=== PATIENT | female | born 1950 | race Caucasian/White ===

== ENCOUNTER → 2016-09-29 | Outpatient (CLI) | payer MEDICAID ==
[~2016-09-29] VITALS: Ht 165.1 cm; Wt 80.3 kg
[~2016-09-29] MED LIST: ADV1DS; ASP325T PO; ASP81TEC; BUDE10.22 IH; CARBINOXAMINE; CATHETER FLUSH 10 ML SYR IV PRN; CHOL100048 PO; CLD600T; CLON0.5T25 PO; CLON1TAB36; CLPD75T PO; CTRZ10T PO; CYAN1LOZ PO; CYCL10TA45; DESV50TA PO; DULO30CA; ENAL2.5T PO; ESTR1TAB24 PO; FENO145T; FENO145T2 PO; FRSM40T PO; GABA100C PO; GABA600T2 PO; GABA800T2 PO; GBPN100C PO; HYDR-2856 PO; LEVA1.256 NEB; LNS30CCR PO; LORA2TAB PO; MELO-195 PO; MELO7.5T; METANX; MIRAPEX; MONT10TA24 PO; MTF500T PO; MTF500TCR; MTH750T PO; NFNEB10T PO; OMEG-109 PO; PRD20T PO; PRNMV1T; PROP20TA23; QUIN10TA23 PO; REGADENOSON 0.4 MG/5 ML SYR (LEXISCAN) IV ONE; RNT150T PO; ROPI1TAB2 PO; TIOT18CA2 IH; VITA-185 PO; VRP240TCR PO; [UNRECOGNIZED DRUG - CODE] PO
[2016-09-29 13:13] VITALS: BP 145/88
--- NOTE | 2016-09-29 20:52 | STRESS TEST ---
PROCEDURE PHYSICIAN: JASPREET RIOS DATE OF PROCEDURE: 09/29/2016 LEXISCAN MYOVIEW STRESS TEST REPORT REFERRING PHYSICIAN: Dr. Maryellen Ray. INDICATIONS FOR THE PROCEDURE: 1. Congestive heart failure. 2. Peripheral arterial disease. BASELINE HEART RATE: 81 BASELINE BLOOD PRESSURE: 145/88 BASELINE EKG: Sinus rhythm with no ischemic changes. SUMMARY: The patient was injected with 10.17 mCi of technetium 99 Myoview and the resting images were obtained. Then the patient received 0.4 mg of Lexiscan followed by 30.2 mCi of technetium 99 Myoview. Throughout the test, there were no EKG changes. The resting and stress images were reviewed and compared in the short axis, horizontal long axis, and vertical long axis views. Review of the images showed breast attenuation with mild decreased uptake at the basal to mid anterior wall, with mild reversibility. SSS is 6, SDS 6. TID value 0.95. On the gated images, the left ventricle appeared to be normal size with diffuse left ventricular hypokinesia. Calculated ejection fraction 46%. CONCLUSION: 1. The patient tolerated Lexiscan well. 2. Breast attenuation with mild decreased uptake at the basal to mid anterior wall, with mild reversibility. 3. Normal left ventricular size with mild diffuse left ventricular hypokinesia. Calculated ejection fraction 46%. Job ID: [id number] Dictated Date: 09/29/2016 16:49:18 Telephone Operators Supervisor Date: 09/29/2016 20:49:16 / andrei
--- NOTE | 2016-09-29 21:31 | ECHOCARDIOGRAPHY REPORT ---
PROCEDURE PHYSICIAN: JASPREET RIOS DATE OF PROCEDURE: 09/29/2016 TWO DIMENSIONAL ECHOCARDIOGRAM REPORT PRIMARY PHYSICIAN: OTHER PHYSICIAN: REFERRING PHYSICIAN: Dr. Maryellen Ray, [facility] ORDERING PHYSICIAN: INDICATION FOR THE PROCEDURE: Congestive heart failure. MEASUREMENTS DERIVED VALUES LV DIAMETER (LAX) NORMALS NORMALS Diastolic 3.9 (3.6-5.2) Eject. Fract. 50% (60%+/-6%) Systolic (2.3-3.9) Diastolic Vol. % Shortening (0.22-0.42) Systolic Vol. Aortic Root IVS THICKNESS Diastolic 1 (0.6-1.1) LVPW THICKNESS Diastolic 1 (0.6-1.1) LA DIAMETER Systolic 2.9 (2.1-3.7) FINDINGS: 1. Technically suboptimal study. 2. The left ventricle is normal in size. Endocardium was not well visualized in all segments. Overall systolic function appeared to be preserved. Estimated ejection fraction 50%. 3. The left atrium is normal in size. No clot or thrombus were seen within the left atrium. 4. The right atrium and right ventricle are normal in size. No clot or thrombus were seen within the right side. 5. Mitral valve is normal in morphology with mild mitral regurgitation noted by color Doppler flow. Doppler across the mitral valve showed equalization of E:A, which is suggestive diastolic dysfunction. 6. Aortic valve is functioning normally. Leaflets were not well visualized. There is no significant aortic stenosis or regurgitation seen. 7. Tricuspid valve is normal in morphology with mild tricuspid regurgitation noted by color Doppler flow. Doppler across tricuspid valve estimated pulmonary artery pressure of 9+ right atrial pressure. 8. Pulmonic valve is functioning normally. 9. No pericardial effusion. CONCLUSION: 1. Normal left ventricular size. Endocardium was not well visualized in all segments. Overall systolic function is preserved. Estimated ejection fraction 50%. Diastolic dysfunction is suggested by Doppler. 2. Mild mitral and tricuspid regurgitation. 3. Estimated pulmonary artery pressure of 15 mmHg. Job ID: [id number] Dictated Date: 09/29/2016 17:12:25 Hospital Security Officer Date: 09/29/2016 21:26:05 / andrei
== END ==
LOC: CARD 10:53
PROVIDERS: ATTEND Physician Assistant
DX: I50.32 Chronic diastolic (congestive) heart failure (principal); I65.23 Occlusion and stenosis of bilateral carotid arteries; E11.9 Type 2 diabetes mellitus without complications; I10 Essential (primary) hypertension
CPT/HCPCS: 78452; 93017; 93306

== ENCOUNTER → 2016-10-07 | Outpatient (CLI) | payer MEDICAID ==
[~2016-10-07] MED LIST changes: -CATHETER FLUSH 10 ML SYR IV PRN; -REGADENOSON 0.4 MG/5 ML SYR (LEXISCAN) IV ONE
--- NOTE | 2016-10-11 08:35 | Diagnostic Imaging Report ---
Bilateral screening mammogram The current study was also evaluated with a Computer Aided Detection (CAD) system. Indication: Screening. No current complaints stated on the questionnaire. COMPARISON: 04/09/15 FINDINGS: The breasts are composed of a heterogeneously dense parenchyma which may decrease mammographic sensitivity. Occasional benign-appearing calcifications seen. There is a focal asymmetry in the lateral inferior aspect of the right breast measuring 7 mm. The left breast appears stable. IMPRESSION: Focal compression views and ultrasound evaluation for outer inferior right breast focal asymmetry recommended. ACR BI-RADS Category 0: Incomplete. (Needs additional imaging evaluation). Result letter will be mailed to the patient. Note: At least 10% of breast cancer is not imaged by mammography. Dictated by: Dictated on workstation # [id number]
== END ==
LOC: RAD 11:05
PROVIDERS: ATTEND Nurse Practitioner Community Health
DX: Z12.31 Encounter for screening mammogram for malignant neoplasm of breast (principal)
CPT/HCPCS: 77067

== ENCOUNTER 2016-10-11 07:01 | Day surgery (SDC) | payer MEDICAID ==
[~2016-10-11] VITALS: Ht 165.1 cm; Wt 78.5 kg
[2016-10-11] VITALS (10 sets, daily range): BP systolic 115–136; BP diastolic 70–89
[~2016-10-11 07:01] MED LIST changes: -CHOL100048 PO; -CLON0.5T25 PO; -GABA800T2 PO; -MONT10TA24 PO; -OMEG-109 PO; -QUIN10TA23 PO; -ROPI1TAB2 PO; -TIOT18CA2 IH
[2016-10-11] MEDS ORDERED: HEParin (CATH LAB) 2,000 ML IV ONE (07:08)
[2016-10-11] MEDS ORDERED: NS IV 1000 ML 1,000 ML ONE (07:08)
[2016-10-11] MEDS ORDERED: LIDOCAINE 1% INJ 20 ML (XYLOCAINE) VIAL ONE (07:08)
[2016-10-11] MEDS ORDERED: NS IV 1000 ML 1,000 ML IV SCH ×3 (07:16→08:52)
[2016-10-11 07:46] LABS: BILIRUBIN,URINE NEGATIVE (NEGATIVE); KETONES,URINE NEGATIVE (NEGATIVE); LEUKOCYTE ESTERASE ,URINE 2+ (NEGATIVE); NITRITE,URINE POSITIVE (NEGATIVE); PH,URINE 6 (5-9); PROTEIN,URINE NEGATIVE (NEGATIVE); UROBILINOGEN,URINE NORMAL (NORMAL)
--- NOTE | 2016-10-11 07:50 | Diagnostic Imaging Report ---
INDICATION: Precardiac catheter, coronary angiography. FINDINGS: Elevated left diaphragm a chronic finding. Heart size is stable. Surgical changes to the base of the left neck stable. No effusion, pneumothorax or failure pattern. IMPRESSION: No acute appearing abnormality. Dictated by: Dictated on workstation # [id number]
[2016-10-11 07:53] LABS: MEAN PLATELET VOLUME 11.9 FL (7.4-10.4); RED BLOOD COUNT 4.15 10^6/uL (4.35-5.85); RED CELL DISTRIBUTION WIDTH 14.9 % (10.0-14.5); WHITE BLOOD COUNT 6.6 10^3/uL (4.3-11.0)
[2016-10-11 07:58] LABS: INR 1.1 (0.8-1.4); PROTHROMBIN TIME PATIENT 13.9 SEC (12.2-14.7)
[2016-10-11 08:03] LABS: WBC,URINE 50-100 /HPF
[2016-10-11 08:07] LABS: BILIRUBIN,TOTAL 0.4 MG/DL (0.1-1.0); CALCIUM 9.1 MG/DL (8.5-10.1); CREATININE SERUM 0.99 MG/DL (0.60-1.30); POTASSIUM 3.7 MMOL/L (3.6-5.0); TOTAL PROTEIN 7.1 G/DL (6.4-8.2)
--- NOTE | 2016-10-11 08:12 | Cardiac Procedure Note-CS/ASA ---
Pre-Procedure Note Pre-Op Procedure Note H&P Reviewed The H&P was reviewed, patient examined and no changes noted. Date H&P Reviewed: Oct 11, 2016 Time H&P Reviewed: 08:12 Conscious Sedation Pre-Proced Time Reviewed: 08:12 ASA Class: 3 Airway Mallampati Classification: ([place] appropriate class) I. II. III, IV Lungs Heart ASA score ASA 1: a normal healthy patient ASA 2: a patient with a mild systemic disease (mid diabetes, controlled hypertension, obesity x ASA 3: a patient with a severe systemic disease that limits activity (angina , COPD, prior Myocardial infarction) ASA 4: a patient with an incapacitating disease that is a constant threat to life (CHF, renal failure) ASA 5: a moribund patient not expected to survive 24 hrs. (ruptured aneurysm) ASA 6: a declared brain patient whose organs are being harvested. For emergent operations, add the letter E after the classification Grade 3 Sedation Plan: Analgesia, Amnesia, Plan communicated to team members, Discussed options with patient/fam, Discussed risks with patient/fam Note The patient is an appropriate candidate to undergo the planned procedure, sedation, and anesthesia. The patient immediately re-assessed prior to indication. JASPREET RIOS MD Oct 11, 2016 08:12
[2016-10-11] MEDS ORDERED: OMEG-109 PO (08:13)
[2016-10-11] MEDS ORDERED: ROPI1TAB2 PO (08:13)
[2016-10-11] MEDS ORDERED: TIOT18CA2 IH (08:13)
[2016-10-11] MEDS ORDERED: GABA800T2 PO (08:13)
[2016-10-11] MEDS ORDERED: QUIN10TA23 PO (08:13)
[2016-10-11] MEDS ORDERED: CLON0.5T25 PO (08:13)
[2016-10-11] MEDS ORDERED: MONT10TA24 PO (08:13)
[2016-10-11] MEDS ORDERED: CHOL100048 PO (08:13)
[2016-10-11] MEDS ORDERED: fentaNYL INJECTION 100 MCG/2 ML AMP ONE (08:14)
[2016-10-11] MEDS ORDERED: MIDAZOLAM 5 MG/5 ML (VERSED) VIAL ONE (08:14)
--- NOTE | 2016-10-11 08:56 | Discharge Inst-Post CATH ---
Discharge Inst-CATH Post Cardiac Cath D/C Inst Follow Up/Plan Hold Metformin for [address] Crump's office in 2-4 weeks CARDIAC CATH DISCHARGE INSTRUCTIONS *Hold Metformin for 48 hours post heart cath. ACTIVITY * Go Home directly and rest. * Limit activity of the leg (or wrist if it was used) for 7 days including aerobics, swimming, jogging, bicycling, etc. * Restrict stair-climbing for 7 days if possible, if not, climb up with your non -cath leg, then bring together on the same step. * Avoid lifting, pushing, pulling or excessive movement of the affected extremity for 7 days. * Customary sexual activity may be resumed after 2 days-use caution not to use a position that strains or causes pain to the affected extremity. * No driving for 24 hours. * NO SMOKING. * Avoid straining for bowel movements for 7 days. * Gentle walking on level ground is allowed. * Returning to work will depend on the type of procedure and the results. Your doctor will discuss this with you. CALL YOUR DOCTOR FOR ANY OF THE FOLLOWING: *If bleeding from the puncture site occurs- Apply gentle pressure to site with clean cloth and call your doctor or EMS. * If a knot or lump forms under the skin, increases in size, or causes pain. * If bruising appears to be worsening or moving further down your leg instead of disappearing. * Temperature above 101 F. CARE OF YOUR GROIN INCISION; * Bruising or purple discoloration of the skin near the puncture site is common. * You may shower only, no bathtub bathing for 5 days. Be careful to avoid slipping as your leg may feel stiff. * If a closure device was used on your femoral artery, please see the attached guide regarding care of the device and your leg. * REMOVE the dressing from your groin the next day after your procedure in the shower. CARE OF YOUR WRIST INCISION; * Bruising or purple discoloration of the skin near the puncture site is common. * You may shower. * DO NOT submerge wrist. * Remove dressing in 24 hours. JASPREET CRUMP MD Oct 11, 2016 08:55
[2016-10-11] MEDS ORDERED: PATIENT MAY USE OWN MEDS, ALL PO SCH (09:00)
--- NOTE | 2016-10-11 09:29 | DISCHARGE SUMMARY ---
PROCEDURE PHYSICIAN: JASPREET RIOS DATE OF PROCEDURE: 10/11/2016 REFERRING PHYSICIAN: [facility]. BRIEF HISTORY: Mrs. Martinez is a 66-year-old lady with history of coronary artery disease, recurrent chest pain, hypertension, hyperlipidemia and peripheral arterial disease with carotid stenosis. She had an abnormal stress test. She was scheduled for left heart catheterization, possible PTCA. PROCEDURE NOTE: After explaining the procedure to the patient, all pros and cons were explained. All questions were answered. The patient signed a consent, then she was placed on the cardiac catheterization laboratory. The right groin was prepped in a sterile fashion. Local anesthesia applied to right groin. 6-Bolivian sheath was placed in the right femoral artery. Combination of right and left Rodrigo catheter were used to access the right and left coronary system. Multiple views were obtained. Pigtail catheter advanced to the left ventricular cavity. Left ventriculogram was done. Pullback LV to aorta was done. The aortic arch angiogram was done. At that point, the patient has a stent in the left carotid artery that is coming off the right innominate artery. Subsequently I was suspicious of having significant stenosis at the ostium of the left carotid artery. I decided to reintroduce the Rodrigo right catheter, advanced it to the left innominate artery and performed angiogram to the left subclavian artery. With that imaging I was able to visual a portion of the ostium of the left carotid artery. Then I pulled the catheter down and intubated the left carotid artery and performed selective angiogram to the left carotid artery. At that point catheter was removed. Sheath was removed and Mynx device deployed. Hemostasis achieved. Total contrast used a 68 mL. Total radiation is 57 mGy. FINDINGS: HEMODYNAMICS: LV pressure 122/20, end-diastolic pressure of 20, aortic pressure 131/67, mean of 97. ANATOMY: 1. LEFT MAIN CORONARY ARTERY: The left main coronary artery is bifurcating to left anterior descending and left circumflex artery with no obstructive disease. 2. LEFT ANTERIOR DESCENDING ARTERY: The left anterior descending artery is moderate in size with 40 to 50% stenosis at the proximal LAD. Mainly small kink in the LAD. Nonobstructive disease. 3. LEFT CIRCUMFLEX ARTERY: The left circumflex artery is moderate in size with no obstructive disease. 4. RIGHT CORONARY ARTERY: The right coronary artery is moderate in size with no significant obstructive disease. 5. LEFT VENTRICULOGRAM: No left ventriculogram was done. Left ventricular end-diastolic pressure is slightly elevated. 6. AORTIC ARCH ANGIOGRAM: Aortic arch angiogram appeared to be normal in size. No dissection or aneurysm. Origin of the innominate artery, left subclavian artery and left carotid artery were visualized and there was questionable stenosis at the ostium of the left subclavian artery, which appeared after selective angiogram, to be nonobstructive disease. 7. RIGHT INNOMINATE ARTERY: The right innominate artery and right subclavian selective angiogram showed no significant obstructive disease. 8. LEFT SUBCLAVIAN ARTERY SELECTION ANGIOGRAM: Left subclavian artery selective angiogram to the left subclavian artery showed patent stent. The left subclavian artery originate from the right innominate artery and has mild irregularity at its ostium due to angle. Mainly, nonobstructive disease. CONCLUSION: 1. Mild coronary artery disease to 40 to 50% proximal to mid LAD stenosis, nonobstructive disease. Otherwise, no significant obstructive disease. 2. Mildly elevated left ventricular end-diastolic pressure. 3. Normal aortic arch. 4. No significant disease in the right subclavian artery and right innominate artery. 5. Left subclavian artery originates from the right innominate artery. It has a patent stent, ostium has mild disease, nonobstructive disease. DISCUSSION AND RECOMMENDATION: Medical therapy is recommended. No intervention is warranted at this time. FINAL DIAGNOSES: 1. Coronary artery disease. 2. Carotid stenosis. 3. Hypertension. 4. Hyperlipidemia. Job ID: [id number] Dictated Date: 10/11/2016 09:02:03 Refrigeration Mechanic Date: 10/11/2016 09:27:58/andrei
== END 2016-10-11 13:22 | disposition home or self-care (01) ==
LOC: CATH 07:01 → SURG 09:05 → CATH 13:22
PROVIDERS: ATTEND Internal Medicine Cardiovascular Disease
DX: R07.89 Other chest pain (principal); I25.10 Atherosclerotic heart disease of native coronary artery without angina pectoris; I65.22 Occlusion and stenosis of left carotid artery; I10 Essential (primary) hypertension; E78.5 Hyperlipidemia, unspecified; E11.40 Type 2 diabetes mellitus with diabetic neuropathy, unspecified; M79.7 Fibromyalgia; F41.8 Other specified anxiety disorders; Z79.899 Other long term (current) drug therapy
CPT/HCPCS: 36222; 36225; 36415; 71010; 80053; 80061; 81000; 85027; 85610; 85730; 87081; 87088; 87186; 93005; 93458

== ENCOUNTER → 2016-11-04 | Outpatient (CLI) | payer MEDICAID ==
[~2016-11-04] MED LIST changes: +CHOL100048 PO; +CLON0.5T25 PO; +GABA800T2 PO; +MONT10TA24 PO; +OMEG-109 PO; +QUIN10TA23 PO; +ROPI1TAB2 PO; +TIOT18CA2 IH
--- NOTE | 2016-11-04 20:38 | Diagnostic Imaging Report ---
Right breast ultrasound. INDICATION: Right breast asymmetry seen on mammography with no definitive underlying lesion on additional compression views. FINDINGS: The retroareolar region and four quadrants of the right breast were scanned with no underlying abnormality seen. IMPRESSION: Negative study. Annual screening mammograms recommended. ACR BI-RADS Category 1: Negative. Dictated by: Dictated on workstation # [id number]
--- NOTE | 2016-11-04 20:39 | Diagnostic Imaging Report ---
Right breast diagnostic mammogram. The current study was also evaluated with a Computer Aided Detection (CAD) system. INDICATION: Asymmetries in the outer and inferior aspects of the right breast. FINDINGS: Focal compression views demonstrate less prominent asymmetries with no definite underlying lesion in favor of summation artifact of parenchyma. IMPRESSION: Less prominent asymmetries likely related to summation effect of parenchyma. Ultrasound evaluation pending. ACR BI-RADS Category 0: Incomplete. (Needs additional imaging evaluation). Result letter will be mailed to the patient. Note: At least 10% of breast cancer is not imaged by mammography. Dictated by: Dictated on workstation # [id number]
== END ==
LOC: RAD 08:09
PROVIDERS: ATTEND Nurse Practitioner Community Health
DX: R92.8 Other abnormal and inconclusive findings on diagnostic imaging of breast (principal)
CPT/HCPCS: 76641

== ENCOUNTER → 2018-02-09 | Outpatient (CLI) | payer MEDICARE, MEDICAID ==
[~2018-02-09] MED LIST changes: +QUIN10TA14 PO; -QUIN10TA23 PO
--- NOTE | 2018-02-09 12:11 | Diagnostic Imaging Report ---
INDICATION: Routine screening. Comparison is made with prior studies from 10/07/2016 and 04/09/2015. 2-D and 3-D bilateral screening mammography was performed. The current study was also evaluated with a Computer Aided Detection (CAD) system. FINDINGS: Scattered fibroglandular densities are identified bilaterally. No mass or malignant-appearing microcalcifications are seen. The axillae are unremarkable. IMPRESSION: No mammographic features suspicious for malignancy are identified. ACR BI-RADS Category 1: Negative. Result letter will be mailed to the patient. Note: At least 10% of breast cancer is not imaged by mammography. Dictated by: Dictated on workstation # [id number]
== END ==
LOC: RAD 09:43
PROVIDERS: ATTEND Nurse Practitioner Community Health
DX: Z12.31 Encounter for screening mammogram for malignant neoplasm of breast (principal)
CPT/HCPCS: 77067

== ENCOUNTER → 2018-11-06 | Outpatient (CLI) | payer MEDICAID, MEDICARE ==
[~2018-11-06] MED LIST changes: +GABA800T10 PO; -GABA800T2 PO
== END ==
LOC: CARD 13:20
PROVIDERS: ATTEND Internal Medicine Cardiovascular Disease
DX: I11.0 Hypertensive heart disease with heart failure (principal); I50.9 Heart failure, unspecified; E78.2 Mixed hyperlipidemia; E11.9 Type 2 diabetes mellitus without complications; G89.4 Chronic pain syndrome
CPT/HCPCS: 93306

== ENCOUNTER → 2018-11-21 | Outpatient (CLI) | payer MEDICAID, MEDICARE ==
--- NOTE | 2018-11-21 14:52 | Diagnostic Imaging Report ---
INDICATION: Postmenopausal state. COMPARISON: None available. FINDINGS: AP Spine L1-L4: [BMD (g/cm2): 1.228] [T-Score: 0.2] [Z-Score: 1.3] [BMD Previous: N/A] [BMD % Change: N/A] LT Hip Neck: [BMD (g/cm2): 0.737] [T-Score: -2.2] [Z-Score: -1.0] LT Hip Total: [BMD (g/cm2):0.828] [T-Score:-1.4] [Z-Score: -0.5] [BMD Previous: N/A] [BMD % Change: N/A] RT Hip Neck: [BMD (g/cm2):0.736] [T-Score:-2.2] [Z-Score:-1.0] RT Hip Total: [BMD (g/cm2):0.840] [T-score:-1.3] [Z-Score:-0.4] [BMD Previous:N/A] [BMD % Change:N/A] *Indicates significant change from prior examination based on 95% confidence level. World Health Organization criteria for BMD interpretation classify patients as Normal (T-score at or above -1.0), Osteopenic (T-score between -1.0 and -2.5) or Osteoporotic (T-score at or below -2.5). LIMITATIONS AND MODIFICATION: None. FRACTURE RISK (FRAX SCORE): The ten year probability of (%): Major Osteoporotic Fracture: [11.9] Hip Fracture: [2.2] IMPRESSION: 1. Osteopenia (Low bone mass). 2. Baseline examination. 3. See below National Osteoporosis Foundation guidelines on when to potentially initiate pharmacologic therapy. Based on the National Osteoporosis Foundation Guidelines, pharmacologic treatment should be initiated in any of the following, unless clinical conditions suggest otherwise: * Any patient with prior fragility fracture of the hip or vertebrae. A spine fracture indicates 5X risk for subsequent spine fracture and 2X risk for subsequent hip fracture. * Osteoporosis (T-score <-2.5). * Postmenopausal women and men age 50 and older with low bone mass/osteopenia (T-score between -1.0 and -2.5) by DXA and 10-year major osteoporotic fracture greater than 20% or a 10-year probability of hip fracture greater than 3%. These fracture risks are supplied above in the FRAX score, if applicable. * Clinician judgement and/or patient preferences may indicate treatment for people with 10-year fracture probabilities above or below these levels. Dictated by: Dictated on workstation # [id number]
== END ==
LOC: RAD 11:39
PROVIDERS: ATTEND Nurse Practitioner Community Health
DX: M85.89 Other specified disorders of bone density and structure, multiple sites (principal); N95.9 Unspecified menopausal and perimenopausal disorder; Z78.0 Asymptomatic menopausal state
CPT/HCPCS: 77080

== ENCOUNTER → 2019-05-18 | Outpatient (CLI) | payer MEDICARE ==
--- NOTE | 2019-05-23 10:08 | Diagnostic Imaging Report ---
INDICATION: Routine screening. Comparison is made with prior mammogram 02/09/2018 and 10/07/2016. 2-D and 3-D bilateral screening mammography was performed with CAD. Both breasts are heterogeneously dense, limiting the sensitivity of mammography. There are benign calcifications in both breasts. No mass or malignant-appearing microcalcifications are seen. Axillae are unremarkable. IMPRESSION: BI-RADS Category 2 No mammographic features suspicious for malignancy are identified. Dictated by: Dictated on workstation # [id number]
== END ==
LOC: RAD 10:54
PROVIDERS: ATTEND Nurse Practitioner Community Health
DX: Z12.31 Encounter for screening mammogram for malignant neoplasm of breast (principal)
CPT/HCPCS: 77067

== ENCOUNTER → 2019-12-10 | Outpatient (CLI) | payer MEDICARE ==
[~2019-12-10] MED LIST changes: -MONT10TA24 PO; +MONT10TA26 PO; +ROPI1TAB PO; -ROPI1TAB2 PO
== END ==
LOC: CARD 11:12
PROVIDERS: ATTEND Internal Medicine Cardiovascular Disease
DX: I10 Essential (primary) hypertension (principal); E78.2 Mixed hyperlipidemia; R55 Syncope and collapse; R00.2 Palpitations
CPT/HCPCS: 93306

== ENCOUNTER 2020-05-26 19:54 | Inpatient (IN) | payer MEDICARE ==
[~2020-05-26] VITALS: Ht 165.1 cm; Wt 78.5 kg
[~2020-05-26 19:54] MED LIST changes: -MONT10TA26 PO; +MONT10TA97 PO
[2020-05-26 20:52] LABS: BASOPHILS % (AUTO) 0 % (0-10); EOSINOPHILS # (AUTO) 0.1 10^3/uL (0.0-0.3); EOSINOPHILS % (AUTO) 1 % (0-10); HEMATOCRIT 35 % (35-52); HEMOGLOBIN 11.2 g/dL (11.5-16.0); LYMPHOCYTES # (AUTO) 0.8 10^3/uL (1.0-4.0); LYMPHOCYTES % (AUTO) 6 % (12-44); MEAN CORPUSCULAR HEMOGLOBIN 30 pg (25-34); MEAN CORPUSCULAR HGB CONC 32 g/dL (32-36); MEAN CORPUSCULAR VOLUME 94 fL (80-99); MEAN PLATELET VOLUME 12.8 fL (9.0-12.2); MONOCYTES # (AUTO) 0.6 10^3/uL (0.0-1.0); MONOCYTES % (AUTO) 4 % (0-12); NEUTROPHILS # (AUTO) 13.1 10^3/uL (1.8-7.8); NEUTROPHILS % (AUTO) 89 % (42-75); PLATELET COUNT 259 10^3/uL (130-400); WHITE BLOOD COUNT 14.7 10^3/uL (4.3-11.0)
--- NOTE | 2020-05-26 21:07 | ED Abdominal Pain ---
General Chief Complaint: Abdominal/GI Problems Stated Complaint: ABD PAIN/ VOMITING Nursing Triage Note: PT TO RM 2 BY WHEELCHAIR WITH COMPLAINT OF N/V. ALSO HAVING INCREASED TREMORS. PT WAS STARTED ON NEW PARKINSON MEDICATION LAST WEEK BY DR ARTIS AT [facility] [place]. Sepsis Screen: No Definite Risk Source of Information: Patient, Caregiver Exam Limitations: Other (altered mental status) History of Present Illness Date Seen by Provider: May 26, 2020 Time Seen by Provider: 21:07 Initial Comments This is a 70-year-old female who presents to the ER for complaints of nausea, vomiting, and increased tremors. She appears very lethargic and slow to respond to my questions. Instructed me to discuss with her son for further detail. Son states she was recently started on new Parkinson medication last week by Dr. Artis at [facility] [place] and he is unsure of name and dose. However, the past 2 days he's noticed a decline and cognition and increasing in nausea, vomiting. Denies fevers, chills, cough, shortness of breath, chest pain, syncope, dysuria or frequency. Patient incidentally notes that she has frequent falls with the last episode yesterday. States her knees gave out and she fell backwards hitting her head. However she is unable to recall what she hit her head on. Allergies and Home Medications Allergies Coded Allergies: morphine (Verified Allergy, Intermediate, HIVES...TAKES HYDROCODONE AT [facility], 03/20/08) acetaminophen (Verified Allergy, Mild, HIVES...TAKES HYDROCODONE AT HOME, 03/20/08) bacitracin (Verified Allergy, Unknown, 08/16/07) cyproheptadine (Verified Allergy, Unknown, 08/16/07) fluoxetine (Verified Allergy, Unknown, 08/16/07) gramicidin D (Verified Allergy, Unknown, 08/16/07) neomycin (Verified Allergy, Unknown, 08/16/07) polymyxin B (Verified Allergy, Unknown, 08/16/07) tizanidine (Verified Allergy, Unknown, 08/16/07) tramadol (Verified Allergy, Unknown, 08/16/07) Uncoded Allergies: ARTHRITIS MEDS (Allergy, Unknown, 08/16/07) DECONGESTANTS (Allergy, Unknown, 08/16/07) Home Medications Aspirin 325 Mg Tab, 325 MG PO DAILY, (Reported) Cetirizine Hcl 10 Mg Tablet, 1 EACH PO HS, (Reported) Cholecalciferol (Vitamin D3) 1,000 Unit Capsule, 1,000 UNIT PO DAILY, (Reported) Clonazepam 0.5 Mg Tab.rapdis, 0.5 MG PO BID, (Reported) Desvenlafaxine Succinate 50 Mg Tab.sr.24h, 50 MG PO DAILY, (Reported) Fenofibrate,Micronized 145 Mg Tablet, 1 EACH PO DAILY, (Reported) Gabapentin 800 Mg Tablet, 800 MG PO BID, (Reported) Hydrocodone Bit/Ibuprofen 1 Ea Tab, 1 TAB PO QID PRN, (Reported) Hydroxyzine Hcl 25 Mg Tablet, 1 EACH PO TID, (Reported) Methocarbamol 750 Mg Tab, 1 TAB PO TID, (Reported) Montelukast Sodium 10 Mg Tablet, 10 MG PO DAILY, (Reported) Nebivolol Hcl 10 Mg Tablet, 1 EACH PO DAILY, (Reported) TAKES AT 12:00 NOON [place]-3 Fatty Acids/Fish Oil 1 Each Capsule, 1 EACH PO DAILY, (Reported) Quinapril HCl 10 Mg Tablet, 10 MG PO DAILY, (Reported) Ranitidine Hcl 150 Mg Tablet, 1 TAB PO BID, (Reported) Ropinirole HCl 1 Mg Tablet, 1 MG PO TID, (Reported) Tiotropium [place] 1 Inh Aerp, 1 INH IH DAILY, (Reported) Verapamil Hcl 240 Mg Tab, 1 EACH PO DAILY, (Reported) Vitamin B Complex 1 Each Tablet, 1 EACH PO DAILY, (Reported) Patient Home Medication List Home Medication List Reviewed: Yes Review of Systems Review of Systems Constitutional: see HPI EENTM: See HPI Respiratory: See HPI Cardiovascular: See HPI Gastrointestinal: See HPI Genitourinary: See HPI Musculoskeletal: see HPI Skin: see HPI Psychiatric/Neurological: See HPI Endocrine: See HPI Hematologic/Lymphatic: See HPI Past Yvheoky-Ksuxfr-Tczpti Hx Patient Social History Alcohol Use: Denies Use Recreational Drug Use: No Smoking Status: Never a Smoker Recent Foreign Travel: No Contact w/Someone Who Travel: No Recent Infectious Disease Expo: No Recent Hopitalizations: Yes Immunizations Up To Date Date of Pneumonia Vaccine: Oct 11, 2013 Past Medical History Surgeries: Yes Respiratory: Yes Asthma Cardiac: Yes (L CAROTID) Neurological: No 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 Disorders: No Gastrointestinal: Yes Musculoskeletal: Yes Endocrine: Yes Cancer: No Psychosocial: Yes Blood Disorders: No Physical Exam Vital Signs Vital Signs - First Documented 05/26/20 20:11 Temp 36.1 Pulse 86 Resp 25 B/P (MAP) 183/101 (128) Pulse Ox 99 O2 Delivery Room Air Capillary Refill : Less Than 3 Seconds Height/Weight/BMI Height: 5'5.00" Weight: 173lbs. 0.0oz. [id number]; 26.00 BMI Method: General Appearance: WD/WN, no apparent distress, other (Lethargic) HEENT: PERRL/EOMI, pharynx normal; No scleral icterus (R), No scleral icterus (L); pale conjunctivae (R), pale conjunctivae (L) Neck: non-tender, full range of motion, supple, normal inspection Respiratory: chest non-tender, normal breath sounds, no respiratory distress, rales (bilateral bases) Cardiovascular: regular rate, rhythm, no gallop Gastrointestinal: normal bowel sounds, non tender, soft Extremities: normal range of motion, non-tender, normal inspection Back: normal inspection, no vertebral tenderness Neurologic/Psychiatric: no motor/sensory deficits, motor weakness, depressed affect, other (lethargic) Skin: warm/dry, pallor Focused Exam Lactate Level 05/26/20 21:25: Lactic Acid Level 0.80 Lactic Acid Level Laboratory Tests Test 05/26/20 21:25 Lactic Acid Level 0.80 MMOL/L (0.50-2.00) Progress/Results/Core Measures Results/Orders Lab Results Laboratory Tests Test 05/26/20 20:32 05/26/20 21:03 05/26/20 21:25 05/26/20 22:10 Range/Units White Blood Count 14.7 H 4.3-11.0 10^3/uL Red Blood Count 3.70 L 3.80-5.11 10^6/uL Hemoglobin 11.2 L 11.5-16.0 g/dL Hematocrit 35 35-52 % Mean Corpuscular Volume 94 80-99 fL Mean Corpuscular Hemoglobin 30 25-34 pg Mean Corpuscular Hemoglobin Concent 32 32-36 g/dL Red Cell Distribution Width 14.6 H 10.0-14.5 % Platelet Count 259 130-400 10^3/uL Mean Platelet Volume 12.8 H 9.0-12.2 fL Immature Granulocyte % (Auto) 1 % Neutrophils (%) (Auto) 89 H 42-75 % Lymphocytes (%) (Auto) 6 L 12-44 % Monocytes (%) (Auto) 4 0-12 % Eosinophils (%) (Auto) 1 0-10 % Basophils (%) (Auto) 0 0-10 % Neutrophils # (Auto) 13.1 H 1.8-7.8 10^3/uL Lymphocytes # (Auto) 0.8 L 1.0-4.0 10^3/uL Monocytes # (Auto) 0.6 0.0-1.0 10^3/uL Eosinophils # (Auto) 0.1 0.0-0.3 10^3/uL Basophils # (Auto) 0.0 0.0-0.1 10^3/uL Immature Granulocyte # (Auto) 0.1 0.0-0.1 10^3/uL Neutrophils % (Manual) 94 % Lymphocytes % (Manual) 4 % Monocytes % (Manual) 2 % Blood Morphology Comment NORMAL Sodium Level 142 144 135-145 MMOL/L Potassium Level 3.4 L 3.5 L 3.6-5.0 MMOL/L Chloride Level 102 103 98-107 MMOL/L Carbon Dioxide Level 26 25 21-32 MMOL/L Anion Gap 14 16 H 5-14 MMOL/L Blood Urea Nitrogen 30 H 30 H 7-18 MG/DL Creatinine 3.13 H 3.14 H 0.60-1.30 MG/DL Estimat Glomerular Filtration Rate 15 15 BUN/Creatinine Ratio 10 10 Glucose Level 170 H 171 H 70-105 MG/DL Calcium Level 11.8 H 11.9 H 8.5-10.1 MG/DL Corrected Calcium 12.1 H 8.5-10.1 MG/DL Total Bilirubin 0.7 0.7 0.1-1.0 MG/DL Aspartate Amino Transf (AST/SGOT) 32 34 5-34 U/L Alanine Aminotransferase (ALT/SGPT) 51 20 0-55 U/L Alkaline Phosphatase 26 L 26 L 40-136 U/L Total Protein 6.9 6.9 6.4-8.2 GM/DL Albumin 3.6 3.6 3.2-4.5 GM/DL Lipase 6808 H 8-78 U/L TSH [place] Testing 1.03 0.35-4.94 UIU/ML Direct Bilirubin 0.4 H 0.0-0.3 MG/DL Indirect Bilirubin 0.3 MG/DL Ammonia 38 H 11-32 UMOL/L Lactate Dehydrogenase 307 H 125-220 U/L Amylase Level 1034 H 25-125 U/L Salicylates Level < 5.0 L 5.0-20.0 MG/DL Acetaminophen Level < 10 L 10-30 UG/ML Serum Alcohol < 10 <10 MG/DL Lactic Acid Level 0.80 0.50-2.00 MMOL/L Urine Color YELLOW Urine Clarity CLEAR Urine pH 6.0 5-9 Urine Specific [place] 1.020 1.016-1.022 Urine Protein 1+ H NEGATIVE Urine Glucose (UA) NEGATIVE NEGATIVE Urine Ketones NEGATIVE NEGATIVE Urine Nitrite NEGATIVE NEGATIVE Urine Bilirubin NEGATIVE NEGATIVE Urine Urobilinogen 0.2 < = 1.0 MG/DL Urine Leukocyte Esterase NEGATIVE NEGATIVE Urine RBC (Auto) 1+ H NEGATIVE Urine RBC 2-5 H /HPF Urine WBC 5-10 H /HPF Urine Crystals PRESENT H /LPF Urine Amorphous Sediment MOD [place] URATES H /LPF Urine Bacteria TRACE /HPF Urine Casts PRESENT /LPF Urine Hyaline Casts 2-5 H /LPF Urine Mucus NEGATIVE /LPF Urine Culture Indicated NO Urine Opiates Screen NEGATIVE NEGATIVE Urine Oxycodone Screen NEGATIVE NEGATIVE Urine Methadone Screen NEGATIVE NEGATIVE Urine Propoxyphene Screen NEGATIVE NEGATIVE Urine Barbiturates Screen NEGATIVE NEGATIVE Ur Tricyclic Antidepressants Screen NEGATIVE NEGATIVE Urine Phencyclidine Screen NEGATIVE NEGATIVE Urine Amphetamines Screen NEGATIVE NEGATIVE Urine Methamphetamines Screen NEGATIVE NEGATIVE Urine Benzodiazepines Screen POSITIVE H NEGATIVE Urine Cocaine Screen NEGATIVE NEGATIVE Urine Cannabinoids Screen NEGATIVE NEGATIVE Test 05/26/20 22:27 Range/Units Coronavirus 2019 ([facility]) Negative Negative My Orders Orders - JUDITH DE LA GARZA [employer] Cbc With Automated Diff (05/26/20 20:02) Comprehensive Metabolic Panel (05/26/20 20:02) Ua Culture If Indicated (05/26/20 20:02) Iv [place]-Insert (Order) (05/26/20 20:02) Alcohol (05/26/20 21:03) Drug Screen Stat (Urine) (05/26/20 21:03) Acetaminophen (05/26/20 21:03) Salicylate (05/26/20 21:03) Ekg Tracing (05/26/20 21:03) Ed Iv/Invasive Line Start (05/26/20 21:03) Thyroid Analyzer (05/26/20 21:03) Amylase (05/26/20 21:03) Basic Metabolic Panel (05/26/20 21:03) Liver Panel (05/26/20 21:03) Lactic Acid Analyzer (05/26/20 21:03) Ammonia (05/26/20 21:03) Ct Head/Cervical Spine Wo (05/26/20 21:09) Ct Chest/Abdomen/Pelvis Wo (05/26/20 21:09) Ondansetron Injection (Zofran Injectio (05/26/20 21:18) Manual Differential (05/26/20 20:32) Lipase (05/26/20 22:15) Lactated Ringers (Lr 1000 Ml Iv Solution (05/26/20 22:16) Covid 19 Inhouse Test (05/26/20 22:21) LDH (05/26/20 21:03) Medications Given in ED Current Medications Medications Dose Ordered Sig/Lilly Route Start Time Stop Time Status Last Admin Dose Admin Lactated Ringer's 1,000 ml @ 0 mls/hr Q0M ONCE IV 05/26/20 22:16 05/26/20 22:18 DC 05/26/20 22:54 999 MLS/HR Ondansetron HCl 8 mg ONCE ONCE IVP 05/26/20 21:30 05/26/20 21:31 DC 05/26/20 21:22 8 MG Vital Signs/I&O 05/26/20 20:11 Temp 36.1 Pulse 86 Resp 25 B/P (MAP) 183/101 (128) Pulse Ox 99 O2 Delivery Room Air Blood Pressure Mean: 128 Progress Progress Note : Progress Note Discussed findings of CT chest/abd/pelvis with Dr. Scruggs , which shows right lower lobe pneumonia and pancreatitis versus pancreatic mass. Amylase, lipase, still pending at time of call. Dr. Scruggs, recommended inpatient ICU admission. [place]'s score 1 (age 55 or older). Plan/Disposition: Admit to ICU, room [address] Scruggs. Discussed this with the patient's son and patient, they are agreeable with plan. CAP -Ceftriaxone 1gm IV q24 hours -Azithromycin 500mg IV q 24 hours -Albuterol neb q4 hours PRN wheezing/shortness of breath -Sputum culture -Oxygen 2-4 liters PRN to keep O2 Sat >94% -Telemetry -Repeat CBC, CMP in am. -Initial lactic acid normal Pancreatitis: -LR @125ml/hr -NPO -Repeat lipase in am -Fentanyl 12.5mcg IVP q 2 hours PRN pain -Zofran 4mg IVP q4 hours PRN nausea VTE -Lovenox 30mg subcut q 24 hours FULL CODE Diagnostic Imaging Diagonstic Imaging: CT Plain Films/CT/US/NM/MRI: c-spine, head Comments NAME: FRIEDA LEWIS [facility] REC#: [id number] PT STATUS: REG ER : 1950 PHYSICIAN: JUDITH DE LA GARZA [employer]PER[employer] ADMIT DATE: 05/26/20/ER Draft Date of Exam:05/26/20 CT HEAD/CERVICAL SPINE WO PROCEDURE: CT head and CT cervical spine without contrast. TECHNIQUE: Multiple contiguous axial images were obtained through the brain and cervical spine without the use of intravenous contrast. Sagittal and coronal reformations through the cervical spine were then performed. Auto Exposure Controls were utilized during the CT exam to meet ALARA standards for radiation dose reduction. INDICATION: Increasing tremors. Fell. Altered mental status CT HEAD: There is no mass, shift of the midline or hemorrhage to suggest an acute abnormality. The ventricles are not abnormally dilated and stable in size when compared to the prior exam of 03/29/2014. The bone windows show no sign of a fracture or of a destructive lesion. The orbits are symmetrical and within normal limits. The sinuses are generally clear. IMPRESSION: 1. There is no evidence for an acute intracranial abnormality. 2. If clinical concern regarding an underlying abnormality persists, then MRI would be recommended for further study. CT CERVICAL SPINE: There are no prior studies available for comparison. The reconstructed parasagittal images show fairly severe degenerative disc and bony disease at C3-C4 and C6-C7. There is also a grade 1-2 spondylolisthesis of C5 with respect to C6 and a grade 1 spondylolisthesis of C4 with respect to C5. There is no high-grade central stenosis identified however. There is no fracture or acute bony abnormality evident. There is no sign of retropharyngeal edema. The thyroid gland is generally unremarkable. The lung apices are clear. IMPRESSION: 1. There is no evidence for an acute bony abnormality. 2. There is degenerative disc and bony disease involving the cervical spine, as described above. Dictated on workstation # [id number] Dict: [id number]/26/[id number] Trans: 05/26/202223 [facility] [id number] Interpreted by: FRANKIE CASAS MD Electronically signed by: Juan David Imaging: CT Plain Films/CT/US/NM/MRI: chest, abdomen, pelvis Comments NAME: FRIEDA LEWIS [facility] REC#: [id number] PT STATUS: REG ER : 1950 PHYSICIAN: JUDITH DE LA GARZA [employer] ADMIT DATE: 05/26/20/ER Signed Date of Exam:05/26/20 CT CHEST/ABDOMEN/PELVIS WO PROCEDURE: CT chest, abdomen, and pelvis without contrast. TECHNIQUE: Multiple contiguous axial images were obtained through the chest, abdomen, and pelvis without the use of intravenous contrast. Auto Exposure Controls were utilized during the CT exam to meet ALARA standards for radiation dose reduction. INDICATION: Fell, nausea and vomiting. COMPARISON: There are no recent CT chest, abdomen or pelvis examinations available for comparison. FINDINGS: The images through the abdomen show the head of the pancreas to be enlarged and there is distortion of the peripancreatic fat about the head of the pancreas. This finding does suggest acute pancreatitis. The possibility of an underlying pancreatic neoplasm involving the head of the pancreas should also be considered. There is also a 1.8 cm gallstone within the gallbladder but there is no sign of acute cholecystitis. The common bile duct does not seem to be dilated either. The liver, spleen, adrenals, kidneys, aorta and inferior vena cava show no sign of an acute abnormality. The stomach is partially filled with fluid and difficult to assess. There is elevation of the left hemidiaphragm and this does result in mild compressive atelectasis/infiltrate near the diaphragmatic lung interface. There is also pneumonia/atelectasis in the right infrahilar region. The heart is mildly enlarged and there are coronary artery calcifications evident. The aorta is not abnormally dilated. There is no obvious mediastinal or hilar adenopathy. The thyroid gland was not well visualized. There is no definite breast mass noted. The images through the pelvis show a moderate amount of free fluid. This may be related to the suspected inflammation of the pancreas. The uterus and urinary bladder are grossly unremarkable. The appendix was not well-visualized but there are no indirect signs of acute appendicitis. IMPRESSION: 1. The head of the pancreas is enlarged and there is marked distortion of the peripancreatic fat. While these findings may be secondary to acute pancreatitis alone, the possibility of an underlying pancreatic neoplasm involving the head of the pancreas should certainly be considered. 2. There is also a moderate amount of free fluid low in the pelvis. This may be related to the suspected inflammation of the pancreas. 3. There is elevation of the left hemidiaphragm with compressive atelectasis/infiltrate near the diaphragmatic lung interface. There is also right lower lobe pneumonia/atelectasis. Cardiomegaly and coronary artery disease is noted, as well. 4. There is cholelithiasis without evidence for acute cholecystitis. 5. These results were discussed with Dr. Judith De La Garza. Dictated by: Dictated on workstation # [id number] Dict: 05/26/[id number] Trans: 05/26/202218 [facility] [id number] Interpreted by: FRANKIE CASAS MD Electronically signed by: FRANKIE CASAS MD 05/26/202218 Departure Communication (Admissions) Time/Spoke to Admitting Phy: 22:37 Impression Primary Impression: Right lower lobe pneumonia Additional Impression: Pancreatitis Disposition: 09 ADMITTED INPATIENT Condition: Stable/Unchanged Admissions Decision to Admit Reason: Admit from ER (General) Decision to Admit/Date: May 26, 2020 Time/Decision to Admit Time: 22:37 Departure-Patient Inst. Referrals: DAVI MOFFETT MD (PCP) Primary Care Physician JUAN THOMPSON (Family) Primary Care Physician JUDITH DE LA GARZA [employer]ATOR May 26, 2020 21:07
--- NOTE | 2020-05-26 21:10 | NUR ---
Recieved report from HECTOR Howell to assume care of pt at this time.
[2020-05-26] MEDS ORDERED: ONDANSETRON 4 MG/2 ML (SDV) Z0FRAN ONE (21:18)
[2020-05-26] MEDS ORDERED: ONDANSETRON 4 MG/2 ML (SDV) Z0FRAN IVP ONE (21:30)
[2020-05-26 21:53] LABS: ALBUMIN 3.6 GM/DL (3.2-4.5)
[2020-05-26 21:54] LABS: POTASSIUM 3.4 MMOL/L (3.6-5.0)
[2020-05-26 21:55] LABS: CALCIUM 11.8 MG/DL (8.5-10.1)
[2020-05-26 21:56] LABS: TOTAL PROTEIN 6.9 GM/DL (6.4-8.2)
[2020-05-26 21:58] LABS: BILIRUBIN,TOTAL 0.7 MG/DL (0.1-1.0)
[2020-05-26 22:00] LABS: CREATININE SERUM 3.13 MG/DL (0.60-1.30)
[2020-05-26 22:09] LABS: LYMPHOCYTES % (MANUAL) 4 %; MONOCYTES % (MANUAL) 2 %; NEUTROPHILS % (MANUAL) 94 %; RBC MORPH NORMAL
[2020-05-26] MEDS ORDERED: LACTATED RINGERS 1,000 ML IV ONE (22:16)
--- NOTE | 2020-05-26 22:18 | Diagnostic Imaging Report ---
PROCEDURE: CT chest, abdomen, and pelvis without contrast. TECHNIQUE: Multiple contiguous axial images were obtained through the chest, abdomen, and pelvis without the use of intravenous contrast. Auto Exposure Controls were utilized during the CT exam to meet ALARA standards for radiation dose reduction. INDICATION: Fell, nausea and vomiting. COMPARISON: There are no recent CT chest, abdomen or pelvis examinations available for comparison. FINDINGS: The images through the abdomen show the head of the pancreas to be enlarged and there is distortion of the peripancreatic fat about the head of the pancreas. This finding does suggest acute pancreatitis. The possibility of an underlying pancreatic neoplasm involving the head of the pancreas should also be considered. There is also a 1.8 cm gallstone within the gallbladder but there is no sign of acute cholecystitis. The common bile duct does not seem to be dilated either. The liver, spleen, adrenals, kidneys, aorta and inferior vena cava show no sign of an acute abnormality. The stomach is partially filled with fluid and difficult to assess. There is elevation of the left hemidiaphragm and this does result in mild compressive atelectasis/infiltrate near the diaphragmatic lung interface. There is also pneumonia/atelectasis in the right infrahilar region. The heart is mildly enlarged and there are coronary artery calcifications evident. The aorta is not abnormally dilated. There is no obvious mediastinal or hilar adenopathy. The thyroid gland was not well visualized. There is no definite breast mass noted. The images through the pelvis show a moderate amount of free fluid. This may be related to the suspected inflammation of the pancreas. The uterus and urinary bladder are grossly unremarkable. The appendix was not well-visualized but there are no indirect signs of acute appendicitis. IMPRESSION: 1. The head of the pancreas is enlarged and there is marked distortion of the peripancreatic fat. While these findings may be secondary to acute pancreatitis alone, the possibility of an underlying pancreatic neoplasm involving the head of the pancreas should certainly be considered. 2. There is also a moderate amount of free fluid low in the pelvis. This may be related to the suspected inflammation of the pancreas. 3. There is elevation of the left hemidiaphragm with compressive atelectasis/infiltrate near the diaphragmatic lung interface. There is also right lower lobe pneumonia/atelectasis. Cardiomegaly and coronary artery disease is noted, as well. 4. There is cholelithiasis without evidence for acute cholecystitis. 5. These results were discussed with Dr. Judith Black. Dictated by: Dictated on workstation # [id number]
--- NOTE | 2020-05-26 22:24 | Diagnostic Imaging Report ---
PROCEDURE: CT head and CT cervical spine without contrast. TECHNIQUE: Multiple contiguous axial images were obtained through the brain and cervical spine without the use of intravenous contrast. Sagittal and coronal reformations through the cervical spine were then performed. Auto Exposure Controls were utilized during the CT exam to meet ALARA standards for radiation dose reduction. INDICATION: Increasing tremors. Fell. Altered mental status CT HEAD: There is no mass, shift of the midline or hemorrhage to suggest an acute abnormality. The ventricles are not abnormally dilated and stable in size when compared to the prior exam of 03/29/2014. The bone windows show no sign of a fracture or of a destructive lesion. The orbits are symmetrical and within normal limits. The sinuses are generally clear. IMPRESSION: 1. There is no evidence for an acute intracranial abnormality. 2. If clinical concern regarding an underlying abnormality persists, then MRI would be recommended for further study. CT CERVICAL SPINE: There are no prior studies available for comparison. The reconstructed parasagittal images show fairly severe degenerative disc and bony disease at C3-C4 and C6-C7. There is also a grade 1-2 spondylolisthesis of C5 with respect to C6 and a grade 1 spondylolisthesis of C4 with respect to C5. There is no high-grade central stenosis identified however. There is no fracture or acute bony abnormality evident. There is no sign of retropharyngeal edema. The thyroid gland is generally unremarkable. The lung apices are clear. IMPRESSION: 1. There is no evidence for an acute bony abnormality. 2. There is degenerative disc and bony disease involving the cervical spine, as described above. Dictated by: Dictated on workstation # [id number]
[2020-05-26 22:25] LABS: BILIRUBIN,URINE NEGATIVE (NEGATIVE); CLARITY,URINE CLEAR; COLOR,URINE YELLOW; GLUCOSE, URINE (UA) NEGATIVE (NEGATIVE); KETONES,URINE NEGATIVE (NEGATIVE); LEUKOCYTE ESTERASE ,URINE NEGATIVE (NEGATIVE); NITRITE,URINE NEGATIVE (NEGATIVE); PROTEIN,URINE 1+ (NEGATIVE)
[2020-05-26 22:39] LABS: BACTERIA,URINE TRACE /HPF
[2020-05-26 22:40] LABS: AMORPHOUS SEDIMENT,UR MOD AMOR URATES /LPF
[2020-05-26 22:40] LABS: ALBUMIN 3.6 GM/DL (3.2-4.5); CHLORIDE 103 MMOL/L (98-107); POTASSIUM 3.5 MMOL/L (3.6-5.0); SODIUM 144 MMOL/L (135-145)
[2020-05-26 22:41] LABS: CALCIUM 11.9 MG/DL (8.5-10.1)
[2020-05-26 22:42] LABS: AMMONIA 38 UMOL/L (11-32); AMYLASE 1034 U/L (25-125)
[2020-05-26 22:43] LABS: GLUCOSE 171 MG/DL (70-105); TOTAL PROTEIN 6.9 GM/DL (6.4-8.2)
[2020-05-26 22:44] LABS: BILIRUBIN,TOTAL 0.7 MG/DL (0.1-1.0); CARBON DIOXIDE 25 MMOL/L (21-32)
[2020-05-26] MEDS ORDERED: cefTRIAXone FOR IV USE 1,000 MG in WATER (STERILE) FOR INJECTION 10 ML IV ONE (22:45)
[2020-05-26 22:47] LABS: ALKALINE PHOSPHATASE 26 U/L (40-136); CREATININE SERUM 3.14 MG/DL (0.60-1.30); GFR ESTIMATED 15
[2020-05-26 22:48] LABS: BILIRUBIN,DIRECT 0.4 MG/DL (0.0-0.3); BILIRUBIN,INDIRECT 0.3 MG/DL; BUN/CREATININE RATIO 10
[2020-05-26 22:49] LABS: SALICYLATE < 5.0 MG/DL (5.0-20.0)
[2020-05-26 22:50] LABS: ALANINE AMINOTRANSFERASE 20 U/L (0-55)
[2020-05-26 22:51] LABS: BENZODIAZEPINES SCREEN URINE POSITIVE (NEGATIVE); COCAINE SCREEN URINE NEGATIVE (NEGATIVE)
[2020-05-26 22:52] LABS: AMPHETAMINE SCREEN, URINE NEGATIVE (NEGATIVE); BARBITURATE SCREEN URINE NEGATIVE (NEGATIVE); CANNABINOID SCREEN, URINE NEGATIVE (NEGATIVE); METHADONE STAT NEGATIVE (NEGATIVE); METHAMPHETAMINE SCREEN URINE S NEGATIVE (NEGATIVE); OPIATE SCREEN URINE NEGATIVE (NEGATIVE); OXYCODONE STAT NEGATIVE (NEGATIVE); PROPOXYPHENE STAT NEGATIVE (NEGATIVE); TRICYCLIC ANTIDEPRESSANTS SCRE NEGATIVE (NEGATIVE)
[2020-05-26 23:01] LABS: ACETAMINOPHEN < 10 UG/ML (10-30)
[2020-05-27] MEDS: LACTATED RINGERS 1,000 ML IV SCH ×4 (00:41→18:23)
[2020-05-27 00:42] VITALS: BP 155/90
[2020-05-27 00:43] LABS: ABG BASE EXCESS 4.1 MMOL/L (-2.5-2.5); ABG OXYGEN SATURATION 96 % (94-100); ABG PCO2 57 MMHG (35-45); ABG PO2 84 MMHG (79-93)
[2020-05-27 00:45] LABS: INSPIRED O2 2; VENTILATOR NO
[2020-05-27] MEDS ORDERED: RT-ALBUTEROL SULF 2.5 MG/3 ML PRE-MIX VIAL INH PRN (00:45)
[2020-05-27] MEDS ORDERED: ACETAMINOPHEN 650 MG SUPP (TYLENOL) PR PRN (00:45)
[2020-05-27 00:46] LABS: PATIENT TEMP 37.6
[2020-05-27 00:48] LABS: ABG PH 7.34 (7.37-7.43)
[2020-05-27] MEDS: fentaNYL INJECTION 100 MCG/2 ML AMP IVP PRN ×5 (00:51→21:42)
[2020-05-27] MEDS: ONDANSETRON 4 MG/2 ML (SDV) Z0FRAN IVP PRN ×2 (03:36→16:00)
[2020-05-27 03:57] LABS: BASOPHILS # (AUTO) 0.1 10^3/uL (0.0-0.1); BASOPHILS % (AUTO) 0 % (0-10); EOSINOPHILS % (AUTO) 0 % (0-10); HEMATOCRIT 37 % (35-52); HEMOGLOBIN 11.7 g/dL (11.5-16.0); LYMPHOCYTES # (AUTO) 1.4 10^3/uL (1.0-4.0); LYMPHOCYTES % (AUTO) 6 % (12-44); MEAN CORPUSCULAR HEMOGLOBIN 30 pg (25-34); MEAN CORPUSCULAR HGB CONC 32 g/dL (32-36); MEAN CORPUSCULAR VOLUME 95 fL (80-99); MEAN PLATELET VOLUME 12.8 fL (9.0-12.2); MONOCYTES # (AUTO) 1.1 10^3/uL (0.0-1.0); MONOCYTES % (AUTO) 5 % (0-12); NEUTROPHILS # (AUTO) 19.6 10^3/uL (1.8-7.8); NEUTROPHILS % (AUTO) 88 % (42-75); PLATELET COUNT 244 10^3/uL (130-400); WHITE BLOOD COUNT 22.3 10^3/uL (4.3-11.0)
[2020-05-27 04:15] LABS: TOTAL PROTEIN 6.7 GM/DL (6.4-8.2)
[2020-05-27 04:17] LABS: BILIRUBIN,TOTAL 0.5 MG/DL (0.1-1.0)
[2020-05-27 04:18] LABS: PHOSPHORUS 3.8 MG/DL (2.3-4.7)
[2020-05-27 04:19] LABS: CREATININE SERUM 2.93 MG/DL (0.60-1.30)
[2020-05-27 04:22] LABS: MAGNESIUM 1.6 MG/DL (1.6-2.4)
[2020-05-27 04:27] LABS: ALBUMIN 3.4 GM/DL (3.2-4.5); CALCIUM 11.2 MG/DL (8.5-10.1); POTASSIUM 3.5 MMOL/L (3.6-5.0)
[2020-05-27] MEDS: POTASSIUM CL 10MEQ/50ML IVPB 50 ML IV SCH ×3 (05:13→06:58)
[2020-05-27] MEDS: KCL 20 MEQ TAB (K-DUR) PO SCH (05:14)
[2020-05-27] MEDS: MAGNESIUM 1 GM/100 ML IVPB 100 ML IV SCH ×3 (05:14→09:27)
[2020-05-27] MEDS: ENOXAPARIN 30 MG/0.3 ML (LOVENOX) SYR SC SCH (09:27)
[2020-05-27] MEDS: AZITHROMYCIN 500 MG/NS 250 ML IVPB IV SCH ×2 (09:43)
--- NOTE | 2020-05-27 10:43 | History & Physical-Hospitalist ---
SNEHAL DE LA TORRE MED STUDENT 05/27/20 1043: History of Present Illness HPI/Chief Complaint HPI PER ED REPORT: This is a 70-year-old female who presents to the ER for complaints of nausea, vomiting, and increased tremors. She appears very lethargic and slow to respond to my questions. Instructed me to discuss with her son for further detail. Son states she was recently started on new Parkinson medication last week by Dr. Lou at [facility] and he is unsure of name and dose. However, the past 2 days he's noticed a decline and cognition and increasing in nausea, vomiting. Denies fevers, chills, cough, shortness of breath, chest pain, syncope, dysuria or frequency. Patient incidentally notes that she has frequent falls with the last episode yesterday. States her knees gave out and she fell backwards hitting her head. However she is unable to recall what she hit her head on. Source: RN/MD, other (ED provider report reviewed) Exam Limitations: clinical condition Date Seen 05/27/20 Time Seen by a Provider: 09:30 Attending Physician Jennifer Lassiter DO PCP Yosvany Jorgensen MD Referring Physician Date of Admission May 26, 2020 at 22:40 Home Medications & Allergies Home Medications Reviewed patient Home Medication Reconciliation performed by pharmacy medication reconciliations air sealing technician and/or nursing. Patients Allergies have been reviewed. Allergies Allergies Coded Allergies morphine (Verified Allergy, Intermediate, HIVES...TAKES HYDROCODONE AT HOME, 03/20/08) acetaminophen (Verified Allergy, Mild, HIVES...TAKES HYDROCODONE AT HOME, 03/20/08) bacitracin (Verified Allergy, Unknown, 08/16/07) cyproheptadine (Verified Allergy, Unknown, 08/16/07) fluoxetine (Verified Allergy, Unknown, 08/16/07) gramicidin D (Verified Allergy, Unknown, 08/16/07) neomycin (Verified Allergy, Unknown, 08/16/07) polymyxin B (Verified Allergy, Unknown, 08/16/07) tizanidine (Verified Allergy, Unknown, 08/16/07) tramadol (Verified Allergy, Unknown, 08/16/07) Uncoded Allergies ARTHRITIS MEDS ( Allergy, Unknown, 08/16/07) DECONGESTANTS ( Allergy, Unknown, 08/16/07) Past Cwmcxqe-Jhsldt-Lofsxj Hx Patient Social History Alcohol Use: Denies Use Recreational Drug Use: No Smoking Status: Never a Smoker Recent Foreign Travel: No Contact w/other who traveled: No Recent Hopitalizations: Yes Recent Infectious Disease Expo: No Immunizations Up To Date Date of Pneumonia Vaccine: Oct 11, 2013 Date of Influenza Vaccine: Apr 03, 2020 Past Medical History Surgeries: Coronary Stent Left Carotid endarectomy Respiratory: Asthma, COPD, Pneumonia Nocturnal Hypoxemia Currently Using CPAP: Yes (oxygen at night) Currently Using BIPAP: No Cardiac: Angina, Coronary Artery Disease, High Cholesterol, Hypertension, Peripheral Vascular, Syncope Heart Failure. Suspected subclavian steal syndrome Neurological: Neuropathy Restless leg syndrome 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: No Female 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 Disorders: Denies Gastrointestinal: Gastroesophageal Reflux, Pancreatitis (New diagnosis) Musculoskeletal: Degenerate Disk Disease, Fibromyalgia Osteopenia Endocrine: Diabetes, Non-Insulin dep Loss of Vision: Denies Hearing Impairment: Denies Psychosocial: Anxiety, Depression History of Blood Disorders: No Family History Cancer Review of Systems Constitutional: see HPI; No chills, No diaphoresis, No dizziness; malaise, weakness EENTM: no symptoms reported; No hearing loss, No blurred vision, No double vision Respiratory: no symptoms reported; No dyspnea on exertion, No hemoptysis, No short of breath Cardiovascular: no symptoms reported; No chest pain, No edema, No palpitations, No syncope Gastrointestinal: see HPI, abdominal pain (diffuse abdominal pain when palpating); No constipation, No diarrhea; nausea, vomiting Genitourinary: no symptoms reported; No decreased output, No dysuria, No frequency : No Musculoskeletal: no symptoms reported; No back pain, No joint pain Skin: no symptoms reported; No pruritus, No rash Psychiatric/Neurological: No Symptoms Reported; Denies Headache, Denies Numbness, Denies Tingling; Tremors, Weakness Physical Exam Physical Exam Vital Signs Vital Signs - First Documented 05/26/20 05/27/20 05/27/20 20:11 00:21 00:30 Temp 36.1 Pulse 86 Resp 25 B/P (MAP) 183/101 (128) Pulse Ox 99 O2 Delivery Room Air O2 Flow Rate 2.00 FiO2 2 Capillary Refill : Less Than 3 Seconds Height, Weight, BMI Height: 5'5.00" Weight: 173lbs. 0.0oz. 78.765498pt; 26.00 BMI Method: General Appearance: No Apparent Distress, Chronically ill Eyes: Bilateral Eye EOMI, Bilateral Eye Conjunctivae Pale HEENT: PERRL/EOMI, Pharynx Normal Neck: Full Range of Motion, Normal Inspection, Non Tender Respiratory: Chest Non Tender, No Accessory Muscle Use, No Respiratory Distress, Crackles (Right base) Cardiovascular: Regular Rate, Rhythm, No Edema, Normal Peripheral Pulses, Tachycardia Gastrointestinal: Normal Bowel Sounds, Soft; No Distended; Tenderness Rectal: Deferred Back: Normal Inspection, No Vertebral Tenderness; No Muscle Spasm Extremity: Normal Capillary Refill, Normal Inspection, Normal Range of Motion, No Calf Tenderness, No Pedal Edema Neurologic/Psychiatric: Alert, Oriented x3, Normal Mood/Affect Skin: Normal Color, Warm/Dry Lymphatic: No Adenopathy Results Results/Procedures Labs Laboratory Tests 05/26/20 20:32 05/26/20 21:03 05/27/20 03:30 Patient resulted labs reviewed. Imaging: Reviewed Imaging Report Assessment/Plan Admission Diagnosis Right lower lobe pneumonia Acute pancreatitis Admission Status: Inpatient Order (span 2 midnights) Reason for Inpatient Admission: Patient requires IV antibiotics, close monitoring, pain meds, antiemetics. Assessment and Plan Acute Pancreatitis- Lipase 6808, Amylase 1034 Right lower lobe pneumonia Diabetes mellitus HTN HLP COPD CAD S/P multiple stents PVD GERD Depression/anxiety Fibromyalgia 1. NPO 2. Zofran PRN nausea 3. General surgery consult- pancreatitis 4. Oxgyen via NC- titrate to keep sat's greater than 92% 5. Fentanyl IVP prn pain 6. LR @ 125ml/hr 7. Lovenox VTE prophylaxis 8. Rocephin and Azithromycin pneumonia 9. Tight glucose control Clinical Quality Measures DVT/VTE Risk/Contraindication: Risk Factor Score Per Nursin RFS Level Per Nursing on Admit: 4+=Very High JENNIFER LASSITER DO 05/28/20 0616: History of Present Illness HPI/Chief Complaint CC: Abdominal pain with nausea and vomiting and hypoxia HPI: This is a 70yoWF who has severe Parkinsons who presented with acute pancreatitis, lipase of 6,000 found a right lower lobe pneumonia with hypoxia, Covid swab was negative so she was placed on appropriate antibiotics, pain mediation and ICU with IV fluid resuscitation and Dr. Carter will see her in consultation. Emerson was placed due to urinary retention. Source: patient Past Zjwvreh-Isgyjm-Ztyiyk Hx Past Med/Social Hx: Reviewed Nursing Past Med/Soc Hx, Reviewed and Corrections made Patient Social History Marrital Status: single Employed/Student: unemployed Smoking Status: Unknown if Ever Smoked Past Medical History Neurological: Parkinson's Disease Review of Systems Constitutional: weakness Respiratory: cough, short of breath Physical Exam Physical Exam General Appearance: No Apparent Distress, Chronically ill Respiratory: No Accessory Muscle Use, No Respiratory Distress, Crackles (Right base), Decreased Breath Sounds Neurologic/Psychiatric: Alert, Depressed Affect, Disoriented Assessment/Plan Admission Diagnosis Acute pancreatitis PNA PD severe AMS Urinary retention Plan: IV abx Emerson Pain management Dr Carter consult Admission Status: Inpatient Order (span 2 midnights) Reason for Inpatient Admission: PNA with pancreatitis Diagnosis/Problems Diagnosis/Problems (1) Pancreatitis Status: Acute (2) Right lower lobe pneumonia Status: Acute Supervisory-Addendum Brief Verification & Attestation Participated in pt care: history, MDM, physical Personally performed: exam, history, MDM, supervision of care Care discussed with: Medical Student Procedures: n/a Results interpretation: Verified all documentation Verification and Attestation of Medical Student E/M Service A medical student performed and documented this service in my presence. I reviewed and verified all information documented by the medical student and made modifications to such information, when appropriate. I personally performed the physical exam and medical decision making. Jennifer Lassiter, May 28, 2020,06:16 SNEHAL DE LA TORRE MED STUDENT May 27, 2020 10:43 JENNIFER LASSITER DO May 28, 2020 06:16
[2020-05-27] MEDS ORDERED: QUIN20TA16 PO (14:02)
[2020-05-27] MEDS ORDERED: FAMO20TA5 PO (14:02)
[2020-05-27] MEDS ORDERED: VORT20TA PO (14:02)
[2020-05-27] MEDS ORDERED: CHOL100048 PO (14:02)
[2020-05-27] MEDS ORDERED: ASPI325T32 PO (14:02)
[2020-05-27] MEDS ORDERED: CYAN50LO PO (14:02)
[2020-05-27] MEDS ORDERED: ROSU10TA28 PO (14:02)
[2020-05-27] MEDS ORDERED: BACL10TA PO (14:02)
[2020-05-27] MEDS ORDERED: CARV6.252 PO (14:02)
[2020-05-27] MEDS ORDERED: CETI10TA17 PO (14:02)
[2020-05-27] MEDS ORDERED: ARIP15TA9 PO (14:02)
[2020-05-27] MEDS ORDERED: GABA800T10 PO (14:02)
[2020-05-27] MEDS ORDERED: FENO145T26 PO (14:02)
[2020-05-27] MEDS ORDERED: VERA240T14 PO (14:02)
[2020-05-27] MEDS ORDERED: ALBU2.5V4 NEB (14:02)
[2020-05-27] MEDS ORDERED: ALPR0.254 PO (14:02)
[2020-05-27] MEDS ORDERED: OMEG-35 PO (14:02)
--- NOTE | 2020-05-27 14:09 | NUR ---
SPOKE WITH THE PT, SHE WAS NOT ABLE TO GIVE ME ANY INFORMATION ABOUT HER MEDS AND WANTED ME TO CALL SHANIA (SON). I SPOKE WITH SHANIA, HAD [facility] FAX A MED LIST AND WENT THRU THE EXT MED HISTORY TO COMPLETE THE MED REC SHANIA WASNT ABLE TO GIVE ME MUCH INFORMATION ABOUT [facility]- ACCORDING TO HIM SHE MOVED IN WITH HIM RECENTLY. THEREFORE THE MED REC HAS BEEN COMPLETED USING THE [facility] MED LIST AND THE EXT MED HISTORY ACCORDING TO SHANIA THE PT WAS RECENTLY PRESCRIBED XANAX- SHE HAD PREVIOUSLY BEEN ON KLONOPIN BUT IS ONLY TAKING XANAX NOW DULOXETINE 20MG WAS LAST FILLED IN NOVEMBER 2019 #180/90DS AND IT SHOWS ON THE MED LIST FROM [facility] BUT WHEN I SPOKE WITH SHANIA HE IS UNDER THE IMPRESSION THAT [facility] IS NO LONGER TAKING THIS MEDICATION
--- NOTE | 2020-05-27 16:34 | Consultation - Surgery ---
History of Present Illness History of Present Illness Patient Consulted On(jac/time) 05/27/20 16:34 Date Seen by Provider: May 27, 2020 Time Seen by Provider: 16:34 History of Present Illness Consult requested by Dr. Scruggs for pancreatitis. Patient is a 70-year-old female who was reported last couple days continue to decline in overall nature. Patient week and poor cognition. Patient having abdominal pain that she states probably last couple days. Nothing makes it better. Nothing makes it worse that she knows of. Sometimes if pushing on it it does make it worse. She has had no previous episodes of this before she states. Patient still very limited conversation. She is not currently having any nausea or vomiting fever sweats chills shortness of breath or chest pain. Patient has CT scan demonstrating cholelithiasis inflammation around the pancreatic head cannot rule out neoplasm but appears to be pancreatitis, right lower lobe pneumonia/atelectasis. Again patient very minimally involved that with discussion. Allergies and Home Medications Allergies Coded Allergies: morphine (Verified Allergy, Intermediate, HIVES...TAKES HYDROCODONE AT HOME, 03/20/08) acetaminophen (Verified Allergy, Mild, HIVES...TAKES HYDROCODONE AT HOME, 03/20/08) bacitracin (Verified Allergy, Unknown, 08/16/07) cyproheptadine (Verified Allergy, Unknown, 08/16/07) fluoxetine (Verified Allergy, Unknown, 08/16/07) gramicidin D (Verified Allergy, Unknown, 08/16/07) neomycin (Verified Allergy, Unknown, 08/16/07) polymyxin B (Verified Allergy, Unknown, 08/16/07) tizanidine (Verified Allergy, Unknown, 08/16/07) tramadol (Verified Allergy, Unknown, 08/16/07) Uncoded Allergies: ARTHRITIS MEDS (Allergy, Unknown, 08/16/07) DECONGESTANTS (Allergy, Unknown, 08/16/07) Home Medications ALPRAZolam 0.25 Mg Tablet, 0.25 MG PO BID, (Reported) Albuterol Sulfate 2.5 Mg/3 Ml Vial.neb, 3 ML NEB QID PRN for SHORTNESS OF BREATH, (Reported) Aripiprazole 15 Mg Tablet, 7.5 MG PO DAILY, (Reported) TAKES OF A 15MG TAB Aspirin 325 Mg Tablet.dr, 325 MG PO DAILY, (Reported) Baclofen 10 Mg Tablet, 5 MG PO BID, (Reported) TAKES OF A 10MG TAB Carvedilol 6.25 Mg Tablet, 6.25 MG PO BID, (Reported) Cetirizine HCl 10 Mg Tablet, 10 MG PO DAILY, (Reported) Cholecalciferol (Vitamin D3) 25 Mcg Capsule, 25 MCG PO DAILY, (Reported) Cyanocobalamin (Vitamin B-12) 50 Mcg Lozenge, 100 MCG PO DAILY, (Reported) Famotidine 20 Mg Tablet, 20 MG PO BID, (Reported) Fenofibrate Nanocrystallized 145 Mg Tablet, 145 MG PO DAILY, (Reported) Gabapentin 800 Mg Tablet, 1,600 MG PO DAILY, (Reported) TAKES 2 (800MG) TABS Gabapentin 800 Mg Tablet, 800 MG PO HS, (Reported) Montelukast Sodium 10 Mg Tablet, 10 MG PO DAILY, (Reported) [place]-3/Dha/Epa/Fish Oil 1 Each Capsule, 1 EACH PO TID, (Reported) Quinapril HCl 20 Mg Tablet, 20 MG PO DAILY, (Reported) Ropinirole HCl 1 Mg Tablet, 1 MG PO TID, (Reported) Rosuvastatin Calcium 10 Mg Tablet, 10 MG PO DAILY, (Reported) Tiotropium [place] 1 Inh Aerp, 1 INH IH DAILY, (Reported) Verapamil HCl 240 Mg Tablet.er, 240 MG PO DAILY, (Reported) Vortioxetine Hydrobromide 20 Mg Tablet, 20 MG PO DAILY, (Reported) Patient Home Medication List Home Medication List Reviewed: Yes Past Nncolsb-Hezflo-Mefcxr Hx Patient Social History Alcohol Use: Denies Use Recreational Drug Use: No Smoking Status: Never a Smoker Recent Foreign Travel: No Contact w/Someone Who Travel: No Recent Infectious Disease Expo: No Recent Hopitalizations: Yes Immunizations Up To Date Date of Pneumonia Vaccine: Oct 11, 2013 Date of Influenza Vaccine: Apr 03, 2020 Surgeries History of Surgeries: Yes Surgeries: Coronary Stent Respiratory History of Respiratory Disorde: Yes Respiratory Disorders: Asthma Cardiovascular History of Cardiac Disorders: Yes (L CAROTID) Cardiac Disorders: Angina, Coronary Artery Disease, High Cholesterol, Hypertension, Peripheral Vascular, Syncope Neurological History of Neurological Disord: No Neurological Disorders: Neuropathy 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 System Hx 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 Disorders: No Female 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 Disorders: Denies Gastrointestinal History of Gastrointestinal Di: Yes Gastrointestinal Disorders: Gastroesophageal Reflux, Pancreatitis (New diagnosis) Musculoskeletal History of Musculoskeletal Dis: Yes Musculoskeletal Disorders: Degenerate Disk Disease, Fibromyalgia Endocrine History of Endocrine Disorders: Yes Endocrine Disorders: Diabetes, Non-Insulin dep HEENT Loss of Vision: Denies Hearing Impairment: Denies Cancer History of Cancer: No Psychosocial History of Psychiatric Problem: Yes Behavioral Health Disorders: Anxiety, Depression Blood Transfusions History of Blood Disorders: No Reviewed Nursing Assessment Reviewed/Agree w Nursing PMH: Yes Family Medical History Significant Family History: Cancer Review of Systems-General Constitutional: No diaphoresis; malaise, weakness EENTM: No ear pain, No hoarseness Respiratory: No no symptoms reported; dyspnea on exertion, short of breath Cardiovascular: No chest pain, No palpitations Gastrointestinal: abdominal pain (Epigastric); No dysphagia, No hematemesis Musculoskeletal: No back pain, No joint pain Skin: No change in color, No change in hair/nails Psychiatric/Neurological: Denies Anxiety, Denies Depressed All Other Systems Reviewed Negative Unless Noted: Yes (Negative excepted noted.) Physical Exam-General Problems Physical Exam Vital Signs Vital Signs - First Documented 05/26/20 05/27/20 05/27/20 20:11 00:21 00:30 Temp 36.1 Pulse 86 Resp 25 B/P (MAP) 183/101 (128) Pulse Ox 99 O2 Delivery Room Air O2 Flow Rate 2.00 FiO2 2 Capillary Refill : Less Than 3 Seconds General Appearance: no apparent distress, other (ill appearing) HEENT: PERRL/EOMI, normal ENT inspection Neck: non-tender, supple Respiratory: No normal breath sounds; no respiratory distress, decreased breath sounds Cardiovascular: tachycardia Gastrointestinal: distended (minimal), tenderness (epigastric abd pain on palpation) Rectal: deferred Back: no CVA tenderness, no vertebral tenderness Extremities: non-tender, normal inspection Neurologic/Psychiatric: bookkeeping clerk II-XII nml as tested, no motor/sensory deficits, alert, normal mood/affect; No oriented x 3 Skin: normal color, warm/dry Lymphatic: no adenopathy Data Review Labs Laboratory Tests 05/26/20 20:32: White Blood Count 14.7H, Red Blood Count 3.70L, Hemoglobin 11.2L, Hematocrit 35, Mean Corpuscular Volume 94, Mean Corpuscular Hemoglobin 30, Mean Corpuscular Hem oglobin Concent 32, Red Cell Distribution Width 14.6H, Platelet Count 259, Mean Platelet Volume 12.8H, Immature Granulocyte % (Auto) 1, Neutrophils (%) (Auto) 89H, Lymphocytes (%) (Auto) 6L, Monocytes (%) (Auto) 4, Eosinophils (%) (Auto) 1, Basophils (%) (Auto) 0, Neutrophils # (Auto) 13.1H, Lymphocytes # (Auto) 0.8L , Monocytes # (Auto) 0.6, Eosinophils # (Auto) 0.1, Basophils # (Auto) 0.0, Immature Granulocyte # (Auto) 0.1, Neutrophils % (Manual) 94, Lymphocytes % (Manual) 4, Monocytes % (Manual) 2, Blood Morphology Comment NORMAL, Sodium Level 142, Potassium Level 3.4L, Chloride Level 102, Carbon Dioxide Level 26, Anion Gap 14, Blood Urea Nitrogen 30H, Creatinine 3.13H, Estimat Glomerular Filtration Rate 15, BUN/Creatinine Ratio 10, Glucose Level 170H, Calcium Level 11.8H, Corrected Calcium 12.1H, Total Bilirubin 0.7, Aspartate Amino Transf (AST/SGOT) 32, Alanine Aminotransferase (ALT/SGPT) 51, Alkaline Phosphatase 26L, Total Protein 6.9, Albumin 3.6, Lipase 6808H, TSH Pitt Testing 1.03 05/26/20 21:03: Sodium Level 144, Potassium Level 3.5L, Chloride Level 103, Carbon Dioxide Level 25, Anion Gap 16H, Blood Urea Nitrogen 30H, Creatinine 3.14H, Estimat Glomerular Filtration Rate 15, BUN/Creatinine Ratio 10, Glucose Level 171H, Calcium Level 11.9H, Total Bilirubin 0.7, Aspartate Amino Transf (AST/SGOT) 34, Alanine Aminotransferase (ALT/SGPT) 20, Alkaline Phosphatase 26L, Total Protein 6.9, Albumin 3.6, Direct Bilirubin 0.4H, Indirect Bilirubin 0.3, Ammonia 38H, Lactate Dehydrogenase 307H, Amylase Level 1034H, Salicylates Level < 5.0L, Acetaminophen Level < 10L, Serum Alcohol < 10 05/26/20 21:25: Lactic Acid Level 0.80 05/26/20 22:10: Urine Color YELLOW, Urine Clarity CLEAR, Urine pH 6.0, Urine Specific [place] 1.020, Urine Protein 1+H, Urine Glucose (UA) NEGATIVE, Urine Ketones NEGATIVE, Urine Nitrite NEGATIVE, Urine Bilirubin NEGATIVE, Urine Urobilinogen 0.2, Urine Leukocyte Esterase NEGATIVE, Urine RBC (Auto) 1+H, Urine RBC 2-5H, Urine WBC 5-10H, Urine Crystals PRESENTH, Urine Amorphous Sediment MOD R[place] URATESH, Urine Bacteria TRACE, Urine Casts PRESENT, Urine Hyaline Casts 2-5H, Urine Mucus NEGATIVE, Urine Culture Indicated NO, Urine Opiates Screen NEGATIVE, Urine Oxycodone Screen NEGATIVE, Urine Methadone Screen NEGATIVE, Urine Propoxyphene Screen NEGATIVE, Urine Barbiturates Screen NEGATIVE, Ur Tricyclic Antidepressants Screen NEGATIVE, Urine Phencyclidine Screen NEGATIVE, Urine Amphetamines Screen NEGATIVE, Urine Methamphetamines Screen NEGATIVE, Urine Benzodiazepines Screen POSITIVEH, Urine Cocaine Screen NEGATIVE, Urine Cannabinoids Screen NEGATIVE 05/26/20 22:27: Coronavirus 2019 (TYLER) Negative 05/27/20 00:34: Blood Gas Puncture Site RIGHT RADIAL, Blood Gas Patient Temperature 37.6, Arterial Blood pH 7.34*L, Arterial Blood Partial Pressure CO2 57H, Arterial Blood Partial Pressure O2 84, Arterial Blood HCO3 29H, Arterial Blood Total CO2 31.0, Arterial Blood Oxygen Saturation 96, Arterial Blood Base Excess 4.1H, Killian Test UNKNOWN, Blood Gas Ventilator Setting NO, Blood Gas Inspired Oxygen 2 05/27/20 03:30: White Blood Count 22.3H, Red Blood Count 3.88, Hemoglobin 11.7, Hematocrit 37, Mean Corpuscular Volume 95, Mean Corpuscular Hemoglobin 30, Mean Corpuscular Hemoglobin Concent 32, Red Cell Distribution Width 14.7H, Platelet Count 244, Mean Platelet Volume 12.8H, Immature Granulocyte % (Auto) 1, Neutrophils (%) (Auto) 88H, Lymphocytes (%) (Auto) 6L, Monocytes (%) (Auto) 5, Eosinophils (%) (Auto) 0, Basophils (%) (Auto) 0, Neutrophils # (Auto) 19.6H, Lymphocytes # (Auto) 1.4, Monocytes # (Auto) 1.1H, Eosinophils # (Auto) 0.0, Basophils # (Auto) 0.1, Immature Granulocyte # (Auto) 0.1, Sodium Level 142, Potassium Level 3.5L, Chloride Level 104, Carbon Dioxide Level 27, Anion Gap 11, Blood Urea Nitrogen 30H, Creatinine 2.93H, Estimat Glomerular Filtration Rate 16, BUN/Creatinine Ratio 10, Glucose Level 122H, Calcium Level 11.2H, Corrected Calcium 11.7H, Phosphorus Level 3.8, Magnesium Level 1.6, Total Bilirubin 0.5, Aspartate Amino Transf (AST/SGOT) 33, Alanine Aminotransferase (ALT/SGPT) 18, Alkaline Phosphatase 32L, Total Protein 6.7, Albumin 3.4, Triglycerides Level 1 01, Cholesterol Level 99, LDL Cholesterol Direct 40, VLDL Cholesterol 20, HDL Cholesterol 26L, Lipase 6805H Assessment/Plan Assessment/Plan Assessment/Plan Right lower lobe pneumonia/atelectasis Pancreatitis Epigastric abdominal pain Cholelithiasis Patient to continue with IV fluids and antibiotics. Patient will eventually need her gallbladder out due to a larger gallstone but there is no evidence of acute cholecystitis by CT scan at this time. But would recommend taking out in the near future. Patient pancreatitis continue conservative measures at this time, IV fluids hydration antibiotics. Pain control, repeat labs in a.m. Clinical Quality Measures DVT/VTE Risk/Contraindication: Risk Factor Score Per Nursin RFS Level Per Nursing on Admit: 4+=Very High ANNMARIE AGUILAR DO May 27, 2020 16:34
[2020-05-27] MEDS ORDERED: NS IV 1000 ML 1,000 ML IV SCH (17:45)
[2020-05-27] MEDS: cefTRIAXone 1,000 MG/SWFI 10 ML IV PUSH IV SCH ×2 (22:24)
[2020-05-28] MEDS: fentaNYL INJECTION 100 MCG/2 ML AMP IVP PRN ×2 (00:38→19:48)
[2020-05-28] MEDS: LACTATED RINGERS 1,000 ML IV SCH ×3 (02:18→23:22)
[2020-05-28 03:49] LABS: BASOPHILS % (AUTO) 0 % (0-10); EOSINOPHILS # (AUTO) 0.1 10^3/uL (0.0-0.3); EOSINOPHILS % (AUTO) 0 % (0-10); HEMATOCRIT 33 % (35-52); HEMOGLOBIN 10.9 g/dL (11.5-16.0); LYMPHOCYTES # (AUTO) 1.5 10^3/uL (1.0-4.0); LYMPHOCYTES % (AUTO) 6 % (12-44); MEAN CORPUSCULAR HEMOGLOBIN 30 pg (25-34); MEAN CORPUSCULAR HGB CONC 33 g/dL (32-36); MEAN CORPUSCULAR VOLUME 91 fL (80-99); MEAN PLATELET VOLUME 12.8 fL (9.0-12.2); MONOCYTES # (AUTO) 1.2 10^3/uL (0.0-1.0); MONOCYTES % (AUTO) 5 % (0-12); NEUTROPHILS # (AUTO) 20.3 10^3/uL (1.8-7.8); NEUTROPHILS % (AUTO) 87 % (42-75); PLATELET COUNT 195 10^3/uL (130-400); WHITE BLOOD COUNT 23.3 10^3/uL (4.3-11.0)
[2020-05-28 03:59] LABS: POTASSIUM 3.8 MMOL/L (3.6-5.0)
[2020-05-28 04:04] LABS: PHOSPHORUS 2.6 MG/DL (2.3-4.7)
[2020-05-28 04:05] LABS: CREATININE SERUM 2.94 MG/DL (0.60-1.30)
[2020-05-28 04:07] LABS: MAGNESIUM 1.7 MG/DL (1.6-2.4)
[2020-05-28] MEDS: KCL 20 MEQ TAB (K-DUR) PO SCH (04:18)
[2020-05-28] MEDS: MAGNESIUM 1 GM/100 ML IVPB 100 ML IV SCH (04:18)
[2020-05-28] MEDS: POTASSIUM CL 10MEQ/50ML IVPB 50 ML IV SCH (04:18)
[2020-05-28 05:54] LABS: ALBUMIN 2.6 GM/DL (3.2-4.5)
[2020-05-28 05:56] LABS: TOTAL PROTEIN 5.4 GM/DL (6.4-8.2)
[2020-05-28 05:58] LABS: BILIRUBIN,TOTAL 0.4 MG/DL (0.1-1.0)
[2020-05-28 06:02] LABS: BILIRUBIN,DIRECT 0.3 MG/DL (0.0-0.3); BILIRUBIN,INDIRECT 0.1 MG/DL
[2020-05-28] MEDS ORDERED: RT-ALBUTEROL SULF 2.5 MG/3 ML PRE-MIX VIAL IH PRN (06:15)
[2020-05-28] MEDS ORDERED: RT-ALBUTEROL/IPRATROPIUM 3 ML (DUONEB) VIAL ONE (06:16)
--- NOTE | 2020-05-28 06:32 | NUR ---
Patient to room 412 att via Bed with this nurse and Melissa YOUNG per orders. Bedside SBAR report given to Akhil YOUNG.
--- NOTE | 2020-05-28 06:37 | NUR ---
ASSUMING CARE OF PT BEING TRANSFERRED DOWN FROM CU6. PT BROUGHT TO 4TH FLOOR VIA BED ON 3L NC BY [employer]. PT BELONGS BROUGHT WITH PT. PT INTRODUCED TO STAFF AND NEW ROOM. CALL LIGHT GIVEN TO PT. PT DOES NOT VERBALIZE ANY COMPLAINTS AT THIS TIME.
--- NOTE | 2020-05-28 07:21 | Diagnostic Imaging Report ---
Indication: Pneumonia. Pancreatitis Upright portable chest shows normal heart size and vascularity. There is bibasilar atelectasis with elevation of the left hemidiaphragm. There is some consolidation at the right lung base medially. This corresponds with a CT from 05/26/2020. The upper lungs are clear. IMPRESSION: Basilar atelectasis with right lower lobe infiltrate. Stable chest. Dictated by: Dictated on workstation # [id number]
--- NOTE | 2020-05-28 07:21 | Progress Note - Hospitalist ---
Subjective HPI/CC On Admission Date Seen by Provider: May 28, 2020 Time Seen by Provider: 10:30 CC: Abdominal pain with nausea and vomiting and hypoxia HPI: This is a 70yoWF who has severe Parkinsons who presented with acute pancreatitis, lipase of 6,000 found a right lower lobe pneumonia with hypoxia, Covid swab was negative so she was placed on appropriate antibiotics, pain mediation and ICU with IV fluid resuscitation and Dr. Carter will see her in consultation. Emerson was placed due to urinary retention. Subjective/Events-last exam WBC remains elevated at 23 Lipase 6785 Nebulizer really help her Pt much more alert today Gabapentin dose will be adjusted since renal failure, her max dose is 700mg at night Imodium will be given for diarrhea Will initiate PT and OT Review of Systems General: Fatigue Gastrointestinal: Nausea, Abdominal Pain Focused Exam Lactate Level 05/26/20 21:25: Lactic Acid Level 0.80 Objective Exam Vital Signs Vital Signs Date Time Temp Pulse Resp B/P (MAP) Pulse Ox O2 Delivery O2 Flow Rate FiO2 05/29/20 04:00 36.0 93 20 117/74 (88) 93 Nasal Cannula 5.00 05/27/20 00:42 21 Capillary Refill : Less Than 3 Seconds General Appearance: No Apparent Distress, WD/WN, Chronically ill Respiratory: Chest Non Tender, Lungs Clear, Normal Breath Sounds, No Accessory Muscle Use, No Respiratory Distress Cardiovascular: Regular Rate, Rhythm, No Edema, No Gallop, No JVD, No Murmur, Normal Peripheral Pulses Neurologic/Psychiatric: Alert, Oriented x3, No Motor/Sensory Deficits, Normal Mood/Affect Results/Procedures Lab Patient resulted labs reviewed. Imaging: Reviewed Imaging Report Assessment/Plan Assessment and Plan Assess & Plan/Chief Complaint Assessment: AMS Acute pancreatitis PNA PD severe Plan: Pain management IV abx Monitor O2 Diagnosis/Problems Diagnosis/Problems (1) Pancreatitis Status: Acute (2) Right lower lobe pneumonia Status: Acute Clinical Quality Measures DVT/VTE Risk/Contraindication: Risk Factor Score Per Nursin RFS Level Per Nursing on Admit: 4+=Very High ASHA LASSITER DO May 28, 2020 07:21
[2020-05-28] MEDS ORDERED: NON-FORMULARY MEDICATION 1 EA EA (Gabapentin 1,600 MG) PO SCH (09:00)
[2020-05-28] MEDS ORDERED: NON-FORMULARY MEDICATION 1 EA EA (Vortioxetine Hydrobromide (Trintellix) 20 MG) PO SCH (09:00)
--- NOTE | 2020-05-28 09:30 | NUR ---
Messaged Dr. Scruggs to confirm that patient can take PO medications. Dr. Scruggs requested I ask Dr. Carter. I messaged Dr. Carter and he stated she could take pills with water. Dr. Scruggs informed. Medications administered at this time.
[2020-05-28] MEDS: ENOXAPARIN 30 MG/0.3 ML (LOVENOX) SYR SC SCH (09:32)
[2020-05-28] MEDS: LORATADINE (CLARITIN) 10 MG TAB PO SCH (09:36)
[2020-05-28] MEDS: CARVEDILOL 6.25 MG (COREG) TAB PO SCH ×2 (09:36→21:27)
[2020-05-28] MEDS: BACLOFEN 10 MG (LIORESAL) TAB PO SCH ×2 (09:36→21:27)
[2020-05-28] MEDS: MONTELUKAST 10 MG (SINGULAIR) TAB PO SCH (09:37)
[2020-05-28] MEDS: FAMOTIDINE 20 MG (PEPCID) TABLET PO SCH (09:37)
[2020-05-28] MEDS: ALPRAZolam 0.25 MG (XANAX) TAB PO SCH ×2 (09:37→21:27)
[2020-05-28] MEDS: ASPIRIN E.C. 325 MG (ECOTRIN) TABLET PO SCH (09:38)
[2020-05-28] MEDS: VERAPAMIL SR 240 MG (CALAN SR) TAB PO SCH (09:50)
--- NOTE | 2020-05-28 09:50 | NUR ---
Pharmacy staff stopped me in the hallway and requested I notify Dr. Scruggs that the patients recommended daily dose of gabapentin is 700mg per CrCl and the patient reported taking over double that amount at home. Dr. Scruggs notified at this time.
[2020-05-28] MEDS: AZITHROMYCIN 500 MG/NS 250 ML IVPB IV SCH ×2 (09:53)
--- NOTE | 2020-05-28 10:56 | Progress Note - Surgery ---
IRINA WELLS MED STUDENT 05/28/20 1056: Subjective Date Seen by a Provider: May 28, 2020 Time Seen by a Provider: 07:20 Subjective/Events-last exam Pt states her abdominal pain is unchanged from yesterday. Says her breathing was improved after breathing treatment. CXR from this morning showed bibasilar atelectasis and RLL infiltrate. Today WBC is 23.3, hgb is 10.9, lipase 6785, and amylase 1279. Focused Exam Lactate Level 05/26/20 21:25: Lactic Acid Level 0.80 Objective Exam Vital Signs Date Time Temp Pulse Resp B/P (MAP) Pulse Ox O2 Delivery O2 Flow Rate FiO2 05/28/20 06:53 36.4 105 28 145/82 93 Nasal Cannula 2.00 05/28/20 06:18 94 Nasal Cannula 3.00 05/28/20 06:00 105 26 128/77 94 Nasal Cannula 2.00 05/28/20 05:00 105 20 132/91 95 Nasal Cannula 2.00 05/28/20 04:00 105 15 125/75 94 Nasal Cannula 2.00 05/28/20 03:00 105 33 134/76 95 Nasal Cannula 2.00 05/28/20 02:00 106 16 133/75 94 Nasal Cannula 2.00 05/28/20 01:00 106 29 116/76 94 Nasal Cannula 2.00 05/28/20 01:00 106 05/28/20 00:00 107 27 119/77 94 Nasal Cannula 2.00 05/27/20 23:46 36.3 05/27/20 23:00 107 25 117/78 95 Nasal Cannula 2.00 05/27/20 22:00 107 19 126/84 95 Nasal Cannula 2.00 05/27/20 21:00 Nasal Cannula 2.00 05/27/20 21:00 110 33 155/84 98 Nasal Cannula 2.00 05/27/20 20:00 110 30 141/86 92 Nasal Cannula 2.00 05/27/20 19:59 36.8 05/27/20 19:00 108 05/27/20 19:00 107 30 148/81 93 Nasal Cannula 2.00 05/27/20 18:16 93 Nasal Cannula 2.00 05/27/20 18:00 103 45 147/68 92 Nasal Cannula 2.00 05/27/20 17:00 106 47 142/80 89 Nasal Cannula 2.00 05/27/20 16:12 36.9 05/27/20 16:00 107 16 145/86 90 Nasal Cannula 2.00 05/27/20 15:00 102 19 144/86 93 Nasal Cannula 2.00 05/27/20 14:00 99 17 112/74 95 Nasal Cannula 2.00 05/27/20 13:00 105 31 138/83 91 Nasal Cannula 2.00 05/27/20 12:53 107 05/27/20 12:00 103 23 139/84 93 Nasal Cannula 2.00 05/27/20 12:00 36.6 05/27/20 11:00 99 19 130/83 91 Nasal Cannula 2.00 I & O 05/28/20 07:00 Intake Total 0 ml Output Total 895 ml Balance -895 ml Capillary Refill : Less Than 3 Seconds General Appearance: No Apparent Distress, Chronically ill HEENT: PERRL/EOMI, Normal ENT Inspection Neck: Normal Inspection, Non Tender Respiratory: No Accessory Muscle Use, No Respiratory Distress, Crackles (right base) Cardiovascular: No Edema, Tachycardia Gastrointestinal: soft, distended (minimal), tenderness (mild diffuse) Extremity: Normal Inspection, No Calf Tenderness, No Pedal Edema Neurologic/Psychiatric: Alert, No Motor/Sensory Deficits, Normal Mood/Affect Skin: Normal Color, Warm/Dry Lymphatic: No Adenopathy Results Lab Laboratory Tests 05/28/20 03:32: White Blood Count 23.3H, Red Blood Count 3.61L, Hemoglobin 10.9L, Hematocrit 33L , Mean Corpuscular Volume 91, Mean Corpuscular Hemoglobin 30, Mean Corpuscular Hemoglobin Concent 33, Red Cell Distribution Width 15.1H, Platelet Count 195, Mean Platelet Volume 12.8H, Immature Granulocyte % (Auto) 1, Neutrophils (%) (Auto) 87H, Lymphocytes (%) (Auto) 6L, Monocytes (%) (Auto) 5, Eosinophils (%) (Auto) 0, Basophils (%) (Auto) 0, Neutrophils # (Auto) 20.3H, Lymphocytes # (Auto) 1.5, Monocytes # (Auto) 1.2H, Eosinophils # (Auto) 0.1, Basophils # (Au to) 0.0, Immature Granulocyte # (Auto) 0.1, Sodium Level 143, Potassium Level 3.8, Chloride Level 109H, Carbon Dioxide Level 23, Anion Gap 11, Blood Urea Nitrogen 35H, Creatinine 2.94H, Estimat Glomerular Filtration Rate 16, BUN/Creatinine Ratio 12, Glucose Level 78, Calcium Level 8.0L, Phosphorus Level 2.6, Magnesium Level 1.7, Total Bilirubin 0.4, Direct Bilirubin 0.3, Indirect Bilirubin 0.1, Aspartate Amino Transf (AST/SGOT) 34, Alanine Aminotransferase (ALT/SGPT) 15, Alkaline Phosphatase 27L, Total Protein 5.4L, Albumin 2.6L, Amylase Level 1279H, Lipase 6785H, Procalcitonin 0.11H Microbiology 05/27/20 MRSA Screen - Final, Complete MRSA not isolated Assessment/Plan Assessment/Plan Assessment/Plan Right lower lobe pneumonia/atelectasis Pancreatitis Epigastric abdominal pain Cholelithiasis Patient to continue with IV fluids and antibiotics. Patient will eventually need her gallbladder out due to a larger gallstone but there is no evidence of acute cholecystitis by CT scan at this time. But would recommend taking out in the near future. Patient pancreatitis continue conservative measures at this time, IV fluids hydration antibiotics. Pain control, repeat labs in a.m. Clinical Quality Measures DVT/VTE Risk/Contraindication: Risk Factor Score Per Nursin RFS Level Per Nursing on Admit: 4+=Very High ANNMARIE CARTER DO 05/29/20 0939: Subjective Subjective/Events-last exam Still with abdominal pain, maybe slightly better. Breathing a little easier as well. NPO. Denies n/v fever sweats chills shortness of breath or chest pain. WBC up slightly, and amylase lipase no significant change. Objective Exam General Appearance: No Apparent Distress, Chronically ill HEENT: PERRL/EOMI, Normal ENT Inspection Neck: Normal Inspection, Non Tender Respiratory: Chest Non Tender, No Accessory Muscle Use, No Respiratory Distress, Crackles (right base) Cardiovascular: No Edema, Tachycardia Gastrointestinal: distended (minimal), tenderness (mild diffuse) Neurologic/Psychiatric: Alert, No Motor/Sensory Deficits, Normal Mood/Affect Skin: Normal Color, Warm/Dry Lymphatic: No Adenopathy Assessment/Plan Assessment/Plan Assessment/Plan Right lower lobe pneumonia/atelectasis Pancreatitis Epigastric abdominal pain Cholelithiasis Patient to continue with IV fluids and antibiotics. Patient will eventually need her gallbladder out due to a larger gallstone but there is no evidence of acute cholecystitis by CT scan at this time. But would recommend taking out in the near future. Patient pancreatitis continue conservative measures at this time, IV fluids hydration antibiotics. Pain control, repeat labs in a.m. Supervisory-Addendum Brief Verification & Attestation Participated in pt care: history, MDM, physical Personally performed: exam, history, MDM, supervision of care Care discussed with: Medical Student Procedures: n/a Results interpretation: Verified all documentation Verification and Attestation of Medical Student E/M Service A medical student performed and documented this service in my presence. I reviewed and verified all information documented by the medical student and made modifications to such information, when appropriate. I personally performed the physical exam and medical decision making. Annmarie Carter, May 28, 2020,09:39 IRINA WELLS MED STUDENT May 28, 2020 10:56 ANNMARIE CARTER DO May 29, 2020 09:39
[2020-05-28 11:20] VITALS: BP 101/60
[2020-05-28] MEDS ORDERED: LOPERAMIDE 2 MG (IMODIUM) TABLET PO PRN (13:15)
[2020-05-28] MEDS ORDERED: LOPERAMIDE 2 MG (IMODIUM) TABLET PO ONE (13:15)
--- NOTE | 2020-05-28 14:12 | Physical Therapy Evaluation ---
PT Evaluation-General Medical Diagnosis Admission Date May 26, 2020 at 22:40 Medical Diagnosis: pneumonia, pancreatitis Onset Date: May 26, 2020 Therapy Diagnosis Therapy Diagnosis: impaired mobility, strength, endurance Height/Weight Height (Feet): 5 Height (Inches): 5.00 Weight (Pounds): 173 Weight (Ounces): 0.0 Precautions Precautions/Isolations: Fall Prevention, Standard Precautions Referral Physician: Kael Reason for Referral: Evaluation/Treatment Medical History Additional Medical History Past Medical History Surgeries: Coronary Stent Left Carotid endarectomy Respiratory: Asthma, COPD, Pneumonia Nocturnal Hypoxemia Currently Using CPAP: Yes (oxygen at night) Currently Using BIPAP: No Cardiac: Angina, Coronary Artery Disease, High Cholesterol, Hypertension, Peripheral Vascular, Syncope Heart Failure. Suspected subclavian steal syndrome Neurological: Neuropathy Restless leg syndrome 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: No Female 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 Disorders: Denies Gastrointestinal: Gastroesophageal Reflux, Pancreatitis (New diagnosis) Musculoskeletal: Degenerate Disk Disease, Fibromyalgia Osteopenia Endocrine: Diabetes, Non-Insulin dep Loss of Vision: Denies Hearing Impairment: Denies Psychosocial: Anxiety, Depression Reviewed History: Yes Social History Home: Single Level Current Living Status: Children Entry Into Home: Stairs With Railing Prior Prior Level of Function SCALE: Activities may be completed with or without assistive devices. 2-Cjztodivrk-frkpxqa completes the activity by him/herself with no assistance from a helper. 5-Set-up or Clean-up Assistance-helper sets up or cleans up; patient completes activity. [place] assists only prior to or following the activity. 4-Supervision or Touching Assistance-helper provides verbal cues and/or gautam leandra/steadying and/or contact guard assistance as patient completes activity. Assistance may be provided throughout the activity or intermittently. 3-Partial/Moderate Assistance-helper does LESS THAN HALF the effort. [place] lifts, holds or supports trunk or limbs, but provides less than half the effort. 2-Substantial/Maximal Assistance-helper does MORE THAN HALF the effort. [place] lifts or holds trunk or limbs and provides more than half the effort. 4-Cdqfhtfrz-ncxugs does ALL the effort. Patient does none of the effort to complete the activity. Or, the assistance of 2 or more helpers is required for the patient to complete the activity. If activity was not attempted, code reason: 7-Patient Refused. 9-Not Applicable-not attempted and the patient did not perform the activity before the current illness, exacerbation or injury. 10-Not Attempted due to Environmental Limitations-(lack of equipment, weather restraints, etc.). 88-Not Attempted due to Medical Conditions or Safety Concerns. Bed Mobility: 6 Transfers (B,C,W/C): 6 Gait: 6 Stairs: 6 Indoor Mobility (Ambulation): Independent Stairs: Independent Prior Devices Use: Walker PT Evaluation-Current Subjective Patient in bed pre tx, agrees to PT, has no complaints of pain but states she needs to have a BM. Patient doesn't think she can ambulate to the restroom so will use a bedside commode. Pt/Family Goals to be independent at home Objective Patient Orientation: Person, Place, Situation Attachments: Emerson Catheter, IV ROM/Strength ROM Lower Extremities WNL Strength Lower Extremities 4/5 gross BLE Sensory Hearing: Functional Sensation Right Lower Extremit: Intact Sensation Left Lower Extremity: Intact Transfers Roll Left to Right (QC): 3 Sit to Lying (QC): 3 Lying to Sitting/Side of Bed(Q: 3 Sit to Stand (QC): 3 Chair/Rfk-ig-Gpnxr Xfer(QC): 3 Toilet Transfer (QC): 3 Mod assist for supine to sit and sit to stand and transfers to commode. Patient cannot have a BM, stands, leaks a little, sits back down, stands again, leaks a gain, sits, stands again and is wiped and transfers back to bed. Balance Sitting Static: Fair Sitting Dynamic: Fair Standing Static: Poor Standing Dynamic: Poor Assessment/Needs Patient has impaired mobility, strength, endurance. She is mod assist for most mobility. No ambulation yet. Rehab Potential: Fair PT Telegraph Office Route Aide Goals Telegraph Office Route Aide Goals PT [facility] Goals Time Frame: Jun 04, 2020 Roll Left & Right (QC): 4 Sit to Lying (QC): 4 Lying-Sitting on Side/Bed(QC): 4 Sit to Stand (QC): 4 Chair/Fmv-vc-Rjkkz Xfer(QC): 4 Walk 10 feet (QC): 4 PT Plan Problem List Problem List: Activity Tolerance, Functional Strength, Safety, Balance, Gait, Transfer, Bed Mobility, ROM Treatment/Plan Treatment Plan: Continue Plan of Care Treatment Plan: Bed Mobility, Education, Functional Activity Tracie, Functional Strength, Gait, Safety, Therapeutic Exercise, Transfers Treatment Duration: Jun 04, 2020 Frequency: 6 times per week Estimated Hrs Per Day: .25 hour per day Patient and/or Family Agrees t: Yes Safety Risks/Education Patient Education: Transfer Techniques, Correct Positioning, Safety Issues Teaching Recipient: Patient Teaching Methods: Demonstration, Discussion Response to Teaching: Reinforcement Needed Discharge Recommendations Plan Patient will perform bed mobility and transfer training, balance and endurance training, functional strengthening, stair training, gait training, and education to improve functional mobility and independence at home. Therapy Discharge Recommendati: Scheduled Assistance, Home & Family, Post Acute PT Time/GCodes Time In: 1340 Time Out: 1404 Total Billed Treatment Time: 24 Total Billed Treatment 1 visit TINO 15' FA 9' MEETA CABALLERO PT May 28, 2020 14:12
--- NOTE | 2020-05-28 14:12 | Occupational Therapy Eval ---
OT Evaluation-General/PLF Medical Diagnosis Admission Date May 26, 2020 at 22:40 Medical Diagnosis: pancreatitis, RLL Pneumonia Onset Date: May 26, 2020 Therapy Diagnosis Therapy Diagnosis: decreased ADL status Height/Weight Height (Feet): 5 Height (Inches): 5.00 Weight (Pounds): 173 Weight (Ounces): 0.0 Precautions Precautions/Isolations: Fall Prevention, Standard Precautions Referral Physician: Kael Referral Reason: Evaluation/Treatment Medical History Additional Medical History coronary stent, asthma, COPD, pneumonia, CAD, HTN, peripheral vascular, heart failure, neuropathy, DDD, fibromyalgia, GERD, DM Current History Pt to ED with nausea, vomiting, increased tremors, and frequent falls Reviewed History: Yes Social History Home: Single Level Current Living Status: Children (Son) Entry Into Home: Stairs With Railing Steps Into Home: 2 ADL-Prior Level of Function SCALE: Activities may be completed with or without assistive devices. 6-Jyhgdzrmbz-xwrosde completes the activity by him/herself with no assistance from a helper. 5-Set-up or Clean-up Assistance-helper sets up or cleans up; patient completes activity. [place] assists only prior to or following the activity. 4-Supervision or Touching Assistance-helper provides verbal cues and/or touc benito/steadying and/or contact guard assistance as patient completes activity. Assistance may be provided throughout the activity or intermittently. 3-Partial/Moderate Assistance-helper does LESS THAN HALF the effort. [place] lifts, holds or supports trunk or limbs, but provides less than half the effort. 2-Substantial/Maximal Assistance-helper does MORE THAN HALF the effort. [place] lifts or holds trunk or limbs and provides more than half the effort. 5-Wekbsgjif-rsumto does ALL the effort. Patient does none of the effort to complete the activity. Or, the assistance of 2 or more helpers is required for the patient to complete the activity. If activity was not attempted, code reason: 7-Patient Refused. 9-Not Applicable-not attempted and the patient did not perform the activity before the current illness, exacerbation or injury. 10-Not Attempted due to Environmental Limitations-(lack of equipment, weather restraints, etc.). 88-Not Attempted due to Medical Conditions or Safety Concerns. ADL PLOF Comments Pt indicates she was independent with bathing, dressing and toileting. Family assisted with cooking and cleaning Self Care: Needed Some Help Functional Cognition: Independent DME/Equipment: Bath Chair, Tub/Shower DME/Equipment Comments FWW OT Current Status Subjective Pt laying in bed, states she needs to use the restroom, agreeable to [place] [facility] Mental Status/Objective Patient Orientation: Person, Place, Time, Situation Attachments: Emerson Catheter, IV Current Glasses/Contacts: Yes Hearing Aids: No Dentures/Partials: No Hand Dominance: Left Upper Extremity ROM WFL, BUE shoulder flexion to approx 100 degrees AROM, to approx 140 degrees AAROM Upper Extremity Coordination WFL Upper Extremity Sensation WFL Upper Extremity Strength grossly 3+/5 ADL-Treatment Eating (QC): 88 (Pt NPO at time of eval) On/Off Footwear (QC): 3 (Assist to don BLE shoes, pt able to doff) Toileting Hygiene (QC): 1 (Assist to perform hygiene after BM) Other Treatments Pt laying in bed, transferred supine to sit EOB with assistance of BLEs and upper body. Pt then transferred from EOB to BSC. Pt attempted to have BM, stating she has diarrhea. Pt attempted but had no success, OT assisted pt with hygiene, then pt had a couple drops of BM, sitting back on commode again. Pt again indicates she is done, when wiped, she begins having a BM. Pt sits for a few more minutes. Pt stood up as OT wiped a 3rd time, then able to transfer back to bed. Mod assist for supine to sit and sit to stand and transfers to/from commode. Post OT tx, pt laying in bed, call light in reach and all needs met. Education OT Patient Education: Correct positioning, Modified ADL techniques, Progress toward Goal/Update tx plan, Purpose of tx/functional activities, Rehab process Teaching Recipient: Patient Teaching Methods: Discussion Response to Teaching: Verbalize Understanding OT Systems Support Officer Goals Systems Support Officer Goals Time Frame: Jun 06, 2020 Oral Hygiene (QC): 5 Toileting Hygiene (QC): 4 Shower/Bathe Self (QC): 4 Upper Body Dressing (QC): 5 Lower Body Dressing (QC): 4 On/Off Footwear (QC): 4 Additional Goals: 1-Demonstrate ADL Tasks, 2-Verbalize Understanding, 3- ImproveStrength/Tracie 1=Demonstrate adherence to instructed precautions during ADL tasks. 2=Patient will verbalize/demonstrate understanding of assistive devices/modifications for ADL. 3=Patient will improve strength/tolerance for activity to enable patient to perform ADL's. OT Education/Plan Problem List/Assessment Assessment: Decreased Activ Tolerance, Decreased UE Strength, Impaired Funct Balance, Impaired I ADL's, Impaired Self-Care Skills Discharge Recommendations Plan/Recommendations: Continue POC Therapy Discharge Recommendati: Scheduled Assistance, Home & Family, Post Acute OT Treatment Plan/Plan of Care Patient would benefit from OT for education, treatment and training to promote independence in ADL's, mobility, safety and/or upper extremity function for ADL's. Plan of Care: ADL Retraining, Functional Mobility, UE Funct Exercise/Act Treatment Duration: Jun 06, 2020 Frequency: 5 times per week Estimated Hrs Per Day: .25 hour per day Agreement: Yes Rehab Potential: Fair Time/GCodes Start Time: 13:40 Stop Time: 14:04 Total Time Billed (hr/min): 24 Billed Treatment Time 1, EVM (10'), ADL (14') MARTHA IVAN OT May 28, 2020 14:12
--- NOTE | 2020-05-28 14:34 | NUR ---
Notified Dr. Scruggs patient was flagged as a severe sepsis risk
[2020-05-28] MEDS: UMECLIDINIUM BROMIDE (INCRUSE ELLIPTA) 7'S IH SCH (15:20)
[2020-05-28 16:00] VITALS: BP 108/57
[2020-05-28] MEDS: RT-ALBUTEROL/IPRATROPIUM 3 ML (DUONEB) VIAL INH PRN (19:47)
[2020-05-28 20:00] VITALS: BP 132/70
[2020-05-28] MEDS ORDERED: NON-FORMULARY MEDICATION 1 EA EA (Gabapentin 800 MG) PO SCH (21:00)
[2020-05-28] MEDS ORDERED: WATER (STERILE) FOR INJECTION 10 ML ONE (21:23)
[2020-05-28] MEDS ORDERED: cefTRIAXone 1,000 MG IV (ROCEPHIN) VIAL ONE (21:23)
[2020-05-28] MEDS: GABAPENTIN 400 MG (NEURONTIN) CAP PO SCH (21:26)
[2020-05-28] MEDS: GABAPENTIN 300 MG (NEURONTIN) CAP PO SCH (21:27)
[2020-05-28] MEDS: FENOFIBRATE 134 MG (LOFIBRA) CAPSULE PO SCH (21:27)
[2020-05-28] MEDS: cefTRIAXone 1,000 MG/SWFI 10 ML IV PUSH IV SCH ×2 (21:27)
[2020-05-28 21:31] VITALS: BP 138/76
[2020-05-28 23:22] VITALS: BP 113/63
[2020-05-29] MEDS: RT-ALBUTEROL/IPRATROPIUM 3 ML (DUONEB) VIAL INH PRN ×4 (01:47→21:39)
[2020-05-29] MEDS: fentaNYL INJECTION 100 MCG/2 ML AMP IVP PRN (03:15)
[2020-05-29 04:00] VITALS: BP 117/74
--- NOTE | 2020-05-29 06:05 | Progress Note - Hospitalist ---
Subjective HPI/CC On Admission Date Seen by Provider: May 29, 2020 Time Seen by Provider: 10:00 CC: Abdominal pain with nausea and vomiting and hypoxia HPI: This is a 70yoWF who has severe Parkinsons who presented with acute pancreatitis, lipase of 6,000 found a right lower lobe pneumonia with hypoxia, Covid swab was negative so she was placed on appropriate antibiotics, pain mediation and ICU with IV fluid resuscitation and Dr. Carter will see her in consultation. Emerson was placed due to urinary retention. Subjective/Events-last exam Patient feels better Still requiring O2 now WBC 18k PCT 0.45 Amylase and lipase much improved CLD is tolerated well Decreasing IVF to 60cc/hr Creat 2.6 Review of Systems General: Fatigue Pulmonary: Dyspnea Gastrointestinal: Nausea, Abdominal Pain Focused Exam Lactate Level 05/26/20 21:25: Lactic Acid Level 0.80 Objective Exam Vital Signs Vital Signs Date Time Temp Pulse Resp B/P (MAP) Pulse Ox O2 Delivery O2 Flow Rate FiO2 05/29/20 16:00 37.0 82 18 103/56 (72) 92 Nasal Cannula 4.50 05/27/20 00:42 21 Capillary Refill : Less Than 3 Seconds General Appearance: No Apparent Distress, WD/WN, Chronically ill Respiratory: Chest Non Tender, Lungs Clear, Normal Breath Sounds, No Accessory Muscle Use, No Respiratory Distress Cardiovascular: Regular Rate, Rhythm, No Edema, No Gallop, No JVD, No Murmur, Normal Peripheral Pulses Neurologic/Psychiatric: Alert, Oriented x3, No Motor/Sensory Deficits, Normal Mood/Affect Skin: Normal Color, Warm/Dry Results/Procedures Lab Laboratory Tests 05/29/20 05:50 Patient resulted labs reviewed. Imaging: Reviewed Imaging Report Assessment/Plan Assessment and Plan Assess & Plan/Chief Complaint Assessment: AMS Acute pancreatitis PNA PD severe Plan: Pain management IV abx Monitor O2 05/29/20: CLD Decrease IVF PNA treatment O2 wean Diagnosis/Problems Diagnosis/Problems (1) Pancreatitis Status: Acute (2) Right lower lobe pneumonia Status: Acute Clinical Quality Measures DVT/VTE Risk/Contraindication: Risk Factor Score Per Nursin RFS Level Per Nursing on Admit: 4+=Very High ASHA LASSITER DO May 29, 2020 06:04
[2020-05-29] MEDS: ONDANSETRON 4 MG/2 ML (SDV) Z0FRAN IVP PRN (06:21)
[2020-05-29 06:26] LABS: HEMOGLOBIN 10.2 g/dL (11.5-16.0); LYMPHOCYTES % (AUTO) 5 % (12-44); MEAN PLATELET VOLUME 13.7 fL (9.0-12.2)
[2020-05-29 06:28] LABS: BASOPHILS % (AUTO) 0 % (0-10); EOSINOPHILS # (AUTO) 0.1 10^3/uL (0.0-0.3); EOSINOPHILS % (AUTO) 0 % (0-10); HEMATOCRIT 30 % (35-52); MEAN CORPUSCULAR HEMOGLOBIN 30 pg (25-34); MEAN CORPUSCULAR HGB CONC 34 g/dL (32-36); MEAN CORPUSCULAR VOLUME 90 fL (80-99); MONOCYTES % (AUTO) 5 % (0-12); NEUTROPHILS # (AUTO) 16.4 10^3/uL (1.8-7.8); NEUTROPHILS % (AUTO) 88 % (42-75); PLATELET COUNT 142 10^3/uL (130-400); WHITE BLOOD COUNT 18.6 10^3/uL (4.3-11.0)
[2020-05-29 06:39] LABS: ALBUMIN 2.5 GM/DL (3.2-4.5); POTASSIUM 3.7 MMOL/L (3.6-5.0)
[2020-05-29 06:40] LABS: CALCIUM 6.5 MG/DL (8.5-10.1)
[2020-05-29 06:42] LABS: TOTAL PROTEIN 5.1 GM/DL (6.4-8.2)
[2020-05-29 06:43] LABS: BILIRUBIN,TOTAL 0.3 MG/DL (0.1-1.0)
[2020-05-29 06:45] LABS: CREATININE SERUM 2.61 MG/DL (0.60-1.30)
--- NOTE | 2020-05-29 06:55 | NUR ---
0620-pt voices nausea-prn zofran given 0645-pt states that the nausea is better & that she is no longer nauseated. pt also states that the prn breathing treatment has made her breathing improved & that she does not feel soa at this time.
--- NOTE | 2020-05-29 08:09 | Progress Note - Surgery ---
IRINA WELLS MED STUDENT 05/29/20 0809: Subjective Date Seen by a Provider: May 29, 2020 Time Seen by a Provider: 07:40 Subjective/Events-last exam Pt states her SOB and abdominal pain are unchanged from yesterday. Had some nausea yesterday that was resolved with Zofran, no vomiting. Also notes diarrhea yesterday, but was given Loperamide and has not had any since. Lipase today is 605, amylase is 458. WBC is 18.6. Focused Exam Lactate Level 05/26/20 21:25: Lactic Acid Level 0.80 Objective Exam Vital Signs Date Time Temp Pulse Resp B/P (MAP) Pulse Ox O2 Delivery O2 Flow Rate FiO2 05/29/20 07:34 Nasal Cannula 5.00 05/29/20 04:00 36.0 93 20 117/74 (88) 93 Nasal Cannula 5.00 05/28/20 23:22 36.8 87 20 113/63 (80) 95 Nasal Cannula 5.00 05/28/20 21:31 88 138/76 (96) 05/28/20 20:00 37.0 89 18 132/70 (90) 92 Nasal Cannula 5.00 05/28/20 19:51 Nasal Cannula 5.00 05/28/20 16:00 37.0 75 18 108/57 (74) 92 Nasal Cannula 5.00 05/28/20 15:20 86 Nasal Cannula 3.00 05/28/20 11:20 37.6 95 22 101/60 (74) 92 Nasal Cannula 3.00 05/28/20 09:00 Nasal Cannula 3.00 I & O 05/29/20 07:00 Intake Total 50 ml Output Total 975 ml Balance -925 ml Capillary Refill : Less Than 3 Seconds General Appearance: No Apparent Distress, WD/WN, Chronically ill HEENT: PERRL/EOMI, Normal ENT Inspection Neck: Normal Inspection, Supple Respiratory: No Accessory Muscle Use, No Respiratory Distress, Crackles (right lower lobe, improved from yesterday) Cardiovascular: Regular Rate, Rhythm, No Edema, No Murmur Gastrointestinal: soft, distended (minimal), tenderness (mild diffuse) Extremity: Normal Inspection, No Calf Tenderness, No Pedal Edema Neurologic/Psychiatric: Alert, Oriented x3, No Motor/Sensory Deficits, Normal Mood/Affect Skin: Normal Color, Warm/Dry Lymphatic: No Adenopathy Results Lab Laboratory Tests 05/29/20 05:50: White Blood Count 18.6H, Red Blood Count 3.36L, Hemoglobin 10.2L, Hematocrit 30L , Mean Corpuscular Volume 90, Mean Corpuscular Hemoglobin 30, Mean Corpuscular Hemoglobin Concent 34, Red Cell Distribution Width 15.3H, Platelet Count 142, M serge Platelet Volume 13.7H, Immature Granulocyte % (Auto) 1, Neutrophils (%) (Auto) 88H, Lymphocytes (%) (Auto) 5L, Monocytes (%) (Auto) 5, Eosinophils (%) (Auto) 0, Basophils (%) (Auto) 0, Neutrophils # (Auto) 16.4H, Lymphocytes # (Auto) 1.0, Monocytes # (Auto) 1.0, Eosinophils # (Auto) 0.1, Basophils # (Auto) 0.0, Immature Granulocyte # (Auto) 0.1, Sodium Level 143, Potassium Level 3.7, Chloride Level 109H, Carbon Dioxide Level 21, Anion Gap 13, Blood Urea Nitrogen 45H, Creatinine 2.61H, Estimat Glomerular Filtration Rate 18, BUN/Creatinine Ratio 17, Glucose Level 73, Calcium Level 6.5L, Corrected Calcium 7.7L, Total Bilirubin 0.3, Aspartate Amino Transf (AST/SGOT) 30, Alanine Aminotransferase (ALT/SGPT) 15, Alkaline Phosphatase 28L, Total Protein 5.1L, Albumin 2.5L, Amylase Level 458H, Lipase 605H, Procalcitonin 0.45H Microbiology 05/27/20 MRSA Screen - Final, Complete MRSA not isolated Assessment/Plan Assessment/Plan Assessment/Plan Right lower lobe pneumonia/atelectasis Pancreatitis Epigastric abdominal pain Cholelithiasis Patient to continue with IV fluids and antibiotics Amylase and lipase improved Advance to clear liquid diet Pt eventually will need cholecystectomy d/t gall stone, but no CT evidence of cholecystitis Pain control, repeat labs in a.m. Clinical Quality Measures DVT/VTE Risk/Contraindication: Risk Factor Score Per Nursin RFS Level Per Nursing on Admit: 4+=Very High ANNMARIE CARTER DO 05/29/20 0942: Subjective Subjective/Events-last exam Reports abdomen feeling a little better. Less pain. Wanting something to drink. Lipase down. Wbc slightly down. Breathing okay. Denies n/v fever sweats chills shortness of breath or chest pain Objective Exam General Appearance: No Apparent Distress, Chronically ill HEENT: PERRL/EOMI, Normal ENT Inspection Neck: Normal Inspection, Supple Respiratory: Chest Non Tender, No Accessory Muscle Use, No Respiratory Distress, Crackles (right lower lobe, improved from yesterday) Cardiovascular: Regular Rate, Rhythm, No Edema Gastrointestinal: soft, distended (minimal), tenderness (mild diffuse, less) Extremity: Normal Inspection, No Calf Tenderness Neurologic/Psychiatric: Alert, No Motor/Sensory Deficits, Normal Mood/Affect Skin: Normal Color, Warm/Dry Lymphatic: No Adenopathy Assessment/Plan Assessment/Plan Assessment/Plan Right lower lobe pneumonia/atelectasis Pancreatitis Epigastric abdominal pain Cholelithiasis Patient to continue with IV fluids and antibiotics Amylase and lipase improved Advance to clear liquid diet instructed to take minimal Will dc ames, monitor for retention Pt eventually will need cholecystectomy d/t gall stone, but no CT evidence of cholecystitis Pain control, Labs improving, repeat labs in a.m. Supervisory-Addendum Brief Verification & Attestation Participated in pt care: history, MDM, physical Personally performed: exam, history, MDM, supervision of care Care discussed with: Medical Student Procedures: n/a Results interpretation: Verified all documentation Verification and Attestation of Medical Student E/M Service A medical student performed and documented this service in my presence. I reviewed and verified all information documented by the medical student and made modifications to such information, when appropriate. I personally performed the physical exam and medical decision making. Annmarie Carter, May 29, 2020,09:42 IRINA WELLS MED STUDENT May 29, 2020 08:09 ANNMARIE CARTER DO May 29, 2020 09:42
[2020-05-29 08:31] VITALS: BP 124/77
[2020-05-29] MEDS: FAMOTIDINE 20 MG (PEPCID) TABLET PO SCH (08:32)
[2020-05-29] MEDS: MONTELUKAST 10 MG (SINGULAIR) TAB PO SCH (08:33)
[2020-05-29] MEDS: ALPRAZolam 0.25 MG (XANAX) TAB PO SCH ×2 (08:33→20:24)
[2020-05-29] MEDS: BACLOFEN 10 MG (LIORESAL) TAB PO SCH ×2 (08:33→20:24)
[2020-05-29] MEDS: VERAPAMIL SR 240 MG (CALAN SR) TAB PO SCH (08:34)
[2020-05-29] MEDS: ENOXAPARIN 30 MG/0.3 ML (LOVENOX) SYR SC SCH (08:34)
[2020-05-29] MEDS: ASPIRIN E.C. 325 MG (ECOTRIN) TABLET PO SCH (08:34)
[2020-05-29] MEDS: CARVEDILOL 6.25 MG (COREG) TAB PO SCH ×2 (08:34→20:24)
[2020-05-29] MEDS: LORATADINE (CLARITIN) 10 MG TAB PO SCH (08:34)
[2020-05-29] MEDS: UMECLIDINIUM BROMIDE (INCRUSE ELLIPTA) 7'S IH SCH (08:35)
[2020-05-29] MEDS: LACTATED RINGERS 1,000 ML IV SCH ×3 (08:36→21:45)
[2020-05-29] MEDS: AZITHROMYCIN 500 MG/NS 250 ML IVPB IV SCH ×2 (09:02)
--- NOTE | 2020-05-29 09:32 | Physical Therapy Daily Note ---
PT Daily Note-Current Subjective Patient reports she is feeling a little better and agrees to PT. Mental Status Patient Orientation: Normal For Age Attachments: Oxygen, Emerson Catheter, IV Transfers SCALE: Activities may be completed with or without assistive devices. 6-Xxrzhzcghy-higoipq completes the activity by him/herself with no assistance from a helper. 5-Set-up or Clean-up Assistance-helper sets up or cleans up; patient completes activity. [place] assists only prior to or following the activity. 4-Supervision or Touching Assistance-helper provides verbal cues and/or touching/steadying and/or contact guard assistance as patient completes activity. Assistance may be provided throughout the activity or intermittently. 3-Partial/Moderate Assistance-helper does LESS THAN HALF the effort. [place] lifts, holds or supports trunk or limbs, but provides less than half the effort. 2-Substantial/Maximal Assistance-helper does MORE THAN HALF the effort. [place] lifts or holds trunk or limbs and provides more than half the effort. 9-Wufzfbetq-qmfblr does ALL the effort. Patient does none of the effort to complete the activity. Or, the assistance of 2 or more helpers is required for the patient to complete the activity. If activity was not attempted, code reason: 7-Patient Refused. 9-Not Applicable-not attempted and the patient did not perform the activity before the current illness, exacerbation or injury. 10-Not Attempted due to Environmental Limitations-(lack of equipment, weather restraints, etc.). 88-Not Attempted due to Medical Conditions or Safety Concerns. Roll Left & Right (QC): 5 Lying to Sitting/Side of Bed(Q: 5 Sit to Stand (QC): 4 Chair/Bce-pv-Venfr Xfer(QC): 4 Gait Training Does the Patient Walk?: Yes Distance: 15' Walk 10 feet (QC): 5 Gait Assistive Device: FWW slow, decreased step length Exercises Seated Therapy Exercises: Ankle pumps, Long arc quads, Hip flexion Seated Reps: 15 Assessment Patient up in recliner with needs met. Patient tolerated treatment. PT to increase activity as tolerated by patient. PT Housing Assistant Property Manager Goals Housing Assistant Property Manager Goals PT Snf Goals Time Frame: Jun 04, 2020 Roll Left & Right (QC): 4 Sit to Lying (QC): 4 Lying-Sitting on Side/Bed(QC): 4 Sit to Stand (QC): 4 Chair/Bul-vu-Uciuf Xfer(QC): 4 Walk 10 feet (QC): 4 PT Plan Treatment/Plan Treatment Plan: Continue Plan of Care Treatment Plan: Bed Mobility, Education, Functional Activity Tracie, Functional Strength, Gait, Safety, Therapeutic Exercise, Transfers Treatment Duration: Jun 04, 2020 Frequency: 6 times per week Estimated Hrs Per Day: .25 hour per day Patient and/or Family Agrees t: Yes Time/GCodes Time In: 835 Time Out: 858 Total Billed Treatment Time: 23 Total Billed Treatment 1 visit EX 8 min FA 15 min CARI SINGLETARY PT May 29, 2020 09:32
--- NOTE | 2020-05-29 11:36 | Occupational Ther Daily Note ---
OT Current Status-Daily Note Subjective Pt alert/ oriented, HOB elevated in bed. Pt visibly SOB. Pt's 02 sats 93%. Pt is encouraged to sit up in recliner, pt denies, does agrees to repositioning in bed. Mental Status/Objective Patient Orientation: Person, Place, Situation Attachments: Oxygen ADL-Treatment Therapy Code Descriptions/Definitions Functional [place] Measure: 0=Not Assessed/NA 4=Minimal Assistance 1=Total Assistance 5=Supervision or Setup 2=Maximal Assistance 6=Modified [place] 3=Moderate Assistance 7=Complete IndependenceSCALE: Activities may be completed with or without assistive devices. 8-Dvbpoldhpb-pcdocrw completes the activity by him/herself with no assistance from a helper. 5-Set-up or Clean-up Assistance-helper sets up or cleans up; patient completes activity. [place] assists only prior to or following the activity. 4-Supervision or Touching Assistance-helper provides verbal cues and/or touching/steadying and/or contact guard assistance as patient completes activity. Assistance may be provided throughout the activity or intermittently. 3-Partial/Moderate Assistance-helper does LESS THAN HALF the effort. [place] lifts, holds or supports trunk or limbs, but provides less than half the effort. 2-Substantial/Maximal Assistance-helper does MORE THAN HALF the effort. [place] lifts or holds trunk or limbs and provides more than half the effort. 6-Tqotgrcpd-xfxabs does ALL the effort. Patient does none of the effort to complete the activity. Or, the assistance of 2 or more helpers is required for the patient to complete the activity. If activity was not attempted, code reason: 7-Patient Refused. 9-Not Applicable-not attempted and the patient did not perform the activity before the current illness, exacerbation or injury. 10-Not Attempted due to Environmental Limitations-(lack of equipment, weather restraints, etc.). 88-Not Attempted due to Medical Conditions or Safety Concerns. Eating (QC): 6 (has been drinking Sprite this am without difficulty per pt. ) Shower/Bathe Self (QC): 7 Upper Body Dressing (QC): 7 Lower Body Dressing (QC): 7 On/Off Footwear: 7 Toileting Hygiene (QC): 7 Other Treatment Pt denies going to chair as states just got back from sitting upright for an hour. Pt is educated on benefit of sitting position/ upright position with dx. Pt again refuses but allows OT to bring HOB upright to ~80* angle. Pt states need to reach HOB due to low back pain. Due to medical dx per pt, pt denies ability to lower HOB to supine position. Ax2 with assist from pt's LEs to reach HOB. Pt's head brought upright once more. Pt states continued pain in low back. Towel roll placed in low back/ behind neck and pillow placed upper back for alva pport. Pt states better. Pt is educated on 3/3 theraband exercises and is instructed to complete when higher energy level/ less SOB. Pt educated on breathing techniques during ex. Pt return demonstrates 1/3, denies further activity. Left in bed with all needs met, call light in reach. Education OT Patient Education: Correct positioning, Exercise program, Home exercise program, Purpose of tx/functional activities, Safety issues, Transfer techniques Teaching Recipient: Patient Teaching Methods: Demonstration, Discussion Response to Teaching: Verbalize Understanding, Return Demonstration OT Prison Goals Scanning Tech Goals Time Frame: Jun 06, 2020 Oral Hygiene (QC): 5 Toileting Hygiene (QC): 4 Shower/Bathe Self (QC): 4 Upper Body Dressing (QC): 5 Lower Body Dressing (QC): 4 On/Off Footwear (QC): 4 Additional Goals: 1-Demonstrate ADL Tasks, 2-Verbalize Understanding, 3- ImproveStrength/Tracie 1=Demonstrate adherence to instructed precautions during ADL tasks. 2=Patient will verbalize/demonstrate understanding of assistive devices/modifications for ADL. 3=Patient will improve strength/tolerance for activity to enable patient to perform ADL's. OT Education/Plan Problem List/Assessment Assessment: Decreased Activ Tolerance, Decreased UE Strength, Impaired Bed Mobility, Impaired I ADL's, Impaired Self-Care Skills Discharge Recommendations Plan/Recommendations: Continue POC Therapy Discharge Recommendati: 24 Hour Supervision, Assisted Living, Post Acute OT Treatment Plan/Plan of Care Treatment,Training & Education: Yes Patient would benefit from OT for education, treatment and training to promote i ndependence in ADL's, mobility, safety and/or upper extremity function for ADL's. Plan of Care: ADL Retraining, Functional Mobility, UE Funct Exercise/Act Treatment Duration: Jun 06, 2020 Frequency: 5 times per week Estimated Hrs Per Day: .25 hour per day Agreement: Yes Rehab Potential: Fair Time/GCodes Start Time: 10:28 Stop Time: 10:48 Total Time Billed (hr/min): 20 Billed Treatment Time 1, FA (20) JOANA WEBSTER OTR May 29, 2020 11:36
[2020-05-29 12:00] VITALS: BP 120/75
--- NOTE | 2020-05-29 13:50 | NUR ---
Patient states that she is feeling SOA. Patient oxygen saturation is 95%, BP 116/72, heart rate 92. Lungs sound clear. Instructed the patient to take deep breaths through her nose and informed RT per patients request
--- NOTE | 2020-05-29 13:56 | NUR ---
Patient states that she is feeling SOA. Patient oxygen saturation is 95%, BP 116/72, heart rate 92. Lungs sound clear. Instructed the patient to take deep breaths through her nose and informed RT per patients request. Addendum: 05/29/20 at 1437 by ANJU BROOKE RN Wrong pt
[2020-05-29 16:00] VITALS: BP 103/56
[2020-05-29 20:00] VITALS: BP 110/62
[2020-05-29] MEDS: GABAPENTIN 300 MG (NEURONTIN) CAP PO SCH (20:24)
[2020-05-29] MEDS: FENOFIBRATE 134 MG (LOFIBRA) CAPSULE PO SCH (20:24)
[2020-05-29] MEDS: GABAPENTIN 400 MG (NEURONTIN) CAP PO SCH (20:24)
[2020-05-29] MEDS ORDERED: WATER (STERILE) FOR INJECTION 10 ML ONE (21:33)
[2020-05-29] MEDS ORDERED: cefTRIAXone 1,000 MG IV (ROCEPHIN) VIAL ONE (21:33)
[2020-05-29] MEDS: cefTRIAXone 1,000 MG/SWFI 10 ML IV PUSH IV SCH ×2 (21:39)
[2020-05-30 00:34] VITALS: BP 104/62
[2020-05-30 04:00] VITALS: BP 105/61
--- NOTE | 2020-05-30 06:57 | Progress Note - Hospitalist ---
Subjective HPI/CC On Admission Date Seen by Provider: May 31, 2020 Time Seen by Provider: 10:00 CC: Abdominal pain with nausea and vomiting and hypoxia HPI: This is a 70yoWF who has severe Parkinsons who presented with acute pancreatitis, lipase of 6,000 found a right lower lobe pneumonia with hypoxia, Covid swab was negative so she was placed on appropriate antibiotics, pain mediation and ICU with IV fluid resuscitation and Dr. Carter will see her in consultation. Emerson was placed due to urinary retention. Subjective/Events-last exam Patient not close to DC as I had tentatively planned yesterday Requiring O2 more at 4L/min now Cardiology consulted for wheezing which appeared to be CHF but BNP normal and I ordered ECHO ABG reviewed PD is severe Complex issues Declines to go to a NH at this time Unable to DC today Review of Systems General: Fatigue, Malaise Pulmonary: Dyspnea Objective Exam Vital Signs Vital Signs Date Time Temp Pulse Resp B/P (MAP) Pulse Ox O2 Delivery O2 Flow Rate FiO2 05/31/20 04:00 36.5 89 20 121/65 (83) 97 Nasal Cannula 4.00 05/30/20 20:02 95 Capillary Refill : Less Than 3 Seconds General Appearance: No Apparent Distress, WD/WN, Chronically ill Respiratory: Chest Non Tender, Lungs Clear, No Accessory Muscle Use, No Respiratory Distress, Wheezing Cardiovascular: Regular Rate, Rhythm, No Edema, No Gallop, No JVD, No Murmur, Normal Peripheral Pulses Neurologic/Psychiatric: Alert, Oriented x3, No Motor/Sensory Deficits, Normal Mood/Affect Results/Procedures Lab Patient resulted labs reviewed. Imaging: Reviewed Imaging Report Assessment/Plan Assessment and Plan Assess & Plan/Chief Complaint Assessment: AMS Acute pancreatitis PNA PD severe Plan: Pain management IV abx Monitor O2 05/29/20: CLD Decrease IVF PNA treatment O2 wean 05/30/20: Very difficult to improve status today Lethargic of unknown reason Cardiology consultation Diagnosis/Problems Diagnosis/Problems (1) Pancreatitis Status: Acute (2) Right lower lobe pneumonia Status: Acute Clinical Quality Measures DVT/VTE Risk/Contraindication: Risk Factor Score Per Nursin RFS Level Per Nursing on Admit: 4+=Very High ASHA LASSITER DO May 30, 2020 06:57
[2020-05-30 07:12] LABS: HEMOGLOBIN 8.8 g/dL (11.5-16.0); MEAN PLATELET VOLUME 13.4 fL (9.0-12.2); WHITE BLOOD COUNT 14.8 10^3/uL (4.3-11.0)
[2020-05-30 07:41] LABS: ALBUMIN 2.5 GM/DL (3.2-4.5); BILIRUBIN,TOTAL 0.4 MG/DL (0.1-1.0); CALCIUM 6.2 MG/DL (8.5-10.1); CREATININE SERUM 2.26 MG/DL (0.60-1.30); POTASSIUM 3.6 MMOL/L (3.6-5.0); TOTAL PROTEIN 5.2 GM/DL (6.4-8.2)
[2020-05-30 08:00] VITALS: BP 111/67
[2020-05-30] MEDS: AZITHROMYCIN 500 MG/NS 250 ML IVPB IV SCH ×2 (08:01)
[2020-05-30] MEDS: ASPIRIN E.C. 325 MG (ECOTRIN) TABLET PO SCH (08:02)
[2020-05-30] MEDS: ENOXAPARIN 30 MG/0.3 ML (LOVENOX) SYR SC SCH (08:02)
[2020-05-30] MEDS: LORATADINE (CLARITIN) 10 MG TAB PO SCH (08:03)
[2020-05-30] MEDS: ALPRAZolam 0.25 MG (XANAX) TAB PO SCH ×2 (08:03→20:26)
[2020-05-30] MEDS: CARVEDILOL 6.25 MG (COREG) TAB PO SCH ×2 (08:03→22:26)
[2020-05-30] MEDS: VERAPAMIL SR 240 MG (CALAN SR) TAB PO SCH (08:03)
[2020-05-30] MEDS: BACLOFEN 10 MG (LIORESAL) TAB PO SCH ×2 (08:03→20:26)
[2020-05-30] MEDS: MONTELUKAST 10 MG (SINGULAIR) TAB PO SCH (08:03)
[2020-05-30] MEDS: FAMOTIDINE 20 MG (PEPCID) TABLET PO SCH (08:03)
--- NOTE | 2020-05-30 08:36 | Progress Note - Surgery ---
IRINA WELLS MED STUDENT 05/30/20 0836: Subjective Date Seen by a Provider: May 30, 2020 Time Seen by a Provider: 08:20 Subjective/Events-last exam Pt states she no longer has abdominal pain. Had some liquids yesterday with no nausea or vomiting. Still having some SOB and requesting breathing treatment. Has been using acapella. Catheter DC'd yesterday and pt feels like she is able to urinate okay. Lipase is down to 317 today, amylase down to 186. WBC is down to 14.8. Objective Exam Vital Signs Date Time Temp Pulse Resp B/P (MAP) Pulse Ox O2 Delivery O2 Flow Rate FiO2 05/30/20 04:00 36.9 91 22 105/61 (76) 96 Nasal Cannula 4.00 05/30/20 00:34 36.8 90 24 104/62 (76) 95 Nasal Cannula 4.00 05/29/20 20:20 Nasal Cannula 4.50 05/29/20 20:00 37.4 88 18 110/62 (78) 95 Nasal Cannula 4.00 05/29/20 16:00 37.0 82 18 103/56 (72) 92 Nasal Cannula 4.50 05/29/20 14:32 92 Nasal Cannula 4.00 05/29/20 12:00 36.2 95 18 120/75 (90) 96 Nasal Cannula 4.50 I & O 05/30/20 07:00 Intake Total 1620 ml Output Total 450 ml Balance 1170 ml Capillary Refill : Less Than 3 Seconds General Appearance: No Apparent Distress, WD/WN, Chronically ill HEENT: PERRL/EOMI, Normal ENT Inspection Neck: Normal Inspection, Supple Respiratory: Crackles (right lower lobe), Other (tachypneic, mildly increased work of breathing; coughs occasionally on exam) Cardiovascular: No Edema, No Murmur, Tachycardia Gastrointestinal: non tender, soft, distended (minimal); No guarding, No rebound Extremity: Normal Inspection, No Calf Tenderness, No Pedal Edema Neurologic/Psychiatric: Alert, Oriented x3, No Motor/Sensory Deficits, Normal Mood/Affect Skin: Normal Color, Warm/Dry Lymphatic: No Adenopathy Results Lab Laboratory Tests 05/30/20 06:55: White Blood Count 14.8H, Red Blood Count 2.90L, Hemoglobin 8.8L, Hematocrit 26L, Mean Corpuscular Volume 91, Mean Corpuscular Hemoglobin 30, Mean Corpuscular Hemoglobin Concent 33, Red Cell Distribution Width 15.5H, Platelet Count 156, Mean Platelet Volume 13.4H, Sodium Level 137, Potassium Level 3.6, Chloride Level 105, Carbon Dioxide Level 20L, Anion Gap 12, Blood Urea Nitrogen 50H, Creatinine 2.26H, Estimat Glomerular Filtration Rate 22, BUN/Creatinine Ratio 22, Glucose Level 93, Calcium Level 6.2L, Corrected Calcium 7.4L, Total Bilirubin 0.4, Aspartate Amino Transf (AST/SGOT) 35H, Alanine Aminotransferase (ALT/SGPT) 16, Alkaline Phosphatase 28L, Total Protein 5.2L, Albumin 2.5L, Rebecca lase Level 186H, Lipase 317H Microbiology 05/27/20 MRSA Screen - Final, Complete MRSA not isolated Assessment/Plan Assessment/Plan Assessment/Plan Right lower lobe pneumonia/atelectasis Pancreatitis Epigastric abdominal pain Cholelithiasis Patient to continue with IV fluids and antibiotics Amylase and lipase improving Continue with clear liquid diet Continue to monitor for urinary retention Pt eventually will need cholecystectomy d/t gall stone, but no CT evidence of cholecystitis Labs improving, repeat in a.m. Clinical Quality Measures DVT/VTE Risk/Contraindication: Risk Factor Score Per Nursin RFS Level Per Nursing on Admit: 4+=Very High ANNMARIE CARTER DO 05/30/20 1614: Subjective Subjective/Events-last exam Patient sitting in chair. She is now longer having any abdominal pain. He feels significantly better. She is tolerating liquids without any nausea or vomiting she states. Still having some shortness of breath at times. Breathing treatments are helping. Her WBC is improving. Amylase and lipase decreasing. Wanting food. Denies any fever sweats chills or chest pain at this time. Objective Exam General Appearance: No Apparent Distress, Chronically ill Neck: Normal Inspection, Supple Respiratory: Crackles (right lower lobe), Other Cardiovascular: No Edema, Tachycardia Gastrointestinal: non tender, soft, distended (minimal); No guarding, No rebound Extremity: Normal Inspection, No Calf Tenderness Neurologic/Psychiatric: Alert, Oriented x3, No Motor/Sensory Deficits, Normal M ood/Affect Skin: Normal Color, Warm/Dry Lymphatic: No Adenopathy Assessment/Plan Assessment/Plan Assessment/Plan Right lower lobe pneumonia/atelectasis Pancreatitis Epigastric abdominal pain-improved Cholelithiasis Patient to continue with IV fluids and antibiotics Amylase and lipase improving Advance diet as tolerates Pt eventually will need cholecystectomy d/t gall stone, but no CT evidence of cholecystitis Supervisory-Addendum Brief Verification & Attestation Participated in pt care: history, MDM, physical Personally performed: exam, history, MDM, supervision of care Care discussed with: Medical Student Procedures: n/a Results interpretation: Verified all documentation Verification and Attestation of Medical Student E/M Service A medical student performed and documented this service in my presence. I reviewed and verified all information documented by the medical student and made modifications to such information, when appropriate. I personally performed the physical exam and medical decision making. Annmarie Carter, May 30, 2020,16:14 IRINA WELLS MED STUDENT May 30, 2020 08:36 ANNMARIE CARTER DO May 30, 2020 16:14
--- NOTE | 2020-05-30 11:25 | Occupational Ther Daily Note ---
OT Current Status-Daily Note Subjective Pt seated in recliner after showering with nursing staff. Pt agreeable to OT tx, with focus on ADLs ADL-Treatment Therapy Code Descriptions/Definitions Functional [place] Measure: 0=Not Assessed/NA 4=Minimal Assistance 1=Total Assistance 5=Supervision or Setup 2=Maximal Assistance 6=Modified [place] 3=Moderate Assistance 7=Complete IndependenceSCALE: Activities may be completed with or without assistive devices. 0-Bnafgdmntg-dwpjolh completes the activity by him/herself with no assistance from a helper. 5-Set-up or Clean-up Assistance-helper sets up or cleans up; patient completes activity. [place] assists only prior to or following the activity. 4-Supervision or Touching Assistance-helper provides verbal cues and/or touching/steadying and/or contact guard assistance as patient completes activity. Assistance may be provided throughout the activity or intermittently. 3-Partial/Moderate Assistance-helper does LESS THAN HALF the effort. [place] lifts, holds or supports trunk or limbs, but provides less than half the effort. 2-Substantial/Maximal Assistance-helper does MORE THAN HALF the effort. [place] lifts or holds trunk or limbs and provides more than half the effort. 2-Stuknuefz-gfieui does ALL the effort. Patient does none of the effort to complete the activity. Or, the assistance of 2 or more helpers is required for the patient to complete the activity. If activity was not attempted, code reason: 7-Patient Refused. 9-Not Applicable-not attempted and the patient did not perform the activity before the current illness, exacerbation or injury. 10-Not Attempted due to Environmental Limitations-(lack of equipment, weather restraints, etc.). 88-Not Attempted due to Medical Conditions or Safety Concerns. Oral Hygiene (QC): 4 (SBA, pt required cues to focus on task and open eyes due to lethargic state.) Other Treatment Pt seated in recliner, agreeable to OT tx. Pt reports being fatigued after showering with nursing staff. OT gathers ADL supplies, setting up toothbrush for pt, then handing it to pt. Pt required cues to initiate task, and moderate cues throughout task to keep eyes open. Pt kept eyes closed while brushing her teeth, and at times stopped moving in a brushing motion, OT then cued pt to open her eyes and continue with task. Pt required increased time with task due to being tired and lethargic state. Pt then able to grab hair brush off of tray table and brush her hair independently. OT assisted pt with placing towel roll behind head to comfort. Post OT tx, pt seated in recliner, call light in reach and all needs met. Education OT Patient Education: Correct positioning, Modified ADL techniques Teaching Recipient: Patient Teaching Methods: Discussion Response to Teaching: Verbalize Understanding OT Supervisor Tower Goals Supervisor Tower Goals Time Frame: Jun 06, 2020 Oral Hygiene (QC): 5 Toileting Hygiene (QC): 4 Shower/Bathe Self (QC): 4 Upper Body Dressing (QC): 5 Lower Body Dressing (QC): 4 On/Off Footwear (QC): 4 Additional Goals: 1-Demonstrate ADL Tasks, 2-Verbalize Understanding, 3- ImproveStrength/Tracie 1=Demonstrate adherence to instructed precautions during ADL tasks. 2=Patient will verbalize/demonstrate understanding of assistive devices/modifications for ADL. 3=Patient will improve strength/tolerance for activity to enable patient to perform ADL's. OT Education/Plan Problem List/Assessment Assessment: Decreased Activ Tolerance, Decreased UE Strength, Impaired I ADL's, Impaired Self-Care Skills Discharge Recommendations Plan/Recommendations: Continue POC Treatment Plan/Plan of Care Patient would benefit from OT for education, treatment and training to promote independence in ADL's, mobility, safety and/or upper extremity function for ADL's. Plan of Care: ADL Retraining, Functional Mobility, UE Funct Exercise/Act Treatment Duration: Jun 06, 2020 Frequency: 5 times per week Estimated Hrs Per Day: .25 hour per day Agreement: Yes Rehab Potential: Fair Time/GCodes Start Time: 10:45 Stop Time: 11:02 Total Time Billed (hr/min): 17 Billed Treatment Time 1, ADL MARTHA IVAN OT May 30, 2020 11:25
[2020-05-30] MEDS ORDERED: FUROSEMIDE 40 MG/4 ML INJ (LASIX) IVP NR (11:30)
[2020-05-30] MEDS: UMECLIDINIUM BROMIDE (INCRUSE ELLIPTA) 7'S IH SCH (11:42)
--- NOTE | 2020-05-30 11:46 | Physical Therapy Daily Note ---
PT Daily Note-Current Subjective Pt is very lethargic throughout the treatment. Mental Status Patient Orientation: Person, Place Attachments: Oxygen Transfers SCALE: Activities may be completed with or without assistive devices. 8-Nebbmelken-berqqhv completes the activity by him/herself with no assistance from a helper. 5-Set-up or Clean-up Assistance-helper sets up or cleans up; patient completes activity. [place] assists only prior to or following the activity. 4-Supervision or Touching Assistance-helper provides verbal cues and/or touching/steadying and/or contact guard assistance as patient completes activity. Assistance may be provided throughout the activity or intermittently. 3-Partial/Moderate Assistance-helper does LESS THAN HALF the effort. [place] lifts, holds or supports trunk or limbs, but provides less than half the effort. 2-Substantial/Maximal Assistance-helper does MORE THAN HALF the effort. [place] lifts or holds trunk or limbs and provides more than half the effort. 4-Eemktcmft-bpzdhn does ALL the effort. Patient does none of the effort to complete the activity. Or, the assistance of 2 or more helpers is required for the patient to complete the activity. If activity was not attempted, code reason: 7-Patient Refused. 9-Not Applicable-not attempted and the patient did not perform the activity before the current illness, exacerbation or injury. 10-Not Attempted due to Environmental Limitations-(lack of equipment, weather restraints, etc.). 88-Not Attempted due to Medical Conditions or Safety Concerns. Sit to Stand (QC): 5 Chair/Cfp-uz-Fgjme Xfer(QC): 5 Gait Training Does the Patient Walk?: Yes Distance: 15ft Walk 10 feet (QC): 5 Gait Persons Needed: 1 Gait Assistive Device: FWW Pt had to have multiple verbal cues to keep walking. She stopped and fell asleep 4x while walking. Exercises Seated Therapy Exercises: LE Protocol Seated Reps: 15 Assessment Current Status: Fair Progress Pt was very limited by fatigue today. Good stability with transfers and during ambulation despite the fatigue. PT Economics Professor Goals [facility] Goals PT Economics Professor Goals Time Frame: Jun 04, 2020 Roll Left & Right (QC): 4 Sit to Lying (QC): 4 Lying-Sitting on Side/Bed(QC): 4 Sit to Stand (QC): 4 Chair/Lof-yq-Hsvsu Xfer(QC): 4 Walk 10 feet (QC): 4 PT Plan Treatment/Plan Treatment Plan: Continue Plan of Care Treatment Plan: Bed Mobility, Education, Functional Activity Tracie, Functional Strength, Gait, Safety, Therapeutic Exercise, Transfers Treatment Duration: Jun 04, 2020 Frequency: 6 times per week Estimated Hrs Per Day: .25 hour per day Patient and/or Family Agrees t: Yes Time/GCodes Time In: 1120 Time Out: 1135 Total Billed Treatment Time: 15 Total Billed Treatment 1, gt (15) ANN WILLIS PT May 30, 2020 11:46
[2020-05-30 11:52] LABS: ABG BASE EXCESS -1.1 MMOL/L (-2.5-2.5); ABG OXYGEN SATURATION 97 % (94-100); ABG PCO2 41 MMHG (35-45); ABG PH 7.37 (7.37-7.43); ABG PO2 68 MMHG (79-93); ABG TCO2 25.4 MMOL/L (21.0-31.0)
[2020-05-30 11:53] LABS: ALLENS TEST YES-POS; INSPIRED O2 4L; PATIENT TEMP 34.6; VENTILATOR NO
--- NOTE | 2020-05-30 11:54 | NUR ---
DISCHARGE PLANNING: This RN in to see patient. Found her sitting in the chair with o2 on at 4 L. She awakens easily but appears over medicated aeb her inability to open her eyes full and falling asleep during visit. She reports she wears O2 at home, unable to give me the liter flow. She reports living with her son Kong and his . Reports getting herself around with either a walker or cane. Was able to answer questions appropriately even though she is slow to mentate. This RN spoke to her son Kong once to confirm some of the things she told me to be accurate...which they were. Secondly to discuss possible need for SNF after discharge. Son is hesitant to put her in a SNF due to the risk of exposure to CV-19. He would rather take her home with home health care if needed on Tuesday after she has had more opportunity to work with PT/OT here. If needed he will likely choose [facility].
[2020-05-30 12:00] VITALS: BP 115/65
[2020-05-30] MEDS ORDERED: RT-ALBUTEROL/IPRATROPIUM 3 ML (DUONEB) VIAL INH SCH (13:00)
--- NOTE | 2020-05-30 14:03 | Consultation-Cardiology ---
HPI-Cardiology Cardiology Consultation Date of Consultation 05/30/20 Date of Admission Time Seen by Provider: 13:58 Indication: coronary artery disease HPI 70-year-old lady admitted with nausea and vomiting and abdominal pain diagnosed with acute pancreatitis. Currently improving. She has extensive cardiac history, I was called for evaluation for underlying coronary artery disease and congestive heart failure. On my evaluation she was sitting in bed. Feeling better. Still having mild discomfort. No chest pain, no shortness of breath Home Medications & Allergies Allergies: Coded Allergies: morphine (Verified Allergy, Intermediate, HIVES...TAKES HYDROCODONE AT HOME, 03/20/08) acetaminophen (Verified Allergy, Mild, HIVES...TAKES HYDROCODONE AT HOME, 03/20/08) bacitracin (Verified Allergy, Unknown, 08/16/07) cyproheptadine (Verified Allergy, Unknown, 08/16/07) fluoxetine (Verified Allergy, Unknown, 08/16/07) gramicidin D (Verified Allergy, Unknown, 08/16/07) neomycin (Verified Allergy, Unknown, 08/16/07) polymyxin B (Verified Allergy, Unknown, 08/16/07) tizanidine (Verified Allergy, Unknown, 08/16/07) tramadol (Verified Allergy, Unknown, 08/16/07) Uncoded Allergies: ARTHRITIS MEDS (Allergy, Unknown, 08/16/07) DECONGESTANTS (Allergy, Unknown, 08/16/07) Home Medication List Reviewed: Yes RQT-Qmfuij-Pfbsww Hx Patient Social History Marital Status: single Employed/Student: unemployed Alcohol Use: Denies Use Recreational Drug Use: No Smoking Status: Unknown if Ever Smoked Recent Foreign Travel: No Recent Infectious Disease Expo: No Recent Hopitalizations: Yes Immunizations Up To Date Date of Pneumonia Vaccine: Oct 11, 2013 Date of Influenza Vaccine: Apr 03, 2020 Past Medical History Discussed below Family Medical History Significant Family History: Cancer Family Medical Hx Noncontributory Review of Systems-General Review of Systems Constitutional: see HPI, weakness EENTM: see HPI; No ear pain, No hoarseness Respiratory: see HPI, cough; No dyspnea on exertion, No hemoptysis, No orthopnea, No phlegm; short of breath; No stridor, No wheezing, No other Cardiovascular: see HPI; No chest pain; edema; No Hx of Intervention, No palpitations, No syncope, No vascular heart diseas, No other Gastrointestinal: see HPI, abdominal pain (Epigastric); No dysphagia, No hematemesis Genitourinary: no symptoms reported, see HPI; No decreased output, No dysuria, No frequency : No Musculoskeletal: see HPI; No back pain, No joint pain Skin: see HPI; No change in color, No change in hair/nails Psychiatric/Neurological: See HPI; Denies Anxiety, Denies Depressed All Other Systems Reviewed Negative Unless Noted: Yes (Negative excepted noted.) Reviewed Test Results Reviewed Test Results Lab Laboratory Tests Test 05/30/20 06:55 05/30/20 11:49 Range/Units White Blood Count 14.8 H 4.3-11.0 10^3/uL Red Blood Count 2.90 L 3.80-5.11 10^6/uL Hemoglobin 8.8 L 11.5-16.0 g/dL Hematocrit 26 L 35-52 % Mean Corpuscular Volume 91 80-99 fL Mean Corpuscular Hemoglobin 30 25-34 pg Mean Corpuscular Hemoglobin Concent 33 32-36 g/dL Red Cell Distribution Width 15.5 H 10.0-14.5 % Platelet Count 156 130-400 10^3/uL Mean Platelet Volume 13.4 H 9.0-12.2 fL Sodium Level 137 135-145 MMOL/L Potassium Level 3.6 3.6-5.0 MMOL/L Chloride Level 105 98-107 MMOL/L Carbon Dioxide Level 20 L 21-32 MMOL/L Anion Gap 12 5-14 MMOL/L Blood Urea Nitrogen 50 H 7-18 MG/DL Creatinine 2.26 H 0.60-1.30 MG/DL Estimat Glomerular Filtration Rate 22 BUN/Creatinine Ratio 22 Glucose Level 93 70-105 MG/DL Calcium Level 6.2 L 8.5-10.1 MG/DL Corrected Calcium 7.4 L 8.5-10.1 MG/DL Total Bilirubin 0.4 0.1-1.0 MG/DL Aspartate Amino Transf (AST/SGOT) 35 H 5-34 U/L Alanine Aminotransferase (ALT/SGPT) 16 0-55 U/L Alkaline Phosphatase 28 L 40-136 U/L B-Type Natriuretic Peptide 35.1 <100.0 PG/ML Total Protein 5.2 L 6.4-8.2 GM/DL Albumin 2.5 L 3.2-4.5 GM/DL Amylase Level 186 H 25-125 U/L Lipase 317 H 8-78 U/L Procalcitonin 0.62 H <0.10 NG/ML Blood Gas Puncture Site RT RAD Blood Gas Patient Temperature 34.6 Arterial Blood pH 7.37 7.37-7.43 Arterial Blood Partial Pressure CO2 41 35-45 MMHG Arterial Blood Partial Pressure O2 68 L 79-93 MMHG Arterial Blood HCO3 24 23-27 MMOL/L Arterial Blood Total CO2 25.4 21.0-31.0 MMOL/L Arterial Blood Oxygen Saturation 97 94-100 % Arterial Blood Base Excess -1.1 -2.5-2.5 MMOL/L Killian Test YES-POS Blood Gas Ventilator Setting NO Blood Gas Inspired Oxygen 4L Physical Exam Physical Exam Vital Signs Vital Signs - First Documented 05/26/20 05/27/20 05/27/20 20:11 00:21 00:30 Temp 36.1 Pulse 86 Resp 25 B/P (MAP) 183/101 (128) Pulse Ox 99 O2 Delivery Room Air O2 Flow Rate 2.00 FiO2 2 Capillary Refill : Less Than 3 Seconds Height, Weight, BMI Height: 5'5.00" Weight: 173lbs. 0.0oz. [id number]; 26.00 BMI Method: General Appearance: No Apparent Distress, WD/WN, Chronically ill Eyes: Bilateral Eye EOMI, Bilateral Eye Conjunctivae Pale HEENT: PERRL/EOMI, Normal ENT Inspection Neck: Normal Inspection, Supple Respiratory: Crackles (right lower lobe), Other (tachypneic, mildly increased work of breathing; coughs occasionally on exam) Cardiovascular: No Edema, No Murmur, Tachycardia Gastrointestinal: Normal Bowel Sounds, Soft; No Distended; Tenderness Rectal: Deferred Back: Normal Inspection, No Vertebral Tenderness; No Muscle Spasm Extremity: Normal Inspection, No Calf Tenderness, No Pedal Edema Neurologic/Psychiatric: Alert, Oriented x3, No Motor/Sensory Deficits, Normal Mood/Affect Skin: Normal Color, Warm/Dry Lymphatic: No Adenopathy A/P-Cardiology Admission Diagnosis Acute pancreatitis Acute renal failure Coronary artery disease Hypertension Assessment/Plan Acute pancreatitis, improving, managed by primary care team. Pneumonia, breathing is better. Managed by primary care team Acute on chronic renal insufficiency, monitor renal function Anemia, slightly worse, monitor H&H History of congestive heart failure, currently not in heart failure. Echocardiogram showed normal LV size and function, normal PA pressure. Continue to monitor Coronary artery disease-patient underwent cardiac catheterization October 11, 2016 revealing mild coronary artery disease with 40-50 percent proximal to mid LAD stenosis, nonobstructive disease. Otherwise no significant obstructive disease. Normal EF. Continue to monitor History of Syncope, unsteady gait and fatigue with loss of energy, being treated for major depression and anxiety. Denies any recent syncopal episode. History of labile hypertension, well controlled at this time. Continue to monitor Hyperlipidemia, hold statin for now due to pancreatitis. Continue to monitor Mild bilateral carotid stenosis, history of left CEA in 2005, as well as history of left common carotid stenting. Most recent carotid duplex done May 2019 showing mild bilateral disease nonobstructive disease, continue to monitor. Diabetes Mellitus-managed by primary care physician Diabetic neuropathy Fibromyalgia Anxiety, depression seen in the behavioral health clinic Clinical Quality Measures DVT/VTE Risk/Contraindication: Risk Factor Score Per Nursin RFS Level Per Nursing on Admit: 4+=Very High JASPREET RIOS MD May 30, 2020 14:03
[2020-05-30] MEDS: RT-ALBUTEROL/IPRATROPIUM 3 ML (DUONEB) VIAL INH SCH ×2 (15:07→20:02)
--- NOTE | 2020-05-30 15:37 | Diagnostic Imaging Report ---
EXAMINATION: Chest 2 view HISTORY: Hypoxia COMPARISON: 05/28/2020 FINDINGS: Left hemidiaphragm is elevated. Surgical clips are seen in the left neck. There is right lung base airspace opacity which is similar to prior study. No pneumothorax. There is a small left pleural effusion. No right pleural effusion. IMPRESSION: 1. Stable right lung base airspace opacity, likely representing pneumonia. Dictated by: Dictated on workstation # [id number]
[2020-05-30 16:14] VITALS: BP 109/71
[2020-05-30] MEDS: GABAPENTIN 300 MG (NEURONTIN) CAP PO SCH (20:26)
[2020-05-30] MEDS: GABAPENTIN 400 MG (NEURONTIN) CAP PO SCH (20:26)
[2020-05-30 20:29] VITALS: BP 111/61
[2020-05-30] MEDS ORDERED: cefTRIAXone 1,000 MG IV (ROCEPHIN) VIAL ONE (22:08)
[2020-05-30] MEDS ORDERED: WATER (STERILE) FOR INJECTION 10 ML ONE (22:08)
[2020-05-30] MEDS: FENOFIBRATE 134 MG (LOFIBRA) CAPSULE PO SCH (22:26)
[2020-05-30] MEDS: cefTRIAXone 1,000 MG/SWFI 10 ML IV PUSH IV SCH ×2 (22:26)
--- NOTE | 2020-05-30 22:59 | NUR ---
1944-pt lethargic, awakes to sternal rubs, orientated x3 pt stated appropriately person, place & situation, patient's response was delay. Blood sugar was check resulted 111 vitals bp 111/62 hr 81 spo2 94% on 4l nc, temp 36.6 respirations 22 per minute 1958-this rn contacted dr. hinson about pt condition orders to check personal belongings to see if pt had any medications-this rn & patricia owusu [facility] checked pt belongings-pt had a bottle of clonazepam 0.5mg with 10 pills in it (counted with arturo rn)-this 10 was the prescribed number from the pharmacy-medication placed in lock in medication room. no further orders from dr. hinson.
[2020-05-31] VITALS: BP 110/57
[2020-05-31] MEDS: fentaNYL INJECTION 100 MCG/2 ML AMP IVP PRN ×2 (03:13→05:54)
[2020-05-31 04:00] VITALS: BP 121/65
--- NOTE | 2020-05-31 06:24 | NUR ---
0550-PT SITTING UP RIGHT IN BED HITTING HERSELF WITH THE CALL LIGHT ON THE LEFT LEG, THIS RN ASKED PT WHAT SHE WAS DOING & ADVISED PT TO STOP, PT STATED SHE WAS HURTING IN HER ABD & LOWER BACK, THAT THIS PAIN SHE WAS CREATING WAS TAKING HER MIND OFF THE ABD & BACK PAIN, PT STOPPED HITTING HERSELF ADVISED. 0554-PRN FENTANYL GIVEN-SEE SEP 623-PAIN IS DECREASING SINCE THE PRN PAIN MEDICATION
[2020-05-31 07:29] LABS: BASOPHILS % (AUTO) 0 % (0-10); HEMOGLOBIN 8.4 g/dL (11.5-16.0)
[2020-05-31 07:31] LABS: EOSINOPHILS # (AUTO) 0.4 10^3/uL (0.0-0.3); EOSINOPHILS % (AUTO) 3 % (0-10); HEMATOCRIT 26 % (35-52); LYMPHOCYTES # (AUTO) 0.7 10^3/uL (1.0-4.0); LYMPHOCYTES % (AUTO) 4 % (12-44); MEAN CORPUSCULAR HEMOGLOBIN 30 pg (25-34); MEAN CORPUSCULAR HGB CONC 32 g/dL (32-36); MEAN CORPUSCULAR VOLUME 93 fL (80-99); MEAN PLATELET VOLUME 12.9 fL (9.0-12.2); MONOCYTES # (AUTO) 1.1 10^3/uL (0.0-1.0); MONOCYTES % (AUTO) 7 % (0-12); NEUTROPHILS % (AUTO) 85 % (42-75); PLATELET COUNT 202 10^3/uL (130-400); WHITE BLOOD COUNT 16.4 10^3/uL (4.3-11.0)
[2020-05-31 07:40] LABS: ALBUMIN 2.6 GM/DL (3.2-4.5); POTASSIUM 3.8 MMOL/L (3.6-5.0)
[2020-05-31 07:42] LABS: TOTAL PROTEIN 5.7 GM/DL (6.4-8.2)
[2020-05-31 07:44] LABS: BILIRUBIN,TOTAL 0.3 MG/DL (0.1-1.0)
[2020-05-31 07:46] LABS: CREATININE SERUM 1.91 MG/DL (0.60-1.30)
[2020-05-31 08:00] VITALS: BP 125/64
[2020-05-31 08:20] LABS: CALCIUM 5.7 MG/DL (8.5-10.1)
--- NOTE | 2020-05-31 08:54 | Progress Note - Surgery ---
IRINA WELLS MED STUDENT 05/31/20 0854: Subjective Date Seen by a Provider: May 31, 2020 Time Seen by a Provider: 08:30 Subjective/Events-last exam Pt's main complaint today is lower back pain. Denies N/V, abdominal pain, or difficulty urinating. Says her only BM yesterday was a small amount of diarrhea. Feels like her SOB is improved. Has been using acapella, but has not been ambulating much. WBC today is 16.4, Hgb is 8.4. Focused Exam Lactate Level 05/31/20 07:18: Lactic Acid Level 0.70 Lactic Acid Level Laboratory Tests Test 05/31/20 07:18 Lactic Acid Level 0.70 MMOL/L (0.50-2.00) Objective Exam Vital Signs Date Time Temp Pulse Resp B/P (MAP) Pulse Ox O2 Delivery O2 Flow Rate FiO2 05/31/20 04:00 36.5 89 20 121/65 (83) 97 Nasal Cannula 4.00 05/31/20 00:00 36.1 84 20 110/57 (74) 96 Nasal Cannula 4.00 05/30/20 20:29 36.6 81 20 111/61 (78) 94 Nasal Cannula 4.00 05/30/20 20:02 Nasal Cannula 4.00 95 05/30/20 19:45 Nasal Cannula 4.00 05/30/20 16:14 36.5 82 20 109/71 (84) 93 Nasal Cannula 4.00 05/30/20 15:08 Nasal Cannula 4.00 96 05/30/20 12:00 36.0 92 20 115/65 (82) 92 Nasal Cannula 4.00 05/30/20 11:44 Nasal Cannula 4.00 96 I & O 05/31/20 07:00 Intake Total 2490 ml Output Total 925 ml Balance 1565 ml Capillary Refill : Less Than 3 Seconds General Appearance: No Apparent Distress, WD/WN, Chronically ill HEENT: PERRL/EOMI, Normal ENT Inspection Neck: Normal Inspection, Supple Respiratory: Chest Non Tender, No Accessory Muscle Use, No Respiratory Distress, Other (RLL crackles improved) Cardiovascular: No Edema, No Murmur, Tachycardia Gastrointestinal: non tender, soft, distended (minimal); No guarding, No rebound Extremity: Normal Inspection, No Calf Tenderness, No Pedal Edema Neurologic/Psychiatric: Oriented x3, No Motor/Sensory Deficits, Normal Mood/Affect, Other (awake, but sleepy on exam) Skin: Normal Color, Warm/Dry Lymphatic: No Adenopathy Results Lab Laboratory Tests 05/30/20 11:49: Blood Gas Puncture Site RT RAD, Blood Gas Patient Temperature 34.6, Arterial Blood pH 7.37, Arterial Blood Partial Pressure CO2 41, Arterial Blood Partial Pressure O2 68L, Arterial Blood HCO3 24, Arterial Blood Total CO2 25.4, Arterial Blood Oxygen Saturation 97, Arterial Blood Base Excess -1.1, Killian Test YES-POS, Blood Gas Ventilator Setting NO, Blood Gas Inspired Oxygen 4L 05/30/20 19:37: Glucometer 111H 05/31/20 07:18: White Blood Count 16.4H, Red Blood Count 2.79L, Hemoglobin 8.4L, Hematocrit 26L, Mean Corpuscular Volume 93, Mean Corpuscular Hemoglobin 30, Mean Corpuscular Hemoglobin Concent 32, Red Cell Distribution Width 15.8H, Platelet Count 202, Mean Platelet Volume 12.9H, Immature Granulocyte % (Auto) 1, Neutrophils (%) (Auto) 85H, Lymphocytes (%) (Auto) 4L, Monocytes (%) (Auto) 7, Eosinophils (%) (Auto) 3, Basophils (%) (Auto) 0, Neutrophils # (Auto) 14.0H, Lymphocytes # (Auto) 0.7L, Monocytes # (Auto) 1.1H, Eosinophils # (Auto) 0.4H, Basophils # (Auto) 0.0, Immature Granulocyte # (Auto) 0.2H, Sodium Level 134L, Potassium Level 3.8, Chloride Level 101, Carbon Dioxide Level 19L, Anion Gap 14, Blood Urea Nitrogen 49H, Creatinine 1.91H, Estimat Glomerular Filtration Rate 26, BUN/Creatinine Ratio 26, Glucose Level 83, Lactic Acid Level 0.70, Calcium Level 5.7*L, Corrected Calcium 6.8L, Total Bilirubin 0.3, Aspartate Amino Transf (AST/SGOT) 42H, Alanine Aminotransferase (ALT/SGPT) 19, Alkaline Phosphatase 32L , Total Protein 5.7L, Albumin 2.6L, Procalcitonin 0.70H Microbiology 05/27/20 MRSA Screen - Final, Complete MRSA not isolated Assessment/Plan Assessment/Plan Assessment/Plan Right lower lobe pneumonia/atelectasis Pancreatitis Epigastric abdominal pain-improved Cholelithiasis Patient to continue with IV fluids and antibiotics Advance diet as tolerates Pt eventually will need cholecystectomy d/t gall stone, but no CT evidence of cholecystitis Clinical Quality Measures DVT/VTE Risk/Contraindication: Risk Factor Score Per Nursin RFS Level Per Nursing on Admit: 4+=Very High JUAN RAMON CARTER DO 05/31/20 1402: Subjective Subjective/Events-last exam Patient stating she is having back pain. Moderate intensity. Nothing making it better. Nothing seems to make it worse. Patient denies any abdominal pain. Patient having flatus and had some diarrhea. Shortness of breath is improving. Her WBC is slightly increased today. She is using Acapella. Denies any nausea vomiting fever sweats chills shortness of breath or chest pain. Objective Exam General Appearance: No Apparent Distress, Chronically ill HEENT: PERRL/EOMI, Normal ENT Inspection Neck: Normal Inspection, Supple Respiratory: Chest Non Tender, No Accessory Muscle Use, No Respiratory Distress Cardiovascular: No Edema, No JVD, Tachycardia Gastrointestinal: non tender, soft, distended (minimal); No guarding, No rebound Neurologic/Psychiatric: Alert, No Motor/Sensory Deficits, Other (awake, but sleepy on exam) Skin: Normal Color, Warm/Dry Lymphatic: No Adenopathy Assessment/Plan Assessment/Plan Assessment/Plan Right lower lobe pneumonia/atelectasis Pancreatitis Epigastric abdominal pain-improved Cholelithiasis Low back pain Patient to continue with IV fluids and antibiotics Would put on clears . Back pain likely from pancreatitis Pt eventually will need cholecystectomy d/t gall stone, but no CT evidence of cholecystitis Pain control Supervisory-Addendum Brief Verification & Attestation Participated in pt care: history, MDM, physical Personally performed: exam, history, MDM, supervision of care Care discussed with: Medical Student Procedures: n/a Results interpretation: Verified all documentation Verification and Attestation of Medical Student E/M Service A medical student performed and documented this service in my presence. I reviewed and verified all information documented by the medical student and made modifications to such information, when appropriate. I personally performed the physical exam and medical decision making. Juan Ramon Carter, May 31, 2020,14:01 IRINA WELLS MED STUDENT May 31, 2020 08:54 JUAN RAMON CARTER DO May 31, 2020 14:02
[2020-05-31] MEDS: DICLOFENAC 1% GEL 100 GM (VOLTAREN) TUBE TOP SCH ×4 (09:18→20:47)
[2020-05-31] MEDS: ENOXAPARIN 30 MG/0.3 ML (LOVENOX) SYR SC SCH ×2 (09:18→11:09)
--- NOTE | 2020-05-31 09:38 | Physical Therapy Daily Note ---
PT Daily Note-Current Subjective Patient in recliner pre tx, agrees reluctantly to PT, nurse has just put some pain relieving gel onto her back, patient has 9/10 pain in low back. Patient has already refused once this morning due to pain, nurse notified. Appearance Patient in recliner post tx with nurse call, phone, tray, all needs met. Mental Status Patient Orientation: Person, Confused, Situation, Mumbles Transfers SCALE: Activities may be completed with or without assistive devices. 8-Nirnppesnl-lscoskc completes the activity by him/herself with no assistance from a helper. 5-Set-up or Clean-up Assistance-helper sets up or cleans up; patient completes activity. [place] assists only prior to or following the activity. 4-Supervision or Touching Assistance-helper provides verbal cues and/or touching/steadying and/or contact guard assistance as patient completes activity. Assistance may be provided throughout the activity or intermittently. 3-Partial/Moderate Assistance-helper does LESS THAN HALF the effort. [place] lifts, holds or supports trunk or limbs, but provides less than half the effort. 2-Substantial/Maximal Assistance-helper does MORE THAN HALF the effort. [place] lifts or holds trunk or limbs and provides more than half the effort. 2-Izhtjhhxj-icpqsy does ALL the effort. Patient does none of the effort to complete the activity. Or, the assistance of 2 or more helpers is required for the patient to complete the activity. If activity was not attempted, code reason: 7-Patient Refused. 9-Not Applicable-not attempted and the patient did not perform the activity before the current illness, exacerbation or injury. 10-Not Attempted due to Environmental Limitations-(lack of equipment, weather restraints, etc.). 88-Not Attempted due to Medical Conditions or Safety Concerns. Sit to Stand (QC): 4 Chair/Exb-ax-Gqpyw Xfer(QC): 3 Gait Training Distance: 20' Walk 10 feet (QC): 4 Gait Persons Needed: 1 Gait Assistive Device: FWW very slow ambulation, lethargic, needs assist with guiding walker with turning Treatments transfers, ambulation Assessment Current Status: Poor Progress lethargic, not much change in functional mobility PT Assisted Goals Barrel Brander Goals PT Assisted Goals Time Frame: Jun 04, 2020 Roll Left & Right (QC): 4 Sit to Lying (QC): 4 Lying-Sitting on Side/Bed(QC): 4 Sit to Stand (QC): 4 Chair/Uen-hq-Ncaqm Xfer(QC): 4 Walk 10 feet (QC): 4 PT Plan Problem List Problem List: Activity Tolerance, Functional Strength, Safety, Balance, Gait, Transfer, Bed Mobility, ROM Treatment/Plan Treatment Plan: Continue Plan of Care Treatment Plan: Bed Mobility, Education, Functional Activity Tracie, Functional Strength, Gait, Safety, Therapeutic Exercise, Transfers Treatment Duration: Jun 04, 2020 Frequency: 6 times per week Estimated Hrs Per Day: .25 hour per day Patient and/or Family Agrees t: Yes Safety Risks/Education Patient Education: Gait Training, Transfer Techniques, Correct Positioning, Safety Issues Teaching Recipient: Patient Teaching Methods: Demonstration, Discussion Response to Teaching: Reinforcement Needed Time/GCodes Time In: 917 Time Out: 929 Total Billed Treatment Time: 12 Total Billed Treatment 1 visit GT 12' MEETA CABALLERO PT May 31, 2020 09:37
[2020-05-31] MEDS: RT-ALBUTEROL/IPRATROPIUM 3 ML (DUONEB) VIAL INH SCH ×2 (10:00→15:01)
[2020-05-31] MEDS: UMECLIDINIUM BROMIDE (INCRUSE ELLIPTA) 7'S IH SCH (10:00)
[2020-05-31] MEDS ORDERED: NS IV 1000 ML 1,000 ML ONE (10:55)
[2020-05-31] MEDS: AZITHROMYCIN 500 MG/NS 250 ML IVPB IV SCH ×2 (11:02)
[2020-05-31] MEDS: NS IV 1000 ML 1,000 ML IV SCH ×2 (11:03→21:04)
[2020-05-31] MEDS: FAMOTIDINE 20 MG (PEPCID) TABLET PO SCH (11:08)
[2020-05-31] MEDS: ASPIRIN E.C. 325 MG (ECOTRIN) TABLET PO SCH (11:09)
[2020-05-31] MEDS: ONDANSETRON 4 MG/2 ML (SDV) Z0FRAN IVP PRN (11:16)
[2020-05-31 12:00] VITALS: BP 125/75
--- NOTE | 2020-05-31 12:52 | Cardiology Progress Note ---
Subjective Date Seen by Provider: May 31, 2020 Time Seen by Provider: 12:51 Subjective/Events-last exam Patient is laying down in bed, complaining of generalized fatigue. No chest pain Review of Systems General: No Chills, No Night Sweats, No Fatigue, No Malaise, No Appetite, No Other HEENT: No Head Aches, No Visual Changes, No Eye Pain, No Ear Pain, No Dysphasia, No Sinus Congestion, No Post Nasal Drip, No Sore Throat, No Other Pulmonary: No Dyspnea, No Cough, No Pleuritic Chest Pain, No Other Cardiovascular: No: Chest Pain, Palpitations, Orthopnea, Paroxysmal Noc. Dyspnea, Edema, Lt Headedness, Other Focused Exam Lactate Level 05/31/20 07:18: Lactic Acid Level 0.70 Objective-Cardiology Exam Last Set of Vital Signs Vital Signs 05/30/20 05/31/20 20:02 08:00 Temp 35.8 Pulse 97 Resp 20 B/P (MAP) 125/64 (84) Pulse Ox 99 O2 Delivery Nasal Cannula O2 Flow Rate 4.00 FiO2 95 Capillary Refill : Less Than 3 Seconds I&O Intake and Output0 05/31/20 00:00 Intake Total 1390 ml Output Total 450 ml Balance 940 ml Intake Oral 1390 ml Output Urine Total 450 ml # Voids 4 # Bowel Movements 2 General: Alert, Oriented X3, Cooperative HEENT: Atraumatic, PERRLA Neck: Supple, No JVD, No Thyromegaly Lungs: Clear to Auscultation, Normal Air Movement Heart: Regular Rate, Normal S1, Normal S2, No Murmurs Abdomen: Normal Bowel Sounds, Soft, No Tenderness, No Hepatosplenomegaly, No Masses Extremities: No Clubbing, No Cyanosis, No Edema, Normal Pulses, No Te nderness/Swelling Skin: No Rashes, No Breakdown, No Significant Lesion Neuro: Normal Gait, Normal Speech, Strength at 5/5 X4 Ext, Normal Tone, Sensation Intact Psych/Mental Status: Mental Status NL, Mood NL Results Lab Laboratory Tests 05/31/20 07:18 A/P-Cardiology Admission Diagnosis Acute pancreatitis Acute renal failure Coronary artery disease Hypertension Assessment/Plan Acute pancreatitis, improving, managed by primary care team. Pneumonia, breathing is better. Managed by primary care team Acute on chronic renal insufficiency, continue to monitor renal function, followed by primary care team Anemia, H&H is dropping slowly. Followed and managed by primary care team History of congestive heart failure, currently not in heart failure. Echocardiogram showed normal LV size and function, normal PA pressure. Continue to monitor Coronary artery disease-patient underwent cardiac catheterization October 11, 2016 revealing mild coronary artery disease with 40-50 percent proximal to mid LAD stenosis, nonobstructive disease. Otherwise no significant obstructive disease. Normal EF. Continue to monitor History of Syncope, unsteady gait and fatigue with loss of energy, being treated for major depression and anxiety. Denies any recent syncopal episode. History of labile hypertension, well controlled at this time. Continue to monitor Hyperlipidemia, hold statin for now due to pancreatitis. Continue to monitor Mild bilateral carotid stenosis, history of left CEA in 2005, as well as history of left common carotid stenting. Most recent carotid duplex done May 2019 showing mild bilateral disease nonobstructive disease, continue to monitor. Diabetes Mellitus-managed by primary care physician Diabetic neuropathy Fibromyalgia Anxiety, depression seen in the behavioral health clinic Clinical Quality Measures DVT/VTE Risk/Contraindication: Risk Factor Score Per Nursin RFS Level Per Nursing on Admit: 4+=Very High JASPREET RIOS MD May 31, 2020 12:52 pm
--- NOTE | 2020-05-31 13:04 | Progress Note - Hospitalist ---
Subjective HPI/CC On Admission Date Seen by Provider: May 31, 2020 Time Seen by Provider: 11:30 CC: Abdominal pain with nausea and vomiting and hypoxia HPI: This is a 70yoWF who has severe Parkinsons who presented with acute pancreatitis, lipase of 6,000 found a right lower lobe pneumonia with hypoxia, Covid swab was negative so she was placed on appropriate antibiotics, pain mediation and ICU with IV fluid resuscitation and Dr. Carter will see her in consultation. Emerson was placed due to urinary retention. Subjective/Events-last exam Patient much more alert today Very sedated yesterday evening Patient cranky today IVF maintained by Dr Carter Amylase and lipase ok yesterday Chronic back pain Was taking ibuprofen at home and I told her that has caused kidney issues Review of Systems General: Fatigue Musculoskeletal: back pain Focused Exam Lactate Level 05/31/20 07:18: Lactic Acid Level 0.70 Objective Exam Vital Signs Vital Signs Date Time Temp Pulse Resp B/P (MAP) Pulse Ox O2 Delivery O2 Flow Rate FiO2 05/31/20 16:16 36.3 92 18 110/59 (76) 98 Nasal Cannula 4.00 05/31/20 15:01 99 Capillary Refill : Less Than 3 Seconds General Appearance: No Apparent Distress, WD/WN, Chronically ill Respiratory: Chest Non Tender, Lungs Clear, Normal Breath Sounds, No Accessory Muscle Use, No Respiratory Distress Cardiovascular: Regular Rate, Rhythm, No Edema, No Gallop, No JVD, No Murmur, Normal Peripheral Pulses Neurologic/Psychiatric: Alert, Oriented x3, No Motor/Sensory Deficits, Normal Mood/Affect Results/Procedures Lab Laboratory Tests 05/31/20 07:18 Patient resulted labs reviewed. Imaging: Reviewed Imaging Report Assessment/Plan Assessment and Plan Assess & Plan/Chief Complaint Assessment: AMS Acute pancreatitis PNA PD severe Plan: Pain management IV abx Monitor O2 05/29/20: CLD Decrease IVF PNA treatment O2 wean 05/30/20: Very difficult to improve status today Lethargic of unknown reason Cardiology consultation 05/31/20: Gentle IVF Oversedation from meds Limit al sedatives Diagnosis/Problems Diagnosis/Problems (1) Pancreatitis Status: Acute (2) Right lower lobe pneumonia Status: Acute Clinical Quality Measures DVT/VTE Risk/Contraindication: Risk Factor Score Per Nursin RFS Level Per Nursing on Admit: 4+=Very High ASHA LASSITER DO May 31, 2020 13:04
[2020-05-31] MEDS: CALCIUM CARBONATE 500 MG (TUMS) TAB.CHEW PO SCH ×2 (13:42→20:45)
[2020-05-31] MEDS: CARVEDILOL 6.25 MG (COREG) TAB PO SCH ×2 (13:43→20:47)
[2020-05-31] MEDS: LORATADINE (CLARITIN) 10 MG TAB PO SCH (13:43)
[2020-05-31] MEDS: VERAPAMIL SR 240 MG (CALAN SR) TAB PO SCH (13:43)
[2020-05-31] MEDS: BACLOFEN 10 MG (LIORESAL) TAB PO SCH ×2 (13:44→20:46)
[2020-05-31] MEDS: ALPRAZolam 0.25 MG (XANAX) TAB PO SCH ×2 (13:44→20:46)
[2020-05-31] MEDS: MONTELUKAST 10 MG (SINGULAIR) TAB PO SCH (13:47)
[2020-05-31] MEDS ORDERED: PIPERACILLIN/TAZOBACTAM (BULK) 4.5 GM in NS (IVPB) 100 ML IV NR (14:00)
--- NOTE | 2020-05-31 14:27 | Diagnostic Imaging Report ---
EXAMINATION: Chest 2 view HISTORY: Pneumonia COMPARISON: 05/30/2020 FINDINGS: There is unchanged elevation of the left hemidiaphragm. No pleural effusion or pneumothorax. Heart size is normal. Surgical clips are seen in the left supraclavicular fossa. Right lung base airspace opacity is improved. IMPRESSION: 1. Improved right lung base airspace opacity. Dictated by: Dictated on workstation # [id number]
[2020-05-31 16:16] VITALS: BP 110/59
[2020-05-31 19:14] VITALS: BP 108/58
[2020-05-31] MEDS: PIPERACILLIN/TAZO 4.5 GM/NS 100 ML IV SCH ×2 (20:46)
[2020-05-31] MEDS: GABAPENTIN 400 MG (NEURONTIN) CAP PO SCH (20:46)
[2020-05-31] MEDS: GABAPENTIN 300 MG (NEURONTIN) CAP PO SCH (20:46)
[2020-05-31] MEDS: FENOFIBRATE 134 MG (LOFIBRA) CAPSULE PO SCH (20:47)
[2020-06-01] VITALS (7 sets, daily range): BP systolic 93–120; BP diastolic 54–61
[2020-06-01] MEDS: PIPERACILLIN/TAZO 4.5 GM/NS 100 ML IV SCH ×6 (04:06→20:05)
[2020-06-01] MEDS: RT-ALBUTEROL/IPRATROPIUM 3 ML (DUONEB) VIAL INH SCH ×3 (06:34→20:30)
[2020-06-01] MEDS: UMECLIDINIUM BROMIDE (INCRUSE ELLIPTA) 7'S IH SCH (06:35)
--- NOTE | 2020-06-01 06:45 | NUR ---
Patient c/o shortness of air. Patient was yelling "I can't breathe". Audible wheezes noted. This nurse auscultated lungs, assessment unchanged from previous assessment. SaO2 98% on 4L/NC. This nurse asked patient to attempt to cough, as it sounded like she needed to just clear her throat. Patient refused to cough. RT notified and was asked to administer a PRN nebulizer treatment to patient. This nurse updated patient that RT was on there way. Patient replied "Won't help". RT went to patient room and patient refused a breathing treatment stating that she needed to use the restroom first. GROUP TESTER went to patient room to assist patient to the restroom. Patient stated that she did not need to use the restroom.
[2020-06-01] MEDS: NS IV 1000 ML 1,000 ML IV SCH (07:18)
--- NOTE | 2020-06-01 07:27 | Progress Note - Hospitalist ---
Subjective HPI/CC On Admission Date Seen by Provider: Jun 01, 2020 Time Seen by Provider: 11:00 CC: Abdominal pain with nausea and vomiting and hypoxia HPI: This is a 70yoWF who has severe Parkinsons who presented with acute pancreatitis, lipase of 6,000 found a right lower lobe pneumonia with hypoxia, Covid swab was negative so she was placed on appropriate antibiotics, pain mediation and ICU with IV fluid resuscitation and Dr. Carter will see her in consultation. Emerson was placed due to urinary retention. Subjective/Events-last exam Very odd behavior Uses call light a lot of vague reasons NO confusion Fal affect Very weak she reports but declines NH placement Very difficult to manage Labs improved Review of Systems General: Fatigue Focused Exam Lactate Level 05/31/20 07:18: Lactic Acid Level 0.70 Objective Exam Vital Signs Vital Signs Date Time Temp Pulse Resp B/P (MAP) Pulse Ox O2 Delivery O2 Flow Rate FiO2 06/01/20 15:31 36.8 93 16 116/60 (78) 96 Nasal Cannula 3.00 06/01/20 06:35 97 Capillary Refill : Less Than 3 Seconds General Appearance: No Apparent Distress, WD/WN, Chronically ill Respiratory: Chest Non Tender, Lungs Clear, Normal Breath Sounds, No Accessory Muscle Use, No Respiratory Distress Cardiovascular: Regular Rate, Rhythm, No Edema, No Gallop, No JVD, No Murmur, Normal Peripheral Pulses Neurologic/Psychiatric: Alert, Oriented x3, No Motor/Sensory Deficits, Depressed Affect Results/Procedures Lab Laboratory Tests 06/01/20 07:22 Patient resulted labs reviewed. Imaging: Reviewed Imaging Report Assessment/Plan Assessment and Plan Assess & Plan/Chief Complaint Assessment: AMS Acute pancreatitis PNA PD severe Plan: Pain management IV abx Monitor O2 05/29/20: CLD Decrease IVF PNA treatment O2 wean 05/30/20: Very difficult to improve status today Lethargic of unknown reason Cardiology consultation 05/31/20: Gentle IVF Oversedation from meds Limit al sedatives 06/01/20: Limit sedatives Fall risk Monitor closely Abx Diagnosis/Problems Diagnosis/Problems (1) Pancreatitis Status: Acute (2) Right lower lobe pneumonia Status: Acute Clinical Quality Measures DVT/VTE Risk/Contraindication: Risk Factor Score Per Nursin RFS Level Per Nursing on Admit: 4+=Very High ASHA LASSITER DO Jun 01, 2020 07:27
[2020-06-01 07:44] LABS: ALBUMIN 2.5 GM/DL (3.2-4.5); POTASSIUM 3.1 MMOL/L (3.6-5.0)
[2020-06-01 07:47] LABS: TOTAL PROTEIN 5.3 GM/DL (6.4-8.2)
[2020-06-01 07:49] LABS: BASOPHILS # (AUTO) 0.1 10^3/uL (0.0-0.1); BASOPHILS % (AUTO) 0 % (0-10); BILIRUBIN,TOTAL 0.4 MG/DL (0.1-1.0); EOSINOPHILS # (AUTO) 0.5 10^3/uL (0.0-0.3); EOSINOPHILS % (AUTO) 3 % (0-10); HEMATOCRIT 26 % (35-52); HEMOGLOBIN 8.6 g/dL (11.5-16.0); LYMPHOCYTES # (AUTO) 0.9 10^3/uL (1.0-4.0); LYMPHOCYTES % (AUTO) 5 % (12-44); MEAN CORPUSCULAR HEMOGLOBIN 30 pg (25-34); MEAN CORPUSCULAR HGB CONC 33 g/dL (32-36); MEAN CORPUSCULAR VOLUME 92 fL (80-99); MEAN PLATELET VOLUME 12.7 fL (9.0-12.2); MONOCYTES # (AUTO) 1.2 10^3/uL (0.0-1.0); MONOCYTES % (AUTO) 7 % (0-12); NEUTROPHILS # (AUTO) 12.9 10^3/uL (1.8-7.8); NEUTROPHILS % (AUTO) 81 % (42-75); PLATELET COUNT 248 10^3/uL (130-400)
[2020-06-01 07:50] LABS: CREATININE SERUM 1.61 MG/DL (0.60-1.30)
[2020-06-01 08:10] LABS: CALCIUM 5.9 MG/DL (8.5-10.1)
[2020-06-01] MEDS: LORATADINE (CLARITIN) 10 MG TAB PO SCH (08:53)
[2020-06-01] MEDS: MONTELUKAST 10 MG (SINGULAIR) TAB PO SCH (08:53)
[2020-06-01] MEDS: VERAPAMIL SR 240 MG (CALAN SR) TAB PO SCH (08:53)
[2020-06-01] MEDS: FAMOTIDINE 20 MG (PEPCID) TABLET PO SCH (08:53)
[2020-06-01] MEDS: ALPRAZolam 0.25 MG (XANAX) TAB PO SCH ×2 (09:12→20:04)
--- NOTE | 2020-06-01 09:26 | Cardiology Progress Note ---
Subjective Date Seen by Provider: Jun 01, 2020 Time Seen by Provider: 09:23 Subjective/Events-last exam Patient was seen at bedside, sitting comfortably. Complaining of mild shortness of breath. Review of Systems General: No Chills, No Night Sweats; Fatigue, Malaise; No Appetite, No Other HEENT: No Head Aches, No Visual Changes, No Eye Pain, No Ear Pain, No Dysphas ia, No Sinus Congestion, No Post Nasal Drip, No Sore Throat, No Other Pulmonary: Dyspnea; No Cough, No Pleuritic Chest Pain, No Other Cardiovascular: No: Chest Pain, Palpitations, Orthopnea, Paroxysmal Noc. Dyspnea, Edema, Lt Headedness, Other Focused Exam Lactate Level 05/31/20 07:18: Lactic Acid Level 0.70 Objective-Cardiology Exam Last Set of Vital Signs Vital Signs 06/01/20 06/01/20 04:00 06:35 Temp 36.3 Pulse 85 Resp 22 B/P (MAP) 93/61 (72) Pulse Ox 97 O2 Delivery Nasal Cannula O2 Flow Rate 2.00 FiO2 97 Capillary Refill : Less Than 3 Seconds I&O Intake and Output0 06/01/20 00:00 Intake Total 5110 ml Output Total 725 ml Balance 4385 ml Intake Oral 3180 ml IV Total 1930 ml Output Urine Total 725 ml # Voids 5 General: Alert, Oriented X3, Cooperative HEENT: Atraumatic, PERRLA Neck: Supple, No JVD, No Thyromegaly Lungs: Clear to Auscultation, Normal Air Movement Heart: Regular Rate, Normal S1, Normal S2, No Murmurs Abdomen: Normal Bowel Sounds, Soft, No Tenderness, No Hepatosplenomegaly, No Masses Extremities: No Clubbing, No Cyanosis, No Edema, Normal Pulses, No Tend erness/Swelling Skin: No Rashes, No Breakdown, No Significant Lesion Neuro: Normal Gait, Normal Speech, Strength at 5/5 X4 Ext, Normal Tone, Sensation Intact Psych/Mental Status: Mental Status NL, Mood NL Results Lab Laboratory Tests 06/01/20 07:22 A/P-Cardiology Admission Diagnosis Acute pancreatitis Acute renal failure Coronary artery disease Hypertension Assessment/Plan Acute pancreatitis, improving, managed by primary care team. Pneumonia, having some dyspnea today. Receiving antibiotics. Managed by primary care team Acute on chronic renal insufficiency, continue to monitor renal function, followed by primary care team Anemia, H&H is dropping slowly. Followed and managed by primary care team Hypokalemia, replace and monitor History of congestive heart failure, currently not in heart failure. Echocardiogram showed normal LV size and function, normal PA pressure. Continue to monitor Coronary artery disease-patient underwent cardiac catheterization October 11, 2016 revealing mild coronary artery disease with 40-50 percent proximal to mid LAD stenosis, nonobstructive disease. Otherwise no significant obstructive disease. Normal EF. Continue to monitor History of Syncope, unsteady gait and fatigue with loss of energy, being treated for major depression and anxiety. Denies any recent syncopal episode. History of labile hypertension, well controlled at this time. Continue to monitor Hyperlipidemia, hold statin for now due to pancreatitis. Continue to monitor Mild bilateral carotid stenosis, history of left CEA in 2005, as well as history of left common carotid stenting. Most recent carotid duplex done May 2019 showing mild bilateral disease nonobstructive disease, continue to monitor. Diabetes Mellitus-managed by primary care physician Diabetic neuropathy Fibromyalgia Anxiety, depression seen in the behavioral health clinic Clinical Quality Measures DVT/VTE Risk/Contraindication: Risk Factor Score Per Nursin RFS Level Per Nursing on Admit: 4+=Very High JASPREET RIOS MD Jun 01, 2020 9:26 am
[2020-06-01] MEDS: ONDANSETRON 4 MG/2 ML (SDV) Z0FRAN IVP PRN (09:30)
[2020-06-01] MEDS ORDERED: KCL 20 MEQ TAB (K-DUR) PO ONE ×2 (09:30→12:46)
--- NOTE | 2020-06-01 10:24 | Progress Note - Hospitalist ---
Subjective HPI/CC On Admission Date Seen by Provider: Jun 01, 2020 Time Seen by Provider: 09:15 CC: Abdominal pain with nausea and vomiting and hypoxia HPI: This is a 70yoWF who has severe Parkinsons who presented with acute pancreatitis, lipase of 6,000 found a right lower lobe pneumonia with hypoxia, Covid swab was negative so she was placed on appropriate antibiotics, pain mediation and ICU with IV fluid resuscitation and Dr. Carter will see her in consultation. Emerson was placed due to urinary retention. Focused Exam Lactate Level 05/31/20 07:18: Lactic Acid Level 0.70 Objective Exam Vital Signs Vital Signs Date Time Temp Pulse Resp B/P (MAP) Pulse Ox O2 Delivery O2 Flow Rate FiO2 06/01/20 08:00 Nasal Cannula 2.00 06/01/20 08:00 36.3 96 16 116/59 (78) 95 06/01/20 06:35 97 Capillary Refill : Less Than 3 Seconds General Appearance: No Apparent Distress, WD/WN HEENT: PERRL/EOMI, Normal ENT Inspection Neck: Normal Inspection, Supple Respiratory: No Accessory Muscle Use, No Respiratory Distress, Crackles (minimal bilateral bases) Cardiovascular: Regular Rate, Rhythm, No Edema, No Murmur Gastrointestinal: Non Tender, Soft, Distended (minimal); No Guarding Rectal: Deferred Back: Normal Inspection, No CVA Tenderness Extremity: Normal Inspection, No Calf Tenderness, No Pedal Edema Neurologic/Psychiatric: No Motor/Sensory Deficits, Normal Mood/Affect, Other (sleepy, but awakens to voice and answers questions) Skin: Normal Color, Warm/Dry Lymphatic: No Adenopathy Results/Procedures Lab Laboratory Tests 06/01/20 07:22 Patient resulted labs reviewed. Imaging: Reviewed Imaging Report Clinical Quality Measures DVT/VTE Risk/Contraindication: Risk Factor Score Per Nursin RFS Level Per Nursing on Admit: 4+=Very High IRINA WELLS MED STUDENT Jun 01, 2020 10:24
--- NOTE | 2020-06-01 10:30 | Progress Note - Surgery ---
IRINA WELLS MED STUDENT 06/01/20 1030: Subjective Date Seen by a Provider: Jun 01, 2020 Time Seen by a Provider: 09:15 Subjective/Events-last exam Pt somnolent, but arousable and answers questions. Denies pain, notes some SOB. Had some diarrhea yesterday. Amylase down to 105 and lipase down to 274. Hemoglobin 8.6 and WBC 16.0. Potassium 3.1. CXR from yesterday showed improved right lung base opacity. Focused Exam Lactate Level 05/31/20 07:18: Lactic Acid Level 0.70 Objective Exam Vital Signs Date Time Temp Pulse Resp B/P (MAP) Pulse Ox O2 Delivery O2 Flow Rate FiO2 06/01/20 08:00 Nasal Cannula 2.00 06/01/20 08:00 36.3 96 16 116/59 (78) 95 Nasal Cannula 4.00 06/01/20 06:35 Nasal Cannula 2.00 97 06/01/20 04:00 36.3 85 22 93/61 (72) 97 Nasal Cannula 4.00 06/01/20 00:38 36.2 80 18 98/54 (69) 96 Nasal Cannula 4.00 05/31/20 20:00 Nasal Cannula 4.00 05/31/20 19:14 35.7 95 18 108/58 (75) 98 Nasal Cannula 4.00 05/31/20 16:16 36.3 92 18 110/59 (76) 98 Nasal Cannula 4.00 05/31/20 15:01 Nasal Cannula 5.00 99 05/31/20 12:00 36.1 80 18 125/75 (92) 95 Nasal Cannula 4.00 I & O 06/01/20 07:00 Intake Total 4010 ml Balance 4010 ml Capillary Refill : Less Than 3 Seconds General Appearance: No Apparent Distress, WD/WN, Chronically ill HEENT: PERRL/EOMI, Normal ENT Inspection Neck: Normal Inspection, Supple Respiratory: Chest Non Tender, No Accessory Muscle Use, No Respiratory Distress, Crackles (minimal, bilateral bases) Cardiovascular: Regular Rate, Rhythm, No Edema, No Murmur Gastrointestinal: non tender, soft, distended (minimal); No guarding, No rebound Extremity: Normal Inspection, No Calf Tenderness, No Pedal Edema Neurologic/Psychiatric: No Motor/Sensory Deficits, Normal Mood/Affect, Other (falls asleep on exam, but arousable and answers questions) Skin: Normal Color, Warm/Dry Lymphatic: No Adenopathy Results Lab Laboratory Tests 06/01/20 07:22: White Blood Count 16.0H, Red Blood Count 2.86L, Hemoglobin 8.6L, Hematocrit 26L, Mean Corpuscular Volume 92, Mean Corpuscular Hemoglobin 30, Mean Corpuscular Hemoglobin Concent 33, Red Cell Distribution Width 15.7H, Platelet Count 248, Mean Platelet Volume 12.7H, Immature Granulocyte % (Auto) 3, Neutrophils (%) (Auto) 81H, Lymphocytes (%) (Auto) 5L, Monocytes (%) (Auto) 7, Eosinophils (%) (Auto) 3, Basophils (%) (Auto) 0, Neutrophils # (Auto) 12.9H, Lymphocytes # (Auto) 0.9L, Monocytes # (Auto) 1.2H, Eosinophils # (Auto) 0.5H, Basophils # (Auto) 0.1, Immature Granulocyte # (Auto) 0.6H, Sodium Level 140, Potassium Level 3.1L, Chloride Level 105, Carbon Dioxide Level 21, Anion Gap 14, Blood Urea Nitrogen 42H, Creatinine 1.61H, Estimat Glomerular Filtration Rate 32, BUN/Creatinine Ratio 26, Glucose Level 97, Calcium Level 5.9*L, Corrected Calcium 7.1L, Total Bilirubin 0.4, Aspartate Amino Transf (AST/SGOT) 40H, Alanine Aminotransferase (ALT/SGPT) 20, Alkaline Phosphatase 46, Total Protein 5.3L, Albumin 2.5L, Amylase Level 105, Lipase 274H Microbiology 05/27/20 MRSA Screen - Final, Complete MRSA not isolated Assessment/Plan Assessment/Plan Assessment/Plan Right lower lobe pneumonia/atelectasis Pancreatitis Epigastric abdominal pain-improved Cholelithiasis Low back pain-improved hypokalemia Patient to continue with IV fluids and antibiotics back pain likely from pancreatitis Pt eventually will need cholecystectomy d/t gall stone, but no CT evidence of cholecystitis Pain control Clinical Quality Measures DVT/VTE Risk/Contraindication: Risk Factor Score Per Nursin RFS Level Per Nursing on Admit: 4+=Very High ANNMARIE CARTER DO 06/01/20 1608: Subjective Subjective/Events-last exam Patient fatigue. She does answer questions though appropriately. Patient states she is not having abdominal pain. She is having lower back pain. She is tolerating diet. Her WBC is 16. She is having some slight shortness of breath at times. Had some diarrhea yesterday she states. Currently denies any nausea vomiting fever sweats chills or chest pain. Objective Exam General Appearance: No Apparent Distress, Chronically ill HEENT: PERRL/EOMI, Normal ENT Inspection Neck: Normal Inspection Respiratory: Chest Non Tender, No Accessory Muscle Use, No Respiratory Distress, Crackles (minimal, bilateral bases) Cardiovascular: Regular Rate, Rhythm, No JVD Gastrointestinal: non tender, soft, distended (minimal); No guarding, No rebound Extremity: Normal Inspection, No Calf Tenderness Neurologic/Psychiatric: Other (Fatigued, but answers questions) Skin: Normal Color, Warm/Dry Lymphatic: No Adenopathy Assessment/Plan Assessment/Plan Assessment/Plan Right lower lobe pneumonia/atelectasis Pancreatitis Epigastric abdominal pain-improved Cholelithiasis Low back pain-improved hypokalemia Patient to continue with IV fluids and antibiotics back pain likely from pancreatitis Pt eventually will need cholecystectomy d/t gall stone, but no CT evidence of cholecystitis Pain control Supervisory-Addendum Brief Verification & Attestation Participated in pt care: history, MDM, physical Personally performed: exam, history, MDM, supervision of care Care discussed with: Medical Student Procedures: n/a Results interpretation: Verified all documentation Verification and Attestation of Medical Student E/M Service A medical student performed and documented this service in my presence. I reviewed and verified all information documented by the medical student and made modifications to such information, when appropriate. I personally performed the physical exam and medical decision making. Annmarie Carter, Jun 01, 2020,16:07 IRINA WELLS MED STUDENT Jun 01, 2020 10:30 ANNMARIE CARTER DO Jun 01, 2020 16:08
[2020-06-01] MEDS ORDERED: CALCIUM GLUCONATE 10% INJ 4.65 MEQ in NS (IVPB) 50 ML IV ONE (12:30)
[2020-06-01] MEDS: BACLOFEN 10 MG (LIORESAL) TAB PO SCH ×2 (12:44→20:05)
[2020-06-01] MEDS: CARVEDILOL 6.25 MG (COREG) TAB PO SCH ×2 (12:44→20:05)
[2020-06-01] MEDS: CALCIUM CARBONATE 500 MG (TUMS) TAB.CHEW PO SCH ×3 (12:44→20:05)
[2020-06-01] MEDS: ASPIRIN E.C. 325 MG (ECOTRIN) TABLET PO SCH (12:45)
[2020-06-01] MEDS: DICLOFENAC 1% GEL 100 GM (VOLTAREN) TUBE TOP SCH ×4 (12:45→20:07)
[2020-06-01] MEDS: GABAPENTIN 300 MG (NEURONTIN) CAP PO SCH (20:04)
[2020-06-01] MEDS: GABAPENTIN 400 MG (NEURONTIN) CAP PO SCH (20:04)
[2020-06-01] MEDS: FENOFIBRATE 134 MG (LOFIBRA) CAPSULE PO SCH (20:05)
[2020-06-02] VITALS (7 sets, daily range): BP systolic 99–135; BP diastolic 54–84
[2020-06-02] MEDS: PIPERACILLIN/TAZO 4.5 GM/NS 100 ML IV SCH ×6 (03:36→20:01)
[2020-06-02 05:57] LABS: BASOPHILS # (AUTO) 0.1 10^3/uL (0.0-0.1); BASOPHILS % (AUTO) 0 % (0-10); EOSINOPHILS # (AUTO) 0.5 10^3/uL (0.0-0.3); EOSINOPHILS % (AUTO) 3 % (0-10); HEMATOCRIT 26 % (35-52); HEMOGLOBIN 8.6 g/dL (11.5-16.0); LYMPHOCYTES # (AUTO) 0.9 10^3/uL (1.0-4.0); LYMPHOCYTES % (AUTO) 5 % (12-44); MEAN CORPUSCULAR HEMOGLOBIN 30 pg (25-34); MEAN CORPUSCULAR HGB CONC 33 g/dL (32-36); MEAN CORPUSCULAR VOLUME 89 fL (80-99); MONOCYTES # (AUTO) 1.5 10^3/uL (0.0-1.0); MONOCYTES % (AUTO) 9 % (0-12); NEUTROPHILS # (AUTO) 13.8 10^3/uL (1.8-7.8); NEUTROPHILS % (AUTO) 79 % (42-75); PLATELET COUNT 252 10^3/uL (130-400); WHITE BLOOD COUNT 17.5 10^3/uL (4.3-11.0)
[2020-06-02] MEDS ORDERED: RT-ALBUTEROL/IPRATROPIUM 3 ML (DUONEB) VIAL INH PRN (06:00)
[2020-06-02 06:07] LABS: ALBUMIN 2.4 GM/DL (3.2-4.5)
[2020-06-02 06:09] LABS: CALCIUM 6.3 MG/DL (8.5-10.1)
[2020-06-02 06:10] LABS: TOTAL PROTEIN 5.2 GM/DL (6.4-8.2)
[2020-06-02 06:12] LABS: BILIRUBIN,TOTAL 0.4 MG/DL (0.1-1.0)
[2020-06-02 06:14] LABS: CREATININE SERUM 1.51 MG/DL (0.60-1.30)
--- NOTE | 2020-06-02 06:26 | NUR ---
Patient yelling in her room "Help". This nurse went to room and patient c/o of "Having trouble breathing". Patient is eating alethea crackers and does not appear to be in distress. SaO2 checked and patient O2 sats are 93% on room air. Patient has exited the bed and recliner several times this shift without assist. Patient educated on safety and reminded to use call light. This nurse went to patient room when call light came on and patient was standing next to the bed. Patient had exited the bed with siderails up and walked across the room to get the heatpad out of the chair. This nurse again educated patient about safety and assisted patient back to bed. Bed alarm turned on to alert staff if patient attempts to exit bed without assist.
[2020-06-02 06:33] LABS: BAND NEUTROPHILS 20 %; EOSINOPHILS % (MANUAL) 3 %; HYPOCHROMASIA SLIGHT; LYMPHOCYTES % (MANUAL) 4 %; MONOCYTES % (MANUAL) 3 %; NEUTROPHILS % (MANUAL) 70 %; TOXIC GRANULATION/VACUOLAZATIO 2+
[2020-06-02] MEDS ORDERED: KCL 20 MEQ TAB (K-DUR) PO ONE (07:00)
[2020-06-02] MEDS: RT-ALBUTEROL/IPRATROPIUM 3 ML (DUONEB) VIAL INH PRN (07:27)
[2020-06-02] MEDS: UMECLIDINIUM BROMIDE (INCRUSE ELLIPTA) 7'S IH SCH ×2 (07:31→14:30)
--- NOTE | 2020-06-02 07:43 | Progress Note - Surgery ---
IRINA WELLS MED STUDENT 06/02/20 0743: Subjective Date Seen by a Provider: Jun 02, 2020 Time Seen by a Provider: 07:20 Subjective/Events-last exam Pt sitting in bed eating breakfast in no distress. Denies pain, nausea, vomiting, or pain. Main complaint is panic attacks. WBC is 17.5 today from 16.0 yesterday. Hgb stable at 8.6. Amylase is 81, lipase is 220. Focused Exam Lactate Level 05/31/20 07:18: Lactic Acid Level 0.70 Objective Exam Vital Signs Date Time Temp Pulse Resp B/P (MAP) Pulse Ox O2 Delivery O2 Flow Rate FiO2 06/02/20 07:27 93 Room Air 0.00 06/02/20 04:03 36.1 74 20 100/55 (70) 93 Room Air 06/02/20 00:23 36.2 88 94 06/02/20 00:14 36.2 88 94 06/01/20 23:55 36.2 83 18 99/56 (70) 94 Room Air 06/01/20 20:30 Nasal Cannula 2.00 98 06/01/20 19:36 Nasal Cannula 2.00 06/01/20 19:10 36.2 88 18 117/60 (79) 93 Nasal Cannula 4.00 06/01/20 15:31 36.8 93 16 116/60 (78) 96 Nasal Cannula 3.00 06/01/20 12:00 36.3 93 16 120/61 (80) 95 Nasal Cannula 4.00 06/01/20 08:00 Nasal Cannula 2.00 06/01/20 08:00 36.3 96 16 116/59 (78) 95 Nasal Cannula 4.00 I & O 06/02/20 07:00 Intake Total 1630 ml Balance 1630 ml Capillary Refill : Less Than 3 Seconds General Appearance: No Apparent Distress, WD/WN, Chronically ill HEENT: PERRL/EOMI, Normal ENT Inspection Neck: Normal Inspection, Supple Respiratory: Chest Non Tender, No Accessory Muscle Use, No Respiratory Distress, Other (diminished breath sounds at bases) Cardiovascular: Regular Rate, Rhythm, No Murmur Gastrointestinal: non tender, soft, distended (minimal); No guarding, No rebound Extremity: Normal Inspection, No Calf Tenderness, Other (mild bilateral LE edema) Neurologic/Psychiatric: Alert, Oriented x3, No Motor/Sensory Deficits, De pressed Affect Skin: Normal Color, Warm/Dry Lymphatic: No Adenopathy Results Lab Laboratory Tests 06/02/20 05:41: White Blood Count 17.5H, Red Blood Count 2.90L, Hemoglobin 8.6L, Hematocrit 26L, Mean Corpuscular Volume 89, Mean Corpuscular Hemoglobin 30, Mean Corpuscular Hemoglobin Concent 33, Red Cell Distribution Width 15.4H, Platelet Count 252, Mean Platelet Volume 12.0, Immature Granulocyte % (Auto) 4, Neutrophils (%) (Auto) 79H, Lymphocytes (%) (Auto) 5L, Monocytes (%) (Auto) 9, Eosinophils (%) (Auto) 3, Basophils (%) (Auto) 0, Neutrophils # (Auto) 13.8H, Lymphocytes # (Auto) 0.9L, Monocytes # (Auto) 1.5H, Eosinophils # (Auto) 0.5H, Basophils # (Auto) 0.1, Immature Granulocyte # (Auto) 0.7H, Neutrophils % (Manual) 70, Lymphocytes % (Manual) 4, Monocytes % (Manual) 3, Eosinophils % (Manual) 3, Band Neutrophils 20, Toxic Granulation 2+, Hypochromasia SLIGHT, Sodium Level 137, Potassium Level 3.0L, Chloride Level 104, Carbon Dioxide Level 19L, Anion Gap 14, Blood Urea Nitrogen 37H, Creatinine 1.51H, Estimat Glomerular Filtration Rate 34, BUN/Creatinine Ratio 25, Glucose Level 118H, Calcium Level 6.3L, Corrected Calcium 7.6L, Total Bilirubin 0.4, Aspartate Amino Transf (AST/SGOT) 43H, Alanine Aminotransferase (ALT/SGPT) 22, Alkaline Phosphatase 56, Total Protein 5.2L, Albumin 2.4L, Amylase Level 81, Lipase 220H Microbiology 05/27/20 MRSA Screen - Final, Complete MRSA not isolated Assessment/Plan Assessment/Plan Assessment/Plan Right lower lobe pneumonia/atelectasis Pancreatitis Epigastric abdominal pain-improved Cholelithiasis Low back pain-improved hypokalemia Patient to continue with IV fluids and antibiotics Pt eventually will need cholecystectomy d/t gall stone, but no CT evidence of cholecystitis Pain control Clinical Quality Measures DVT/VTE Risk/Contraindication: Risk Factor Score Per Nursin RFS Level Per Nursing on Admit: 4+=Very High TODD ARRIOLA DO 06/02/20 1457: Subjective Time Seen by a Provider: 09:21 Subjective/Events-last exam Pt seen and examined, no new abdominal complaints. Pt is tolerating diet and labs are trending down. Review of Systems General: Fatigue, Malaise Pulmonary: No Dyspnea, No Cough Cardiovascular: No: Chest Pain, Palpitations Gastrointestinal: No: Nausea, Vomiting, Abdominal Pain Objective Exam General Appearance: No Apparent Distress Respiratory: No Accessory Muscle Use, No Respiratory Distress, Other (diminished breath sounds at bases) Cardiovascular: Regular Rate, Rhythm, No Murmur Gastrointestinal: non tender, soft, distended (minimal); No guarding, No rebound Assessment/Plan Assessment/Plan Assessment/Plan Right lower lobe pneumonia Pancreatitis Cholelithiasis Hypokalemia Pt is receiving K+ supplementation, I believe her elevated WBC is due to her Pneumonia. She does have one stone in her gallbladder, but I believe this is an incidental finding and not the cause of her pancreatitis. Continue IV fluids, pain control and monitor. Will follow along. Supervisory-Addendum Brief Verification & Attestation Participated in pt care: history, MDM, physical Personally performed: exam, history, MDM Care discussed with: Medical Student Procedures: n/a Verification and Attestation of Medical Student E/M Service A medical student performed and documented this service. I then reviewed and verified all information documented by the medical student and made modifications to such information, when appropriate. I personally performed a physical exam, medical decision making and then discussed any differences between the notes and made revisions as necessary to create one note. Todd Arriola , 06/02/20 , 14:57 IRINA WELLS MED STUDENT Jun 02, 2020 07:43 TODD ARRIOLA DO Jun 02, 2020 14:57
[2020-06-02] MEDS ORDERED: CALCIUM GLUCONATE 10% INJ 4.65 MEQ in NS (IVPB) 50 ML IV ONE (08:15)
[2020-06-02] MEDS: CALCIUM CARBONATE 500 MG (TUMS) TAB.CHEW PO SCH ×3 (08:59→20:01)
[2020-06-02] MEDS: CARVEDILOL 6.25 MG (COREG) TAB PO SCH ×2 (08:59→20:01)
[2020-06-02] MEDS: VERAPAMIL SR 240 MG (CALAN SR) TAB PO SCH (09:00)
[2020-06-02] MEDS: FAMOTIDINE 20 MG (PEPCID) TABLET PO SCH (09:00)
[2020-06-02] MEDS: LORATADINE (CLARITIN) 10 MG TAB PO SCH (09:00)
[2020-06-02] MEDS: ALPRAZolam 0.25 MG (XANAX) TAB PO SCH ×2 (09:00→20:01)
[2020-06-02] MEDS: BACLOFEN 10 MG (LIORESAL) TAB PO SCH ×2 (09:02→20:01)
[2020-06-02] MEDS: ENOXAPARIN 40 MG/0.4 ML (LOVENOX) SYR SC SCH (09:03)
[2020-06-02] MEDS: MONTELUKAST 10 MG (SINGULAIR) TAB PO SCH (09:09)
[2020-06-02] MEDS: POTASSIUM CL 10MEQ/50ML IVPB 50 ML IV SCH ×3 (10:00→17:01)
--- NOTE | 2020-06-02 10:05 | Physical Therapy Daily Note ---
PT Daily Note-Current Subjective Patient is very lethargic and mumbles. Reluctantly agrees to PT. Mental Status Patient Orientation: Confused Transfers SCALE: Activities may be completed with or without assistive devices. 7-Vfcxonnwgc-scnnhyw completes the activity by him/herself with no assistance from a helper. 5-Set-up or Clean-up Assistance-helper sets up or cleans up; patient completes activity. [place] assists only prior to or following the activity. 4-Supervision or Touching Assistance-helper provides verbal cues and/or touching/steadying and/or contact guard assistance as patient completes activity. Assistance may be provided throughout the activity or intermittently. 3-Partial/Moderate Assistance-helper does LESS THAN HALF the effort. [place] lifts, holds or supports trunk or limbs, but provides less than half the effort. 2-Substantial/Maximal Assistance-helper does MORE THAN HALF the effort. [place] lifts or holds trunk or limbs and provides more than half the effort. 0-Njzgexxkv-xdznib does ALL the effort. Patient does none of the effort to complete the activity. Or, the assistance of 2 or more helpers is required for the patient to complete the activity. If activity was not attempted, code reason: 7-Patient Refused. 9-Not Applicable-not attempted and the patient did not perform the activity before the current illness, exacerbation or injury. 10-Not Attempted due to Environmental Limitations-(lack of equipment, weather restraints, etc.). 88-Not Attempted due to Medical Conditions or Safety Concerns. Sit to Stand (QC): 3 Toilet Transfer (QC): 3 (assist required due to lethargy) Gait Training Does the Patient Walk?: Yes Distance: 200' Walk 10 feet (QC): 3 Walk 50 ft with 2 Turns(QC): 3 Walk 150 ft (QC): 3 Gait Assistive Device: FWW very slow, steady gait sequence Exercises Seated Therapy Exercises: Ankle pumps, Long arc quads, Hip flexion Seated Reps: 15 (AAROM) Assessment Patient requires time to complete all tasks. c/o of SOA with SAO2 95% RA. Patient yells I'm having a panic attack. RN and physician are aware. PT Motorcycle Subassembler Goals Motorcycle Subassembler Goals PT Motorcycle Subassembler Goals Time Frame: Jun 04, 2020 Roll Left & Right (QC): 4 Sit to Lying (QC): 4 Lying-Sitting on Side/Bed(QC): 4 Sit to Stand (QC): 4 Chair/Ejn-cp-Hckki Xfer(QC): 4 Walk 10 feet (QC): 4 PT Plan Treatment/Plan Treatment Plan: Continue Plan of Care Treatment Plan: Bed Mobility, Education, Functional Activity Tracie, Functional Strength, Gait, Safety, Therapeutic Exercise, Transfers Treatment Duration: Jun 04, 2020 Frequency: 6 times per week Estimated Hrs Per Day: .25 hour per day Patient and/or Family Agrees t: Yes Time/GCodes Time In: 825 Time Out: 848 Total Billed Treatment Time: 23 Total Billed Treatment 1 visit FA x 2 23 min CARI SINGLETARY PT Jun 02, 2020 10:05
[2020-06-02] MEDS: ASPIRIN E.C. 325 MG (ECOTRIN) TABLET PO SCH (10:08)
--- NOTE | 2020-06-02 10:10 | Cardiology Progress Note ---
Subjective Date Seen by Provider: Jun 02, 2020 Time Seen by Provider: 10:09 Subjective/Events-last exam Patient was seen during physical therapy session. Generalized weakness. Review of Systems General: No Chills, No Night Sweats; Fatigue, Malaise; No Appetite, No Other HEENT: No Head Aches, No Visual Changes, No Eye Pain, No Ear Pain, No Dysphasia, No Sinus Congestion, No Post Nasal Drip, No Sore Throat, No Other Pulmonary: No Dyspnea, No Cough, No Pleuritic Chest Pain, No Other Cardiovascular: No: Chest Pain, Palpitations, Orthopnea, Paroxysmal Noc. Dyspnea, Edema, Lt Headedness, Other Focused Exam Lactate Level 05/31/20 07:18: Lactic Acid Level 0.70 Objective-Cardiology Exam Last Set of Vital Signs Vital Signs 06/01/20 06/02/20 06/02/20 20:30 07:27 08:00 Temp 35.1 Pulse 118 Resp 18 B/P (MAP) 101/54 (70) Pulse Ox 95 O2 Delivery Room Air O2 Flow Rate 0.00 FiO2 98 Capillary Refill : Less Than 3 Seconds I&O Intake and Output 06/02/20 00:00 Intake Total 1530 ml Balance 1530 ml Intake Oral 1530 ml # Voids 15 # Bowel Movements 1 General: Alert, Oriented X3, Cooperative HEENT: Atraumatic, PERRLA Neck: Supple, No JVD, No Thyromegaly Lungs: Clear to Auscultation, Normal Air Movement Heart: Regular Rate, Normal S1, Normal S2, No Murmurs Abdomen: Normal Bowel Sounds, Soft, No Tenderness, No Hepatosplenomegaly, No Masses Extremities: No Clubbing, No Cyanosis, No Edema, Normal Pulses, No Tenderness/Swelling Skin: No Rashes, No Breakdown, No Significant Lesion Neuro: Normal Gait, Normal Speech, Strength at 5/5 X4 Ext, Normal Tone, Sensation Intact Psych/Mental Status: Mental Status NL, Mood NL Results Lab Laboratory Tests 06/02/20 05:41 A/P-Cardiology Admission Diagnosis Acute pancreatitis Acute renal failure Coronary artery disease Hypertension Assessment/Plan Acute pancreatitis, improving, managed by primary care team. Pneumonia, having some dyspnea today. Receiving antibiotics. Managed by primary care team Acute on chronic renal insufficiency, continue to monitor renal function, followed by primary care team Anemia, continue to monitor, followed and managed by primary care physician Hypokalemia, replace and monitor History of congestive heart failure, currently not in heart failure. Echocardiogram showed normal LV size and function, normal PA pressure. Continue to monitor Coronary artery disease-patient underwent cardiac catheterization October 11, 2016 revealing mild coronary artery disease with 40-50 percent proximal to mid LAD stenosis, nonobstructive disease. Otherwise no significant obstructive disease. Normal EF. Continue to monitor History of Syncope, unsteady gait and fatigue with loss of energy, being treated for major depression and anxiety. Denies any recent syncopal episode. History of labile hypertension, well controlled at this time. Continue to monitor Hyperlipidemia, hold statin for now due to pancreatitis. Continue to monitor Mild bilateral carotid stenosis, history of left CEA in 2005, as well as history of left common carotid stenting. Most recent carotid duplex done May 2019 showing mild bilateral disease nonobstructive disease, continue to monitor. Diabetes Mellitus-managed by primary care physician Diabetic neuropathy Fibromyalgia Anxiety, depression seen in the behavioral health clinic Clinical Quality Measures DVT/VTE Risk/Contraindication: Risk Factor Score Per Nursin RFS Level Per Nursing on Admit: 4+=Very High JASPREET RIOS MD Jun 02, 2020 10:10 am
--- NOTE | 2020-06-02 10:20 | NUR ---
DISCHARGE PLANNING: This RN to patient room to see how she is this morning. She is sitting in chair , without O2, head slumped as if asleep. Did open her eyes readily when spoken to, but did not engage long before drifting again. Dr. Scruggs is planning to discharge her tomorrow, ideally she would go to a SNF for therapies. Son, however, would like to try home first and then if she fails at home then try a SNF. I had a long discussion with him about possible NOT allowing the patient to be in charge of her own medications any longer. I also suggested that she may need more help with her daily activity needs as well, not only due to current acute illness but also due her chronic disease processes. Choice [facility] agency is [facility].
--- NOTE | 2020-06-02 11:45 | Progress Note - Hospitalist ---
DUARTE BROOKELAN MED STUDENT 06/02/20 1145: Subjective HPI/CC On Admission Date Seen by Provider: Jun 02, 2020 Time Seen by Provider: 09:30 CC: Abdominal pain with nausea and vomiting and hypoxia HPI: This is a 70yoWF who has severe Parkinsons who presented with acute pancreatitis, lipase of 6,000 found a right lower lobe pneumonia with hypoxia, Covid swab was negative so she was placed on appropriate antibiotics, pain mediation and ICU with IV fluid resuscitation and Dr. Carter will see her in consultation. Emerson was placed due to urinary retention. Subjective/Events-last exam Marielle presented with the chief complaint of pancreatitis and near syncope.Today her lipase was was down to 220 while her HgB dropped from 10.2 to 8.6. Her WBC were climbing today with a value of 17.5. During our discussion this morning Marielle was incoherent to most questions and became erratic and sad when I attempted to auscultate. She complained of wanting her nasal cannula and having panic attacks during the whole visit. She was already on an antipsychotic medication before admission and is clearly having psychiatric issues. After a pulmonary consult with Dr. Carbone later today, it was recommended that she be moved to behavior psych for further evaluation. There is currently a hold on her Xanax. Review of Systems General: Malaise HEENT: No Head Aches, No Visual Changes, No Eye Pain, No Ear Pain, No Dysphas ia, No Sinus Congestion, No Post Nasal Drip, No Sore Throat, No Other Pulmonary: No Dyspnea, No Cough, No Pleuritic Chest Pain, No Other Neurological: Change in speech, Confusion, Other (constantly syaing she is having panic attacks) Focused Exam Possible Source: Pulmonary (Will be meeting with Dr. Carbone later this morning) Lactate Level 05/31/20 07:18: Lactic Acid Level 0.70 Skin: normal color, warm/dry Objective Exam Vital Signs Vital Signs Date Time Temp Pulse Resp B/P (MAP) Pulse Ox O2 Delivery O2 Flow Rate FiO2 06/02/20 08:00 35.1 118 18 101/54 (70) 95 Room Air 06/02/20 07:27 0.00 06/01/20 20:30 98 Capillary Refill : Less Than 3 Seconds General Appearance: Anxious, Chronically ill, Severe Distress Skin: Normal Color, Warm/Dry Results/Procedures Lab Laboratory Tests 06/02/20 05:41 Patient resulted labs reviewed. Imaging: Reviewed Imaging Report Assessment/Plan Assessment and Plan Assess & Plan/Chief Complaint Assessment: psychosis Plan: follow up with behavioral psych Time spent with patient (mins): 15 Diagnosis/Problems Diagnosis/Problems (1) Pancreatitis Status: Acute Clinical Quality Measures DVT/VTE Risk/Contraindication: Risk Factor Score Per Nursin RFS Level Per Nursing on Admit: 4+=Very High Supervisory-Addendum Brief Verification & Attestation Participated in pt care: history, physical Personally performed: exam, history Care discussed with: Medical Student JENNIFER LASSITER DO 06/03/20 0538: Subjective Subjective/Events-last exam Pt appears to be having a lot of behavior problems She is on Abilify, an antipsychotic so that leads me to believe a lot of these are behavior and difficulty coping issues Will consult Dr. Carbone to evaluate pneumonia since her white count remains elevated but it does not appear to be related to sepsis Giving potassium and calcium IV Lipase near completely normal Review of Systems General: Fatigue Pulmonary: Dyspnea Objective Exam General Appearance: No Apparent Distress, WD/WN, Anxious, Chronically ill Respiratory: Chest Non Tender, Lungs Clear, Normal Breath Sounds, No Accessory Muscle Use, No Respiratory Distress Cardiovascular: Regular Rate, Rhythm, No Edema, No Gallop, No JVD, No Murmur, Normal Peripheral Pulses Neurologic/Psychiatric: Alert, Oriented x3, No Motor/Sensory Deficits, Normal Mood/Affect Assessment/Plan Assessment and Plan Assess & Plan/Chief Complaint Assessment: PNA Pancreatitis DYspnea PD Psychosis? Plan: Abx Monitor closely Supervisory-Addendum Brief Verification & Attestation Participated in pt care: history, MDM, physical Personally performed: exam, history, MDM, supervision of care Care discussed with: Medical Student Procedures: n/a Results interpretation: Verified all documentation Verification and Attestation of Medical Student E/M Service A medical student performed and documented this service in my presence. I reviewed and verified all information documented by the medical student and made modifications to such information, when appropriate. I personally performed the physical exam and medical decision making. Jennifer Lassiter, Jun 03, 2020,05:36 PARTHA BROOKE MED STUDENT Jun 02, 2020 11:45 JENNIFER LASSITER DO Jun 03, 2020 05:38
--- NOTE | 2020-06-02 11:48 | Occupational Ther Daily Note ---
OT Current Status-Daily Note Subjective Pt alert, sitting in chair. Pt slow to respond to any questions if she responded at all. Pt would state that she was having a panic attack, when asked what was she feeling and she stated that she could not breathe. Pt did not demonstrate any distress, SOA. Mental Status/Objective Patient Orientation: Person Attachments: IV ADL-Treatment Therapy Code Descriptions/Definitions Functional [place] Measure: 0=Not Assessed/NA 4=Minimal Assistance 1=Total Assistance 5=Supervision or Setup 2=Maximal Assistance 6=Modified [place] 3=Moderate Assistance 7=Complete IndependenceSCALE: Activities may be completed with or without assistive devices. 9-Toilaznkgz-ylcoclt completes the activity by him/herself with no assistance from a helper. 5-Set-up or Clean-up Assistance-helper sets up or cleans up; patient completes activity. [place] assists only prior to or following the activity. 4-Supervision or Touching Assistance-helper provides verbal cues and/or touching/steadying and/or contact guard assistance as patient completes activity. Assistance may be provided throughout the activity or intermittently. 3-Partial/Moderate Assistance-helper does LESS THAN HALF the effort. [place] lifts, holds or supports trunk or limbs, but provides less than half the effort. 2-Substantial/Maximal Assistance-helper does MORE THAN HALF the effort. [place] lifts or holds trunk or limbs and provides more than half the effort. 7-Byabaxocs-rqhant does ALL the effort. Patient does none of the effort to complete the activity. Or, the assistance of 2 or more helpers is required for the patient to complete the activity. If activity was not attempted, code reason: 7-Patient Refused. 9-Not Applicable-not attempted and the patient did not perform the activity before the current illness, exacerbation or injury. 10-Not Attempted due to Environmental Limitations-(lack of equipment, weather restraints, etc.). 88-Not Attempted due to Medical Conditions or Safety Concerns. On/Off Footwear: 2 Toileting Hygiene (QC): 4 (Supervision for hygiene and clothing manipulation.) Toilet Transfer (QC): 4 (SBA for transfer from chair to BSC to manipulate IV tubing. ) Other Treatment Pt completed 2 sets 10 reps of 3 B UE exercises against gravity to increase strength for daily functional tasks. Skilled instructions for correct technique and to stay on task. After session, pt sitting in recliner with call light/phone in reach. All needs met in room. Safety measures in place. OT Mcc Goals Mcc Goals Time Frame: Jun 06, 2020 Oral Hygiene (QC): 5 Toileting Hygiene (QC): 4 Shower/Bathe Self (QC): 4 Upper Body Dressing (QC): 5 Lower Body Dressing (QC): 4 On/Off Footwear (QC): 4 Additional Goals: 1-Demonstrate ADL Tasks, 2-Verbalize Understanding, 3- ImproveStrength/Tracie 1=Demonstrate adherence to instructed precautions during ADL tasks. 2=Patient will verbalize/demonstrate understanding of assistive dev ices/modifications for ADL. 3=Patient will improve strength/tolerance for activity to enable patient to perform ADL's. OT Education/Plan Problem List/Assessment Assessment: Decreased Activ Tolerance, Decreased Safety Aware, Impaired Cognition, Impaired Self-Care Skills Discharge Recommendations Plan/Recommendations: Continue POC Treatment Plan/Plan of Care Patient would benefit from OT for education, treatment and training to promote independence in ADL's, mobility, safety and/or upper extremity function for ADL's. Plan of Care: ADL Retraining, Functional Mobility, UE Funct Exercise/Act Treatment Duration: Jun 06, 2020 Frequency: 5 times per week Estimated Hrs Per Day: .25 hour per day Agreement: Yes Rehab Potential: Fair Time/GCodes Start Time: 11:10 Stop Time: 11:35 Total Time Billed (hr/min): 25 Billed Treatment Time 1 visit-EX 1 (10 min) ADL 1 (15 min) SHU FULLER Jun 02, 2020 11:48
--- NOTE | 2020-06-02 13:44 | Pulmonary Consultation ---
History of Present Illness History of Present Illness Date Seen by Provider: Jun 02, 2020 Time Seen by Provider: 13:39 Date of Admission Reason for Visit: coronary artery disease Allergies and Home Medications Allergies Coded Allergies: morphine (Verified Allergy, Intermediate, HIVES...TAKES HYDROCODONE AT HOME, 03/20/08) acetaminophen (Verified Allergy, Mild, HIVES...TAKES HYDROCODONE AT HOME, 03/20/08) bacitracin (Verified Allergy, Unknown, 08/16/07) cyproheptadine (Verified Allergy, Unknown, 08/16/07) fluoxetine (Verified Allergy, Unknown, 08/16/07) gramicidin D (Verified Allergy, Unknown, 08/16/07) neomycin (Verified Allergy, Unknown, 08/16/07) polymyxin B (Verified Allergy, Unknown, 08/16/07) tizanidine (Verified Allergy, Unknown, 08/16/07) tramadol (Verified Allergy, Unknown, 08/16/07) Uncoded Allergies: ARTHRITIS MEDS (Allergy, Unknown, 08/16/07) DECONGESTANTS (Allergy, Unknown, 08/16/07) Home Medications ALPRAZolam 0.25 Mg Tablet, 0.25 MG PO BID, (Reported) Albuterol Sulfate 2.5 Mg/3 Ml Vial.neb, 3 ML NEB QID PRN for SHORTNESS OF BREATH, (Reported) Aripiprazole 15 Mg Tablet, 7.5 MG PO DAILY, (Reported) TAKES OF A 15MG TAB Aspirin 325 Mg Tablet.dr, 325 MG PO DAILY, (Reported) Baclofen 10 Mg Tablet, 5 MG PO BID, (Reported) TAKES OF A 10MG TAB Carvedilol 6.25 Mg Tablet, 6.25 MG PO BID, (Reported) Cetirizine HCl 10 Mg Tablet, 10 MG PO DAILY, (Reported) Cholecalciferol (Vitamin D3) 25 Mcg Capsule, 25 MCG PO DAILY, (Reported) Cyanocobalamin (Vitamin B-12) 50 Mcg Lozenge, 100 MCG PO DAILY, (Reported) Famotidine 20 Mg Tablet, 20 MG PO BID, (Reported) Fenofibrate Nanocrystallized 145 Mg Tablet, 145 MG PO DAILY, (Reported) Gabapentin 800 Mg Tablet, 1,600 MG PO DAILY, (Reported) TAKES 2 (800MG) TABS Gabapentin 800 Mg Tablet, 800 MG PO HS, (Reported) Montelukast Sodium 10 Mg Tablet, 10 MG PO DAILY, (Reported) [place]-3/Dha/Epa/Fish Oil 1 Each Capsule, 1 EACH PO TID, (Reported) Quinapril HCl 20 Mg Tablet, 20 MG PO DAILY, (Reported) Ropinirole HCl 1 Mg Tablet, 1 MG PO TID, (Reported) Rosuvastatin Calcium 10 Mg Tablet, 10 MG PO DAILY, (Reported) Tiotropium [place] 1 Inh Aerp, 1 INH IH DAILY, (Reported) Verapamil HCl 240 Mg Tablet.er, 240 MG PO DAILY, (Reported) Vortioxetine Hydrobromide 20 Mg Tablet, 20 MG PO DAILY, (Reported) Past Xabkgal-Ccdnqx-Aepemw Hx Past Med/Social Hx: Reviewed Nursing Past Med/Soc Hx, Reviewed and Corrections made Patient Social History Alcohol Use: Denies Use Recreational Drug Use: No Smoking Status: Unknown if Ever Smoked Recent Foreign Travel: No Contact w/Someone Who Travel: No Recent Infectious Disease Expo: No Recent Hopitalizations: Yes Immunizations Up To Date Date of Pneumonia Vaccine: Oct 11, 2013 Date of Influenza Vaccine: Apr 03, 2020 Past Medical History Surgeries: Yes Coronary Stent Respiratory: Yes Asthma Currently Using CPAP: Yes (oxygen at night) Currently Using BIPAP: No Cardiac: Yes (L CAROTID) Angina, Coronary Artery Disease, High Cholesterol, Hypertension, Peripheral Vascular, Syncope Neurological: No Parkinson's Disease : No 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 Disorders: No Female 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 Disorders: Denies Gastrointestinal: Yes Gastroesophageal Reflux, Pancreatitis (New diagnosis) Musculoskeletal: Yes Degenerate Disk Disease, Fibromyalgia Endocrine: Yes Diabetes, Non-Insulin dep Loss of Vision: Denies Hearing Impairment: Denies Cancer: No Psychosocial: Yes Anxiety, Depression Blood Disorders: No Family Medical History Cancer Sepsis Event Evaluation Height, Weight, BMI Height: 5'5.00" Weight: 173lbs. 0.0oz. 78.456725vb; 26.00 BMI Method: Exam Exam Vital Signs Date Time Temp Pulse Resp B/P (MAP) Pulse Ox O2 Delivery O2 Flow Rate FiO2 06/02/20 08:00 35.1 118 18 101/54 (70) 95 Room Air 06/02/20 07:27 93 Room Air 0.00 06/02/20 04:03 36.1 74 20 100/55 (70) 93 Room Air 06/02/20 00:23 36.2 88 94 06/02/20 00:14 36.2 88 94 06/01/20 23:55 36.2 83 18 99/56 (70) 94 Room Air 06/01/20 20:30 Nasal Cannula 2.00 98 06/01/20 19:36 Nasal Cannula 2.00 06/01/20 19:10 36.2 88 18 117/60 (79) 93 Nasal Cannula 4.00 06/01/20 15:31 36.8 93 16 116/60 (78) 96 Nasal Cannula 3.00 I & O 06/02/20 07:00 Intake Total 1630 ml Balance 1630 ml Height & Weight Height: 5'5.00" Weight: 173lbs. 0.0oz. 78.125298ia; 26.00 BMI Method: General Appearance: Anxious, Chronically ill, Severe Distress HEENT: PERRL/EOMI, Normal ENT Inspection Neck: Normal Inspection, Supple Respiratory: Chest Non Tender, No Accessory Muscle Use, No Respiratory Distress, Other (diminished breath sounds at bases) Cardiovascular: Regular Rate, Rhythm, No Murmur Capillary Refill: Less Than 3 Seconds Gastrointestinal: non tender, soft, distended (minimal); No guarding, No rebo und Extremity: Normal Inspection, No Calf Tenderness, Other (mild bilateral LE edema) Neurologic/Psychiatric: Alert, Oriented x3, No Motor/Sensory Deficits, Depressed Affect Skin: Normal Color, Warm/Dry Lymphatic: No Adenopathy Results Lab Laboratory Tests 06/01/20 07:22 06/02/20 05:41 Assessment/Plan Assessment/Plan Pneumonia- No fevers -Pt is on RA -Repeat BNP -CXR reviewed -Currently on Zosyn Labs reviewed Acute pancreatitis CAD YOVANA MEJIA DO Jun 02, 2020 13:44
[2020-06-02] MEDS ORDERED: POTASSIUM CL 10MEQ/50ML IVPB 50 ML IV ONE (14:25)
--- NOTE | 2020-06-02 15:13 | NUR ---
RD ASSESSMENT PMHx: COPD; pneumonia; CAD; hypercholesterolemia; HTN; HF; GERD; pancreatitis (new onset); fibromyalgia; DM; PT INTERACTION: Pt was awake and pleasant during nutrition assessment for LOS. Pt states current appetite is "so-so." Note avg PO intake 58% x3d, per chart review. Pt states following a low-CHO and low-Na diet at home, and has no issues with chewing/swallowing food. Pt states no recent issues with nausea, vomiting, or constipation. Pt states recent issues with diarrhea. Note last BM was 06/01, and pt not currently on bowel regimen per chart review. Pt states recent wt gain, but unsure of amount/timeframe. Note unable to determine recent wt hx, per chart review. Pt states current DM management is good. Note unable to determine recent HbA1c, per chart review. ABNORMAL NUTRITION-RELATED LAB VALUES LOW: K 3.0; Ca 6.3; Pro 5.2; alb 2.4; HIGH: BUN 37; cr 1.51; glu 118; AST 43; lipase 220 Est. kcal needs: 1757-9093 kcal | 15-20 kcal/kg Est. Pro needs: 85-102 g Pro | 1.0-1.2 g Pro/kg PES STATEMENT: Inadequate oral intake (NI-2.1) related to loss of appetite, and diarrhea, as evidenced by pt interview, and avg PO intake 58% x2d. INTERVENTION: Continue with current diet order of Regular diet. Pt may benefit from consistent CHO restriction if blood glucose levels become elevated. Add Glucerna (vary) to meals TID, for increased kcal intake. Provides 220 kcal and 10 g Pro per serving. Offered diet education on DM management, but pt declined at this time. May attempt to offer again prior to discharge. Encouraged pt to eat when able. Will continue to follow and reassess as pt needs, intake, and status change. Nisreen Ryan, MS RD LD [phone] cell
[2020-06-02] MEDS: DICLOFENAC 1% GEL 100 GM (VOLTAREN) TUBE TOP SCH ×3 (15:47→20:12)
[2020-06-02] MEDS ORDERED: POTASSIUM CL 10MEQ/50ML IVPB 100 ML IV ONE (16:50)
--- NOTE | 2020-06-02 16:51 | Diagnostic Imaging Report ---
HISTORY: Crackles. COMPARISON: 05/31/2020. TECHNIQUE: Two views of the chest. FINDINGS: There is marked elevation of the left hemidiaphragm which is similar to the prior exam. There is moderate gastric distention. The cardiac silhouette is partially obscured but appears mildly large, similar to the prior study. There are increased perihilar opacities bilaterally. No large effusion or pneumothorax is seen. Surgical clips are seen at the left upper chest. IMPRESSION: 1. Cardiomegaly with bilateral perihilar opacities, likely due to early edema, possibly infection. 2. Stable elevation of the left hemidiaphragm. Dictated by: Dictated on workstation # [id number]
[2020-06-02] MEDS: ONDANSETRON 4 MG/2 ML (SDV) Z0FRAN IVP PRN (17:41)
[2020-06-02] MEDS: GABAPENTIN 300 MG (NEURONTIN) CAP PO SCH (20:01)
[2020-06-02] MEDS: GABAPENTIN 400 MG (NEURONTIN) CAP PO SCH (20:01)
[2020-06-02] MEDS: FENOFIBRATE 134 MG (LOFIBRA) CAPSULE PO SCH (20:01)
[2020-06-03 03:58] VITALS: BP 137/83
[2020-06-03] MEDS: PIPERACILLIN/TAZO 4.5 GM/NS 100 ML IV SCH ×2 (04:10)
[2020-06-03 05:09] LABS: BASOPHILS # (AUTO) 0.1 10^3/uL (0.0-0.1); BASOPHILS % (AUTO) 0 % (0-10); EOSINOPHILS # (AUTO) 0.5 10^3/uL (0.0-0.3); EOSINOPHILS % (AUTO) 3 % (0-10); HEMATOCRIT 26 % (35-52); HEMOGLOBIN 8.8 g/dL (11.5-16.0); LYMPHOCYTES # (AUTO) 1.3 10^3/uL (1.0-4.0); LYMPHOCYTES % (AUTO) 6 % (12-44); MEAN CORPUSCULAR HEMOGLOBIN 30 pg (25-34); MEAN CORPUSCULAR HGB CONC 34 g/dL (32-36); MEAN CORPUSCULAR VOLUME 89 fL (80-99); MEAN PLATELET VOLUME 12.2 fL (9.0-12.2); MONOCYTES # (AUTO) 1.6 10^3/uL (0.0-1.0); MONOCYTES % (AUTO) 8 % (0-12); NEUTROPHILS # (AUTO) 16.7 10^3/uL (1.8-7.8); NEUTROPHILS % (AUTO) 78 % (42-75); PLATELET COUNT 341 10^3/uL (130-400); WHITE BLOOD COUNT 21.5 10^3/uL (4.3-11.0)
[2020-06-03 05:23] LABS: ALBUMIN 2.6 GM/DL (3.2-4.5)
[2020-06-03 05:24] LABS: POTASSIUM 3.8 MMOL/L (3.6-5.0)
[2020-06-03 05:25] LABS: CALCIUM 7.2 MG/DL (8.5-10.1)
[2020-06-03 05:26] LABS: TOTAL PROTEIN 5.5 GM/DL (6.4-8.2)
[2020-06-03 05:28] LABS: BILIRUBIN,TOTAL 0.4 MG/DL (0.1-1.0)
[2020-06-03 05:29] LABS: CREATININE SERUM 1.52 MG/DL (0.60-1.30)
[2020-06-03 08:00] VITALS: BP 123/82
[2020-06-03] MEDS: UMECLIDINIUM BROMIDE (INCRUSE ELLIPTA) 7'S IH SCH (08:33)
[2020-06-03] MEDS: ALPRAZolam 0.25 MG (XANAX) TAB PO SCH ×2 (09:00→20:56)
[2020-06-03] MEDS: CALCIUM CARBONATE 500 MG (TUMS) TAB.CHEW PO SCH ×3 (10:08→20:56)
[2020-06-03] MEDS: ASPIRIN E.C. 325 MG (ECOTRIN) TABLET PO SCH (10:08)
[2020-06-03] MEDS: ENOXAPARIN 40 MG/0.4 ML (LOVENOX) SYR SC SCH (10:08)
[2020-06-03] MEDS: FAMOTIDINE 20 MG (PEPCID) TABLET PO SCH (10:08)
[2020-06-03] MEDS: BACLOFEN 10 MG (LIORESAL) TAB PO SCH ×2 (10:09→20:56)
[2020-06-03] MEDS: VERAPAMIL SR 240 MG (CALAN SR) TAB PO SCH (10:09)
[2020-06-03] MEDS: CARVEDILOL 6.25 MG (COREG) TAB PO SCH ×2 (10:10→20:54)
[2020-06-03] MEDS: MONTELUKAST 10 MG (SINGULAIR) TAB PO SCH (10:10)
[2020-06-03] MEDS: LORATADINE (CLARITIN) 10 MG TAB PO SCH (10:10)
[2020-06-03] MEDS: DICLOFENAC 1% GEL 100 GM (VOLTAREN) TUBE TOP SCH ×4 (10:13→20:58)
--- NOTE | 2020-06-03 10:18 | Physical Therapy Daily Note ---
PT Daily Note-Current Subjective Patient continues to be very confused and lethargic. Mental Status Patient Orientation: Confused Transfers SCALE: Activities may be completed with or without assistive devices. 5-Ahpibposcm-tjslrye completes the activity by him/herself with no assistance from a helper. 5-Set-up or Clean-up Assistance-helper sets up or cleans up; patient completes activity. [place] assists only prior to or following the activity. 4-Supervision or Touching Assistance-helper provides verbal cues and/or touching/steadying and/or contact guard assistance as patient completes activity. Assistance may be provided throughout the activity or intermittently. 3-Partial/Moderate Assistance-helper does LESS THAN HALF the effort. [place] lifts, holds or supports trunk or limbs, but provides less than half the effort. 2-Substantial/Maximal Assistance-helper does MORE THAN HALF the effort. [place] lifts or holds trunk or limbs and provides more than half the effort. 3-Zlrpbabla-uumqey does ALL the effort. Patient does none of the effort to complete the activity. Or, the assistance of 2 or more helpers is required for the patient to complete the activity. If activity was not attempted, code reason: 7-Patient Refused. 9-Not Applicable-not attempted and the patient did not perform the activity before the current illness, exacerbation or injury. 10-Not Attempted due to Environmental Limitations-(lack of equipment, weather restraints, etc.). 88-Not Attempted due to Medical Conditions or Safety Concerns. Sit to Lying (QC): 5 Lying to Sitting/Side of Bed(Q: 4 Sit to Stand (QC): 4 Toilet Transfer (QC): 4 Gait Training Does the Patient Walk?: Yes Distance: 225' Walk 10 feet (QC): 4 Walk 50 ft with 2 Turns(QC): 4 Walk 150 ft (QC): 4 Gait Assistive Device: FWW very slow, steady gait sequence Assessment Patient tolerated treatment well and returned to bed with 4 rails up and alarm activated. Patient does have a live sitter. PT Pharmaceutical Process Engineer Goals Usp Goals PT Pharmaceutical Process Engineer Goals Time Frame: Jun 04, 2020 Roll Left & Right (QC): 4 Sit to Lying (QC): 4 Lying-Sitting on Side/Bed(QC): 4 Sit to Stand (QC): 4 Chair/Wnj-gy-Pjagl Xfer(QC): 4 Walk 10 feet (QC): 4 PT Plan Treatment/Plan Treatment Plan: Continue Plan of Care Treatment Plan: Bed Mobility, Education, Functional Activity Tracie, Functional Strength, Gait, Safety, Therapeutic Exercise, Transfers Treatment Duration: Jun 04, 2020 Frequency: 6 times per week Estimated Hrs Per Day: .25 hour per day Patient and/or Family Agrees t: Yes Time/GCodes Time In: 905 Time Out: 922 Total Billed Treatment Time: 17 Total Billed Treatment 1 visit FA 17 min CARI SNIGLETARY PT Jun 03, 2020 10:18
[2020-06-03] MEDS: MEROPENEM 1,000 MG in WATER (STERILE) FOR INJECTION 20 ML IV SCH ×2 (10:27→17:28)
--- NOTE | 2020-06-03 10:39 | Progress Note - Hospitalist ---
MENDYPARTHA MED STUDENT 06/03/20 1039: Subjective HPI/CC On Admission Date Seen by Provider: Jun 03, 2020 Time Seen by Provider: 15:00 CC: Abdominal pain with nausea and vomiting and hypoxia HPI: This is a 70yoWF who has severe Parkinsons who presented with acute pancreatitis, lipase of 6,000 found a right lower lobe pneumonia with hypoxia, Covid swab was negative so she was placed on appropriate antibiotics, pain mediation and ICU with IV fluid resuscitation and Dr. Carter will see her in consultation. Emerson was placed due to urinary retention. Subjective/Events-last exam Marielle presented with the chief complaint of pancreatitis and near syncope.On 08/02 her lipase was was down to 220 while her HgB dropped from 10.2 to 8.6. Her WBC were climbing with a value of 17.5. During our discussion Marielle was incoherent to most questions and became erratic and sad when I attempted to auscultate. She complained of wanting her nasal cannula and having panic attacks during the whole visit. She was already on an antipsychotic medication before admission and was clearly having psychiatric issues. After a pulmonary consult with Dr. Carbone she was diagnoses with having RLL pneumonia. Today she was very sleepy and didn't respond to arousal or questions other than when she denied having any pain. According to her sitter and nurses she was less erratic and combative. Her WBC jumped again to 21.5 with no clear cause, and lipase was stable at 258. As of yesterday evening she now has a resp ther sitter and seems to like having someone around every time she opens her eyes. She is still continent.There is currently a hold on her Xanax. Review of Systems General: Fatigue, Malaise Pulmonary: Other (RLL pneumonia) Neurological: Confusion Focused Exam Lactate Level 06/03/20 09:45: Lactic Acid Level 1.11 Time of Focused Exam: 09:30 Respiratory: No Accessory Muscle Use, Crackles Lactic Acid Level Laboratory Tests Test 06/03/20 09:45 Lactic Acid Level 1.11 MMOL/L (0.50-2.00) Objective Exam Vital Signs Vital Signs Date Time Temp Pulse Resp B/P (MAP) Pulse Ox O2 Delivery O2 Flow Rate FiO2 06/03/20 10:13 36.4 06/03/20 08:33 97 Room Air 06/03/20 03:58 97 18 137/83 (101) 06/02/20 08:00 0.00 06/01/20 20:30 98 Capillary Refill : Less Than 3 SecondsLess Than 3 Seconds General Appearance: Other (tired) Respiratory: Crackles Cardiovascular: Regular Rate, Rhythm Gastrointestinal: Normal Bowel Sounds Neurologic/Psychiatric: Depressed Affect, Disoriented Results/Procedures Lab Laboratory Tests 06/03/20 04:30 Patient resulted labs reviewed. Imaging: Reviewed Imaging Report Assessment/Plan Assessment and Plan Assess & Plan/Chief Complaint Assessment: pancreatitis RLL pneumonia psychosis Plan: follow up with behavioral psych antibiotic treatment for pneumonia Time spent with patient (mins): 10 Diagnosis/Problems Diagnosis/Problems (1) Pancreatitis Status: Acute Clinical Quality Measures DVT/VTE Risk/Contraindication: Risk Factor Score Per Nursin RFS Level Per Nursing on Admit: 4+=Very High Supervisory-Addendum Brief Verification & Attestation Participated in pt care: history, physical Personally performed: exam, history JENNIFER LASSITER DO 06/04/20 0530: Subjective Subjective/Events-last exam Pt still very difficult to evaluate Pt is oriented but lethargic and unsure of what exactly the source is Dr. Carbone has been consulted, elevated WBC of 21,000 prompting change from Zosyn to Meropenem and ultrasound and CT scan ordered and I did update Dr. Sifuentes in order for him to evaluate her pseudo cyst infection. Procalcitonin 0.41 Checking UA on and in and out cath too Review of Systems General: Fatigue, Malaise Objective Exam General Appearance: No Apparent Distress, WD/WN, Chronically ill Respiratory: Normal Breath Sounds, No Accessory Muscle Use, No Respiratory Distress Cardiovascular: Regular Rate, Rhythm Assessment/Plan Assessment and Plan Assess & Plan/Chief Complaint Complex case Very complicated course CT scan USG Ivon Supervisory-Addendum Brief Verification & Attestation Participated in pt care: history, MDM, physical Personally performed: exam, history, MDM, supervision of care Care discussed with: Medical Student Procedures: n/a Results interpretation: Verified all documentation Verification and Attestation of Medical Student E/M Service A medical student performed and documented this service in my presence. I reviewed and verified all information documented by the medical student and made modifications to such information, when appropriate. I personally performed the physical exam and medical decision making. Jennifer Lassiter, Jun 04, 2020,05:29 PARTHA BROOKE MED STUDENT Jun 03, 2020 10:39 JENNIFER LASSITER DO Jun 04, 2020 05:30
--- NOTE | 2020-06-03 10:58 | NUR ---
Verapamil, Baclofen, and Abilify spilled on the floor so additional meds taken out of [facility]
[2020-06-03 12:00] VITALS: BP 131/84
--- NOTE | 2020-06-03 13:10 | Pulmonary Progress Note ---
Subjective Time Seen by a Provider: 13:09 Sepsis Event Evaluation Height, Weight, BMI Height: 5'5.00" Weight: 173lbs. 0.0oz. 78.619584gj; 26.00 BMI Method: Focused Exam Lactate Level 06/03/20 09:45: Lactic Acid Level 1.11 Time of Focused Exam: 09:30 Lactic Acid Level Laboratory Tests Test 06/03/20 09:45 Lactic Acid Level 1.11 MMOL/L (0.50-2.00) Exam Exam Vital Signs Date Time Temp Pulse Resp B/P (MAP) Pulse Ox O2 Delivery O2 Flow Rate FiO2 06/03/20 12:00 36.6 92 16 131/84 (100) 96 Room Air 06/03/20 10:13 36.4 06/03/20 08:33 97 Room Air 06/03/20 08:00 36.4 101 20 123/82 (96) 96 Room Air 06/03/20 03:58 36.2 97 18 137/83 (101) 97 Room Air 06/02/20 23:59 36.4 88 18 124/60 (81) 95 Room Air 06/02/20 20:44 Room Air 06/02/20 20:23 35.8 92 18 124/65 (84) 94 Room Air 06/02/20 15:47 36.6 06/02/20 15:43 36.6 99 22 135/84 (101) 96 Room Air 06/02/20 14:30 94 Room Air I & O 06/03/20 07:00 Intake Total 1180 ml Output Total 16 ml Balance 1164 ml Height & Weight Height: 5'5.00" Weight: 173lbs. 0.0oz. 78.164355bt; 26.00 BMI Method: General Appearance: Other (tired) HEENT: PERRL/EOMI, Normal ENT Inspection Neck: Normal Inspection, Supple Respiratory: Crackles Cardiovascular: Regular Rate, Rhythm Capillary Refill: Less Than 3 Seconds Gastrointestinal: non tender, soft, distended (minimal); No guarding, No rebound Extremity: Normal Inspection, No Calf Tenderness, Other (mild bilateral LE edema) Neurologic/Psychiatric: Depressed Affect, Disoriented Skin: Normal Color, Warm/Dry Lymphatic: No Adenopathy Results Lab Laboratory Tests 06/02/20 05:41 06/03/20 04:30 Assessment/Plan Assessment/Plan Pneumonia- No fevers -Pt is on RA -Repeat BNP -CXR reviewed -Currently on Zosyn -- change to Merrem secondary to worsening leukocytosis -Repeat [place] cultures Labs reviewed Acute pancreatitis -Check abd US -Surgery following YOVANA WHITTINGTON DO Jun 03, 2020 13:10
--- NOTE | 2020-06-03 13:17 | NUR ---
This RN called and updated patient's son Kong on the delay in discharge. Explained to him about the increase in WBCs, the change in antibiotics and the ordered US of the abdomen. He is appreciative of the call.
--- NOTE | 2020-06-03 13:22 | Progress Note - Surgery ---
Subjective Time Seen by a Provider: 11:36 Subjective/Events-last exam Pt seen and examined, she stated very clearly that she has no abdominal pain. Nurses aid states she complains of "pain all over" and is very "sleepy". Review of Systems General: Fatigue, Malaise Pulmonary: No Dyspnea, No Cough Cardiovascular: No: Chest Pain, Palpitations Gastrointestinal: No: Nausea, Vomiting, Abdominal Pain Focused Exam Lactate Level 06/03/20 09:45: Lactic Acid Level 1.11 Time of Focused Exam: 09:30 Lactic Acid Level Laboratory Tests Test 06/03/20 09:45 Lactic Acid Level 1.11 MMOL/L (0.50-2.00) Objective Exam Vital Signs Date Time Temp Pulse Resp B/P (MAP) Pulse Ox O2 Delivery O2 Flow Rate FiO2 06/03/20 12:00 36.6 92 16 131/84 (100) 96 Room Air 06/03/20 10:13 36.4 06/03/20 08:33 97 Room Air 06/03/20 08:00 36.4 101 20 123/82 (96) 96 Room Air 06/03/20 03:58 36.2 97 18 137/83 (101) 97 Room Air 06/02/20 23:59 36.4 88 18 124/60 (81) 95 Room Air 06/02/20 20:44 Room Air 06/02/20 20:23 35.8 92 18 124/65 (84) 94 Room Air 06/02/20 15:47 36.6 06/02/20 15:43 36.6 99 22 135/84 (101) 96 Room Air 06/02/20 14:30 94 Room Air I & O 06/03/20 07:00 Intake Total 1180 ml Output Total 16 ml Balance 1164 ml Capillary Refill : Less Than 3 SecondsLess Than 3 Seconds General Appearance: No Apparent Distress, Other (tired) HEENT: PERRL/EOMI Respiratory: No Accessory Muscle Use, No Respiratory Distress, Crackles, Decreased Breath Sounds (bases) Cardiovascular: Regular Rate, Rhythm, No Murmur Gastrointestinal: non tender, soft, distended (minimal); No guarding, No rebound Extremity: No Calf Tenderness, Other (mild bilateral LE edema) Neurologic/Psychiatric: Depressed Affect, Disoriented Results Lab Laboratory Tests 06/03/20 04:30: White Blood Count 21.5H, Red Blood Count 2.95L, Hemoglobin 8.8L, Hematocrit 26L, Mean Corpuscular Volume 89, Mean Corpuscular Hemoglobin 30, Mean Corpuscular Hemoglobin Concent 34, Red Cell Distribution Width 15.4H, Platelet Count 341, Mean Platelet Volume 12.2, Immature Granulocyte % (Auto) 6, Neutrophils (%) (Auto) 78H, Lymphocytes (%) (Auto) 6L, Monocytes (%) (Auto) 8, Eosinophils (%) (Auto) 3, Basophils (%) (Auto) 0, Neutrophils # (Auto) 16.7H, Lymphocytes # (Auto) 1.3, Monocytes # (Auto) 1.6H, Eosinophils # (Auto) 0.5H, Basophils # (Auto) 0.1, Immature Granulocyte # (Auto) 1.3H, Sodium Level 139, Potassium Level 3.8, Chloride Level 107, Carbon Dioxide Level 22, Anion Gap 10, Blood Urea Nitrogen 31H, Creatinine 1.52H, Estimat Glomerular Filtration Rate 34, BUN/Creatinine Ratio 20, Glucose Level 136H, Calcium Level 7.2L, Corrected Calcium 8.3L, Total Bilirubin 0.4, Aspartate Amino Transf (AST/SGOT) 50H, Alanine Aminotransferase (ALT/SGPT) 26, Alkaline Phosphatase 54, Total Protein 5.5L, Albumin 2.6L, Amylase Level 73, Lipase 258H, Procalcitonin 0.41H 06/03/20 09:45: Lactic Acid Level 1.11 Microbiology 05/27/20 MRSA Screen - Final, Complete MRSA not isolated Assessment/Plan Assessment/Plan Assessment/Plan Right lower lobe pneumonia Pancreatitis Cholelithiasis Hypokalemia WBC increased today and I still believe her elevated WBC is due to her Pneumonia. I also think the CXR looks worse than previous days. She does have one stone in her gallbladder, but I believe this is an incidental finding and not the cause of her pancreatitis. Continue IV fluids, pain control and monitor. Will follow along. Clinical Quality Measures DVT/VTE Risk/Contraindication: Risk Factor Score Per Nursin RFS Level Per Nursing on Admit: 4+=Very High KAHLIL GRAY DO Jun 03, 2020 13:22
--- NOTE | 2020-06-03 13:46 | Progress Note - Cardiology ---
Cardiology SOAP Progress Note Subjective: Sitting up in recliner at the bedside. No c/o CP or SOB. Objective: I&O/Vital Signs 06/05/20 06/06/20 20:45 00:33 Temp 37.0 Pulse 80 Resp 20 B/P (MAP) 118/64 (82) Pulse Ox 94 O2 Delivery Room Air Room Air 06/06/20 00:00 Intake Total 1820 ml Balance 1820 ml Weight (Pounds): 173 Weight (Ounces): 0.0 Weight (Calculated Kilograms): [id number] Constitutional: AAO x 3, well-developed, well-nourished Respiratory: No accessory muscle use, No respiratory distress; other (good air entry) Cardiovascular: regular rate-rhythm; No JVD; S1 and S2 Gastrointestional: tender, soft, round; No guarding; audible bowel sounds Extremities: swelling (mild to mod bilat LE swelling) Neurologic/Psychiatric: grossly intact (moves extremities) Skin: No rash on exposed areas, No ulcerations on exposed areas Results/Procedures: Labs Laboratory Tests 06/05/20 18:00: White Blood Count 18.4H, Red Blood Count 2.92L, Hemoglobin 8.7L, Hematocrit 26L, Mean Corpuscular Volume 88, Mean Corpuscular Hemoglobin 30, Mean Corpuscular Hemoglobin Concent 34, Red Cell Distribution Width 15.4H, Platelet Count 356, Mean Platelet Volume 11.9, Immature Granulocyte % (Auto) 7, Neutrophils (%) (Auto) 74, Lymphocytes (%) (Auto) 8L, Monocytes (%) (Auto) 8, Eosinophils (%) (Auto) 3, Basophils (%) (Auto) 0, Neutrophils # (Auto) 13.6H, Lymphocytes # (Auto) 1.4, Monocytes # (Auto) 1.5H, Eosinophils # (Auto) 0.6H, Basophils # (Auto) 0.1, Immature Granulocyte # (Auto) 1.2H, Neutrophils % (Manual) 80, L ymphocytes % (Manual) 8, Monocytes % (Manual) 5, Eosinophils % (Manual) 2, Basophils % (Manual) 0, Metamyelocytes % 2, Myelocytes % 1, Band Neutrophils 2, Percent Immature Platelet Fraction 3.5, Polychromasia MODERATE, Hypochromasia MODERATE, Target Cells MODERATE, Absolute Reticulocyte Count 63, Percent Reticulocyte Count 2.15 06/06/20 06:01: White Blood Count 18.1H, Red Blood Count 2.84L, Hemoglobin 8.5L, Hematocrit 25L, Mean Corpuscular Volume 89, Mean Corpuscular Hemoglobin 30, Mean Corpuscular Hemoglobin Concent 34, Red Cell Distribution Width 15.3H, Platelet Count 320, Mean Platelet Volume 11.6, Immature Granulocyte % (Auto) 7, Neutrophils (%) (Auto) 74, Lymphocytes (%) (Auto) 7L, Monocytes (%) (Auto) 8, Eosinophils (%) (Auto) 4, Basophils (%) (Auto) 0, Neutrophils # (Auto) 13.3H, Lymphocytes # (Auto) 1.3, Monocytes # (Auto) 1.5H, Eosinophils # (Auto) 0.7H, Basophils # (Auto) 0.1, Immature Granulocyte # (Auto) 1.2H, Sodium Level 139, Potassium Level 4.0, Chloride Level 108H, Carbon Dioxide Level 22, Anion Gap 9, Blood Urea Nitrogen 24H, Creatinine 1.18, Estimat Glomerular Filtration Rate 46, BUN/Creatinine Ratio 20, Glucose Level 193H, Calcium Level 8.8, Corrected Calcium 10.2H, Total Bilirubin 0.4, Aspartate Amino Transf (AST/SGOT) 26, Alanine Aminotransferase (ALT/SGPT) 20, Alkaline Phosphatase 52, Total Protein 4.9L, Albumin 2.2L Microbiology 06/03/20 MRSA Screen - Final, Complete MRSA not isolated 06/03/20 Blood Culture - Preliminary, Resulted No growth A/P: Assessment: Acute pancreatitis - management per medical services Pneumonia - management per medical/pulmonary services Acute on chronic renal insufficiency - improved Anemia - management per medical services Hypokalemia - resolved History of diastolic congestive heart failure - clinically compensated Echocardiogram of May 30, [address] Crump showed normal LV size, LVEF 60-65%. PASP 15-20mmHg Coronary artery disease-patient underwent cardiac catheterization October 11, [address] Crump revealing mild coronary artery disease with 40-50 percent proximal to mid LAD stenosis, nonobstructive disease. Otherwise no significant obstructive disease. Normal EF History of Syncope, unsteady gait and fatigue with loss of energy, being treated for major depression and anxiety. Denies any recent syncopal episode. History of labile hypertension Hyperlipidemia, hold statin for now due to pancreatitis Mild bilateral carotid stenosis, history of left CEA in 2005, as well as history of left common carotid stenting. Most recent carotid duplex done May [address] Crump showing mild bilateral disease nonobstructive disease, continue to monitor. Diabetes Mellitus Diabetic neuropathy Fibromyalgia Anxiety, depression seen in the behavioral health clinic Plan: Continue current cardiac regimen Monitor lab closely Replace electrolytes as indicated We have reviewed Dr. Crump's progress notes DALY ORTIZ Jun 03, 2020 13:46
--- NOTE | 2020-06-03 13:57 | Occ Therapy Progress Note ---
Therapy Progress Note Pt refused adamantly refused treatment. Pt continued to fall asleep throughout session as PATEL attempted to encourage pt to participate in OT. 1-refusal [id number] SHU FULLER Jun 03, 2020 13:57
--- NOTE | 2020-06-03 14:41 | Occupational Ther Daily Note ---
OT Current Status-Daily Note Subjective Pt dozing in chair. Pt is getting moved to 407. Pt required max encouragement to participate with PATEL. Mental Status/Objective Patient Orientation: Person ADL-Treatment Therapy Code Descriptions/Definitions Functional [place] Measure: 0=Not Assessed/NA 4=Minimal Assistance 1=Total Assistance 5=Supervision or Setup 2=Maximal Assistance 6=Modified [place] 3=Moderate Assistance 7=Complete IndependenceSCALE: Activities may be completed with or without assistive devices. 7-Wivojevaip-qwvtanu completes the activity by him/herself with no assistance from a helper. 5-Set-up or Clean-up Assistance-helper sets up or cleans up; patient completes activity. [place] assists only prior to or following the activity. 4-Supervision or Touching Assistance-helper provides verbal cues and/or touch ing/steadying and/or contact guard assistance as patient completes activity. Assistance may be provided throughout the activity or intermittently. 3-Partial/Moderate Assistance-helper does LESS THAN HALF the effort. [place] lifts, holds or supports trunk or limbs, but provides less than half the effort. 2-Substantial/Maximal Assistance-helper does MORE THAN HALF the effort. [place] lifts or holds trunk or limbs and provides more than half the effort. 3-Vhfkitisr-ttwrea does ALL the effort. Patient does none of the effort to complete the activity. Or, the assistance of 2 or more helpers is required for the patient to complete the activity. If activity was not attempted, code reason: 7-Patient Refused. 9-Not Applicable-not attempted and the patient did not perform the activity before the current illness, exacerbation or injury. 10-Not Attempted due to Environmental Limitations-(lack of equipment, weather restraints, etc.). 88-Not Attempted due to Medical Conditions or Safety Concerns. Toileting Hygiene (QC): 3 Toilet Transfer (QC): 3 Other Treatment Mod A for sit to stand. Pt required assist to manipulate FWW with ambulated to new room. Pt required assist to reach back to sit on BSC. Assist to manipulate clothing for toileting. Pt left in care of nrsg/sitter. All needs met in room. OT Correction Goals Automotive Buyer Goals Time Frame: Jun 06, 2020 Oral Hygiene (QC): 5 Toileting Hygiene (QC): 4 Shower/Bathe Self (QC): 4 Upper Body Dressing (QC): 5 Lower Body Dressing (QC): 4 On/Off Footwear (QC): 4 Additional Goals: 1-Demonstrate ADL Tasks, 2-Verbalize Understanding, 3- ImproveStrength/Tracie 1=Demonstrate adherence to instructed precautions during ADL tasks. 2=Patient will verbalize/demonstrate understanding of assistive devices/modifications for ADL. 3=Patient will improve strength/tolerance for activity to enable patient to perform ADL's. OT Education/Plan Problem List/Assessment Assessment: Decreased Activ Tolerance, Decreased Safety Aware, Impaired C ognition, Impaired Self-Care Skills Discharge Recommendations Plan/Recommendations: Continue POC Treatment Plan/Plan of Care Patient would benefit from OT for education, treatment and training to promote independence in ADL's, mobility, safety and/or upper extremity function for ADL's. Plan of Care: ADL Retraining, Functional Mobility, UE Funct Exercise/Act Treatment Duration: Jun 06, 2020 Frequency: 5 times per week Estimated Hrs Per Day: .25 hour per day Agreement: Yes Rehab Potential: Fair Time/GCodes Start Time: 14:30 Stop Time: 14:40 Total Time Billed (hr/min): 10 Billed Treatment Time 1 visit-FA 1 (10 min) SHU FULLER Jun 03, 2020 14:41
[2020-06-03 14:54] LABS: BILIRUBIN,URINE NEGATIVE (NEGATIVE); CLARITY,URINE CLEAR; COLOR,URINE YELLOW; GLUCOSE, URINE (UA) NEGATIVE (NEGATIVE); KETONES,URINE NEGATIVE (NEGATIVE); LEUKOCYTE ESTERASE ,URINE NEGATIVE (NEGATIVE); NITRITE,URINE NEGATIVE (NEGATIVE); PROTEIN,URINE TRACE (NEGATIVE)
[2020-06-03 15:00] LABS: BACTERIA,URINE NEGATIVE /HPF; SQUAMOUS EPITHELIAL CELL,UR 0-2 /HPF
[2020-06-03 15:20] VITALS: BP 134/66
--- NOTE | 2020-06-03 17:16 | Diagnostic Imaging Report ---
INDICATION: None given. PROCEDURE: Ultrasound abdomen complete. TECHNIQUE: Multiple real-time grayscale images were obtained of the abdomen in various projections. COMPARISON: CT from 05/26/2020. Renal ultrasound from 08/29/2008. FINDINGS: The liver is mildly prominent measuring 18 cm in length. The examination is suboptimal due to body habitus, and the patient had difficulty tolerating the exam. No focal hepatic lesions are seen. The pancreas, spleen, aorta, and IVC are obscured. The common bile duct is obscured. The main portal vein appears hepatopetal. Multiple echogenic mobile stones are seen in the gallbladder. There is no gallbladder wall thickening. Sonographic Bueno's sign is negative. A small amount of ascites is present. The right kidney measures 11.7 cm in length with no hydronephrosis. The left kidney measures 10.3 cm in length with no hydronephrosis. IMPRESSION: 1. Cholelithiasis without findings of cholecystitis. 2. Small amount of ascites. Dictated by: Dictated on workstation # [id number]
--- NOTE | 2020-06-03 17:29 | Diagnostic Imaging Report ---
PROCEDURE: CT chest, abdomen, and pelvis without contrast. TECHNIQUE: Multiple contiguous axial images were obtained through the chest, abdomen, and pelvis without the use of intravenous contrast. Auto Exposure Controls were utilized during the CT exam to meet ALARA standards for radiation dose reduction. INDICATION: Sepsis. Pancreatitis. COMPARISON: 05/26/2020. FINDINGS: Evaluation is suboptimal due to motion artifact throughout the exam. The exam was repeated, with persistent motion artifact. The heart is mildly large. The mediastinum is shift to the right due to the elevation of the left hemidiaphragm. No significant adenopathy is seen. There is aortic atherosclerosis. The aorta appears normal in caliber. No pericardial effusion is seen. There is a minimal left pleural effusion. There is airspace and groundglass consolidation in the right upper lobe. There appears to be atelectasis at the left lung base. No acute osseous abnormality is seen. The liver demonstrates no focal lesions. Multiple stones are in the gallbladder. There is marked edema about the pancreas. No definite loculated peripancreatic fluid collections or necrosis is seen, however this is not well evaluated on a noncontrast exam. The spleen appears normal in size. The kidneys demonstrate no hydronephrosis. Punctate nonobstructing calculi are seen in the kidneys. The bowel loops are nondistended without obstruction. There is a small amount of ascites throughout the abdomen. No free air is seen. There is diffuse subcutaneous anasarca. IMPRESSION: 1. Marked peripancreatic edema consistent with pancreatitis. There is surrounding fluid, but evaluation for necrosis or walled off fluid collections is suboptimal without contrast. No free air is seen. 2. Airspace and groundglass consolidation in the right upper lobe, likely due to infection. Infarct is thought less likely but in the differential. 3. Small amount of ascites. Subcutaneous anasarca. 4. Minimal left pleural effusion. 5. Cholelithiasis. Dictated by: Dictated on workstation # [id number]
[2020-06-03 19:24] VITALS: BP 139/65
[2020-06-03] MEDS: GABAPENTIN 300 MG (NEURONTIN) CAP PO SCH (20:56)
[2020-06-03] MEDS: FENOFIBRATE 134 MG (LOFIBRA) CAPSULE PO SCH (20:56)
[2020-06-03] MEDS: GABAPENTIN 400 MG (NEURONTIN) CAP PO SCH (20:56)
[2020-06-04] VITALS: BP 112/61
[2020-06-04] MEDS ORDERED: MEROPENEM 500 MG VIAL (MERREM) IV ONE (01:11)
[2020-06-04] MEDS ORDERED: WATER (STERILE) FOR INJECTION 10 ML ONE (01:11)
[2020-06-04] MEDS: MEROPENEM 1,000 MG in WATER (STERILE) FOR INJECTION 20 ML IV SCH ×3 (01:42→16:15)
[2020-06-04 04:31] VITALS: BP 151/70
--- NOTE | 2020-06-04 05:55 | NUR ---
pt has had odd behaviors throughout this rn shift-pt will wake up and say "ice" and shake her cup, or "bathroom" when pt is asked to elaborate on her needs she closes her eyes & puts her chin to her chest until she is ready to act on her requests like going to the bsc, pt has also requested "Luke" this rn asked pt who Luke is pt states "work here", this rn asked pt what she needed with [facility], pt again placed her chin to her chest & closed her eyes and never answered the question.
[2020-06-04 06:40] LABS: BASOPHILS # (AUTO) 0.1 10^3/uL (0.0-0.1); BASOPHILS % (AUTO) 0 % (0-10); EOSINOPHILS # (AUTO) 0.5 10^3/uL (0.0-0.3); EOSINOPHILS % (AUTO) 3 % (0-10); HEMATOCRIT 25 % (35-52); HEMOGLOBIN 8.2 g/dL (11.5-16.0); LYMPHOCYTES # (AUTO) 1.3 10^3/uL (1.0-4.0); LYMPHOCYTES % (AUTO) 6 % (12-44); MEAN CORPUSCULAR HEMOGLOBIN 29 pg (25-34); MEAN CORPUSCULAR HGB CONC 33 g/dL (32-36); MEAN CORPUSCULAR VOLUME 87 fL (80-99); MONOCYTES # (AUTO) 1.5 10^3/uL (0.0-1.0); MONOCYTES % (AUTO) 8 % (0-12); NEUTROPHILS # (AUTO) 15.6 10^3/uL (1.8-7.8); NEUTROPHILS % (AUTO) 79 % (42-75); PLATELET COUNT 333 10^3/uL (130-400); WHITE BLOOD COUNT 19.9 10^3/uL (4.3-11.0)
[2020-06-04 06:45] LABS: ALBUMIN 2.3 GM/DL (3.2-4.5); POTASSIUM 3.4 MMOL/L (3.6-5.0)
[2020-06-04 06:46] LABS: CALCIUM 7.8 MG/DL (8.5-10.1)
[2020-06-04 06:50] LABS: BILIRUBIN,TOTAL 0.4 MG/DL (0.1-1.0)
[2020-06-04 06:51] LABS: CREATININE SERUM 1.27 MG/DL (0.60-1.30)
--- NOTE | 2020-06-04 07:29 | Progress Note - Surgery ---
BEBETOTG MED STUDENT 06/04/20 0729: Subjective Date Seen by a Provider: Jun 04, 2020 Time Seen by a Provider: 07:01 Subjective/Events-last exam Pt is somnolent this AM; arousable to voice but not responding to questions, no apparent distress. Nurse stated she has odd behavior intermittently, such as asking for ice by shaking her cup and saying "ice". Focused Exam Lactate Level 06/03/20 09:45: Lactic Acid Level 1.11 06/04/20 06:14: Lactic Acid Level 0.74 Time of Focused Exam: 09:30 Lactic Acid Level Laboratory Tests Test 06/04/20 06:14 Lactic Acid Level 0.74 MMOL/L (0.50-2.00) Objective Exam Vital Signs Date Time Temp Pulse Resp B/P (MAP) Pulse Ox O2 Delivery O2 Flow Rate FiO2 06/04/20 04:31 36.2 81 20 151/70 (97) 95 Room Air 06/04/20 01:47 36.4 65 20 95 Room Air 06/04/20 00:00 35.3 78 18 112/61 (78) Room Air 06/03/20 20:54 Room Air 0.00 06/03/20 19:24 35.2 90 18 139/65 (89) 93 Room Air 06/03/20 15:20 35.3 85 20 134/66 (88) 96 Room Air 06/03/20 12:00 36.6 92 16 131/84 (100) 96 Room Air 06/03/20 10:13 36.4 06/03/20 08:33 97 Room Air 06/03/20 08:00 96 Room Air 0.00 06/03/20 08:00 36.4 101 20 123/82 (96) 96 Room Air I & O 06/04/20 07:00 Intake Total 1850 ml Balance 1850 ml Capillary Refill : Less Than 3 SecondsLess Than 3 Seconds General Appearance: No Apparent Distress, Chronically ill Respiratory: Normal Breath Sounds, No Accessory Muscle Use, No Respiratory Distress Cardiovascular: Regular Rate, Rhythm Gastrointestinal: soft, distended (minimal); No guarding, No rebound Extremity: Other (mild bilateral LE edema) Neurologic/Psychiatric: Depressed Affect, Disoriented Results Lab Laboratory Tests 06/03/20 09:45: Lactic Acid Level 1.11 06/03/20 10:35: Urine Color YELLOW, Urine Clarity CLEAR, Urine pH 6.0, Urine Specific [place] 1.015L, Urine Protein TRACEH, Urine Glucose (UA) NEGATIVE, Urine Ketones NEGATIVE, Urine Nitrite NEGATIVE, Urine Bilirubin NEGATIVE, Urine Urobilinogen 0.2, Urine Leukocyte Esterase NEGATIVE, Urine RBC (Auto) TRACE-L, Urine RBC NONE, Urine WBC NONE, Urine Squamous Epithelial Cells 0-2, Urine Crystals NONE, Urine Bacteria NEGATIVE, Urine Casts NONE, Urine Mucus NEGATIVE, Urine Culture Indicated NO 06/04/20 05:32: White Blood Count 19.9H, Red Blood Count 2.84L, Hemoglobin 8.2L, Hematocrit 25L, Mean Corpuscular Volume 87, Mean Corpuscular Hemoglobin 29, Mean Corpuscular Hemoglobin Concent 33, Red Cell Distribution Width 15.3H, Platelet Count 333, Mean Platelet Volume 12.0, Immature Granulocyte % (Auto) 5, Neutrophils (%) (Auto) 79H, Lymphocytes (%) (Auto) 6L, Monocytes (%) (Auto) 8, Eosinophils (%) (Auto) 3, Basophils (%) (Auto) 0, Neutrophils # (Auto) 15.6H, Lymphocytes # (Auto) 1.3, Monocytes # (Auto) 1.5H, Eosinophils # (Auto) 0.5H, Basophils # (Auto) 0.1, Immature Granulocyte # (Auto) 0.9H, Sodium Level 142, Potassium Level 3.4L, Chloride Level 109H, Carbon Dioxide Level 22, Anion Gap 11, Blood Urea Nitrogen 26H, Creatinine 1.27, Estimat Glomerular Filtration Rate 42, BUN/Creatinine Ratio 20, Glucose Level 145H, Calcium Level 7.8L, Corrected Calcium 9.2, Total Bilirubin 0.4, Aspartate Amino Transf (AST/SGOT) 40H, Alanine Aminotransferase (ALT/SGPT) 23, Alkaline Phosphatase 56, Total Protein 5.0L, Albumin 2.3L, Amylase Level 65, Lipase 251H, Procalcitonin 0.34H 06/04/20 06:14: Lactic Acid Level 0.74 Microbiology 06/03/20 MRSA Screen - Final, Complete MRSA not isolated Assessment/Plan Assessment/Plan Admission Diagonsis Pancreatitis, RLL Pneumonia Assessment/Plan Right lower lobe pneumonia Pancreatitis Cholelithiasis Hypokalemia Hypocalcemia Hypoalbuminemia Acute renal failure WBC decreased (21.5 to 19.1) today, elevated WBC likely due to her Pneumonia. I also think the CXR looks worse than previous days. Gallbladder US shows one stone in her gallbladder, but I believe this is an incidental finding and not the cause of her pancreatitis. Continue IV fluids, pain control and monitor. Will continue to monitor. Clinical Quality Measures DVT/VTE Risk/Contraindication: Risk Factor Score Per Nursin RFS Level Per Nursing on Admit: 4+=Very High TODD ARRIOLA DO 06/04/20 1323: Subjective Time Seen by a Provider: 10:53 Subjective/Events-last exam Pt seen and examined, more alert when I saw her; denied abdominal pain. She complained of being panicky, but couldn't say why. Review of Systems General: No Chills, No Night Sweats Cardiovascular: No: Chest Pain, Palpitations Gastrointestinal: No: Nausea, Vomiting, Abdominal Pain Objective Exam General Appearance: No Apparent Distress, Chronically ill Respiratory: Normal Breath Sounds, No Accessory Muscle Use, No Respiratory Distress, Decreased Breath Sounds (right compared to left) Cardiovascular: Regular Rate, Rhythm, No Murmur Gastrointestinal: soft, no organomegaly, distended (obese); No guarding, No rebound Assessment/Plan Assessment/Plan Assessment/Plan RLL Pneumonia Pancreatitis - resolved Cholelithiasis - not convinced this caused slight elevation of pancreatic enzymes Hypokalemia Will sign off and reconsult if needed. Supervisory-Addendum Brief Verification & Attestation Participated in pt care: history, MDM, physical Personally performed: exam, history, MDM Care discussed with: Medical Student Procedures: n/a Verification and Attestation of Medical Student E/M Service A medical student performed and documented this service. I then reviewed and verified all information documented by the medical student and made modifi cations to such information, when appropriate. I personally performed a physical exam, medical decision making and then discussed any differences between the notes and made revisions as necessary to create one note. Todd Arriola , 06/04/20 , 13:22 TG [employer]ATE MED STUDENT Jun 04, 2020 07:29 TODD ARRIOLA DO Jun 04, 2020 13:23
--- NOTE | 2020-06-04 07:35 | NUR ---
pt removed her silver tone ring with red heart stone placed it on the bedside table-this rn placed it in the lock up draw in her room.
[2020-06-04 08:00] VITALS: BP 155/71
[2020-06-04] MEDS: VERAPAMIL SR 240 MG (CALAN SR) TAB PO SCH (08:54)
[2020-06-04] MEDS: CARVEDILOL 6.25 MG (COREG) TAB PO SCH ×2 (08:54→20:26)
[2020-06-04] MEDS: CALCIUM CARBONATE 500 MG (TUMS) TAB.CHEW PO SCH ×3 (08:55→20:27)
[2020-06-04] MEDS: ASPIRIN E.C. 325 MG (ECOTRIN) TABLET PO SCH (08:55)
[2020-06-04] MEDS: ALPRAZolam 0.25 MG (XANAX) TAB PO SCH ×2 (08:55→20:26)
[2020-06-04] MEDS: LORATADINE (CLARITIN) 10 MG TAB PO SCH (08:55)
[2020-06-04] MEDS: FAMOTIDINE 20 MG (PEPCID) TABLET PO SCH (08:55)
[2020-06-04] MEDS: BACLOFEN 10 MG (LIORESAL) TAB PO SCH ×2 (08:55→20:25)
[2020-06-04] MEDS: ENOXAPARIN 40 MG/0.4 ML (LOVENOX) SYR SC SCH (08:55)
[2020-06-04] MEDS: MONTELUKAST 10 MG (SINGULAIR) TAB PO SCH (08:55)
[2020-06-04] MEDS: DICLOFENAC 1% GEL 100 GM (VOLTAREN) TUBE TOP SCH ×4 (08:56→20:30)
--- NOTE | 2020-06-04 09:14 | Occupational Ther Daily Note ---
OT Current Status-Daily Note Subjective Pt lying in bed, eyes open. Pt stated that she was 'scared', PATEL attempted to calm pt and pt continued to say she was scared. Mental Status/Objective Patient Orientation: Person Attachments: IV ADL-Treatment Pt initially refused to complete any task or movement. PATEL encouraged pt to participate. When items placed in hands pt completed with initial assistance. Pt able to wash face with cloth, as completing task pt stated that it made her scared and threw it onto the bedside table. After session, pt lying in bed and safety measures in place. Call light/phone in reach. All needs met in room. Therapy Code Descriptions/Definitions Functional [place] Measure: 0=Not Assessed/NA 4=Minimal Assistance 1=Total Assistance 5=Supervision or Setup 2=Maximal Assistance 6=Modified [place] 3=Moderate Assistance 7=Complete IndependenceSCALE: Activities may be completed with or without assistive devices. 5-Eyovbziihr-fihgplv completes the activity by him/herself with no assistance from a helper. 5-Set-up or Clean-up Assistance-helper sets up or cleans up; patient completes activity. [place] assists only prior to or following the activity. 4-Supervision or Touching Assistance-helper provides verbal cues and/or touching/steadying and/or contact guard assistance as patient completes activity. Assistance may be provided throughout the activity or intermittently. 3-Partial/Moderate Assistance-helper does LESS THAN HALF the effort. [place] lifts, holds or supports trunk or limbs, but provides less than half the effort. 2-Substantial/Maximal Assistance-helper does MORE THAN HALF the effort. [place] lifts or holds trunk or limbs and provides more than half the effort. 1-Kkhzrpxed-wbahni does ALL the effort. Patient does none of the effort to complete the activity. Or, the assistance of 2 or more helpers is required for the patient to complete the activity. If activity was not attempted, code reason: 7-Patient Refused. 9-Not Applicable-not attempted and the patient did not perform the activity before the current illness, exacerbation or injury. 10-Not Attempted due to Environmental Limitations-(lack of equipment, weather restraints, etc.). 88-Not Attempted due to Medical Conditions or Safety Concerns. Oral Hygiene (QC): 3 (Pt required set up then assist to place brush in mouth and initiate brushing mouth. PATEL placed pt hand on brush and assisted pt to brush teeth initially then pt was able to complete by self.) OT Half-Way Goals Customer Support Consultant Goals Time Frame: Jun 06, 2020 Oral Hygiene (QC): 5 Toileting Hygiene (QC): 4 Shower/Bathe Self (QC): 4 Upper Body Dressing (QC): 5 Lower Body Dressing (QC): 4 On/Off Footwear (QC): 4 Additional Goals: 1-Demonstrate ADL Tasks, 2-Verbalize Understanding, 3- ImproveStrength/Tracie 1=Demonstrate adherence to instructed precautions during ADL tasks. 2=Patient will verbalize/demonstrate understanding of assistive devices/modifications for ADL. 3=Patient will improve strength/tolerance for activity to enable patient to perform ADL's. OT Education/Plan Problem List/Assessment Assessment: Decreased Activ Tolerance, Decreased Safety Aware, Impaired Cognition, Impaired Coordination, Impaired Self-Care Skills Discharge Recommendations Plan/Recommendations: Continue POC Treatment Plan/Plan of Care Patient would benefit from OT for education, treatment and training to promote independence in ADL's, mobility, safety and/or upper extremity function for ADL's. Plan of Care: ADL Retraining, Functional Mobility, UE Funct Exercise/Act Treatment Duration: Jun 06, 2020 Frequency: 5 times per week Estimated Hrs Per Day: .25 hour per day Agreement: Yes Rehab Potential: Fair Time/GCodes Start Time: 08:30 Stop Time: 08:45 Total Time Billed (hr/min): 15 Billed Treatment Time 1 visit-ADL 1 (15 min) SHU FULLER Jun 04, 2020 09:14
--- NOTE | 2020-06-04 10:32 | NUR ---
DISCHARGE PLANNING: This RN went in to see patient. SHe is alert in her bed and had her call light on. When asked how she was she said "I scared" and then expounded to say.."they wont pull me up in the bed". Celeste assisted in repositioning and asked again how she was she repeated "scared..but could not expound on it this time". Asked her about her son's who helps he at home..she reported her name is Delma and corrected me when I said Estella. Tried to discuss need for working with PT/OT and she promptly bent head forward and "fell asleep". It seemed more of an intentional behavior this time than and real occurrence. She is not wearing Oxygen in the room at this time indicating that she does not like the nasal canula. She is very pouty and almost childlike in her responses...again seems behavioral. Chest x-ray noted to be worse in appearance. US of abdomen notes a gall stone but didn't appear to be reason for her pancreatitis. Unsure what the plan is for her medically, but DISCHARGE POC will be to son's home with [facility] when appropriate.
--- NOTE | 2020-06-04 10:44 | Pulmonary Progress Note ---
Subjective Time Seen by a Provider: 10:42 Subjective/Events-last exam Pt is sitting up in chair on RA. Sepsis Event Evaluation Height, Weight, BMI Height: 5'5.00" Weight: 173lbs. 0.0oz. 78.417281qt; 26.00 BMI Method: Focused Exam Lactate Level 06/03/20 09:45: Lactic Acid Level 1.11 06/04/20 06:14: Lactic Acid Level 0.74 Time of Focused Exam: 09:30 Exam Exam Vital Signs Date Time Temp Pulse Resp B/P (MAP) Pulse Ox O2 Delivery O2 Flow Rate FiO2 06/04/20 08:00 95 Room Air 0.00 06/04/20 08:00 36.3 85 20 155/71 (99) 93 Room Air 06/04/20 04:31 36.2 81 20 151/70 (97) 95 Room Air 06/04/20 01:47 36.4 65 20 95 Room Air 06/04/20 00:00 35.3 78 18 112/61 (78) Room Air 06/03/20 20:54 Room Air 0.00 06/03/20 19:24 35.2 90 18 139/65 (89) 93 Room Air 06/03/20 15:20 35.3 85 20 134/66 (88) 96 Room Air 06/03/20 12:00 36.6 92 16 131/84 (100) 96 Room Air I & O 06/04/20 07:00 Intake Total 1850 ml Balance 1850 ml Height & Weight Height: 5'5.00" Weight: 173lbs. 0.0oz. 78.844437bz; 26.00 BMI Method: General Appearance: No Apparent Distress, Chronically ill Respiratory: Normal Breath Sounds, No Accessory Muscle Use, No Respiratory Distress Cardiovascular: Regular Rate, Rhythm Capillary Refill: Less Than 3 Seconds Gastrointestinal: non tender, soft, distended (minimal); No guarding, No rebound Extremity: Other (mild bilateral LE edema) Neurologic/Psychiatric: Depressed Affect, Disoriented Skin: Normal Color, Warm/Dry Lymphatic: No Adenopathy Results Lab Laboratory Tests 06/03/20 04:30 06/04/20 05:32 Assessment/Plan Assessment/Plan Pneumonia- No fevers -Pt is on RA -Repeat BNP -CXR reviewed - Merrem - -Repeat Pinto cultures pending Labs reviewed Acute pancreatitis -Check abd US -Surgery following CAD YOVANA MEJIA DO Jun 04, 2020 10:44
[2020-06-04] MEDS ORDERED: KCL 10 MEQ TAB (MICRO K) PO NR (11:30)
--- NOTE | 2020-06-04 11:30 | Progress Note - Cardiology ---
Cardiology SOAP Progress Note Subjective: Sitting up in bed. Denies any c/o CP or SOB. Objective: I&O/Vital Signs 06/05/20 06/05/20 07:47 08:42 Temp 37.1 Pulse 81 Resp 18 B/P (MAP) 136/68 (90) Pulse Ox 97 O2 Delivery Room Air Room Air 06/05/20 00:00 Intake Total 1608 ml Balance 1608 ml Weight (Pounds): 173 Weight (Ounces): 0.0 Weight (Calculated Kilograms): 78.207242 Constitutional: AAO x 3, well-developed, well-nourished Respiratory: No accessory muscle use, No respiratory distress; other (good air entry) Cardiovascular: regular rate-rhythm; No JVD; S1 and S2 Gastrointestional: tender, soft, round; No guarding; audible bowel sounds Extremities: swelling (mild to mod bilat LE swelling) Neurologic/Psychiatric: grossly intact (moves extremities) Skin: No rash on exposed areas, No ulcerations on exposed areas Results/Procedures: Labs Laboratory Tests 06/05/20 05:35: White Blood Count 20.0H, Red Blood Count 2.80L, Hemoglobin 8.3L, Hematocrit 25L, Mean Corpuscular Volume 88, Mean Corpuscular Hemoglobin 30, Mean Corpuscular Hemoglobin Concent 34, Red Cell Distribution Width 15.3H, Platelet Count 342, Mean Platelet Volume 11.7, Immature Granulocyte % (Auto) 6, Neutrophils (%) (Auto) 75, Lymphocytes (%) (Auto) 8L, Monocytes (%) (Auto) 9, Eosinophils (%) (Auto) 3, Basophils (%) (Auto) 0, Neutrophils # (Auto) 14.9H, Lymphocytes # (Auto) 1.6, Monocytes # (Auto) 1.7H, Eosinophils # (Auto) 0.5H, Basophils # (Auto) 0.1, Immature Granulocyte # (Auto) 1.3H, Neutrophils % (Manual) 77, Lymphocytes % (Manual) 8, Monocytes % (Manual) 9, Eosinophils % (Manual) 1, Band Neutrophils 5, Toxic Granulation 1+, Hypochromasia SLIGHT, Anisocytosis SLIGHT, Target Cells SLIGHT, Sodium Level 139, Potassium Level 4.0, Chloride Level 108H, Carbon Dioxide Level 22, Anion Gap 9, Blood Urea Nitrogen 24H, Creatinine 1.27, Estimat Glomerular Filtration Rate 42, BUN/Creatinine Ratio 19, Glucose Level 180H, Calcium Level 8.3L, Corrected Calcium 9.7, Total Bilirubin 0.4, Aspartate Amino Transf (AST/SGOT) 40H, Alanine Aminotransferase (ALT/SGPT) 24, Alkaline Phosphatase 56, Total Protein 5.1L, Albumin 2.3L Microbiology 06/03/20 MRSA Screen - Final, Complete MRSA not isolated 06/03/20 Blood Culture - Preliminary, Resulted No growth Procedures NAME: FRIEDA LEWIS [facility] REC#: [id number] PT STATUS: ADM IN : 1950 PHYSICIAN: YOVANA MEJIA DO ADMIT DATE: 05/26/20 Signed Date of Exam:06/03/20 CT CHEST/ABDOMEN/PELVIS WO PROCEDURE: CT chest, abdomen, and pelvis without contrast. TECHNIQUE: Multiple contiguous axial images were obtained through the chest, abdomen, and pelvis without the use of intravenous contrast. Auto Exposure Controls were utilized during the CT exam to meet ALARA standards for radiation dose reduction. INDICATION: Sepsis. Pancreatitis. COMPARISON: 05/26/2020. FINDINGS: Evaluation is suboptimal due to motion artifact throughout the exam. The exam was repeated, with persistent motion artifact. The heart is mildly large. The mediastinum is shift to the right due to the elevation of the left hemidiaphragm. No significant adenopathy is seen. There is aortic atherosclerosis. The aorta appears normal in caliber. No pericardial effusion is seen. There is a minimal left pleural effusion. There is airspace and groundglass consolidation in the right upper lobe. There appears to be atelectasis at the left lung base. No acute osseous abnormality is seen. The liver demonstrates no focal lesions. Multiple stones are in the gallbladder. There is marked edema about the pancreas. No definite loculated peripancreatic fluid collections or necrosis is seen, however this is not well evaluated on a noncontrast exam. The spleen appears normal in size. The kidneys demonstrate no hydronephrosis. Punctate nonobstructing calculi are seen in the kidneys. The bowel loops are nondistended without obstruction. There is a small amount of ascites throughout the abdomen. No free air is seen. There is diffuse subcutaneous anasarca. IMPRESSION: 1. Marked peripancreatic edema consistent with pancreatitis. There is surrounding fluid, but evaluation for necrosis or walled off fluid collections is suboptimal without contrast. No free air is seen. 2. Airspace and groundglass consolidation in the right upper lobe, likely due to infection. Infarct is thought less likely but in the differential. 3. Small amount of ascites. Subcutaneous anasarca. 4. Minimal left pleural effusion. 5. Cholelithiasis. Dictated by: Dictated on workstation # [id number] Dict: 06/03/201710 Trans: 06/04/20 0851 [facility] [id number] Interpreted by: JORGE LUIS ROLON MD Electronically signed by: JORGE LUIS ROLON MD 06/04/20 0851 NAME: FRIEDA LEWIS [facility] REC#: [id number] PT STATUS: ADM IN : 1950 PHYSICIAN: YOVANA MEJIA DO ADMIT DATE: 05/26/20 Signed Date of Exam:06/03/20 US ABDOMEN COMPLETE [id number] INDICATION: None given. PROCEDURE: Ultrasound abdomen complete. TECHNIQUE: Multiple real-time grayscale images were obtained of the abdomen in various projections. COMPARISON: CT from 05/26/2020. Renal ultrasound from 08/29/2008. FINDINGS: The liver is mildly prominent measuring 18 cm in length. The examination is suboptimal due to body habitus, and the patient had difficulty tolerating the exam. No focal hepatic lesions are seen. The pancreas, spleen, aorta, and IVC are obscured. The common bile duct is obscured. The main portal vein appears hepatopetal. Multiple echogenic mobile stones are seen in the gallbladder. There is no gallbladder wall thickening. Sonographic Bueno's sign is negative. A small amount of ascites is present. The right kidney measures 11.7 cm in length with no hydronephrosis. The left kidney measures 10.3 cm in length with no hydronephrosis. IMPRESSION: 1. Cholelithiasis without findings of cholecystitis. 2. Small amount of ascites. Dictated by: Dictated on workstation # [id number] Dict: 06/03/20 1709 Trans: 06/03/208 [facility] [id number] Interpreted by: JORGE LUIS ROLON MD Electronically signed by: JORGE LUIS ROLON MD 06/03/20 1718 A/P: Assessment: Acute pancreatitis - management per medical services Pneumonia - management per medical/pulmonary services Acute on chronic renal insufficiency - improved Anemia - management per medical services Hypokalemia - replace History of diastolic congestive heart failure - clinically compensated Echocardiogram of May 30, [address] Crump showed normal LV size, LVEF 60-65%. PASP 15-20mmHg Coronary artery disease-patient underwent cardiac catheterization October 11, [address] Crump revealing mild coronary artery disease with 40-50 percent proximal to mid LAD stenosis, nonobstructive disease. Otherwise no significant obstructive disease. Normal EF History of Syncope, unsteady gait and fatigue with loss of energy, being treated for major depression and anxiety. Denies any recent syncopal episode. History of labile hypertension Hyperlipidemia, hold statin for now due to pancreatitis Mild bilateral carotid stenosis, history of left CEA in 2005, as well as history of left common carotid stenting. Most recent carotid duplex done May [address] Crump showing mild bilateral disease nonobstructive disease, continue to monitor. Diabetes Mellitus Diabetic neuropathy Fibromyalgia Anxiety, depression seen in the behavioral health clinic Plan: Continue current cardiac regimen Monitor lab closely Replace electrolytes as indicated DALY ORTIZ Jun 04, 2020 11:30
--- NOTE | 2020-06-04 12:30 | Progress Note - Hospitalist ---
PARTHA BROOKE MED STUDENT 06/04/20 1230: Subjective HPI/CC On Admission Date Seen by Provider: Jun 04, 2020 Time Seen by Provider: 09:00 CC: Abdominal pain with nausea and vomiting and hypoxia HPI: This is a 70yoWF who has severe Parkinsons who presented with acute pancreatitis, lipase of 6,000 found a right lower lobe pneumonia with hypoxia, Covid swab was negative so she was placed on appropriate antibiotics, pain mediation and ICU with IV fluid resuscitation and Dr. Carter will see her in consultation. Emerson was placed due to urinary retention. Subjective/Events-last exam Pt was answering simple questions and stated that she has some pain in her legs Stated many times that she was scared but wouldn't say of what Would interrupt and yell out looking for someone named Hawk WBC dropped a little to 19.9 Review of Systems General: Fatigue, Malaise Neurological: Confusion Focused Exam Lactate Level 06/03/20 09:45: Lactic Acid Level 1.11 06/04/20 06:14: Lactic Acid Level 0.74 Time of Focused Exam: 09:30 Respiratory: Chest Non Tender, Lungs Clear, Normal Breath Sounds, No Accessory Muscle Use, No Respiratory Distress Cardiovascular: Regular Rate, Rhythm, No Edema, No Gallop, No JVD, No Murmur, Normal Peripheral Pulses Skin: normal color Objective Exam Vital Signs Vital Signs Date Time Temp Pulse Resp B/P (MAP) Pulse Ox O2 Delivery O2 Flow Rate FiO2 06/04/20 08:00 95 Room Air 0.00 06/04/20 08:00 36.3 85 20 155/71 (99) 06/01/20 20:30 98 Capillary Refill : Less Than 3 SecondsLess Than 3 Seconds General Appearance: Anxious, Chronically ill, Moderate Distress Respiratory: Chest Non Tender, Lungs Clear, Normal Breath Sounds, No Accessory Muscle Use, No Respiratory Distress Cardiovascular: Regular Rate, Rhythm, No Edema, No Gallop, No JVD, No Murmur, Normal Peripheral Pulses Extremity: Calf Tenderness Neurologic/Psychiatric: Disoriented Skin: Normal Color, Warm/Dry Results/Procedures Lab Laboratory Tests 06/04/20 05:32 Patient resulted labs reviewed. Imaging: Reviewed Imaging Report Assessment/Plan Assessment and Plan Assess & Plan/Chief Complaint Assessment: pancreatitis RLL pneumonia psychosis Plan: 06/02:follow up with behavioral psych antibiotic treatment for pneumonia 06/04: continue to monitor WBC Time spent with patient (mins): 10 Diagnosis/Problems Diagnosis/Problems (1) Pancreatitis Status: Acute Clinical Quality Measures DVT/VTE Risk/Contraindication: Risk Factor Score Per Nursin RFS Level Per Nursing on Admit: 4+=Very High Supervisory-Addendum Brief Verification & Attestation Participated in pt care: history, physical Personally performed: exam, history Care discussed with: Medical Student JENNIFER LASSITER DO 06/04/202101: Subjective Subjective/Events-last exam Pt still a mystery Elevated WBC is improved from 21 to [address] Carbone and Dr. Arriola Pancreatitis is still an issue Pt confused and wants to go home We are doing everything possible to help her but this appears to be a very di fficult and complex case Review of Systems General: Fatigue, Malaise Neurological: Confusion Objective Exam General Appearance: No Apparent Distress, WD/WN, Anxious, Chronically ill Neurologic/Psychiatric: Alert, Disoriented Assessment/Plan Assessment and Plan Assess & Plan/Chief Complaint Appreciate Dr Carbone and Dr Arriola Supervisory-Addendum Brief Verification & Attestation Participated in pt care: history, MDM, physical Personally performed: exam, history, MDM, supervision of care Care discussed with: Medical Student Procedures: n/a Results interpretation: Verified all documentation Verification and Attestation of Medical Student E/M Service A medical student performed and documented this service in my presence. I reviewed and verified all information documented by the medical student and made modifications to such information, when appropriate. I personally performed the physical exam and medical decision making. Jennifer Lassiter, Jun 04, 2020,21:01 PARTHA BROOKE MED STUDENT Jun 04, 2020 12:30 JENNIFER LASSITER DO Jun 04, 2020 21:02
--- NOTE | 2020-06-04 13:56 | Physical Therapy Daily Note ---
PT Daily Note-Current Subjective Pt. in bed, does not respond initially, when she does her eyes are rolling abebe in her head and she states she is having a panic attack. Pt. hesitantly agrees to therex in bed and up in chair with much encouragement. Nursing enters room toward end of Rx and states pt. is manipulative and can do more than she claims Pain Location: No Pain Reported Mental Status Patient Orientation: Mumbles, Listless Transfers SCALE: Activities may be completed with or without assistive devices. 2-Arllouuyjh-osmxcsh completes the activity by him/herself with no assistance from a helper. 5-Set-up or Clean-up Assistance-helper sets up or cleans up; patient completes activity. [place] assists only prior to or following the activity. 4-Supervision or Touching Assistance-helper provides verbal cues and/or touching/steadying and/or contact guard assistance as patient completes activity. Assistance may be provided throughout the activity or intermittently. 3-Partial/Moderate Assistance-helper does LESS THAN HALF the effort. [place] lifts, holds or supports trunk or limbs, but provides less than half the effort. 2-Substantial/Maximal Assistance-helper does MORE THAN HALF the effort. [place] lifts or holds trunk or limbs and provides more than half the effort. 1-Bskegmjsi-wbyauj does ALL the effort. Patient does none of the effort to complete the activity. Or, the assistance of 2 or more helpers is required for the patient to complete the activity. If activity was not attempted, code reason: 7-Patient Refused. 9-Not Applicable-not attempted and the patient did not perform the activity before the current illness, exacerbation or injury. 10-Not Attempted due to Environmental Limitations-(lack of equipment, weather restraints, etc.). 88-Not Attempted due to Medical Conditions or Safety Concerns. rolling left and right mod to min assist, HOB up for sup to sit, mod assist sup to sit, pt. sat EOB 3 min for LE LAQs and APs x8. sit to stand with FWW x3 then short gait to recliner, pt. insinuating she is having difficulty but did stand and move to chair CGA, call madera at hand and LEs elevated, chair alarm on Gait Training Gait Assistive Device: FWW 7-8 ft min assist to chair Exercises Supine Ex: Ankle pumps, Rolling, Heel Slides, Scooting, Hip abd/add Supine Reps: 10 Assessment Current Status: Good Progress pt. possibly more capable than she performed this date. PT Tool And Die Maker Apprentice Goals Tool And Die Maker Apprentice Goals PT Tool And Die Maker Apprentice Goals Time Frame: Jun 04, 2020 Roll Left & Right (QC): 4 Sit to Lying (QC): 4 Lying-Sitting on Side/Bed(QC): 4 Sit to Stand (QC): 4 Chair/Hrc-rw-Vvjea Xfer(QC): 4 Walk 10 feet (QC): 4 PT Plan Treatment/Plan Treatment Plan: Continue Plan of Care Treatment Plan: Bed Mobility, Education, Functional Activity Tracie, Functional Strength, Gait, Safety, Therapeutic Exercise, Transfers Treatment Duration: Jun 04, 2020 Frequency: 6 times per week Estimated Hrs Per Day: .25 hour per day Patient and/or Family Agrees t: Yes Safety Risks/Education Patient Education: Transfer Techniques, Correct Positioning, Safety Issues Teaching Recipient: Patient Teaching Methods: Demonstration, Discussion Response to Teaching: Verbalize Understanding, Return Demonstration, Reinforcement Needed Time/GCodes Time In: 1325 Time Out: 1345 Total Billed Treatment Time: 20 Total Billed Treatment 1,FA20m ISABELA ARCE DAY HABILITATION SUPERVISOR Jun 04, 2020 13:56
--- NOTE | 2020-06-04 14:35 | Diagnostic Imaging Report ---
INDICATION: Shortness of breath. TECHNIQUE: Two view chest 1:56 PM CORRELATION STUDY: 06/02/2020 FINDINGS: Rather significantly elevated left diaphragm is again demonstrated. There is significant gaseous distention of stomach, projecting over the left lower chest. Left lung volume loss. Right lung with some residual infiltrate right upper lobe. Mediastinal structures are towards the right. Heart size is likely upper limits normal without evidence of overt failure. Surgical clips project over the left lung apex. IMPRESSION: 1. Some residual infiltrate right upper lobe. 2. Rather pronounced left lung volume loss with elevated left diaphragm. Dictated by: Dictated on workstation # [id number]
--- NOTE | 2020-06-04 14:56 | Physical Therapy Daily Note ---
PT Daily Note-Current Subjective Pt. in bed, states she is having panic/ anxiety attack. Pt. hesitant to comply. Toward end of Rx nurse enters room and shares she believes pt is not giving full effort. ( manipulating therapist) Pain Location: No Pain Reported Mental Status Patient Orientation: Mumbles, Listless Transfers SCALE: Activities may be completed with or without assistive devices. 2-Vppvzscvcu-xkbpoxy completes the activity by him/herself with no assistance from a helper. 5-Set-up or Clean-up Assistance-helper sets up or cleans up; patient completes activity. [place] assists only prior to or following the activity. 4-Supervision or Touching Assistance-helper provides verbal cues and/or touching/steadying and/or contact guard assistance as patient completes activity. Assistance may be provided throughout the activity or intermittently. 3-Partial/Moderate Assistance-helper does LESS THAN HALF the effort. [place] lifts, holds or supports trunk or limbs, but provides less than half the effort. 2-Substantial/Maximal Assistance-helper does MORE THAN HALF the effort. [place] lifts or holds trunk or limbs and provides more than half the effort. 0-Jkxzgvvdo-nxbgxx does ALL the effort. Patient does none of the effort to complete the activity. Or, the assistance of 2 or more helpers is required for the patient to complete the activity. If activity was not attempted, code reason: 7-Patient Refused. 9-Not Applicable-not attempted and the patient did not perform the activity bef ore the current illness, exacerbation or injury. 10-Not Attempted due to Environmental Limitations-(lack of equipment, weather r estraints, etc.). 88-Not Attempted due to Medical Conditions or Safety Concerns. Roll Left & Right (QC): 3 Lying to Sitting/Side of Bed(Q: 3 Sit to Stand (QC): 4 Chair/Vkh-rx-Jkxaq Xfer(QC): 4 pt. resistive to degree and allowed therapist to pull her up from bed etc. Gait Training Gait Assistive Device: FWW 7-8 ft bed to chair with min assist Exercises Supine Ex: Bridging, Ankle pumps, Rolling, Heel Slides, Hip abd/add Supine Reps: 15 Assessment Current Status: Good Progress pt. not giving full effort PT Heel Pricker Goals Heel Pricker Goals PT Senior Care Goals Time Frame: Jun 04, 2020 Roll Left & Right (QC): 4 Sit to Lying (QC): 4 Lying-Sitting on Side/Bed(QC): 4 Sit to Stand (QC): 4 Chair/Qzc-hi-Kkdoh Xfer(QC): 4 Walk 10 feet (QC): 4 PT Plan Treatment/Plan Treatment Plan: Continue Plan of Care Treatment Plan: Bed Mobility, Education, Functional Activity Tracie, Functional Strength, Gait, Safety, Therapeutic Exercise, Transfers Treatment Duration: Jun 04, 2020 Frequency: 6 times per week Estimated Hrs Per Day: .25 hour per day Patient and/or Family Agrees t: Yes Safety Risks/Education Patient Education: Transfer Techniques, Correct Positioning, Safety Issues Teaching Recipient: Patient Teaching Methods: Discussion Response to Teaching: Return Demonstration, Reinforcement Needed Time/GCodes Time In: 1325 Time Out: 1345 Total Billed Treatment Time: 20 Total Billed Treatment 1,FAKelvinm ISABELA ARCE SALES AND IN HOME DELIVERY SPECIALIST Jun 04, 2020 14:56
--- NOTE | 2020-06-04 15:20 | Progress Note - Cardiology ---
Cardiology SOAP Progress Note Subjective: No cp or palp or syncope No shortness of breath at rest Gen malaise No n/v/d Objective: I&O/Vital Signs 06/04/20 06/04/20 06/04/20 04:31 08:00 08:00 Temp 36.2 36.3 Pulse 81 85 Resp 20 20 B/P (MAP) 151/70 (97) 155/71 (99) Pulse Ox 95 93 95 O2 Delivery Room Air Room Air Room Air O2 Flow Rate 0.00 06/04/20 00:00 Intake Total 1530 ml Balance 1530 ml Weight (Pounds): 173 Weight (Ounces): 0.0 Weight (Calculated Kilograms): 78.370926 Constitutional: AAO x 3, well-developed, well-nourished Respiratory: No accessory muscle use, No respiratory distress; other (good air entry) Cardiovascular: regular rate-rhythm; No JVD; S1 and S2 Gastrointestional: tender, soft, round; No guarding; audible bowel sounds Extremities: swelling (mild to mod bilat LE swelling) Neurologic/Psychiatric: grossly intact (moves extremities) Skin: normal color Results/Procedures: Labs Laboratory Tests 06/04/20 05:32: White Blood Count 19.9H, Red Blood Count 2.84L, Hemoglobin 8.2L, Hematocrit 25L, Mean Corpuscular Volume 87, Mean Corpuscular Hemoglobin 29, Mean Corpuscular Hemoglobin Concent 33, Red Cell Distribution Width 15.3H, Platelet Count 333, Mean Platelet Volume 12.0, Immature Granulocyte % (Auto) 5, Neutrophils (%) (Auto) 79H, Lymphocytes (%) (Auto) 6L, Monocytes (%) (Auto) 8, Eosinophils (%) (Auto) 3, Basophils (%) (Auto) 0, Neutrophils # (Auto) 15.6H, Lymphocytes # (Auto) 1.3, Monocytes # (Auto) 1.5H, Eosinophils # (Auto) 0.5H, Basophils # (Auto) 0.1, Immature Granulocyte # (Auto) 0.9H, Sodium Level 142, Potassium Level 3.4L, Chloride Level 109H, Carbon Dioxide Level 22, Anion Gap 11, Blood Urea Nitrogen 26H, Creatinine 1.27, Estimat Glomerular Filtration Rate 42, BUN/Creatinine Ratio 20, Glucose Level 145H, Calcium Level 7.8L, Corrected Calcium 9.2, Total Bilirubin 0.4, Aspartate Amino Transf (AST/SGOT) 40H, Alanine Aminotransferase (ALT/SGPT) 23, Alkaline Phosphatase 56, Total Protein 5.0L, Albumin 2.3L, Amylase Level 65, Lipase 251H, Procalcitonin 0.34H 06/04/20 06:14: Lactic Acid Level 0.74 Microbiology 06/03/20 MRSA Screen - Final, Complete MRSA not isolated A/P: Assessment: Acute pancreatitis - management per Medical services Pneumonia - management per Medical/Pulmonary services Acute on chronic renal insufficiency - improved Anemia - management per medical services Hypokalemia - replace History of diastolic congestive heart failure - clinically compensated Echocardiogram of May 30, [address] Crump showed normal LV size, LVEF 60-65%. PASP 15-20mmHg Coronary artery disease-patient underwent cardiac catheterization October 11, [address] Crump revealing mild coronary artery disease with 40-50 percent proximal to mid LAD stenosis, nonobstructive disease; otherwise no significant obstructive disease. Normal EF History of Syncope, unsteady gait and fatigue with loss of energy, being treated for major depression and anxiety. Denies any recent syncopal episode. History of labile hypertension Hyperlipidemia, hold statin for now due to pancreatitis Mild bilateral carotid stenosis, history of left CEA in 2005, as well as history of left common carotid stenting. Most recent carotid duplex done May [address] Crump showing mild bilateral disease nonobstructive disease, continue to monitor. Diabetes Mellitus Diabetic neuropathy Fibromyalgia Anxiety, depression seen in the behavioral health clinic Plan: Continue current cardiac regimen Monitor lab closely Replace electrolytes as indicated VANESSA HA MD FACP FAC CCDS Jun 04, 2020 15:20
--- NOTE | 2020-06-04 15:51 | NUR ---
Corporate Treasurer visited and prayed w/ pt who stated she was having anxiety. Also engaged her in conversation about her life and interests but she also nodded off a few times.
[2020-06-04 16:24] VITALS: BP 162/84
[2020-06-04] MEDS: GABAPENTIN 400 MG (NEURONTIN) CAP PO SCH (20:25)
[2020-06-04] MEDS: FENOFIBRATE 134 MG (LOFIBRA) CAPSULE PO SCH (20:26)
[2020-06-04] MEDS: GABAPENTIN 300 MG (NEURONTIN) CAP PO SCH (20:26)
[2020-06-05] MEDS: MEROPENEM 1,000 MG in WATER (STERILE) FOR INJECTION 20 ML IV SCH ×3 (01:41→17:36)
[2020-06-05 05:49] LABS: BASOPHILS # (AUTO) 0.1 10^3/uL (0.0-0.1); BASOPHILS % (AUTO) 0 % (0-10); EOSINOPHILS # (AUTO) 0.5 10^3/uL (0.0-0.3); EOSINOPHILS % (AUTO) 3 % (0-10); HEMATOCRIT 25 % (35-52); HEMOGLOBIN 8.3 g/dL (11.5-16.0); LYMPHOCYTES # (AUTO) 1.6 10^3/uL (1.0-4.0); LYMPHOCYTES % (AUTO) 8 % (12-44); MEAN CORPUSCULAR HEMOGLOBIN 30 pg (25-34); MEAN CORPUSCULAR HGB CONC 34 g/dL (32-36); MEAN CORPUSCULAR VOLUME 88 fL (80-99); MEAN PLATELET VOLUME 11.7 fL (9.0-12.2); MONOCYTES # (AUTO) 1.7 10^3/uL (0.0-1.0); MONOCYTES % (AUTO) 9 % (0-12); NEUTROPHILS # (AUTO) 14.9 10^3/uL (1.8-7.8); NEUTROPHILS % (AUTO) 75 % (42-75); PLATELET COUNT 342 10^3/uL (130-400)
[2020-06-05 06:14] LABS: ALBUMIN 2.3 GM/DL (3.2-4.5)
[2020-06-05 06:15] LABS: CALCIUM 8.3 MG/DL (8.5-10.1)
[2020-06-05 06:17] LABS: TOTAL PROTEIN 5.1 GM/DL (6.4-8.2)
[2020-06-05 06:18] LABS: BILIRUBIN,TOTAL 0.4 MG/DL (0.1-1.0)
[2020-06-05 06:20] LABS: CREATININE SERUM 1.27 MG/DL (0.60-1.30)
[2020-06-05 07:47] VITALS: BP 136/68
[2020-06-05 08:12] LABS: ANISOCYTOSIS SLIGHT; BAND NEUTROPHILS 5 %; EOSINOPHILS % (MANUAL) 1 %; HYPOCHROMASIA SLIGHT; LYMPHOCYTES % (MANUAL) 8 %; MONOCYTES % (MANUAL) 9 %; NEUTROPHILS % (MANUAL) 77 %; TARGET CELLS SLIGHT; TOXIC GRANULATION/VACUOLAZATIO 1+
[2020-06-05] MEDS: CALCIUM CARBONATE 500 MG (TUMS) TAB.CHEW PO SCH ×3 (08:55→20:49)
[2020-06-05] MEDS: FAMOTIDINE 20 MG (PEPCID) TABLET PO SCH (08:55)
[2020-06-05] MEDS: ASPIRIN E.C. 325 MG (ECOTRIN) TABLET PO SCH (08:55)
[2020-06-05] MEDS: LORATADINE (CLARITIN) 10 MG TAB PO SCH (08:55)
[2020-06-05] MEDS: MONTELUKAST 10 MG (SINGULAIR) TAB PO SCH (08:55)
[2020-06-05] MEDS: BACLOFEN 10 MG (LIORESAL) TAB PO SCH ×2 (08:55→20:49)
[2020-06-05] MEDS: ALPRAZolam 0.25 MG (XANAX) TAB PO SCH ×2 (08:55→20:48)
[2020-06-05] MEDS: CARVEDILOL 6.25 MG (COREG) TAB PO SCH ×2 (08:55→20:49)
[2020-06-05] MEDS: VERAPAMIL SR 240 MG (CALAN SR) TAB PO SCH (08:56)
[2020-06-05] MEDS: ENOXAPARIN 40 MG/0.4 ML (LOVENOX) SYR SC SCH (08:56)
[2020-06-05] MEDS: DICLOFENAC 1% GEL 100 GM (VOLTAREN) TUBE TOP SCH ×4 (08:56→20:53)
--- NOTE | 2020-06-05 10:03 | Progress Note - Cardiology ---
Cardiology SOAP Progress Note Subjective: Sitting up in recliner at the bedside. States she feels good this morning. States she feels "with it" today. No c/o CP or palpitations. Mild SOB, impoved. Objective: I&O/Vital Signs 06/05/20 06/06/20 20:45 00:33 Temp 37.0 Pulse 80 Resp 20 B/P (MAP) 118/64 (82) Pulse Ox 94 O2 Delivery Room Air Room Air 06/06/20 00:00 Intake Total 1820 ml Balance 1820 ml Weight (Pounds): 173 Weight (Ounces): 0.0 Weight (Calculated Kilograms): 78.462565 Constitutional: AAO x 3, well-developed, well-nourished Respiratory: No accessory muscle use, No respiratory distress; other (good air entry) Cardiovascular: regular rate-rhythm; No JVD; S1 and S2 Gastrointestional: tender, soft, round; No guarding; audible bowel sounds Extremities: swelling (mild to mod bilat LE swelling) Neurologic/Psychiatric: grossly intact (moves extremities) Skin: normal color Results/Procedures: Labs Laboratory Tests 06/05/20 18:00: White Blood Count 18.4H, Red Blood Count 2.92L, Hemoglobin 8.7L, Hematocrit 26L, Mean Corpuscular Volume 88, Mean Corpuscular Hemoglobin 30, Mean Corpuscular Hemoglobin Concent 34, Red Cell Distribution Width 15.4H, Platelet Count 356, Mean Platelet Volume 11.9, Immature Granulocyte % (Auto) 7, Neutrophils (%) (Auto) 74, Lymphocytes (%) (Auto) 8L, Monocytes (%) (Auto) 8, Eosinophils (%) (Auto) 3, Basophils (%) (Auto) 0, Neutrophils # (Auto) 13.6H, Lymphocytes # (Auto) 1.4, Monocytes # (Auto) 1.5H, Eosinophils # (Auto) 0.6H, Basophils # (Auto) 0.1, Immature Granulocyte # (Auto) 1.2H, Neutrophils % (Manual) 80, Lymphocytes % (Manual) 8, Monocytes % (Manual) 5, Eosinophils % (Manual) 2, Basophils % (Manual) 0, Metamyelocytes % 2, Myelocytes % 1, Band Neutrophils 2, Percent Immature Platelet Fraction 3.5, Polychromasia MODERATE, Hypochromasia MODERATE, Target Cells MODERATE, Absolute Reticulocyte Count 63, Percent Reticulocyte Count 2.15 06/06/20 06:01: White Blood Count 18.1H, Red Blood Count 2.84L, Hemoglobin 8.5L, Hematocrit 25L, Mean Corpuscular Volume 89, Mean Corpuscular Hemoglobin 30, Mean Corpuscular Hemoglobin Concent 34, Red Cell Distribution Width 15.3H, Platelet Count 320, Mean Platelet Volume 11.6, Immature Granulocyte % (Auto) 7, Neutrophils (%) (Auto) 74, Lymphocytes (%) (Auto) 7L, Monocytes (%) (Auto) 8, Eosinophils (%) (Auto) 4, Basophils (%) (Auto) 0, Neutrophils # (Auto) 13.3H, Lymphocytes # (Auto) 1.3, Monocytes # (Auto) 1.5H, Eosinophils # (Auto) 0.7H, Basophils # (Auto) 0.1, Immature Granulocyte # (Auto) 1.2H, Sodium Level 139, Potassium Level 4.0, Chloride Level 108H, Carbon Dioxide Level 22, Anion Gap 9, Blood Urea Nitrogen 24H, Creatinine 1.18, Estimat Glomerular Filtration Rate 46, BUN/Creatinine Ratio 20, Glucose Level 193H, Calcium Level 8.8, Corrected Calcium 10.2H, Total Bilirubin 0.4, Aspartate Amino Transf (AST/SGOT) 26, Alanine Aminotransferase (ALT/SGPT) 20, Alkaline Phosphatase 52, Total Protein 4.9L, Albumin 2.2L Microbiology 06/03/20 MRSA Screen - Final, Complete MRSA not isolated 06/03/20 Blood Culture - Preliminary, Resulted No growth A/P: Assessment: Acute pancreatitis - management per Medical services Pneumonia - management per Medical/Pulmonary services Acute on chronic renal insufficiency - improved Anemia - management per medical services Hypokalemia - replace History of diastolic congestive heart failure - clinically compensated Echocardiogram of May 30, [address] Crump showed normal LV size, LVEF 60-65%. PASP 15-20mmHg Coronary artery disease-patient underwent cardiac catheterization October 11, [address] Crump revealing mild coronary artery disease with 40-50 percent proximal to mid LAD stenosis, nonobstructive disease; otherwise no significant obstructive disease. Normal EF History of Syncope, unsteady gait and fatigue with loss of energy, being treated for major depression and anxiety. Denies any recent syncopal episode. History of labile hypertension Hyperlipidemia, hold statin for now due to pancreatitis Mild bilateral carotid stenosis, history of left CEA in 2005, as well as history of left common carotid stenting. Most recent carotid duplex done May [address] Crump showing mild bilateral disease nonobstructive disease, continue to monitor. Diabetes Mellitus Diabetic neuropathy Fibromyalgia Anxiety, depression seen in the behavioral health clinic Plan: Continue current cardiac regimen Monitor lab closely Replace electrolytes as indicated DALY ORTIZ Jun 05, 2020 10:03
[2020-06-05] MEDS: UMECLIDINIUM BROMIDE (INCRUSE ELLIPTA) 7'S IH SCH ×2 (10:30→10:31)
--- NOTE | 2020-06-05 12:00 | NUR ---
PATIENT REQUESTING THIS RN TO CONTACT MD FOR MEDICATION TO 'TAKE THE EDGE OFF' ALTHOUGH THE PATIENT APPEARS IN NO DISTRESS, SHE STATES SHE FEELS A PANIC ATTACK IS IMMINENT. PRESENCE PROVIDED AND WORKING WITH OT. DENIES ANY FURHTER NEEDS OR CO AT THIS TIME.
--- NOTE | 2020-06-05 12:05 | Physical Therapy Daily Note ---
PT Daily Note-Current Subjective Patient agrees to PT. Mental Status Patient Orientation: Person, Time, Situation Transfers SCALE: Activities may be completed with or without assistive devices. 9-Hmfhlfwred-astzicu completes the activity by him/herself with no assistance from a helper. 5-Set-up or Clean-up Assistance-helper sets up or cleans up; patient completes activity. [place] assists only prior to or following the activity. 4-Supervision or Touching Assistance-helper provides verbal cues and/or touching/steadying and/or contact guard assistance as patient completes activity. Assistance may be provided throughout the activity or intermittently. 3-Partial/Moderate Assistance-helper does LESS THAN HALF the effort. [place] lifts, holds or supports trunk or limbs, but provides less than half the effort. 2-Substantial/Maximal Assistance-helper does MORE THAN HALF the effort. [place] lifts or holds trunk or limbs and provides more than half the effort. 6-Qgrcenpgq-ziyuxx does ALL the effort. Patient does none of the effort to c omplete the activity. Or, the assistance of 2 or more helpers is required for the patient to complete the activity. If activity was not attempted, code reason: 7-Patient Refused. 9-Not Applicable-not attempted and the patient did not perform the activity before the current illness, exacerbation or injury. 10-Not Attempted due to Environmental Limitations-(lack of equipment, weather restraints, etc.). 88-Not Attempted due to Medical Conditions or Safety Concerns. Sit to Stand (QC): 5 Gait Training Does the Patient Walk?: Yes Distance: 225' Walk 10 feet (QC): 5 Walk 50 ft with 2 Turns(QC): 5 Walk 150 ft (QC): 5 Gait Assistive Device: FWW very slow, functional gait sequence Assessment Patient is up in recliner with chair alarm activated. Patient much improved and alert on this date. PT Fdc Goals Fdc Goals PT Acetylene Torch Burner Goals Time Frame: Jun 07, 2020 Roll Left & Right (QC): 4 Sit to Lying (QC): 4 Lying-Sitting on Side/Bed(QC): 4 Sit to Stand (QC): 4 Chair/Eof-ef-Avvuu Xfer(QC): 4 Walk 10 feet (QC): 4 PT Plan Treatment/Plan Treatment Plan: Continue Plan of Care Treatment Plan: Bed Mobility, Education, Functional Activity Tracie, Functional Strength, Gait, Safety, Therapeutic Exercise, Transfers Treatment Duration: Jun 07, 2020 Frequency: 6 times per week Estimated Hrs Per Day: .25 hour per day Patient and/or Family Agrees t: Yes Time/GCodes Time In: 1142 Time Out: 1156 Total Billed Treatment Time: 14 Total Billed Treatment 1 visit FA 14 min CARI SINGLETARY PT Jun 05, 2020 12:05
--- NOTE | 2020-06-05 12:14 | NUR ---
DR HUFFMAN NOTIFIED OF PATIENT'S REQUEST FOR ADDITIONAL ANXIETY MEDICATION. THIS RN REASSESSED PATIENT TO FIND HER ASLEEP IN THE CHAIR. RR EVEN AND UNLABORED. WILL CONT TO MONITOR.
[2020-06-05] MEDS ORDERED: ALPRAZolam 0.25 MG (XANAX) TAB PO PRN (12:45)
--- NOTE | 2020-06-05 12:55 | NUR ---
DR HUFFMAN WITH NEW ORDERS FOR XANAX PRN. XANAX GIVEN FOR C/O ANXIETY. PATIENT REQUESTED ONLY TO TAKE HALF A DOSE OF THE ORDERED 0.25MG. PATIENT GIVEN REQUESTED . CONT TO MONITOR.
--- NOTE | 2020-06-05 13:45 | NUR ---
PATIENT REPORTS RELIEF FROM ANXIETY. XANAX EFFECTIVE. CONT TO MONITOR.
--- NOTE | 2020-06-05 14:36 | Occupational Ther Daily Note ---
OT Current Status-Daily Note Subjective Pt alert, ambulating out of room with nrsg tech. Pt agrees to therapy. Pt states that she feels more like herself today. No c/o pain. Mental Status/Objective Patient Orientation: Person, Place Attachments: IV ADL-Treatment Pt able to ambulate using FWW with close SBA to CGA for safety. Pt then stood at sink with SBA to complete oral care by self. Pt's hands tremor while completing tasks though no tremors noted at rest. Pt sat in recliner with call light/phone in reach. All needs met in room. Safety measures in place. Sitter in room. Therapy Code Descriptions/Definitions Functional [place] Measure: 0=Not Assessed/NA 4=Minimal Assistance 1=Total Assistance 5=Supervision or Setup 2=Maximal Assistance 6=Modified [place] 3=Moderate Assistance 7=Complete IndependenceSCALE: Activities may be completed with or without assistive devices. 8-Khkirjteri-xhrmgbl completes the activity by him/herself with no assistance from a helper. 5-Set-up or Clean-up Assistance-helper sets up or cleans up; patient completes activity. [place] assists only prior to or following the activity. 4-Supervision or Touching Assistance-helper provides verbal cues and/or touching/steadying and/or contact guard assistance as patient completes activity. Assistance may be provided throughout the activity or intermittently. 3-Partial/Moderate Assistance-helper does LESS THAN HALF the effort. [place] li fts, holds or supports trunk or limbs, but provides less than half the effort. 2-Substantial/Maximal Assistance-helper does MORE THAN HALF the effort. [place] lifts or holds trunk or limbs and provides more than half the effort. 4-Eswjhqntb-fpfhcc does ALL the effort. Patient does none of the effort to complete the activity. Or, the assistance of 2 or more helpers is required for the patient to complete the activity. If activity was not attempted, code reason: 7-Patient Refused. 9-Not Applicable-not attempted and the patient did not perform the activity before the current illness, exacerbation or injury. 10-Not Attempted due to Environmental Limitations-(lack of equipment, weather restraints, etc.). 88-Not Attempted due to Medical Conditions or Safety Concerns. Oral Hygiene (QC): 4 OT Clinical Nurse Specialist Goals Care Home Goals Time Frame: Jun 06, 2020 Oral Hygiene (QC): 5 Toileting Hygiene (QC): 4 Shower/Bathe Self (QC): 4 Upper Body Dressing (QC): 5 Lower Body Dressing (QC): 4 On/Off Footwear (QC): 4 Additional Goals: 1-Demonstrate ADL Tasks, 2-Verbalize Understanding, 3- ImproveStrength/Tracie 1=Demonstrate adherence to instructed precautions during ADL tasks. 2=Patient will verbalize/demonstrate understanding of assistive devices/modifications for ADL. 3=Patient will improve strength/tolerance for activity to enable patient to perform ADL's. OT Education/Plan Problem List/Assessment Assessment: Decreased Activ Tolerance, Decreased Safety Aware, Impaired Self- Care Skills Discharge Recommendations Plan/Recommendations: Continue POC Treatment Plan/Plan of Care Patient would benefit from OT for education, treatment and training to promote independence in ADL's, mobility, safety and/or upper extremity function for ADL's. Plan of Care: ADL Retraining, Functional Mobility, UE Funct Exercise/Act Treatment Duration: Jun 06, 2020 Frequency: 5 times per week Estimated Hrs Per Day: .25 hour per day Agreement: Yes Rehab Potential: Fair Time/GCodes Start Time: 13:15 Stop Time: 13:35 Total Time Billed (hr/min): 20 Billed Treatment Time 1 visit-FA 1 (20 min) SHU FULLER Jun 05, 2020 14:36
--- NOTE | 2020-06-05 14:55 | NUR ---
SPOKE WITH PATIENT'S SON, SHANIA AND PROVIDED UPDATE ON PATIENT. SHANIA PLEASED WITH CARE, NO FURTHER QUESTIONS.
[2020-06-05 16:21] VITALS: BP 161/75
--- NOTE | 2020-06-05 17:02 | Progress Note ---
Subjective Subjective/Events-last exam Pt states she has no pain and is hoping to go home soon. She is anxious and is worried she is going to have a panic attack. She is sitting in chair eating lunch. Focused Exam Lactate Level 06/03/20 09:45: Lactic Acid Level 1.11 06/04/20 06:14: Lactic Acid Level 0.74 Time of Focused Exam: 09:30 Objective Exam Last Set of Vital Signs Vital Signs Date Time Temp Pulse Resp B/P (MAP) Pulse Ox O2 Delivery O2 Flow Rate FiO2 06/05/20 16:21 37.7 94 20 161/75 (103) 95 Room Air 06/04/20 08:00 0.00 06/01/20 20:30 98 Capillary Refill : Less Than 3 SecondsLess Than 3 Seconds I&O Intake and Output 06/05/20 00:00 Intake Total 1928 ml Balance 1928 ml Intake Oral 1908 ml IV Total 20 ml # Voids 12 # Bowel Movements 4 General: Alert, Oriented X3, No Acute Distress Lungs: Clear to Auscultation, Normal Air Movement Heart: Regular Rate, No Murmurs Abdomen: Normal Bowel Sounds, Soft, No Tenderness Extremities: Other (1+ pitting edema to knees) Neuro: Normal Speech, Other (rolling tremor in hands) Psych/Mental Status: Other (anxious) Results/Procedures Lab Laboratory Tests 06/05/20 05:35: White Blood Count 20.0H, Red Blood Count 2.80L, Hemoglobin 8.3L, Hematocrit 25L, Mean Corpuscular Volume 88, Mean Corpuscular Hemoglobin 30, Mean Corpuscular Hemoglobin Concent 34, Red Cell Distribution Width 15.3H, Platelet Count 342, Mean Platelet Volume 11.7, Immature Granulocyte % (Auto) 6, Neutrophils (%) (Auto) 75, Lymphocytes (%) (Auto) 8L, Monocytes (%) (Auto) 9, Eosinophils (%) (Auto) 3, Basophils (%) (Auto) 0, Neutrophils # (Auto) 14.9H, Lymphocytes # (Auto) 1.6, Monocytes # (Auto) 1.7H, Eosinophils # (Auto) 0.5H, Basophils # (Auto) 0.1, Immature Granulocyte # (Auto) 1.3H, Neutrophils % (Manual) 77, Lymphocytes % (Manual) 8, Monocytes % (Manual) 9, Eosinophils % (Manual) 1, Band Neutrophils 5, Toxic Granulation 1+, Hypochromasia SLIGHT, Anisocytosis SLIGHT, Target Cells SLIGHT, Sodium Level 139, Potassium Level 4.0, Chloride Level 108H, Carbon Dioxide Level 22, Anion Gap 9, Blood Urea Nitrogen 24H, Creatinine 1.27, Estimat Glomerular Filtration Rate 42, BUN/Creatinine Ratio 19, Glucose Level 180H, Calcium Level 8.3L, Corrected Calcium 9.7, Total Bilirubin 0.4, Aspartate Amino Transf (AST/SGOT) 40H, Alanine Aminotransferase (ALT/SGPT) 24, Alkaline Phosphatase 56, Total Protein 5.1L, Albumin 2.3L Microbiology 06/03/20 MRSA Screen - Final, Complete MRSA not isolated 06/03/20 Blood Culture - Preliminary, Resulted No growth Assessment/Plan Assessment/Plan (1) Leukocytosis Status: Acute Assessment & Plan: Persistent worsening in spite of broad spectrum antibiotics, will check peripheral smear. (2) Right lower lobe pneumonia Status: Acute Assessment & Plan: On azithromycin and ceftriaxone and zosyn, now on meropenem. No hypoxia. (3) Pancreatitis Status: Acute Assessment & Plan: Significantly elevated lipase on admit, CT with marked abnormality around pancreatic head, possibly inflammation but mass not ruled out. Repeat CT abdomen showed marked peripancreatic edema consistent iwth pancreatitis, eval for necrosis or walled off collection suboptimal due to no contrast. Also noted cholelithiasis. Abd US showed cholelithiasis without cholecystitis but bile duct view obscured. Supportive care with fluid and pain management, pain is improved and lipase significantly decreased. Surgery consulted, did not feel cholelithiasis was cause of her pancreatitis at this time. (4) Parkinson disease Status: Chronic Assessment & Plan: Resumed home medications (5) Diabetes mellitus, type 2 (6) Hypertension (7) Hypothyroidism (8) CKD (chronic kidney disease) stage 3, GFR 30-59 ml/min (9) Carotid artery stenosis (10) DVT prophylaxis Assessment & Plan: Enoxaparin Clinical Quality Measures DVT/VTE Risk/Contraindication: Risk Factor Score Per Nursin RFS Level Per Nursing on Admit: 4+=Very High DELFIN HUFFMAN MD Jun 05, 2020 17:02
--- NOTE | 2020-06-05 17:50 | Progress Note - Cardiology ---
Cardiology SOAP Progress Note Subjective: Gen malaise present Denies cp or shortness of breath No palp or syncope or swelling No n/v/d Objective: I&O/Vital Signs 06/05/20 06/05/20 06/05/20 07:47 08:42 16:21 Temp 37.1 37.7 Pulse 81 94 Resp 18 20 B/P (MAP) 136/68 (90) 161/75 (103) Pulse Ox 97 95 O2 Delivery Room Air Room Air Room Air 06/05/20 00:00 Intake Total 1608 ml Balance 1608 ml Weight (Pounds): 173 Weight (Ounces): 0.0 Weight (Calculated Kilograms): 78.768274 Constitutional: AAO x 3, well-developed, well-nourished Respiratory: No accessory muscle use, No respiratory distress; other (good air entry) Cardiovascular: regular rate-rhythm; No JVD; S1 and S2 Gastrointestional: tender, soft, round; No guarding; audible bowel sounds Extremities: swelling (mild to mod bilat LE swelling) Neurologic/Psychiatric: grossly intact (moves extremities) Skin: normal color Results/Procedures: Labs Laboratory Tests 06/05/20 05:35: White Blood Count 20.0H, Red Blood Count 2.80L, Hemoglobin 8.3L, Hematocrit 25L, Mean Corpuscular Volume 88, Mean Corpuscular Hemoglobin 30, Mean Corpuscular Hemoglobin Concent 34, Red Cell Distribution Width 15.3H, Platelet Count 342, Mean Platelet Volume 11.7, Immature Granulocyte % (Auto) 6, Neutrophils (%) (Auto) 75, Lymphocytes (%) (Auto) 8L, Monocytes (%) (Auto) 9, Eosinophils (%) (Auto) 3, Basophils (%) (Auto) 0, Neutrophils # (Auto) 14.9H, Lymphocytes # (Auto) 1.6, Monocytes # (Auto) 1.7H, Eosinophils # (Auto) 0.5H, Basophils # (Auto) 0.1, Immature Granulocyte # (Auto) 1.3H, Neutrophils % (Manual) 77, Lymphocytes % (Manual) 8, Monocytes % (Manual) 9, Eosinophils % (Manual) 1, Band Neutrophils 5, Toxic Granulation 1+, Hypochromasia SLIGHT, Anisocytosis SLIGHT, Target Cells SLIGHT, Sodium Level 139, Potassium Level 4.0, Chloride Level 108H, Carbon Dioxide Level 22, Anion Gap 9, Blood Urea Nitrogen 24H, Creatinine 1.27, Estimat Glomerular Filtration Rate 42, BUN/Creatinine Ratio 19, Glucose Level 180H, Calcium Level 8.3L, Corrected Calcium 9.7, Total Bilirubin 0.4, Aspartate Amino Transf (AST/SGOT) 40H, Alanine Aminotransferase (ALT/SGPT) 24, Alkaline Phosphatase 56, Total Protein 5.1L, Albumin 2.3L Microbiology 06/03/20 MRSA Screen - Final, Complete MRSA not isolated 06/03/20 Blood Culture - Preliminary, Resulted No growth A/P: Assessment: Acute pancreatitis - management per Medical services Pneumonia - management per Medical/Pulmonary services Acute on chronic renal insufficiency - improved Anemia - management per medical services Hypokalemia - replace History of diastolic congestive heart failure - clinically compensated Echocardiogram of May 30, [address] Crump showed normal LV size, LVEF 60-65%. PASP 15-20mmHg Coronary artery disease-patient underwent cardiac catheterization October 11, [address] Crump revealing mild coronary artery disease with 40-50 percent proximal to mid LAD stenosis, nonobstructive disease; otherwise no significant obstruct [place] disease. Normal EF History of Syncope, unsteady gait and fatigue with loss of energy, being treated for major depression and anxiety. Denies any recent syncopal episode. History of labile hypertension Hyperlipidemia, hold statin for now due to pancreatitis Mild bilateral carotid stenosis, history of left CEA in 2005, as well as history of left common carotid stenting. Most recent carotid duplex done May [address] Crump showing mild bilateral disease nonobstructive disease, continue to monitor. Diabetes Mellitus Diabetic neuropathy Fibromyalgia Anxiety, depression seen in the behavioral health clinic Plan: Continue current cardiac regimen Monitor lab closely Replace electrolytes as indicated VANESSA HA MD FACP FACC CCDS Jun 05, 2020 17:50
[2020-06-05 18:29] LABS: BASOPHILS # (AUTO) 0.1 10^3/uL (0.0-0.1); BASOPHILS % (AUTO) 0 % (0-10); EOSINOPHILS # (AUTO) 0.6 10^3/uL (0.0-0.3); EOSINOPHILS % (AUTO) 3 % (0-10); HEMATOCRIT 26 % (35-52); HEMOGLOBIN 8.7 g/dL (11.5-16.0); LYMPHOCYTES # (AUTO) 1.4 10^3/uL (1.0-4.0); LYMPHOCYTES % (AUTO) 8 % (12-44); MEAN CORPUSCULAR HEMOGLOBIN 30 pg (25-34); MEAN CORPUSCULAR HGB CONC 34 g/dL (32-36); MEAN CORPUSCULAR VOLUME 88 fL (80-99); MEAN PLATELET VOLUME 11.9 fL (9.0-12.2); MONOCYTES # (AUTO) 1.5 10^3/uL (0.0-1.0); MONOCYTES % (AUTO) 8 % (0-12); NEUTROPHILS # (AUTO) 13.6 10^3/uL (1.8-7.8); NEUTROPHILS % (AUTO) 74 % (42-75); PLATELET COUNT 356 10^3/uL (130-400); WHITE BLOOD COUNT 18.4 10^3/uL (4.3-11.0)
[2020-06-05 18:30] LABS: ABSOLUTE RETIC # 63 10e9/uL (24-90); RETICULOCYTE % 2.15 % (0.50-2.40)
[2020-06-05 18:44] LABS: BAND NEUTROPHILS 2 %; BASOPHILS % (MANUAL) 0 %; EOSINOPHILS % (MANUAL) 2 %; HYPOCHROMASIA MODERATE; LYMPHOCYTES % (MANUAL) 8 %; METAMYELOCYTES % 2 %; MONOCYTES % (MANUAL) 5 %; MYELOCYTES % 1 %; NEUTROPHILS % (MANUAL) 80 %; POLYCHROMASIA MODERATE; TARGET CELLS MODERATE
[2020-06-05] MEDS: GABAPENTIN 300 MG (NEURONTIN) CAP PO SCH (20:48)
[2020-06-05] MEDS: FENOFIBRATE 134 MG (LOFIBRA) CAPSULE PO SCH (20:49)
[2020-06-05] MEDS: GABAPENTIN 400 MG (NEURONTIN) CAP PO SCH (20:49)
[2020-06-06 00:33] VITALS: BP 118/64
[2020-06-06] MEDS: MEROPENEM 1,000 MG in WATER (STERILE) FOR INJECTION 20 ML IV SCH ×3 (01:54→17:38)
[2020-06-06 06:22] LABS: BASOPHILS # (AUTO) 0.1 10^3/uL (0.0-0.1); BASOPHILS % (AUTO) 0 % (0-10); EOSINOPHILS # (AUTO) 0.7 10^3/uL (0.0-0.3); EOSINOPHILS % (AUTO) 4 % (0-10); HEMATOCRIT 25 % (35-52); HEMOGLOBIN 8.5 g/dL (11.5-16.0); LYMPHOCYTES # (AUTO) 1.3 10^3/uL (1.0-4.0); LYMPHOCYTES % (AUTO) 7 % (12-44); MEAN CORPUSCULAR HEMOGLOBIN 30 pg (25-34); MEAN CORPUSCULAR HGB CONC 34 g/dL (32-36); MEAN CORPUSCULAR VOLUME 89 fL (80-99); MEAN PLATELET VOLUME 11.6 fL (9.0-12.2); MONOCYTES # (AUTO) 1.5 10^3/uL (0.0-1.0); MONOCYTES % (AUTO) 8 % (0-12); NEUTROPHILS # (AUTO) 13.3 10^3/uL (1.8-7.8); NEUTROPHILS % (AUTO) 74 % (42-75); PLATELET COUNT 320 10^3/uL (130-400); WHITE BLOOD COUNT 18.1 10^3/uL (4.3-11.0)
[2020-06-06 06:55] LABS: ALBUMIN 2.2 GM/DL (3.2-4.5); BILIRUBIN,TOTAL 0.4 MG/DL (0.1-1.0); CALCIUM 8.8 MG/DL (8.5-10.1); CREATININE SERUM 1.18 MG/DL (0.60-1.30); TOTAL PROTEIN 4.9 GM/DL (6.4-8.2)
[2020-06-06 08:00] VITALS: BP 136/72
[2020-06-06] MEDS: BACLOFEN 10 MG (LIORESAL) TAB PO SCH ×2 (09:57→19:53)
[2020-06-06] MEDS: MONTELUKAST 10 MG (SINGULAIR) TAB PO SCH (09:58)
[2020-06-06] MEDS: FAMOTIDINE 20 MG (PEPCID) TABLET PO SCH (09:58)
[2020-06-06] MEDS: CALCIUM CARBONATE 500 MG (TUMS) TAB.CHEW PO SCH ×3 (09:58→19:55)
[2020-06-06] MEDS: ENOXAPARIN 40 MG/0.4 ML (LOVENOX) SYR SC SCH (09:58)
[2020-06-06] MEDS: LORATADINE (CLARITIN) 10 MG TAB PO SCH (09:58)
[2020-06-06] MEDS: ALPRAZolam 0.25 MG (XANAX) TAB PO SCH ×2 (09:58→19:53)
[2020-06-06] MEDS: VERAPAMIL SR 240 MG (CALAN SR) TAB PO SCH (09:58)
[2020-06-06] MEDS: CARVEDILOL 6.25 MG (COREG) TAB PO SCH ×2 (10:09→19:56)
[2020-06-06] MEDS: DICLOFENAC 1% GEL 100 GM (VOLTAREN) TUBE TOP SCH ×4 (10:09→19:58)
[2020-06-06] MEDS: ASPIRIN E.C. 325 MG (ECOTRIN) TABLET PO SCH (10:12)
--- NOTE | 2020-06-06 10:38 | Progress Note - Cardiology ---
Cardiology SOAP Progress Note Subjective: Sitting up in recliner at the bedside. No c/o CP, palpitations or dyspnea. C/O LE swelling. Objective: I&O/Vital Signs Weight (Pounds): 173 Weight (Ounces): 0.0 Weight (Calculated Kilograms): 78.520392 Constitutional: AAO x 3, well-developed, well-nourished Respiratory: No accessory muscle use, No respiratory distress; other (good air entry) Cardiovascular: regular rate-rhythm; No JVD; S1 and S2 Gastrointestional: tender, soft, round; No guarding; audible bowel sounds Extremities: swelling (mild to mod bilat LE swelling) Neurologic/Psychiatric: grossly intact (moves extremities) Skin: normal color Results/Procedures: Labs Microbiology 06/03/20 MRSA Screen - Final, Complete MRSA not isolated 06/03/20 Blood Culture - Final, Complete No growth A/P: Assessment: Acute pancreatitis - management per Medical services Pneumonia - management per Medical/Pulmonary services Acute on chronic renal insufficiency - improved Anemia - management per medical services History of diastolic congestive heart failure Echocardiogram of May 30, [address] Crump showed normal LV size, LVEF 60-65%. PASP 15-20mmHg Coronary artery disease-patient underwent cardiac catheterization October 11, [address] Crump revealing mild coronary artery disease with 40-50 percent proximal to mid LAD stenosis, nonobstructive disease; otherwise no significant obstructive disease. Normal EF History of Syncope, unsteady gait and fatigue with loss of energy, being treated for major depression and anxiety. Denies any recent syncopal episode. History of labile hypertension Hyperlipidemia, hold statin for now due to pancreatitis Mild bilateral carotid stenosis, history of left CEA in 2005, as well as history of left common carotid stenting. Most recent carotid duplex done May [address] Crump showing mild bilateral disease nonobstructive disease, continue to monitor. Diabetes Mellitus Diabetic neuropathy Fibromyalgia Anxiety, depression seen in the behavioral health clinic Plan: Continue current cardiac regimen Increasing bilat LE swelling, likely secondary to volume overload and/or diastolic dysfunction - give one time dose of Lasix Monitor lab closely Replace electrolytes as indicated There is no cardiology coverage over the weekend. Refer to primary care attending. If emergent cardiac services are need will require transfer to tertiary care facility, to be decided by primary care attending. DALY ORTIZ Jun 06, 2020 10:38
[2020-06-06] MEDS ORDERED: FUROSEMIDE 40 MG/4 ML INJ (LASIX) IVP NR (10:45)
--- NOTE | 2020-06-06 11:02 | Progress Note - Cardiology ---
Cardiology SOAP Progress Note Subjective: Gen malaise No cp or shortness of breath at rest or palp or syncope No n/v/d Objective: I&O/Vital Signs 06/06/20 06/06/20 00:33 08:00 Temp 37.0 36.8 Pulse 80 88 Resp 20 20 B/P (MAP) 118/64 (82) 136/72 (93) Pulse Ox 94 97 O2 Delivery Room Air Room Air 06/06/20 00:00 Intake Total 1820 ml Balance 1820 ml Weight (Pounds): 173 Weight (Ounces): 0.0 Weight (Calculated Kilograms): 78.398417 Constitutional: AAO x 3, well-developed, well-nourished Respiratory: No accessory muscle use, No respiratory distress; other (good air entry) Cardiovascular: regular rate-rhythm; No JVD; S1 and S2 Gastrointestional: tender, soft, round; No guarding; audible bowel sounds Extremities: swelling (mild to mod bilat LE swelling) Neurologic/Psychiatric: grossly intact (moves extremities) Skin: normal color Results/Procedures: Labs Laboratory Tests 06/05/20 18:00: White Blood Count 18.4H, Red Blood Count 2.92L, Hemoglobin 8.7L, Hematocrit 26L, Mean Corpuscular Volume 88, Mean Corpuscular Hemoglobin 30, Mean Corpuscular Hemoglobin Concent 34, Red Cell Distribution Width 15.4H, Platelet Count 356, Mean Platelet Volume 11.9, Immature Granulocyte % (Auto) 7, Neutrophils (%) (Auto) 74, Lymphocytes (%) (Auto) 8L, Monocytes (%) (Auto) 8, Eosinophils (%) (Auto) 3, Basophils (%) (Auto) 0, Neutrophils # (Auto) 13.6H, Lymphocytes # (Auto) 1.4, Monocytes # (Auto) 1.5H, Eosinophils # (Auto) 0.6H, Basophils # (Auto) 0.1, Immature Granulocyte # (Auto) 1.2H, Neutrophils % (Manual) 80, Lymphocytes % (Manual) 8, Monocytes % (Manual) 5, Eosinophils % (Manual) 2, Basophils % (Manual) 0, Metamyelocytes % 2, Myelocytes % 1, Band Neutrophils 2, Percent Immature Platelet Fraction 3.5, Polychromasia MODERATE, Hypochromasia MODERATE, Target Cells MODERATE, Absolute Reticulocyte Count 63, Percent Reticulocyte Count 2.15 06/06/20 06:01: White Blood Count 18.1H, Red Blood Count 2.84L, Hemoglobin 8.5L, Hematocrit 25L, Mean Corpuscular Volume 89, Mean Corpuscular Hemoglobin 30, Mean Corpuscular Hemoglobin Concent 34, Red Cell Distribution Width 15.3H, Platelet Count 320, Mean Platelet Volume 11.6, Immature Granulocyte % (Auto) 7, Neutrophils (%) (Auto) 74, Lymphocytes (%) (Auto) 7L, Monocytes (%) (Auto) 8, Eosinophils (%) (Auto) 4, Basophils (%) (Auto) 0, Neutrophils # (Auto) 13.3H, Lymphocytes # (Auto) 1.3, Monocytes # (Auto) 1.5H, Eosinophils # (Auto) 0.7H, Basophils # (Auto) 0.1, Immature Granulocyte # (Auto) 1.2H, Sodium Level 139, Potassium Level 4.0, Chloride Level 108H, Carbon Dioxide Level 22, Anion Gap 9, Blood Urea Nitrogen 24H, Creatinine 1.18, Estimat Glomerular Filtration Rate 46, BUN/Creatinine Ratio 20, Glucose Level 193H, Calcium Level 8.8, Corrected Calcium 10.2H, Total Bilirubin 0.4, Aspartate Amino Transf (AST/SGOT) 26, Alanine Aminotransferase (ALT/SGPT) 20, Alkaline Phosphatase 52, Total Protein 4.9L, Albumin 2.2L Microbiology 06/03/20 MRSA Screen - Final, Complete MRSA not isolated 06/03/20 Blood Culture - Preliminary, Resulted No growth A/P: Assessment: Acute pancreatitis - management per Medical services Pneumonia - management per Medical/Pulmonary services Acute on chronic renal insufficiency - improved Anemia - management per medical services History of diastolic congestive heart failure Echocardiogram of May 30, [address] Crump showed normal LV size, LVEF 60-65%. PASP 15-20mmHg Coronary artery disease-patient underwent cardiac catheterization October 11, [address] Crump revealing mild coronary artery disease with 40-50 percent proximal to mid LAD stenosis, nonobstructive disease; otherwise no significant obstructive disease. Normal EF History of Syncope, unsteady gait and fatigue with loss of energy, being treated for major depression and anxiety. Denies any recent syncopal episode. History of labile hypertension Hyperlipidemia, hold statin for now due to pancreatitis Mild bilateral carotid stenosis, history of left CEA in 2005, as well as history of left common carotid stenting. Most recent carotid duplex done May [address] Crump showing mild bilateral disease nonobstructive disease, continue to monitor. Diabetes Mellitus Diabetic neuropathy Fibromyalgia Anxiety, depression seen in the behavioral health clinic Plan: Continue current cardiac regimen Increasing bilat LE swelling, likely secondary to volume overload and/or diastolic dysfunction - give one time dose of Lasix Monitor lab closely Replace electrolytes as indicated There is no cardiology coverage over the weekend. Refer to primary care attending. If emergent cardiac services are need will require transfer to tertiary care facility, to be decided by primary care attending. VANESSA HA MD FACP FAC CCDS Jun 06, 2020 11:01
--- NOTE | 2020-06-06 11:22 | Occupational Ther Daily Note ---
OT Current Status-Daily Note Subjective Pt alert, sitting in recliner. Pt agrees to therapy. No c/o pain. Mental Status/Objective Patient Orientation: Person, Place, Time, Situation Attachments: IV ADL-Treatment Therapy Code Descriptions/Definitions Functional [place] Measure: 0=Not Assessed/NA 4=Minimal Assistance 1=Total Assistance 5=Supervision or Setup 2=Maximal Assistance 6=Modified [place] 3=Moderate Assistance 7=Complete IndependenceSCALE: Activities may be completed with or without assistive devices. 7-Xhsawntdjf-rshqcxq completes the activity by him/herself with no assistance from a helper. 5-Set-up or Clean-up Assistance-helper sets up or cleans up; patient completes activity. [place] assists only prior to or following the activity. 4-Supervision or Touching Assistance-helper provides verbal cues and/or touching/steadying and/or contact guard assistance as patient completes activity. Assistance may be provided throughout the activity or intermittently. 3-Partial/Moderate Assistance-helper does LESS THAN HALF the effort. [place] li fts, holds or supports trunk or limbs, but provides less than half the effort. 2-Substantial/Maximal Assistance-helper does MORE THAN HALF the effort. [place] lifts or holds trunk or limbs and provides more than half the effort. 6-Ygoxprqbz-zqaxod does ALL the effort. Patient does none of the effort to complete the activity. Or, the assistance of 2 or more helpers is required for the patient to complete the activity. If activity was not attempted, code reason: 7-Patient Refused. 9-Not Applicable-not attempted and the patient did not perform the activity before the current illness, exacerbation or injury. 10-Not Attempted due to Environmental Limitations-(lack of equipment, weather restraints, etc.). 88-Not Attempted due to Medical Conditions or Safety Concerns. Other Treatment Supine to EOB, independently. Pt requires assist to don/doff socks due to increased edema in B LE's. CGA for safety with toilet transfer and toileting. Pt declined washing hands at sink, used bath pack wipe. Pt ambulated using FWW through doors and around obstacles with CGA no LOB noted. After session, pt sitting in recliner with call light/phone in reach. All needs met in room. Chair alarm activated. OT Long-Term Goals Long-Term Goals Time Frame: Jun 06, 2020 Oral Hygiene (QC): 5 Toileting Hygiene (QC): 4 Shower/Bathe Self (QC): 4 Upper Body Dressing (QC): 5 Lower Body Dressing (QC): 4 On/Off Footwear (QC): 4 Additional Goals: 1-Demonstrate ADL Tasks, 2-Verbalize Understanding, 3- ImproveStrength/Tracie 1=Demonstrate adherence to instructed precautions during ADL tasks. 2=Patient will verbalize/demonstrate understanding of assistive devices/modifications for ADL. 3=Patient will improve strength/tolerance for activity to enable patient to perform ADL's. OT Education/Plan Problem List/Assessment Assessment: Decreased Activ Tolerance, Decreased Safety Aware, Impaired Self- Care Skills Discharge Recommendations Plan/Recommendations: Continue POC Treatment Plan/Plan of Care Patient would benefit from OT for education, treatment and training to promote independence in ADL's, mobility, safety and/or upper extremity function for ADL's. Plan of Care: ADL Retraining, Functional Mobility, UE Funct Exercise/Act Treatment Duration: Jun 06, 2020 Frequency: 5 times per week Estimated Hrs Per Day: .25 hour per day Agreement: Yes Rehab Potential: Fair Time/GCodes Start Time: 10:24 Stop Time: 10:44 Total Time Billed (hr/min): 20 Billed Treatment Time 1 visit-FA 1 (20 min) SHU FULLER Jun 06, 2020 11:22
--- NOTE | 2020-06-06 11:54 | Physical Therapy Daily Note ---
PT Daily Note-Current Subjective Pt up in chair and agreeable to treatment. Pt denies pain. Pt requests BR privileges at end of treatment. Transfers SCALE: Activities may be completed with or without assistive devices. 0-Taodmlfonv-skzlwpu completes the activity by him/herself with no assistance from a helper. 5-Set-up or Clean-up Assistance-helper sets up or cleans up; patient completes activity. [place] assists only prior to or following the activity. 4-Supervision or Touching Assistance-helper provides verbal cues and/or touching/steadying and/or contact guard assistance as patient completes activity. Assistance may be provided throughout the activity or intermittently. 3-Partial/Moderate Assistance-helper does LESS THAN HALF the effort. [place] lifts, holds or supports trunk or limbs, but provides less than half the effort. 2-Substantial/Maximal Assistance-helper does MORE THAN HALF the effort. [place] lifts or holds trunk or limbs and provides more than half the effort. 5-Xxmqycwab-nvfstp does ALL the effort. Patient does none of the effort to complete the activity. Or, the assistance of 2 or more helpers is required for the patient to complete the activity. If activity was not attempted, code reason: 7-Patient Refused. 9-Not Applicable-not attempted and the patient did not perform the activity bef ore the current illness, exacerbation or injury. 10-Not Attempted due to Environmental Limitations-(lack of equipment, weather r estraints, etc.). 88-Not Attempted due to Medical Conditions or Safety Concerns. Sit - Stand mod (I) level,SBA Gait Training Gait Assistive Device: FWW Pt amb with FWW and CGA x 225', slow steady speed Exercises Supine Ex: Ankle pumps, Quad Set, Short Arc Quads Supine Reps: 20 Seated Therapy Exercises: Long arc quads, Hip flexion Seated Reps: 20 Treatments Bathroom use with SBA only. Assessment Current Status: Good Progress Pt progressing appropriately. Pt resting in recliner with legs elevated and call light in hand post therapy. PT Surveyor Hydrographic Goals Longterm Goals PT Longterm Goals Time Frame: Jun 07, 2020 Roll Left & Right (QC): 4 Sit to Lying (QC): 4 Lying-Sitting on Side/Bed(QC): 4 Sit to Stand (QC): 4 Chair/Btc-su-Oaigl Xfer(QC): 4 Walk 10 feet (QC): 4 PT Plan Treatment/Plan Treatment Plan: Continue Plan of Care Treatment Plan: Bed Mobility, Education, Functional Activity Tracie, Functional Strength, Gait, Safety, Therapeutic Exercise, Transfers Treatment Duration: Jun 07, 2020 Frequency: 6 times per week Estimated Hrs Per Day: .25 hour per day Patient and/or Family Agrees t: Yes Time/GCodes Time In: 900 Time Out: 930 Total Billed Treatment Time: 30 Total Billed Treatment 1, gait 15', ther ex 15' ANNA BLAKE CPTA Jun 06, 2020 11:54
--- NOTE | 2020-06-06 13:33 | Progress Note - Hospitalist ---
Subjective HPI/CC On Admission Date Seen by Provider: Jun 06, 2020 Time Seen by Provider: 11:30 CC: Abdominal pain with nausea and vomiting and hypoxia HPI: This is a 70yoWF who has severe Parkinsons who presented with acute pancreatitis, lipase of 6,000 found a right lower lobe pneumonia with hypoxia, Covid swab was negative so she was placed on appropriate antibiotics, pain mediation and ICU with IV fluid resuscitation and Dr. Carter will see her in consultation. Emerson was placed due to urinary retention. Subjective/Events-last exam Patient is sitting up and asking to only take half of her Xanax instead of a whole one because she thinks it makes her loopy. Denies having any pain nausea or vomiting. She says her bowels are somewhat sluggish but are working and she is passing gas. She says she is walking 2 or 3 times a day and is feeling fine and hoping to go home. Her white count is down to 18,000 CT was reviewed again and a chest x-ray which shows a right lower lobe pneumonia and a large gastric bubble. On her exam it seems like she may have ascites or just may be gas. Review of Systems Neurological: Weakness, Other Focused Exam Lactate Level 06/04/20 06:14: Lactic Acid Level 0.74 Time of Focused Exam: 09:30 Objective Exam Vital Signs Vital Signs Date Time Temp Pulse Resp B/P (MAP) Pulse Ox O2 Delivery O2 Flow Rate FiO2 06/06/20 08:00 36.8 88 20 136/72 (93) 97 Room Air 06/04/20 08:00 0.00 06/01/20 20:30 98 Capillary Refill : Less Than 3 SecondsLess Than 3 Seconds General Appearance: No Apparent Distress, WD/WN HEENT: Normal ENT Inspection Neck: Normal Inspection, Non Tender, Supple Respiratory: Lungs Clear, Normal Breath Sounds, No Accessory Muscle Use, No Respiratory Distress Cardiovascular: Regular Rate, Rhythm, No Gallop Gastrointestinal: Abnormal Bowel Sounds, Distended Rectal: Deferred Back: Normal Inspection Extremity: Pedal Edema Results/Procedures Lab Laboratory Tests 06/05/20 18:00 06/06/20 06:01 Patient resulted labs reviewed. Imaging: Reviewed Imaging Report Assessment/Plan Assessment and Plan Assess & Plan/Chief Complaint (1) Leukocytosis Status: Acute Assessment & Plan: Currently stable 1 metamyelocyte may just be leukemoid in reaction to the pancreatitis versus early phlegmon formation (2) Right lower lobe pneumonia Status: Acute Assessment & Plan: On azithromycin and ceftriaxone and zosyn, now on meropenem. No hypoxia. (3) Pancreatitis Status: Acute Assessment & Plan: Significantly elevated lipase on admit, CT with marked abnormality around pancreatic head, possibly inflammation but mass not ruled out. Repeat CT abdomen showed marked peripancreatic edema consistent iwth pancreatitis, eval for necrosis or walled off collection suboptimal due to no contrast. Also noted cholelithiasis. Abd US showed cholelithiasis without cholecystitis but bile duct view obscured. Supportive care with fluid and pain management, pain is improved and lipase significantly decreased. Surgery consulted, did not feel cholelithiasis was cause of her pancreatitis at this time. (4) Parkinson disease Status: Chronic Assessment & Plan: Resumed home medications (5) Diabetes mellitus, type 2 (6) Hypertension (7) Hypothyroidism (8) CKD (chronic kidney disease) stage 3, GFR 30-59 ml/min (9) Carotid artery stenosis (10) DVT prophylaxis Assessment & Plan: Enoxaparin Clinical Quality Measures DVT/VTE Risk/Contraindication: Risk Factor Score Per Nursin RFS Level Per Nursing on Admit: 4+=Very High TRE GATES MD Jun 06, 2020 13:33
--- NOTE | 2020-06-06 15:47 | Diagnostic Imaging Report ---
INDICATION: Abdominal distention. TECHNIQUE: Supine and upright view of the abdomen 3:09 PM CORRELATION STUDY: None FINDINGS: There is rather prominent gas distention of the stomach. Additional discrete gas collection right upper quadrant with suggested air-fluid level. There is elevated left diaphragm and left lung volume loss. Probable gallstones in the right upper quadrant. Mild stool retention in the proximal colon. Some increased density over the lower abdomen and pelvis is present. Mild leftward curvature of the lumbar spine. IMPRESSION: 1. Prominent gas distention in the stomach along with retained gastric contents. Given findings could be attributed to gastric outlet obstruction or gastroparesis. 2. More focal gas collection right upper quadrant. This also may be attributed to gas in the pylorus. Given findings on recent CT imaging, possibility of a small amount of extraluminal gas collection would be difficult to exclude. 3. Findings compatible with cholelithiasis. Dictated by: Dictated on workstation # [id number]
[2020-06-06 15:50] VITALS: BP 139/69
[2020-06-06] MEDS: GABAPENTIN 400 MG (NEURONTIN) CAP PO SCH (19:53)
[2020-06-06] MEDS: GABAPENTIN 300 MG (NEURONTIN) CAP PO SCH (19:53)
[2020-06-06] MEDS: FENOFIBRATE 134 MG (LOFIBRA) CAPSULE PO SCH (19:55)
[2020-06-06 23:30] VITALS: BP 116/56
[2020-06-07] MEDS: MEROPENEM 1,000 MG in WATER (STERILE) FOR INJECTION 20 ML IV SCH ×3 (01:29→17:42)
[2020-06-07 04:00] VITALS: BP 124/64
[2020-06-07 08:00] VITALS: BP 136/64
[2020-06-07] MEDS: DICLOFENAC 1% GEL 100 GM (VOLTAREN) TUBE TOP SCH ×4 (08:23→21:05)
[2020-06-07] MEDS: CARVEDILOL 6.25 MG (COREG) TAB PO SCH ×2 (08:25→21:05)
[2020-06-07] MEDS: CALCIUM CARBONATE 500 MG (TUMS) TAB.CHEW PO SCH ×3 (08:25→21:05)
[2020-06-07] MEDS: MONTELUKAST 10 MG (SINGULAIR) TAB PO SCH (08:25)
[2020-06-07] MEDS: ENOXAPARIN 40 MG/0.4 ML (LOVENOX) SYR SC SCH (08:25)
[2020-06-07] MEDS: ASPIRIN E.C. 325 MG (ECOTRIN) TABLET PO SCH (08:25)
[2020-06-07] MEDS: LORATADINE (CLARITIN) 10 MG TAB PO SCH (08:26)
[2020-06-07] MEDS: ALPRAZolam 0.25 MG (XANAX) TAB PO SCH ×2 (08:26→21:05)
[2020-06-07] MEDS: BACLOFEN 10 MG (LIORESAL) TAB PO SCH ×2 (08:26→21:05)
[2020-06-07] MEDS: VERAPAMIL SR 240 MG (CALAN SR) TAB PO SCH (08:26)
[2020-06-07] MEDS: FAMOTIDINE 20 MG (PEPCID) TABLET PO SCH (08:29)
--- NOTE | 2020-06-07 09:15 | Physical Therapy Daily Note ---
PT Daily Note-Current Subjective Agrees to PT. no complaints. Mental Status Patient Orientation: Person, Place, Time, Situation Transfers SCALE: Activities may be completed with or without assistive devices. 6-Ujqzfqohfn-fwjvzvw completes the activity by him/herself with no assistance from a helper. 5-Set-up or Clean-up Assistance-helper sets up or cleans up; patient completes activity. [place] assists only prior to or following the activity. 4-Supervision or Touching Assistance-helper provides verbal cues and/or touching/steadying and/or contact guard assistance as patient completes activity. Assistance may be provided throughout the activity or intermittently. 3-Partial/Moderate Assistance-helper does LESS THAN HALF the effort. [place] lifts, holds or supports trunk or limbs, but provides less than half the effort. 2-Substantial/Maximal Assistance-helper does MORE THAN HALF the effort. [place] lifts or holds trunk or limbs and provides more than half the effort. 6-Vkvyqbgoa-ocpunn does ALL the effort. Patient does none of the effort to complete the activity. Or, the assistance of 2 or more helpers is required for the patient to complete the activity. If activity was not attempted, code reason: 7-Patient Refused. 9-Not Applicable-not attempted and the patient did not perform the activity before the current illness, exacerbation or injury. 10-Not Attempted due to Environmental Limitations-(lack of equipment, weather restraints, etc.). 88-Not Attempted due to Medical Conditions or Safety Concerns. Sit to Stand (QC): 4 Toilet Transfer (QC): 3 Gait Training Does the Patient Walk?: Yes Walk 150 ft (QC): 4 Gait Assistive Device: FWW Slow gait with decreased step length and foot clearance Pt walked to the bathroom and toileted, CGA for all; stood at sink to wash her hands, then walked in [place]. Treatments pt in chair post treatement with chair alarm activated and nurse present. Assessment Current Status: Good Progress Steady gait and transfers. PT Assisted Goals Radiator Cleaner Goals PT Assisted Goals Time Frame: Jun 07, 2020 Roll Left & Right (QC): 4 Sit to Lying (QC): 4 Lying-Sitting on Side/Bed(QC): 4 Sit to Stand (QC): 4 Chair/Rsk-ts-Phcrh Xfer(QC): 4 Walk 10 feet (QC): 4 PT Plan Problem List Problem List: Activity Tolerance, Functional Strength, Safety Treatment/Plan Treatment Plan: Continue Plan of Care Treatment Plan: Bed Mobility, Education, Functional Activity Tracie, Functional Strength, Gait, Safety, Therapeutic Exercise, Transfers Treatment Duration: Jun 07, 2020 Frequency: 6 times per week Estimated Hrs Per Day: .25 hour per day Patient and/or Family Agrees t: Yes Safety Risks/Education Patient Education: Safety Issues Teaching Recipient: Patient Teaching Methods: Discussion Response to Teaching: Reinforcement Needed Time/GCodes Time In: 820 Time Out: 835 Total Billed Treatment Time: 15 Total Billed Treatment visit GT 15 SHU FAGAN PT Jun 07, 2020 09:14
--- NOTE | 2020-06-07 13:40 | Progress Note - Hospitalist ---
Subjective HPI/CC On Admission Date Seen by Provider: Jun 07, 2020 Time Seen by Provider: 12:30 CC: Abdominal pain with nausea and vomiting and hypoxia HPI: This is a 70yoWF who has severe Parkinsons who presented with acute pancreatitis, lipase of 6,000 found a right lower lobe pneumonia with hypoxia, C ovid swab was negative so she was placed on appropriate antibiotics, pain mediation and ICU with IV fluid resuscitation and Dr. Carter will see her in consultation. Emerson was placed due to urinary retention. Subjective/Events-last exam Patient complains of being somnolent and with continued nausea. She is not eating well and her albumin is going down. She notes that her bowels are really not working that well. KUB is reviewed from yesterday that shows a large gas tric bubble possibility of some outlet obstruction. Has had no vomiting Review of Systems Gastrointestinal: Nausea Neurological: Weakness Focused Exam Time of Focused Exam: 09:30 Objective Exam Vital Signs Vital Signs Date Time Temp Pulse Resp B/P (MAP) Pulse Ox O2 Delivery O2 Flow Rate FiO2 06/07/20 08:00 98 20 136/64 (88) 95 Room Air 06/07/20 08:00 0.00 06/07/20 04:00 37.1 06/01/20 20:30 98 Capillary Refill : Less Than 3 SecondsLess Than 3 Seconds General Appearance: Obese HEENT: Normal ENT Inspection Respiratory: Lungs Clear, No Accessory Muscle Use, No Respiratory Distress, Decreased Breath Sounds Cardiovascular: Regular Rate, Rhythm, No Gallop, No JVD, No Murmur Gastrointestinal: Abnormal Bowel Sounds, Distended, Tenderness Extremity: Pedal Edema Results/Procedures Lab Patient resulted labs reviewed. Imaging: Reviewed Imaging Report Assessment/Plan Assessment and Plan Assess & Plan/Chief Complaint (1) Leukocytosis Status: Acute Assessment & Plan: Currently stable 1 metamyelocyte may just be leukemoid in reaction to the pancreatitis versus early phlegmon formation (2) Right upper lobe pneumonia Status: Acute Assessment & Plan: Had been on azithromycin and ceftriaxone and zosyn, now on meropenem. No hypoxia. (3) Pancreatitis Status: Acute Assessment & Plan: Significantly elevated lipase on admit, CT with marked abnormality around pancreatic head, possibly inflammation but mass not ruled out. Repeat CT abdomen showed marked peripancreatic edema consistent iwth pancreatitis, eval for necrosis or walled off collection suboptimal due to no contrast. Also noted cholelithiasis. Abd US showed cholelithiasis without cholecystitis but bile duct view obscured. Supportive care with fluid and pain m anagement, pain is improved and lipase significantly decreased. Surgery consulted, did not feel cholelithiasis was cause of her pancreatitis at this time. (4) Parkinson disease Status: Chronic Assessment & Plan: Resumed home medications (5) Diabetes mellitus, type 2 (6) Hypertension (7) Hypothyroidism (8) CKD (chronic kidney disease) stage 3, GFR 30-59 ml/min (9) Carotid artery stenosis (10) DVT prophylaxis Assessment & Plan: Enoxaparin 11. Continued nausea with large gastric bubble we will try Reglan-continue to ambulate 12. Increased somnolence will use Xanax just as needed Clinical Quality Measures DVT/VTE Risk/Contraindication: Risk Factor Score Per Nursin RFS Level Per Nursing on Admit: 4+=Very High TRE GATES MD Jun 07, 2020 13:40
[2020-06-07] MEDS ORDERED: BISACODYL 10 MG SUPP (DULCOLAX) PR ONE (13:45)
--- NOTE | 2020-06-07 15:45 | Cardiology Progress Note ---
Cardiology SOAP Progress Note Subjective: No acute cardiac complaints. Objective: I&O/Vital Signs 06/07/20 06/07/20 06/07/20 04:00 08:00 08:00 Temp 37.1 Pulse 88 98 Resp 16 20 B/P (MAP) 124/64 (84) 136/64 (88) Pulse Ox 97 95 95 O2 Delivery Room Air Room Air Room Air O2 Flow Rate 0.00 06/07/20 00:00 Intake Total 1990 ml Balance 1990 ml Weight (Pounds): 173 Weight (Ounces): 0.0 Weight (Calculated Kilograms): 78.065442 Constitutional: AAO x 3, well-developed, well-nourished Respiratory: other Cardiovascular: regular rate-rhythm, S1 and S2 Gastrointestional: tender, soft, round, audible bowel sounds Extremities: swelling Neurologic/Psychiatric: grossly intact Skin: normal color Results/Procedures: Labs Microbiology 06/03/20 MRSA Screen - Final, Complete MRSA not isolated 06/03/20 Blood Culture - Preliminary, Resulted No growth A/P: Assessment/Dx: Acute pancreatitis - management per Medical services Pneumonia - management per Medical/Pulmonary services Acute on chronic renal insufficiency - improved Anemia - management per medical services History of diastolic congestive heart failure Echocardiogram of May 30, [address] Crump showed normal LV size, LVEF 60-65%. PASP 15-20mmHg Coronary artery disease-patient underwent cardiac catheterization October 11, [address] Crump revealing mild coronary artery disease with 40-50 percent proximal to mid LAD stenosis, nonobstructive disease; otherwise no significant obstructive disease. Normal EF History of Syncope, unsteady gait and fatigue with loss of energy, being treated for major depression and anxiety. Denies any recent syncopal episode. History of labile hypertension Hyperlipidemia, hold statin for now due to pancreatitis Mild bilateral carotid stenosis, history of left CEA in 2005, as well as history of left common carotid stenting. Most recent carotid duplex done May [address] Crump showing mild bilateral disease nonobstructive disease, continue to monitor. Diabetes Mellitus Diabetic neuropathy Fibromyalgia Anxiety, depression seen in the behavioral health clinic Plan: Continue current cardiac regimen Increasing bilat LE swelling, likely secondary to volume overload and/or diastolic dysfunction -was given a dose of Lasix during this hospitalization. Monitor lab closely Replace electrolytes as indicated Thank you for your consultation. Please call me if you have any questions. Yasir Wellington MD, FACP, FACC, FSCAI, FHRS, CCDS Interventional Cardiology Cardiac Electrophysiology Vascular Medicine and Endovascular Interventions Focused Exam Time of Focused Exam: 09:30 Brett WELLINGTON MD Jun 07, 2020 15:45
[2020-06-07 16:55] VITALS: BP 134/63
[2020-06-07] MEDS: METOCLOPRAMIDE INJ 10 MG/2 ML (REGLAN) IVP SCH (17:41)
[2020-06-07] MEDS: GABAPENTIN 300 MG (NEURONTIN) CAP PO SCH (21:05)
[2020-06-07] MEDS: FENOFIBRATE 134 MG (LOFIBRA) CAPSULE PO SCH (21:05)
[2020-06-07] MEDS: GABAPENTIN 400 MG (NEURONTIN) CAP PO SCH (21:05)
[2020-06-08] VITALS: BP 125/73
[2020-06-08] MEDS ORDERED: MEROPENEM 500 MG VIAL (MERREM) IV ONE (00:16)
[2020-06-08] MEDS: METOCLOPRAMIDE INJ 10 MG/2 ML (REGLAN) IVP SCH ×4 (00:58→17:07)
[2020-06-08] MEDS: MEROPENEM 1,000 MG in WATER (STERILE) FOR INJECTION 20 ML IV SCH (00:58)
[2020-06-08 08:00] VITALS: BP 166/71
[2020-06-08] MEDS: MONTELUKAST 10 MG (SINGULAIR) TAB PO SCH (08:31)
[2020-06-08] MEDS: CARVEDILOL 6.25 MG (COREG) TAB PO SCH ×2 (08:32→20:21)
[2020-06-08] MEDS: LORATADINE (CLARITIN) 10 MG TAB PO SCH (08:32)
[2020-06-08] MEDS: ENOXAPARIN 40 MG/0.4 ML (LOVENOX) SYR SC SCH (08:32)
[2020-06-08] MEDS: ASPIRIN E.C. 325 MG (ECOTRIN) TABLET PO SCH (08:32)
[2020-06-08] MEDS: ALPRAZolam 0.25 MG (XANAX) TAB PO SCH ×2 (08:32→20:20)
[2020-06-08] MEDS: VERAPAMIL SR 240 MG (CALAN SR) TAB PO SCH (08:32)
[2020-06-08] MEDS: BACLOFEN 10 MG (LIORESAL) TAB PO SCH ×2 (08:33→20:21)
[2020-06-08] MEDS: CALCIUM CARBONATE 500 MG (TUMS) TAB.CHEW PO SCH ×3 (08:33→20:20)
[2020-06-08] MEDS: FAMOTIDINE 20 MG (PEPCID) TABLET PO SCH (08:33)
[2020-06-08] MEDS: DICLOFENAC 1% GEL 100 GM (VOLTAREN) TUBE TOP SCH ×4 (08:33→20:22)
--- NOTE | 2020-06-08 11:51 | Progress Note - Hospitalist ---
Subjective HPI/CC On Admission Date Seen by Provider: Jun 08, 2020 Time Seen by Provider: 10:00 CC: Abdominal pain with nausea and vomiting and hypoxia HPI: This is a 70yoWF who has severe Parkinsons who presented with acute pancreatitis, lipase of 6,000 found a right lower lobe pneumonia with hypoxia, C ovid swab was negative so she was placed on appropriate antibiotics, pain mediation and ICU with IV fluid resuscitation and Dr. Carter will see her in consultation. Emerson was placed due to urinary retention. Subjective/Events-last exam Patient is up walking and feeling much better. She had 2 bowel movements and she is eating better without bloating. She notes the Reglan has helped. She is anxious to go home however her white count is remaining elevated at 18,000. Etiology is unknown at this point. She has no abdominal pain in her pancreatitis is much improved. I am quite certain that she will be needing her gallbladder out soon however. Review of Systems Neurological: Weakness Focused Exam Time of Focused Exam: 09:30 Objective Exam Vital Signs Vital Signs Date Time Temp Pulse Resp B/P (MAP) Pulse Ox O2 Delivery O2 Flow Rate FiO2 06/08/20 08:00 36.4 79 16 166/71 (102) 95 Room Air 06/07/20 08:00 0.00 Capillary Refill : Less Than 3 SecondsLess Than 3 Seconds General Appearance: No Apparent Distress, WD/WN Neck: Normal Inspection, Non Tender, Limited Range of Motion Respiratory: Chest Non Tender, Lungs Clear, Normal Breath Sounds, No Accessory Muscle Use, No Respiratory Distress Cardiovascular: Regular Rate, Rhythm, No Gallop, Normal Peripheral Pulses Gastrointestinal: Normal Bowel Sounds, Non Tender, Soft, Other Back: Normal Inspection Extremity: Pedal Edema Neurologic/Psychiatric: Alert, Oriented x3, No Motor/Sensory Deficits, Normal Mood/Affect Skin: Pallor Results/Procedures Lab Patient resulted labs reviewed. Imaging: Reviewed Imaging Report Assessment/Plan Assessment and Plan Assess & Plan/Chief Complaint (1) Leukocytosis Status: Acute Assessment & Plan: Currently stable 1 metamyelocyte may just be leukemoid in reaction to the pancreatitis versus early phlegmon formation-this is currently been stable and the patient has been afebrile so I do think it is not necessarily reflective of infection (2) Right upper lobe pneumonia Status: Resolved Assessment & Plan: Had been on azithromycin and ceftriaxone and zosyn, . No hypoxia. Does have O2 that she wears at night and is set up at home (3) Pancreatitis Status: resolved Assessment & Plan: Significantly elevated lipase on admit, CT with marked abnormality around pancreatic head, possibly inflammation but mass not ruled ou t. Repeat CT abdomen showed marked peripancreatic edema consistent iwth pancreatitis, eval for necrosis or walled off collection suboptimal due to no contrast. Also noted cholelithiasis. Abd US showed cholelithiasis without cholecystitis but bile duct view obscured. Supportive care with fluid and pain management, pain is improved and lipase significantly decreased. Surgery consulted, did not feel cholelithiasis was cause of her pancreatitis at this time. (4) Parkinson disease Status: Chronic Assessment & Plan: Resumed home medications (5) Diabetes mellitus, type 2 (6) Hypertension (7) Hypothyroidism (8) CKD (chronic kidney disease) stage 3, GFR 30-59 ml/min (9) Carotid artery stenosis (10) DVT prophylaxis Assessment & Plan: Enoxaparin 11. Continued nausea improved with Reglan-continue to ambulate 12. Increased somnolence will use Xanax just as needed Plan for discharge in the morning Clinical Quality Measures DVT/VTE Risk/Contraindication: Risk Factor Score Per Nursin RFS Level Per Nursing on Admit: 4+=Very High TRE GATES MD Jun 08, 2020 11:51
--- NOTE | 2020-06-08 12:30 | Cardiology Progress Note ---
Cardiology SOAP Progress Note Subjective: No cardiac complaints. Improved abdominal discomfort. Objective: I&O/Vital Signs 06/08/20 08:00 Temp 36.4 Pulse 79 Resp 16 B/P (MAP) 166/71 (102) Pulse Ox 95 O2 Delivery Room Air 06/08/20 00:00 Intake Total 2165 ml Balance 2165 ml Weight (Pounds): 173 Weight (Ounces): 0.0 Weight (Calculated Kilograms): 78.183947 Constitutional: AAO x 3, well-developed, well-nourished Respiratory: other Cardiovascular: regular rate-rhythm, S1 and S2 Gastrointestional: soft, round, audible bowel sounds Extremities: swelling Neurologic/Psychiatric: grossly intact Skin: normal color Results/Procedures: Labs Microbiology 06/03/20 MRSA Screen - Final, Complete MRSA not isolated 06/03/20 Blood Culture - Preliminary, Resulted No growth A/P: Assessment/Dx: Acute pancreatitis - management per Medical services Pneumonia - management per Medical/Pulmonary services Acute on chronic renal insufficiency - improved Anemia - management per medical services History of diastolic congestive heart failure Echocardiogram of May 30, [address] Crump showed normal LV size, LVEF 60-65%. PASP 15-20mmHg Coronary artery disease-patient underwent cardiac catheterization October 11, [address] Crump revealing mild coronary artery disease with 40-50 percent proximal to mid LAD stenosis, nonobstructive disease; otherwise no significant obstructive disease. Normal EF History of Syncope, unsteady gait and fatigue with loss of energy, being treated for major depression and anxiety. Denies any recent syncopal episode. History of labile hypertension Hyperlipidemia, hold statin for now due to pancreatitis Mild bilateral carotid stenosis, history of left CEA in 2005, as well as history of left common carotid stenting. Most recent carotid duplex done May [address] Crump showing mild bilateral disease nonobstructive disease, continue to monitor. Diabetes Mellitus Diabetic neuropathy Fibromyalgia Anxiety, depression seen in the behavioral health clinic Plan: Continue current cardiac regimen Increasing bilat LE swelling, likely secondary to volume overload and/or diastolic dysfunction -was given a dose of Lasix during this hospitalization. Monitor lab closely Replace electrolytes as indicated Thank you for your consultation. Please call me if you have any questions. Yasir Wellington MD, FACP, FACC, FSCAI, FHRS, CCDS Interventional Cardiology Cardiac Electrophysiology Vascular Medicine and Endovascular Interventions Focused Exam Time of Focused Exam: 09:30 Brett WELLINGTON MD Jun 08, 2020 12:30
[2020-06-08 15:39] VITALS: BP 121/71
[2020-06-08 16:24] LABS: MEAN PLATELET VOLUME 11.9 fL (9.0-12.2); WHITE BLOOD COUNT 12.7 10^3/uL (4.3-11.0)
[2020-06-08 16:37] LABS: ALBUMIN 2.3 GM/DL (3.2-4.5); BILIRUBIN,TOTAL 0.3 MG/DL (0.1-1.0); CALCIUM 8.7 MG/DL (8.5-10.1); CREATININE SERUM 1.33 MG/DL (0.60-1.30); POTASSIUM 4.1 MMOL/L (3.6-5.0); TOTAL PROTEIN 4.7 GM/DL (6.4-8.2)
[2020-06-08] MEDS: FENOFIBRATE 134 MG (LOFIBRA) CAPSULE PO SCH (20:21)
[2020-06-08] MEDS: GABAPENTIN 300 MG (NEURONTIN) CAP PO SCH (20:21)
[2020-06-08] MEDS: GABAPENTIN 400 MG (NEURONTIN) CAP PO SCH (20:21)
[2020-06-08 23:51] VITALS: BP 113/56
[2020-06-09] MEDS: METOCLOPRAMIDE INJ 10 MG/2 ML (REGLAN) IVP SCH ×3 (00:16→13:25)
[2020-06-09 08:00] VITALS: BP 144/66
[2020-06-09] MEDS: ASPIRIN E.C. 325 MG (ECOTRIN) TABLET PO SCH (09:18)
[2020-06-09] MEDS: BACLOFEN 10 MG (LIORESAL) TAB PO SCH (09:18)
[2020-06-09] MEDS: LORATADINE (CLARITIN) 10 MG TAB PO SCH (09:18)
[2020-06-09] MEDS: CARVEDILOL 6.25 MG (COREG) TAB PO SCH (09:18)
[2020-06-09] MEDS: VERAPAMIL SR 240 MG (CALAN SR) TAB PO SCH (09:18)
[2020-06-09] MEDS: ALPRAZolam 0.25 MG (XANAX) TAB PO SCH (09:18)
[2020-06-09] MEDS: DICLOFENAC 1% GEL 100 GM (VOLTAREN) TUBE TOP SCH ×2 (09:18→13:25)
[2020-06-09] MEDS: CALCIUM CARBONATE 500 MG (TUMS) TAB.CHEW PO SCH ×2 (09:18→13:25)
[2020-06-09] MEDS: MONTELUKAST 10 MG (SINGULAIR) TAB PO SCH (09:18)
[2020-06-09] MEDS: FAMOTIDINE 20 MG (PEPCID) TABLET PO SCH (09:18)
[2020-06-09] MEDS: ENOXAPARIN 40 MG/0.4 ML (LOVENOX) SYR SC SCH (09:19)
--- NOTE | 2020-06-09 09:34 | NUR ---
DISCHARGE PLANNING: Went to see patient after reviewing the chart. She is sitting up in chair and looks like a completely different person. Although still pale, she is with eyes open fully and is not sluggish. She has appropriate facial expressions where last week she was flat. She reports feeling better and she reports anxiousness to discharge to home. She says her son will get her as soon as we call. She has her own walker and some pajamas to change into. I call and see if he i still interested in HHC at discharge or nursing/PT/OT.
--- NOTE | 2020-06-09 09:48 | NUR ---
DISCHARGE PLANNING: Spoke with Kong, patient's son. He is still ok with [facility] through [facility] and I will notify them of discharge anticipated for today.
--- NOTE | 2020-06-09 10:05 | Cardiology Progress Note ---
Subjective Date Seen by Provider: Jun 09, 2020 Time Seen by Provider: 10:03 Subjective/Events-last exam No new complaint, denies any chest pain or dyspnea. Asking to go home. Review of Systems General: No Chills, No Night Sweats, No Fatigue, No Malaise, No Appetite, No Other HEENT: No Head Aches, No Visual Changes, No Eye Pain, No Ear Pain, No Dysphasia, No Sinus Congestion, No Post Nasal Drip, No Sore Throat, No Other Pulmonary: No Dyspnea, No Cough, No Pleuritic Chest Pain, No Other Cardiovascular: No: Chest Pain, Palpitations, Orthopnea, Paroxysmal Noc. Dyspnea, Edema, Lt Headedness, Other Focused Exam Time of Focused Exam: 09:30 Objective-Cardiology Exam Last Set of Vital Signs Vital Signs 06/07/20 06/09/20 06/09/20 08:00 08:00 09:00 Temp 35.4 Pulse 79 Resp 20 B/P (MAP) 144/66 (92) Pulse Ox 96 O2 Delivery Room Air O2 Flow Rate 0.00 Capillary Refill : Less Than 3 SecondsLess Than 3 Seconds I&O Intake and Output 06/09/20 00:00 Intake Total 1210 ml Balance 1210 ml Intake Oral 1210 ml # Voids 12 # Bowel Movements 6 General: Alert, Oriented X3, No Acute Distress HEENT: Atraumatic, PERRLA Neck: Supple, No JVD, No Thyromegaly Lungs: Clear to Auscultation, Normal Air Movement Heart: Regular Rate, Normal S1, Normal S2, No Murmurs Abdomen: Normal Bowel Sounds, Soft, No Tenderness Extremities: Other (1+ pitting edema to knees) Skin: No Rashes, No Breakdown, No Significant Lesion Neuro: Normal Speech, Other (rolling tremor in hands) Psych/Mental Status: Other (anxious) Results Lab Laboratory Tests 06/08/20 16:00 A/P-Cardiology Admission Diagnosis Acute pancreatitis Acute renal failure Coronary artery disease Hypertension Assessment/Plan Acute pancreatitis, improving - management per Medical services Pneumonia, improving - management per Medical/Pulmonary services Acute on chronic renal insufficiency - improved Anemia - management per medical services History of diastolic congestive heart failure. Echocardiogram of May 30, 2020 showed normal LV size, LVEF 60-65%. PASP 15-20mmHg Coronary artery disease-patient underwent cardiac catheterization October 11, 2016 revealing mild coronary artery disease with 40-50 percent proximal to mid LAD stenosis, nonobstructive disease; otherwise no significant obstructive disease. Normal EF History of Syncope, unsteady gait and fatigue with loss of energy, being treated for major depression and anxiety. Denies any recent syncopal episode. History of labile hypertension Hyperlipidemia, hold statin for now due to pancreatitis Mild bilateral carotid stenosis, history of left CEA in 2005, as well as history of left common carotid stenting. Most recent carotid duplex done May [address] Crump showing mild bilateral disease nonobstructive disease, continue to monitor. Diabetes Mellitus Diabetic neuropathy Fibromyalgia Anxiety, depression seen in the behavioral health clinic Patient was seen and evaluated with Gissell, examination performed, management plan was discussed, agree with the current scribed note, I made few changes to the note using Italic font Patient was seen at bedside sitting down comfortably, denied any chest pain Reporting improvement in breathing and asking for discharge, Cardiac status has improved., Continue to monitor blood pressure and lipids as an outpatient, continue to hold statin for now Arrange for follow-up as an outpatient Clinical Quality Measures DVT/VTE Risk/Contraindication: Risk Factor Score Per Nursin RFS Level Per Nursing on Admit: 4+=Very High GISSELL JOHNSON Jun 09, 2020 10:05 JASPREET CRUMP MD Jun 09, 2020 13:02
--- NOTE | 2020-06-09 10:07 | Physical Therapy Daily Note ---
PT Daily Note-Current Subjective Patient reports she hopes to go home today. Agrees to PT. Mental Status Patient Orientation: Normal For Age Transfers SCALE: Activities may be completed with or without assistive devices. 1-Rvvdakrmyj-wmzkxvi completes the activity by him/herself with no assistance from a helper. 5-Set-up or Clean-up Assistance-helper sets up or cleans up; patient completes activity. Depue assists only prior to or following the activity. 4-Supervision or Touching Assistance-helper provides verbal cues and/or t ouching/steadying and/or contact guard assistance as patient completes activity. Assistance may be provided throughout the activity or intermittently. 3-Partial/Moderate Assistance-helper does LESS THAN HALF the effort. Depue lifts, holds or supports trunk or limbs, but provides less than half the effort. 2-Substantial/Maximal Assistance-helper does MORE THAN HALF the effort. Depue lifts or holds trunk or limbs and provides more than half the effort. 2-Vubjescnx-ardiep does ALL the effort. Patient does none of the effort to complete the activity. Or, the assistance of 2 or more helpers is required for the patient to complete the activity. If activity was not attempted, code reason: 7-Patient Refused. 9-Not Applicable-not attempted and the patient did not perform the activity before the current illness, exacerbation or injury. 10-Not Attempted due to Environmental Limitations-(lack of equipment, weather restraints, etc.). 88-Not Attempted due to Medical Conditions or Safety Concerns. Sit to Stand (QC): 6 Gait Training Does the Patient Walk?: Yes Distance: 300' Walk 10 feet (QC): 6 Walk 50 ft with 2 Turns(QC): 6 Walk 150 ft (QC): 6 Gait Assistive Device: FWW safe and functional with no deviation Assessment Patient tolerated treatment well and returned to recliner with alarm activated. PT Bliss Press Operator Goals [facility] Goals PT Bliss Press Operator Goals Time Frame: Jun 07, 2020 Roll Left & Right (QC): 4 Sit to Lying (QC): 4 Lying-Sitting on Side/Bed(QC): 4 Sit to Stand (QC): 4 Chair/Tbs-jz-Dxsyj Xfer(QC): 4 Walk 10 feet (QC): 4 PT Plan Treatment/Plan Treatment Plan: Continue Plan of Care Treatment Plan: Bed Mobility, Education, Functional Activity Tracie, Functional Strength, Gait, Safety, Therapeutic Exercise, Transfers Treatment Duration: Jun 07, 2020 Frequency: 6 times per week Estimated Hrs Per Day: .25 hour per day Patient and/or Family Agrees t: Yes Time/GCodes Time In: 858 Time Out: 908 Total Billed Treatment Time: 10 Total Billed Treatment 1 visit FA 10 min CARI SINGLETARY PT Jun 09, 2020 10:07
--- NOTE | 2020-06-09 11:57 | Discharge Summary ---
Discharge Summary Instructions for Patient Via [facility], Assessment/Instructions Follow up with Dr. Ivan as scheduled. (Reported appt in 2 days) Physician to follow Patient: Moncho Discharge Diet for Home: Regular Diet Hospital Course Date of Admission: May 26, 2020 at 22:40 Admission Diagnosis : Family Physician/Provider: Dr. Ivan Date of Discharge: 06/09/20 Discharge Diagnosis: Pancreatitis Pneumonia Parkinson Disease Anxiety Hospital Course: 70 yo female admitted with pancreatitis with lipase above [address] with markedly abnormal appearance to pancreas, as well as suspected right lower lobe pneumonia. She was noted to have cholelithiasis but no clear obstructing stone and she did improve with symptomatic treatment. She had fairly significant leukocytosis in spite of being treated for pneumonia with broad spectrum antibiotics, but peripheral smear was consistent with reactive leukocytosis and WBC did trend down at d/c and she was stable on room air at discharge and with no abdominal pain and tolerating diet. She may still need her gall bladder out in the future, this was discussed with her. She did have some weakness and was needing a walker for ambulation at d/c which she had and was discharged with home health services. She was previously seeing Sofia Roth for her primary care, but Sofia is transitioning to fdc care only and so patient reported she had an appointment coming up in the next [address] Ivan to establish care. Labs and Pending Lab Test: Laboratory Tests 06/08/20 16:00: White Blood Count 12.7H, Red Blood Count 2.75L, Hemoglobin 8.0L, Hematocrit 25L, Mean Corpuscular Volume 91, Mean Corpuscular Hemoglobin 29, Mean Corpuscular Hemoglobin Concent 32, Red Cell Distribution Width 15.1H, Platelet Count 315, Mean Platelet Volume 11.9, Sodium Level 139, Potassium Level 4.1, Chloride Level 104, Carbon Dioxide Level 26, Anion Gap 9, Blood Urea Nitrogen 25H, Creatinine 1.33H, Estimat Glomerular Filtration Rate 40, BUN/Creatinine Ratio 19, Glucose Level 227H, Calcium Level 8.7, Corrected Calcium 10.1, Total Bilirubin 0.3, Aspartate Amino Transf (AST/SGOT) 31, Alanine Aminotransferase (ALT/SGPT) 19, Alkaline Phosphatase 51, Total Protein 4.7L, Albumin 2.3L, Procalcitonin 0.20H Microbiology 06/03/20 MRSA Screen - Final, Complete MRSA not isolated 06/03/20 Blood Culture - Final, Complete No growth Home Meds Active Reported Vitamin B-12 (Cyanocobalamin (Vitamin B-12)) 50 Mcg Lozenge 100 Mcg PO DAILY Vitamin D3 (Cholecalciferol (Vitamin D3)) 25 Mcg Capsule 25 Mcg PO DAILY Cetirizine HCl 10 Mg Tablet 10 Mg PO DAILY Fish Oil 1,000 mg Softgel ([place]-3/Dha/Epa/Fish Oil) 1 Each Capsule 1 Each PO TID Aspirin EC (Aspirin) 325 Mg Tablet.dr 325 Mg PO DAILY Quinapril HCl 20 Mg Tablet 20 Mg PO DAILY Fenofibrate (Fenofibrate Nanocrystallized) 145 Mg Tablet 145 Mg PO DAILY Carvedilol 6.25 Mg Tablet 6.25 Mg PO BID Albuterol Sulfate 2.5 Mg/3 Ml Vial.neb 3 Ml NEB QID PRN Aripiprazole 15 Mg Tablet 7.5 Mg PO DAILY TAKES OF A 15MG TAB Gabapentin 800 Mg Tablet 800 Mg PO HS Baclofen 10 Mg Tablet 5 Mg PO BID TAKES OF A 10MG TAB Verapamil ER (Verapamil HCl) 240 Mg Tablet.er 240 Mg PO DAILY Rosuvastatin Calcium 10 Mg Tablet 10 Mg PO DAILY Trintellix (Vortioxetine Hydrobromide) 20 Mg Tablet 20 Mg PO DAILY Famotidine 20 Mg Tablet 20 Mg PO BID ALPRAZolam 0.25 Mg Tablet 0.25 Mg PO BID Montelukast Sodium 10 Mg Tablet 10 Mg PO DAILY Ropinirole HCl 1 Mg Tablet 1 Mg PO TID Spiriva (Tiotropium [place]) 1 Inh Aerp 1 Inh IH DAILY Gabapentin 800 Mg Tablet 1,600 Mg PO DAILY TAKES 2 (800MG) TABS [facility] Patient Allergies: Coded Allergies: morphine (Verified Allergy, Intermediate, HIVES...TAKES HYDROCODONE AT HOME, 03/20/08) acetaminophen (Verified Allergy, Mild, HIVES...TAKES HYDROCODONE AT HOME, 03/20/08) bacitracin (Verified Allergy, Unknown, 08/16/07) cyproheptadine (Verified Allergy, Unknown, 08/16/07) fluoxetine (Verified Allergy, Unknown, 08/16/07) gramicidin D (Verified Allergy, Unknown, 08/16/07) neomycin (Verified Allergy, Unknown, 08/16/07) polymyxin B (Verified Allergy, Unknown, 08/16/07) tizanidine (Verified Allergy, Unknown, 08/16/07) tramadol (Verified Allergy, Unknown, 08/16/07) Uncoded Allergies: ARTHRITIS MEDS (Allergy, Unknown, 08/16/07) DECONGESTANTS (Allergy, Unknown, 08/16/07) Height (Feet): 5 Height (Inches): 5.00 Weight (Pounds): 173 Weight (Ounces): 0.0 Home Health Need/Face to Face Date of Face to Face: Jun 09, 2020 Clinical Findings: Generalized weakness and fatigue, Instability I have seen Pt [id number]: Yes Discharged To: Home Diagnosis/Conditions: Pancreatitis Pneumonia Parkinson Disease HTN Anxiety Patient is Homebound due to: Chely fall risk due to instabilty, Muscle weakness Homebound Status Due to the above stated illness, injury or surgical procedure (medical condition or diagnosis) and associated clinical findings, the patient is homebound because of his/her inability to leave home except with aid of a supportive device and/or person AND leaving the home requires a considerable and taxing effort or is medically contraindicated. Pt req the following assistanc: Walker Home Health Nursing Orders Home Health Services Order: Nursing Services, Welfare Manager-Evaluate & Treat, Physical Therapy-Evaluate & Treat Home Health Infusion Therapy Line Start Date: Jun 04, 2020 Certify Stmt I certify that this patient is under my care and that I, a nurse practitioner or a physician; a pharmacy affairs assistant working with me, had a face to face encounter that - meets the physician face to face encounter requirements with this patient as dated. Discharge Physical Exam General: Alert, No Acute Distress Lungs: Clear to Auscultation, Normal Air Movement Heart: Regular Rate, No Murmurs Abdomen: Normal Bowel Sounds, Soft, No Tenderness Extremities: Other (1+ pitting edema) Neuro: Normal Speech DELFIN HUFFMAN MD Jun 09, 2020 11:56
--- NOTE | 2020-06-09 12:30 | NUR ---
RING OUT OF DRAWER AND NECKLACE RETURNED TO PATIENT. ALL BELONGINGS PACKED IN PATIENTS PERSONAL BAG
[2020-06-09 13:05] VITALS: BP 144/66
== END 2020-06-09 13:05 | disposition home health service (06) | DRG 438 ==
LOC: EDUNIT# 19:54 → ER 19:55 → ICU 22:40 → 4TH 05-28 07:06
PROVIDERS: ADMIT Internal Medicine; ATTEND Family Medicine
DX: K85.90 Acute pancreatitis without necrosis or infection, unspecified (principal); J18.9 Pneumonia, unspecified organism; J44.0 Chronic obstructive pulmonary disease with (acute) lower respiratory infection; N17.9 Acute kidney failure, unspecified; I13.0 Hypertensive heart and chronic kidney disease with heart failure and stage 1 through stage 4 chronic kidney disease, or unspecified chronic kidney disease; I50.30 Unspecified diastolic (congestive) heart failure; G20 Parkinson's disease; R11.2 Nausea with vomiting, unspecified; Z20.828 Contact with and (suspected) exposure to other viral communicable diseases; E11.51 Type 2 diabetes mellitus with diabetic peripheral angiopathy without gangrene; G47.34 Idiopathic sleep related nonobstructive alveolar hypoventilation; I25.119 Atherosclerotic heart disease of native coronary artery with unspecified angina pectoris; E78.00 Pure hypercholesterolemia, unspecified; E78.5 Hyperlipidemia, unspecified; E11.40 Type 2 diabetes mellitus with diabetic neuropathy, unspecified; G25.81 Restless legs syndrome; K21.9 Gastro-esophageal reflux disease without esophagitis; M79.7 Fibromyalgia; R33.9 Retention of urine, unspecified; M85.80 Other specified disorders of bone density and structure, unspecified site; R29.6 Repeated falls; R53.83 Other fatigue; R41.82 Altered mental status, unspecified; Z99.81 Dependence on supplemental oxygen; Z95.5 Presence of coronary angioplasty implant and graft; F41.0 Panic disorder [episodic paroxysmal anxiety]; R09.02 Hypoxemia; K80.20 Calculus of gallbladder without cholecystitis without obstruction; N18.30 Chronic kidney disease, stage 3 unspecified; I65.23 Occlusion and stenosis of bilateral carotid arteries; E87.6 Hypokalemia; F29 Unspecified psychosis not due to a substance or known physiological condition; E83.51 Hypocalcemia; E88.09 Other disorders of plasma-protein metabolism, not elsewhere classified
CPT/HCPCS: 36415; 70450; 71045; 71046; 71250; 72125; 74019; 74176; 76700; 76937; 80048; 80053; 80061; 80076; 80306; 80320; 80329; 81000; 82140; 82150; 82805; 82962; 83605; 83615; 83690; 83735; 83880; 84100; 84145; 84443; 85007; 85025; 85027; 85045; 85055; 87040; 87081; 87635; 93005; 93306; 94640; 94760; 96361; 96374; 96375

== ENCOUNTER 2020-06-25 20:05 | Inpatient (IN) | payer MEDICARE ==
[~2020-06-25] VITALS: Ht 165 cm; Wt 88.2 kg
[~2020-06-25 20:05] MED LIST changes: +ALBU2.5V4 NEB; +ALPR0.254 PO; +ARIP15TA9 PO; +ASPI325T32 PO; +BACL10TA PO; +CARV6.252 PO; +CETI10TA17 PO; +CYAN50LO PO; +FAMO20TA5 PO; +FENO145T26 PO; +OMEG-35 PO; +QUIN20TA16 PO; +ROSU10TA28 PO; +VERA240T14 PO; +VORT20TA PO
[2020-06-25] MEDS ORDERED: NS IV 1000 ML 1,000 ML IV SCH (20:15)
--- NOTE | 2020-06-25 20:17 | ED Fall/Injury ---
General Stated Complaint: FALL Source: patient, EMS, old records Exam Limitations: clinical condition History of Present Illness Date Seen by Provider: Jun 25, 2020 Time Seen by Provider: 20:00 Initial Comments Patient presents to the ER by EMS from home where family says she was getting up out of the couch using her walker and she slipped falling backwards striking her head hard against the floor. She was giving one-word answers and registering oxygen saturation of 75% peripherally so they put her on 3 L by nasal cannula which brought her up to 92% and put in end-tidal CO2 which was reading at 30. Patient was not complaining of pain anywhere. C-collar was initiated by EMS. The patient is not on blood thinners but does take aspirin. History of pancreatitis, pneumonia last month, chronic renal insufficiency, anemia, congestive heart failure with an echocardiogram May 30, 2020 showing normal left ventricular size, left ventricular ejection fraction 60 to 65% with diastolic dysfunction. Coronary artery disease with a cardiac catheterization 2016 demonstrating mild coronary artery disease with 40 to 50% proximal to mid LAD stenosis nonobstructive. History of syncope being treated for major depression and anxiety. History of labile hypertension, hyperlipidemia, mild bilateral carotid stenosis with a left CEA 2005 and carotid duplex ultrasound 2018 showing mild disease. History of diabetes mellitus, fibromyalgia, diabetic neuropathy, anxiety, depression. Allergies and Home Medications Allergies Coded Allergies: morphine (Verified Allergy, Intermediate, HIVES...TAKES HYDROCODONE AT HOME, 03/20/08) acetaminophen (Verified Allergy, Mild, HIVES...TAKES HYDROCODONE AT HOME, 03/20/08) bacitracin (Verified Allergy, Unknown, 08/16/07) cyproheptadine (Verified Allergy, Unknown, 08/16/07) fluoxetine (Verified Allergy, Unknown, 08/16/07) gramicidin D (Verified Allergy, Unknown, 08/16/07) neomycin (Verified Allergy, Unknown, 08/16/07) polymyxin B (Verified Allergy, Unknown, 08/16/07) tizanidine (Verified Allergy, Unknown, 08/16/07) tramadol (Verified Allergy, Unknown, 08/16/07) Uncoded Allergies: ARTHRITIS MEDS (Allergy, Unknown, 08/16/07) DECONGESTANTS (Allergy, Unknown, 08/16/07) Home Medications ALPRAZolam 0.25 Mg Tablet, 0.25 MG PO BID, (Reported) Albuterol Sulfate 2.5 Mg/3 Ml Vial.neb, 3 ML NEB QID PRN for SHORTNESS OF BREATH, (Reported) Aripiprazole 15 Mg Tablet, 7.5 MG PO DAILY, (Reported) TAKES OF A 15MG TAB Aspirin 325 Mg Tablet.dr, 325 MG PO DAILY, (Reported) Baclofen 10 Mg Tablet, 5 MG PO BID, (Reported) TAKES OF A 10MG TAB Carvedilol 6.25 Mg Tablet, 6.25 MG PO BID, (Reported) Cetirizine HCl 10 Mg Tablet, 10 MG PO DAILY, (Reported) Cholecalciferol (Vitamin D3) 25 Mcg Capsule, 25 MCG PO DAILY, (Reported) Cyanocobalamin (Vitamin B-12) 50 Mcg Lozenge, 100 MCG PO DAILY, (Reported) Famotidine 20 Mg Tablet, 20 MG PO BID, (Reported) Fenofibrate Nanocrystallized 145 Mg Tablet, 145 MG PO DAILY, (Reported) Gabapentin 800 Mg Tablet, 1,600 MG PO DAILY, (Reported) TAKES 2 (800MG) TABS Gabapentin 800 Mg Tablet, 800 MG PO HS, (Reported) Montelukast Sodium 10 Mg Tablet, 10 MG PO DAILY, (Reported) [place]-3/Dha/Epa/Fish Oil 1 Each Capsule, 1 EACH PO TID, (Reported) Quinapril HCl 20 Mg Tablet, 20 MG PO DAILY, (Reported) Ropinirole HCl 1 Mg Tablet, 1 MG PO TID, (Reported) Rosuvastatin Calcium 10 Mg Tablet, 10 MG PO DAILY, (Reported) Tiotropium [place] 1 Inh Aerp, 1 INH IH DAILY, (Reported) Verapamil HCl 240 Mg Tablet.er, 240 MG PO DAILY, (Reported) Vortioxetine Hydrobromide 20 Mg Tablet, 20 MG PO DAILY, (Reported) Patient Home Medication List Home Medication List Reviewed: Yes Review of Systems Review of Systems Constitutional: No chills, No fever Eyes: Denies Blindness Ears, Nose, Mouth, Throat: denies ear pain, denies ear discharge Respiratory: see HPI; No cough; short of breath Cardiovascular: No chest pain, No palpitations, No syncope Gastrointestinal: No abdominal pain, No constipation, No diarrhea Genitourinary: No discharge, No dysuria Musculoskeletal: No back pain, No joint pain All Other Systems Reviewed Negative Unless Noted: Yes Past Ixwukjl-Lmvvoc-Pdkaig Hx Patient Social History Alcohol Use: Denies Use Recreational Drug Use: No Smoking Status: Never a Smoker Recent Hopitalizations: Yes Immunizations Up To Date Date of Pneumonia Vaccine: Oct 11, 2013 Date of Influenza Vaccine: Apr 03, 2020 Past Medical History Surgeries: Yes Coronary Stent Respiratory: Yes Asthma Currently Using CPAP: Yes (oxygen at night) Currently Using BIPAP: No Cardiac: Yes (L CAROTID) Angina, Coronary Artery Disease, High Cholesterol, Hypertension, Peripheral Vascular, Syncope Neurological: No Parkinson's Disease 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 Disorders: No Female 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 Disorders: Denies Gastrointestinal: Yes Gastroesophageal Reflux, Pancreatitis Musculoskeletal: Yes Degenerate Disk Disease, Fibromyalgia Endocrine: Yes Diabetes, Non-Insulin dep Loss of Vision: Denies Hearing Impairment: Denies Cancer: No Psychosocial: Yes Anxiety, Depression Blood Disorders: No Family Medical History Cancer Physical Exam Vital Signs Vital Signs - First Documented 06/25/20 06/25/20 20:05 20:10 Temp 36.0 Pulse 73 Resp 15 B/P (MAP) 195/100 (131) Pulse Ox 97 O2 Delivery Simple Mask O2 Flow Rate 10.00 FiO2 97 Capillary Refill : Height, Weight, BMI Height: 5'5.00" Weight: 173lbs. 0.0oz. 78.659463vi; 26.00 BMI Method: General Appearance: WD/WN, mild distress HEENT: PERRL/EOMI, pharynx normal Neck: full range of motion, supple, normal inspection Cardiovascular: normal peripheral pulses, regular rate, rhythm Respiratory: lungs clear, no respiratory distress, respiratory distress (Mild, oxygen saturation was in the 90 to 92% range on 3 L by nasal cannula on arrival. 10 L per oxygen mask brings her up to 98%.), decreased breath sounds, other (No increased work of breathing or accessory muscle use) Peripheral Pulses: 2+ Radial Pulses (R), 2+ Radial Pulses (L) Gastrointestinal: normal bowel sounds, non tender, soft Neurologic/Psychiatric: alert, normal mood/affect, oriented x 3 Skin: normal color, warm/dry [place] Coma Score Best Eye Response: (4) Open Spontaneously Best Verbal Response: (5) Oriented Best Motor Response: (6) Obeys Commands [place] Total: 15 Progress/Results/Core Measures Results/Orders Lab Results Laboratory Tests Test 06/25/20 20:10 06/25/20 20:31 06/25/20 20:32 06/25/20 20:34 Range/Units White Blood Count 6.2 4.3-11.0 10^3/uL Red Blood Count 2.82 L 3.80-5.11 10^6/uL Hemoglobin 8.2 L 11.5-16.0 g/dL Hematocrit 26 L 35-52 % Mean Corpuscular Volume 93 80-99 fL Mean Corpuscular Hemoglobin 29 25-34 pg Mean Corpuscular Hemoglobin Concent 31 L 32-36 g/dL Red Cell Distribution Width 15.9 H 10.0-14.5 % Platelet Count 293 130-400 10^3/uL Mean Platelet Volume 12.3 H 9.0-12.2 fL Immature Granulocyte % (Auto) 0 % Neutrophils (%) (Auto) 62 42-75 % Lymphocytes (%) (Auto) 25 12-44 % Monocytes (%) (Auto) 9 0-12 % Eosinophils (%) (Auto) 3 0-10 % Basophils (%) (Auto) 1 0-10 % Neutrophils # (Auto) 3.8 1.8-7.8 10^3/uL Lymphocytes # (Auto) 1.5 1.0-4.0 10^3/uL Monocytes # (Auto) 0.6 0.0-1.0 10^3/uL Eosinophils # (Auto) 0.2 0.0-0.3 10^3/uL Basophils # (Auto) 0.0 0.0-0.1 10^3/uL Immature Granulocyte # (Auto) 0.0 0.0-0.1 10^3/uL Prothrombin Time 16.4 H 12.2-14.7 SEC INR Comment 1.3 0.8-1.4 Activated Partial Thromboplast Time 27 24-35 SEC D-Dimer 3.28 H 0.00-0.49 UG/ML Sodium Level 147 H 135-145 MMOL/L Potassium Level 2.6 L 3.6-5.0 MMOL/L Chloride Level 102 98-107 MMOL/L Carbon Dioxide Level 36 H 21-32 MMOL/L Anion Gap 9 5-14 MMOL/L Blood Urea Nitrogen 19 H 7-18 MG/DL Creatinine 2.86 H 0.60-1.30 MG/DL Estimat Glomerular Filtration Rate 16 BUN/Creatinine Ratio 7 Glucose Level 91 70-105 MG/DL Calcium Level 13.7 *H 8.5-10.1 MG/DL Corrected Calcium 14.6 H 8.5-10.1 MG/DL Magnesium Level 1.6 1.6-2.4 MG/DL Total Bilirubin 0.4 0.1-1.0 MG/DL Aspartate Amino Transf (AST/SGOT) 40 H 5-34 U/L Alanine Aminotransferase (ALT/SGPT) 24 0-55 U/L Alkaline Phosphatase 51 40-136 U/L Troponin I 0.072 H <0.028 NG/ML C-Reactive Protein High Sensitivity 1.72 H 0.00-0.50 MG/DL Total Protein 6.5 6.4-8.2 GM/DL Albumin 2.9 L 3.2-4.5 GM/DL Blood Gas Puncture Site RRAD Blood Gas Patient Temperature 36.0 Arterial Blood pH 7.68 *H 7.37-7.43 Arterial Blood Partial Pressure CO2 33 L 35-45 MMHG Arterial Blood Partial Pressure O2 129 H 79-93 MMHG Arterial Blood HCO3 40 H 23-27 MMOL/L Arterial Blood Total CO2 41.4 H 21.0-31.0 MMOL/L Arterial Blood Oxygen Saturation 87 L 94-100 % Arterial Blood Base Excess 17.1 H -2.5-2.5 MMOL/L Killian Test YES-POS Blood Gas Ventilator Setting NO Blood Gas Inspired Oxygen 10 Coronavirus 2018 (TYLER) Negative Negative Glucometer 81 70-110 MG/DL Test 06/25/20 20:40 06/25/20 20:55 06/25/20 21:27 Range/Units Blood Gas Puncture Site UNK Blood Gas Patient Temperature 36.1 Arterial Blood pH 7.43 7.37-7.43 Arterial Blood Partial Pressure CO2 54 H 35-45 MMHG Arterial Blood Partial Pressure O2 93 79-93 MMHG Arterial Blood HCO3 35 H 23-27 MMOL/L Arterial Blood Total CO2 37.1 H 21.0-31.0 MMOL/L Arterial Blood Oxygen Saturation 98 94-100 % Arterial Blood Base Excess 10.5 H -2.5-2.5 MMOL/L Killian Test UNK Blood Gas Ventilator Setting NO Blood Gas Inspired Oxygen 8 L Micro Results Microbiology 06/25/20 Influenza Types A,B Antigen (JERONIMO) - Final, Complete My Orders Orders - TORIN HILL Ct Head/Cervical Spine Wo (06/25/20 20:09) Ed Iv/Invasive Line Start (06/25/20 20:09) Ns Iv 1000 Ml (Sodium Chloride 0.9%) (06/25/20 20:15) Accucheck Stat ONCE (06/25/20 20:09) Cbc With Automated Diff (06/25/20 20:09) Comprehensive Metabolic Panel (06/25/20 20:09) Hs C Reactive Protein (06/25/20 20:09) Troponin I (06/25/20 20:09) Continuous Ekg Monitoring (06/25/20 20:09) Ekg Tracing (06/25/20 20:09) O2 (06/25/20 20:09) Arterial Blood Gas (06/25/20:27) Covid 19 Inhouse Test (06/25/20:29) Influenza A And B Antigens (06/25/20:) Magnesium (06/25/20 20:59) Aspirin Chewable Tablet (Baby Aspirin Ch (06/25/20 21:00) Potassium Cl 10meq/50ml Ivpb (Kcl 10 Meq (06/25/20 21:00) Potassium Chloride (Tablet) (K Dur Table (06/25/20 21:00) Arterial Blood Gas (06/25/20 21:00) Chest 1 View, Ap/Pa Only (06/25/20 21:01) Ed Iv/Invasive Line Start (06/25/20 21:06) Ns Iv 500 Ml (Sodium Chloride 0.9%) (06/25/20 21:15) Fibrin Degradation Products (06/25/20 21:08) Protime With Inr (06/25/20 21:08) Partial Thromboplastin Time (06/25/20 21:08) Calcium (06/25/20 21:09) Coronavirus Sars-Cov-2 So 2018 (06/25/20 21:16) Ct Chest Wo (06/25/20 21:27) Medications Given in ED Current Medications Medications Dose Ordered Sig/Lilly Route Start Time Stop Time Status Last Admin Dose Admin Aspirin 324 mg ONCE ONCE PO 06/25/20 21:00 06/25/20 21:01 DC 06/25/20 21:05 324 MG Potassium Chloride 20 meq ONCE ONCE PO 06/25/20 21:00 06/25/20 21:01 DC 12/23/20 21:05 20 MEQ Potassium Chloride 50 ml @ 50 mls/hr ONCE ONCE IV 06/25/20 21:00 06/25/20 21:59 DC 06/25/20 21:05 50 MLS/HR Sodium Chloride 500 ml @ 0 mls/hr Q0M ONCE IV 06/25/20 21:15 06/25/20 21:16 DC 06/25/20 21:12 0 MLS/HR Vital Signs/I&O 06/25/20 06/25/20 06/25/20 20:05 20:10 20:13 Temp 36.0 Pulse 73 Resp 15 B/P (MAP) 195/100 (131) Pulse Ox 97 100 O2 Delivery Simple Mask Simple Mask OxyMask O2 Flow Rate 10.00 10.00 10.00 FiO2 97 100 Progress Progress Note #1: Time: 20:17 Progress Note Appears to have a full and decreased GCS 13 points but follows commands. Not on blood thinners. Plan to scan her head. We will keep her on oxygen and get an ABG to ascertain her true oxygen balance. Chest x-ray, EKG, troponin. Progress Note #2: Time: 21:03 Progress Note She has acute on chronic renal insufficiency with her normal creatinine running around 1.3-1.5. This may account for the increased troponin but were going to speak with a communications officer as it could have been a syncopal episode and this may require further inpatient observation. Discussed the case with Dr. Barragan, cardiology and he does not feel that the marginal elevation of troponin is the root source of all of her problems rather it is the bystander. I agree I think that her respiratory situation and markedly elevated calcium could point to a new malignancy possibly pulmonary embolism. He recommends a baby aspirin and IV fluids. We will give her another 500 cc of normal saline to run in some potassium as well as oral potassium and get her bolused with 324 mg of aspirin. She still not complaining of any pain. Plan to do CT angio of the chest but her creatinine would not support that. After half a liter of fluids her in and oxygen saturations are improved the patient is able to give a little better history and states she is not having any pain nor did she have any chest pain. She says she has been vomiting for the better part of a week but has not had any fevers diarrhea or cough. She has not seen anybody nor had any swabs. Influenza swab was negative Covid 19 rapid swab is pending. Plan to put her upstairs on the stepdown unit for her increased oxygen demand and fluid electrolyte disarrangement's. Progress Note #3: Time: 21:29 Progress Note Chest x-ray shows some displacement of the mediastinal contents to the right side of the chest with what appears to be gastric bubble. Could be from pneumothorax versus tumor versus effusion. Plan to get a CT noncontrast. She has stable now and we have decreased her oxygen to 6 L by oxygen mask and she is still satting at 100%. Her repeat ABG is more believable and demonstrates hy poxia and hypercapnia with overall alkalosis which a pneumothorax, pneumonia or space-occupying lesion could explain. She has no fever or white count. She has had no cough. GCS on reexamination is now 14. She is more forthcoming with some history. Sti ll does not meet septic criteria as she has no white count, tachycardia, fever only tachypnea. Initial ECG Impression Date: Jun 25, 2020 Initial ECG Impression Time: 20:18 Initial ECG Rate: 74 Initial ECG Rhythm: Normal Sinus Initial ECG Intervals: Normal Initial ECG Impression: Normal Comment NAME: PIPER DE LA GARZA Chel[place] MED REC#: [id number] PT STATUS: REG ER : 09/16/1970 PHYSICIAN: TORIN HILL MD ADMIT DATE: 06/25/20/ER Signed Date of Exam:06/25/20 CHEST 1 VIEW, AP/PA ONLY INDICATION: Left arm numbness. COMPARISON: Prior examination from 07/06/2010. FINDINGS: The heart size, mediastinal configuration, and pulmonary vascularity are within normal limits. There is no pleural effusion, pneumothorax, or pneumonia. The osseous structures are unremarkable. IMPRESSION: No acute cardiopulmonary abnormality. Dictated by: Dictated on workstation # [id number] Dict: 06/25/201945 Trans: 06/25/201954 [facility] [id number] Interpreted by: ANISH TAVERAS MD Electronically signed by: ANISH TAVERAS MD 06/25/201954 Diagnostic Imaging Diagonstic Imaging: Xray Plain Films/CT/US/NM/MRI: chest Comments NAME: JBRIANAFRIEDA L MED REC#: [id number] PT STATUS: REG ER : 1950 PHYSICIAN: TORIN HILL MD ADMIT DATE: 06/25/20/ER Signed Date of Exam:06/25/20 CHEST 1 VIEW, AP/PA ONLY INDICATION: Fall. FINDINGS: There is elevation of the left hemidiaphragm. There may also be a hiatal hernia. There is left base consolidation. There is cardiomegaly and venous congestion. No pneumothorax. The mediastinum is unremarkable. IMPRESSION: 1. Large hiatal hernia with some elevation in the left hemidiaphragm. 2. Left basilar atelectasis and/or pneumonitis. 3. Cardiology and some central pulmonary venous congestion. Dictated by: Dictated on workstation # [id number] Dict: 06/25/202138 Trans: 06/25/202148 [facility] [id number] Interpreted by: ANISH TAVERAS MD Electronically signed by: ANISH TAVERAS MD 06/25/202148Unchanged from previous chest x-rays Reviewed: Reviewed by Md Diagonstic Imaging: CT (Without IV contrast) Plain Films/CT/US/NM/MRI: c-spine, head Comments NAME: FRIEDA LEWIS MED REC#: [id number] PT STATUS: REG ER : 1950 PHYSICIAN: TORIN HILL MD ADMIT DATE: 06/25/20/ER Signed Date of Exam:06/25/20 CT HEAD/CERVICAL SPINE WO PROCEDURE: CT head and CT cervical spine without contrast. TECHNIQUE: Multiple contiguous axial images were obtained through the brain and cervical spine without the use of intravenous contrast. Sagittal and coronal reformations through the cervical spine were then performed. Auto Exposure Controls were utilized during the CT exam to meet ALARA standards for radiation dose reduction. INDICATION: Head and neck pain after fall. FINDINGS: The ventricles and sulci are within normal limits. There is no hydrocephalus. There is no midline shift. There is no mass, hemorrhage or extra-axial fluid collection. The calvarium is intact. Sinuses and mastoid air cells are clear. Straightening of the normal cervical lordosis. There is severe posterior facet arthropathy. Anterolisthesis of C4 on C5 and C5 on C6 both of which appear to be on a degenerative basis. The vertebral body heights are well-maintained. The prevertebral soft tissues are within normal limits. There is multilevel degenerative disc disease particularly at C3-C4 and C6-C7. There is no fracture or traumatic subluxation. The odontoid is intact and the lateral masses are well aligned. IMPRESSION: No acute intracranial abnormality. Severe cervical spondylosis and multilevel degenerative disc disease without acute fracture or traumatic subluxation. Dictated by: Dictated on workstation # [id number] Dict: 06/25/202102 Trans: 06/25/202128 [facility] [id number] Interpreted by: ANISH TAVERAS MD Electronically signed by: ANISH TAVERAS MD 06/25/202128 Reviewed: Reviewed by Md Diagonstic Imaging: CT Plain Films/CT/US/NM/MRI: chest (Noncontrast) Comments [facility] [place] NAME: FRIEDA LEWIS [facility] REC#: [id number] PT STATUS: REG ER : 1950 PHYSICIAN: TORIN HILL MD ADMIT DATE: 06/25/20/ER Draft Date of Exam:06/25/20 CT CHEST WO PROCEDURE: CT chest without contrast. TECHNIQUE: Multiple contiguous axial images were obtained through the chest without the use of intravenous contrast. Auto Exposure Controls were utilized during the CT exam to meet ALARA standards for radiation dose reduction. INDICATION: Hypoxia. COMPARISON: Prior examination from 06/03/2020. FINDINGS: The previously seen groundglass infiltrate in the right upper lobe has almost completely resolved. The left basilar consolidation is increased. There is also now some right basilar atelectasis and/or pneumonitis. There are trace bilateral pleural effusions. There is cardiomegaly. There are coronary artery calcifications. There is marked elevation of the left hemidiaphragm. There is no pneumothorax. Thoracic aorta is normal in caliber. There is no pathologically enlarged adenopathy in the chest. There is no pneumothorax. There is cholelithiasis. There is some persistent mild peripancreatic edema. There are degenerative changes in the spine. IMPRESSION: 1. Increasing left basilar consolidation as well some right basilar atelectasis and/or pneumonitis. The previously described right upper lobe groundglass infiltrate has resolved. 2. Trace bilateral pleural effusions. 3. Cardiomegaly and coronary artery calcination. 4. Marked elevation of the left hemidiaphragm. 5. Cholelithiasis. 6. Persistent mild peripancreatic edema possibly reflecting residual pancreatitis. Recommend clinical correlation. Dictated on workstation # [id number] Dict: 06/25/202140 Trans: 06/25/202156 [facility] [id number] Interpreted by: ANISH TAVERAS MD Electronically signed by: Reviewed: Reviewed by Me Departure Communication (Admissions) Time/Spoke to Admitting Phy: 22:00 Discussed the case with Dr. Scruggs and she agrees with placing the patient on heparin drip for potential PE on cardiac stepdown. Fluid and electrolyte placement. Impression Primary Impression: Dehydration Additional Impressions: Nausea & vomiting Qualified Codes: R11.2 - Nausea with vomiting, unspecified Chronic pancreatitis Qualified Codes: K86.1 - Other chronic pancreatitis Disorder of fluid or electrolyte Acute on chronic renal insufficiency Disposition: ADMITTED INPATIENT Condition: Stable Admissions Decision to Admit Reason: Admit from ER (General) Decision to Admit/Date: Jun 25, 2020 Time/Decision to Admit Time: 21:00 Departure-Patient Inst. Referrals: DAVI MOFFETT MD (PCP/Family) Primary Care Physician TORIN HILL Jun 25, 2020 20:17
[2020-06-25 20:18] LABS: BASOPHILS % (AUTO) 1 % (0-10); EOSINOPHILS # (AUTO) 0.2 10^3/uL (0.0-0.3); EOSINOPHILS % (AUTO) 3 % (0-10); HEMATOCRIT 26 % (35-52); HEMOGLOBIN 8.2 g/dL (11.5-16.0); LYMPHOCYTES # (AUTO) 1.5 10^3/uL (1.0-4.0); LYMPHOCYTES % (AUTO) 25 % (12-44); MEAN CORPUSCULAR HEMOGLOBIN 29 pg (25-34); MEAN CORPUSCULAR HGB CONC 31 g/dL (32-36); MEAN CORPUSCULAR VOLUME 93 fL (80-99); MEAN PLATELET VOLUME 12.3 fL (9.0-12.2); MONOCYTES # (AUTO) 0.6 10^3/uL (0.0-1.0); MONOCYTES % (AUTO) 9 % (0-12); NEUTROPHILS # (AUTO) 3.8 10^3/uL (1.8-7.8); NEUTROPHILS % (AUTO) 62 % (42-75); PLATELET COUNT 293 10^3/uL (130-400); WHITE BLOOD COUNT 6.2 10^3/uL (4.3-11.0)
[2020-06-25 20:36] LABS: ALBUMIN 2.9 GM/DL (3.2-4.5); BILIRUBIN,TOTAL 0.4 MG/DL (0.1-1.0); CREATININE SERUM 2.86 MG/DL (0.60-1.30); POTASSIUM 2.6 MMOL/L (3.6-5.0); TOTAL PROTEIN 6.5 GM/DL (6.4-8.2)
[2020-06-25 20:39] LABS: ABG BASE EXCESS 17.1 MMOL/L (-2.5-2.5); ABG OXYGEN SATURATION 87 % (94-100); ABG PCO2 33 MMHG (35-45); ABG PO2 129 MMHG (79-93); ABG TCO2 41.4 MMOL/L (21.0-31.0)
[2020-06-25 20:42] LABS: ALLENS TEST YES-POS; INSPIRED O2 10; VENTILATOR NO
[2020-06-25 20:43] LABS: ABG PH 7.68 (7.37-7.43)
[2020-06-25 20:52] LABS: CALCIUM 13.7 MG/DL (8.5-10.1)
[2020-06-25] MEDS ORDERED: POTASSIUM CL 10MEQ/50ML IVPB 50 ML IV ONE (21:00)
[2020-06-25] MEDS ORDERED: ASPIRIN 81 MG CHEW (CHILDREN'S ASA) PO ONE (21:00)
[2020-06-25] MEDS ORDERED: KCL 20 MEQ TAB (K-DUR) PO ONE (21:00)
[2020-06-25 21:04] LABS: ABG BASE EXCESS 10.5 MMOL/L (-2.5-2.5); ABG OXYGEN SATURATION 98 % (94-100); ABG PCO2 54 MMHG (35-45); ABG PH 7.43 (7.37-7.43); ABG PO2 93 MMHG (79-93); ABG TCO2 37.1 MMOL/L (21.0-31.0)
[2020-06-25 21:07] LABS: INSPIRED O2 8 L; PATIENT TEMP 36.1; VENTILATOR NO
[2020-06-25] MEDS ORDERED: NS IV 500 ML 500 ML IV ONE (21:15)
[2020-06-25 21:26] LABS: FIBRIN DEGRADATION PRODUCTS 3.28 UG/ML (0.00-0.49); INR 1.3 (0.8-1.4); PROTHROMBIN TIME PATIENT 16.4 SEC (12.2-14.7)
--- NOTE | 2020-06-25 21:29 | Diagnostic Imaging Report ---
PROCEDURE: CT head and CT cervical spine without contrast. TECHNIQUE: Multiple contiguous axial images were obtained through the brain and cervical spine without the use of intravenous contrast. Sagittal and coronal reformations through the cervical spine were then performed. Auto Exposure Controls were utilized during the CT exam to meet ALARA standards for radiation dose reduction. INDICATION: Head and neck pain after fall. FINDINGS: The ventricles and sulci are within normal limits. There is no hydrocephalus. There is no midline shift. There is no mass, hemorrhage or extra-axial fluid collection. The calvarium is intact. Sinuses and mastoid air cells are clear. Straightening of the normal cervical lordosis. There is severe posterior facet arthropathy. Anterolisthesis of C4 on C5 and C5 on C6 both of which appear to be on a degenerative basis. The vertebral body heights are well-maintained. The prevertebral soft tissues are within normal limits. There is multilevel degenerative disc disease particularly at C3-C4 and C6-C7. There is no fracture or traumatic subluxation. The odontoid is intact and the lateral masses are well aligned. IMPRESSION: No acute intracranial abnormality. Severe cervical spondylosis and multilevel degenerative disc disease without acute fracture or traumatic subluxation. Dictated by: Dictated on workstation # [id number]
--- NOTE | 2020-06-25 21:48 | Diagnostic Imaging Report ---
INDICATION: Fall. FINDINGS: There is elevation of the left hemidiaphragm. There may also be a hiatal hernia. There is left base consolidation. There is cardiomegaly and venous congestion. No pneumothorax. The mediastinum is unremarkable. IMPRESSION: 1. Large hiatal hernia with some elevation in the left hemidiaphragm. 2. Left basilar atelectasis and/or pneumonitis. 3. Cardiology and some central pulmonary venous congestion. Dictated by: Dictated on workstation # [id number]
--- NOTE | 2020-06-25 21:58 | Diagnostic Imaging Report ---
PROCEDURE: CT chest without contrast. TECHNIQUE: Multiple contiguous axial images were obtained through the chest without the use of intravenous contrast. Auto Exposure Controls were utilized during the CT exam to meet ALARA standards for radiation dose reduction. INDICATION: Hypoxia. COMPARISON: Prior examination from 06/03/2020. FINDINGS: The previously seen groundglass infiltrate in the right upper lobe has almost completely resolved. The left basilar consolidation is increased. There is also now some right basilar atelectasis and/or pneumonitis. There are trace bilateral pleural effusions. There is cardiomegaly. There are coronary artery calcifications. There is marked elevation of the left hemidiaphragm. There is no pneumothorax. Thoracic aorta is normal in caliber. There is no pathologically enlarged adenopathy in the chest. There is no pneumothorax. There is cholelithiasis. There is some persistent mild peripancreatic edema. There are degenerative changes in the spine. IMPRESSION: 1. Increasing left basilar consolidation as well some right basilar atelectasis and/or pneumonitis. The previously described right upper lobe groundglass infiltrate has resolved. 2. Trace bilateral pleural effusions. 3. Cardiomegaly and coronary artery calcination. 4. Marked elevation of the left hemidiaphragm. 5. Cholelithiasis. 6. Persistent mild peripancreatic edema possibly reflecting residual pancreatitis. Recommend clinical correlation. Dictated by: Dictated on workstation # [id number]
[2020-06-25 22:40] VITALS: BP 174/94
--- NOTE | 2020-06-25 22:40 | NUR ---
FRIEDA PAOLOKHOI admitted to room 512-1, with an admitting diagnosis of DEHYDRATION, NAUSEA/VOMITING, FLUID AND ELECTROLYTE INSUFF, ACUTE ON CHRONIC RENAL INSUFF, on 06/25/20 from ED via STRETCHER, accompanied by HOSPITAL STAFF. FRIEDA LEWIS introduced to surroundings, call light, bed controls, phone, TV, temperature control, lights, meal times, smoking policy, visitor policy, side rail policy, bathrooms and showers. Patient Rights given to patient in the handbook.FRIEDA LEWIS verbalizes understanding that [facility] is not responsible for the loss or damage to any personal effects or valuables that are kept in the patients posession during their hospitalization. FRIEDA LEWIS verbalizes understanding of Interdisciplinary Patient Education. Patient and/or family were informed about the Rapid Response Team and its purpose.
[2020-06-25] MEDS ORDERED: ACETAMINOPHEN 500 MG TAB (TYLENOL) PO PRN (22:45)
[2020-06-25] MEDS ORDERED: LORazepam INJ 2 MG/ML (ATIVAN) VIAL IVP PRN (22:45)
[2020-06-25] MEDS ORDERED: ANTACID SUSP 30 ML UDC (MYLANTA) PO PRN (22:45)
[2020-06-25] MEDS ORDERED: ONDANSETRON 4 MG/2 ML (SDV) Z0FRAN IVP PRN (22:45)
[2020-06-25 23:00] VITALS: BP 180/92
[2020-06-25] MEDS: NS W/KCL 40 MEQ/L 1,000 ML IV SCH (23:01)
--- NOTE | 2020-06-25 23:15 | NUR ---
INFORMED DR. LASSITER OF PATIENT'S ELEVATED BLOOD PRESSURE OF 180/90 AND THAT HER HOME MED LISTS COREG 6.25 BID. RECEIVED ORDER TO RESTART COREG. WILL CONTINUE TO MONITOR.
[2020-06-25] MEDS ORDERED: CARVEDILOL 6.25 MG (COREG) TAB PO ONE ×2 (23:30→23:45)
[2020-06-25] MEDS ORDERED: HEParin 1000 UNIT/ML (10ML VIAL) FOR BOLUS IV SCH ×2 (23:45)
[2020-06-25] MEDS: HEParin DRIP 25000 UNIT/500ML 500 ML IV SCH (23:56)
[2020-06-26] VITALS (8 sets, daily range): BP systolic 140–195; BP diastolic 72–100
[2020-06-26 04:20] LABS: BASOPHILS # (AUTO) 0.1 10^3/uL (0.0-0.1); BASOPHILS % (AUTO) 1 % (0-10); EOSINOPHILS # (AUTO) 0.3 10^3/uL (0.0-0.3); EOSINOPHILS % (AUTO) 4 % (0-10); HEMATOCRIT 24 % (35-52); HEMOGLOBIN 7.7 g/dL (11.5-16.0); LYMPHOCYTES # (AUTO) 1.4 10^3/uL (1.0-4.0); LYMPHOCYTES % (AUTO) 19 % (12-44); MEAN CORPUSCULAR HEMOGLOBIN 30 pg (25-34); MEAN CORPUSCULAR HGB CONC 32 g/dL (32-36); MEAN CORPUSCULAR VOLUME 94 fL (80-99); MEAN PLATELET VOLUME 12.3 fL (9.0-12.2); MONOCYTES # (AUTO) 0.6 10^3/uL (0.0-1.0); MONOCYTES % (AUTO) 8 % (0-12); NEUTROPHILS # (AUTO) 5.2 10^3/uL (1.8-7.8); NEUTROPHILS % (AUTO) 68 % (42-75); PLATELET COUNT 287 10^3/uL (130-400); WHITE BLOOD COUNT 7.7 10^3/uL (4.3-11.0)
[2020-06-26 04:44] LABS: ALBUMIN 2.5 GM/DL (3.2-4.5); BILIRUBIN,TOTAL 0.4 MG/DL (0.1-1.0); CALCIUM 12.2 MG/DL (8.5-10.1); CREATININE SERUM 2.6 MG/DL (0.60-1.30); POTASSIUM 3.1 MMOL/L (3.6-5.0); TOTAL PROTEIN 5.5 GM/DL (6.4-8.2)
[2020-06-26] MEDS: inSUlin ASPART (NovoLOG) 1 UNIT/0.01 ML (CHARGE PER UNIT) SC SCH ×4 (04:52→22:18)
[2020-06-26] MEDS: NS W/KCL 40 MEQ/L 1,000 ML IV SCH ×2 (05:57→15:27)
[2020-06-26] MEDS ORDERED: RT-ALBUTEROL SULF 2.5 MG/3 ML PRE-MIX VIAL INH PRN (06:15)
--- NOTE | 2020-06-26 07:07 | History & Physical-Hospitalist ---
History of Present Illness HPI/Chief Complaint CC: AMS with fall and hypoxia HPI: This is a 70yoWF previous clinic patient of [facility] who is known to me from prior hospital stay for pancreatitis and elevated calcium level who presents to the ER with AMS and a fall and hypoxia. Patient is currently lethargic and no details obtained for the patient. Records reviewed and RN has updated me on some details. SW has reached out to son and she still wants to be fully treated and a full code which needs to be addressed due to significant debility and significant poor prognosis. Apparently patient established with Dr Ivan whom I spoke to and she will see the patient tomorrow on her rounds but in the meantime I am trying to evaluate the source of her AMS and CT was reviewed and it appears there is an infiltrate so PNA protocol initiated for HAP and she remains on a Heparin drip due to suspected PE. Labs reviewed and I initiate IVF gently along with checking LA and more testing to evaluate the complicating issues she is having now. Source: RN/, old records Exam Limitations: clinical condition Date Seen 06/26/20 Time Seen by a Provider: 11:00 Attending Physician Jennifer Scruggs DO PCP Yosvany Jorgensen MD Referring Physician Date of Admission Jun 25, 2020 at 21:30 Home Medications & Allergies Home Medications Reviewed patient Home Medication Reconciliation performed by pharmacy medication reconciliations air moving technician and/or nursing. Patients Allergies have been reviewed. Allergies Allergies Coded Allergies morphine (Verified Allergy, Intermediate, HIVES...TAKES HYDROCODONE AT HOME, 03/20/08) acetaminophen (Verified Allergy, Mild, HIVES...TAKES HYDROCODONE AT HOME, 03/20/08) bacitracin (Verified Allergy, Unknown, 08/16/07) cyproheptadine (Verified Allergy, Unknown, 08/16/07) fluoxetine (Verified Allergy, Unknown, 08/16/07) gramicidin D (Verified Allergy, Unknown, 08/16/07) neomycin (Verified Allergy, Unknown, 08/16/07) polymyxin B (Verified Allergy, Unknown, 08/16/07) tizanidine (Verified Allergy, Unknown, 08/16/07) tramadol (Verified Allergy, Unknown, 08/16/07) Uncoded Allergies ARTHRITIS MEDS ( Allergy, Unknown, 08/16/07) DECONGESTANTS ( Allergy, Unknown, 08/16/07) Past Kxbzwxb-Svorlb-Qtlyrv Hx Past Med/Social Hx: Reviewed Nursing Past Med/Soc Hx, Reviewed and Corrections made Patient Social History Marrital Status: single Employed/Student: retired Alcohol Use: Denies Use Recreational Drug Use: No Smoking Status: Never a Smoker Recent Foreign Travel: No Contact w/other who traveled: No Recent Hopitalizations: Yes Recent Infectious Disease Expo: No Immunizations Up To Date Tetanus Booster (TDap): Less than 5yrs Date of Pneumonia Vaccine: Apr 03, 2019 Date of Influenza Vaccine: Apr 03, 2020 Seasonal Allergies Seasonal Allergies: No Past Medical History Surgeries: Coronary Stent Left Carotid endarectomy Respiratory: Asthma, COPD, Pneumonia Nocturnal Hypoxemia Currently Using CPAP: Yes (oxygen at night) Currently Using BIPAP: No Cardiac: Angina, Coronary Artery Disease, High Cholesterol, Hypertension, Peripheral Vascular, Syncope Heart Failure. Suspected subclavian steal syndrome Neurological: Dementia, Parkinson's Disease Restless leg syndrome : No 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: No Female 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 Disorders: Denies Menopausal Gastrointestinal: Gastroesophageal Reflux, Pancreatitis Musculoskeletal: Degenerate Disk Disease, Fibromyalgia Osteopenia Endocrine: Diabetes, Non-Insulin dep Loss of Vision: Denies Hearing Impairment: Denies Psychosocial: Anxiety, Depression History of Blood Disorders: No Family History Cardiovascular disease 19 FATHER Completed stroke 19 MOTHER FH: leukemia 19 MOTHER Cancer Review of Systems Constitutional: see HPI, weakness Psychiatric/Neurological: Other (confusion) Physical Exam Physical Exam Vital Signs Vital Signs - First Documented 06/25/20 06/25/20 20:05 20:10 Temp 36.0 Pulse 73 Resp 15 B/P (MAP) 195/100 (131) Pulse Ox 97 O2 Delivery Simple Mask O2 Flow Rate 10.00 FiO2 97 Capillary Refill : Less Than 3 Seconds Height, Weight, BMI Height: 5'5.00" Weight: 173lbs. 0.0oz. 78.275706wb; 28.17 BMI Method: General Appearance: No Apparent Distress, Chronically ill, Other (lethargic) Respiratory: Lungs Clear, Decreased Breath Sounds Cardiovascular: Regular Rate, Rhythm Gastrointestinal: Normal Bowel Sounds Neurologic/Psychiatric: Disoriented Results Results/Procedures Labs Laboratory Tests 06/25/20 20:10 06/26/20 04:12 Patient resulted labs reviewed. Assessment/Plan Admission Diagnosis Assessment: AMS Fall PNA? SIRS? Pancreatitis acute on chronic PD Debility Dementia CRI Plan: PNA treatment IVF Supportive care Monitor calcium Admission Status: Inpatient Order (span 2 midnights) Reason for Inpatient Admission: ams with ARF Diagnosis/Problems Diagnosis/Problems (1) Near syncope Status: Acute (2) Pancreatitis Status: Acute (3) Right lower lobe pneumonia Status: Acute (4) Leukocytosis Status: Acute (5) Parkinson disease Status: Chronic (6) Carotid artery stenosis (7) Hypothyroidism (8) Hypertension (9) Diabetes mellitus, type 2 (10) CKD (chronic kidney disease) stage 3, GFR 30-59 ml/min (11) DVT prophylaxis (12) Disorder of fluid or electrolyte Status: Acute (13) Chronic pancreatitis Status: Acute Qualifiers: Pancreatitis type: unspecified pancreatitis type Qualified Codes: K86.1 - Other chronic pancreatitis (14) Nausea & vomiting Status: Acute Qualifiers: Vomiting type: unspecified Vomiting Intractability: non-intractable Qualified Codes: R11.2 - Nausea with vomiting, unspecified (15) Acute on chronic renal insufficiency Status: Acute Clinical Quality Measures DVT/VTE Risk/Contraindication: Risk Factor Score Per Nursin RFS Level Per Nursing on Admit: 2=Moderate JENNIFER SCRUGGS DO Jun 26, 2020 07:07
[2020-06-26] MEDS: CARVEDILOL 6.25 MG (COREG) TAB PO SCH ×2 (09:12→21:59)
[2020-06-26] MEDS: PANTOPRAZOLE 40 MG (PROTONIX) VIAL IV SCH (09:12)
[2020-06-26] MEDS ORDERED: PHARMACY TO DOSE IV SCH (12:00)
[2020-06-26] MEDS ORDERED: VANCOMYCIN 1500 MG/NS 500 ML IVPB IV NR ×2 (12:00)
--- NOTE | 2020-06-26 12:01 | NUR ---
VANCOMYCIN DOSING SCR 2.6; ADJ BW 64 KG; CRCL ~ 20; BOLUS VANC 20 MG/KG X 76 KG ~ 1500 MG THEN VANC 15 MG/KG ~ 1 GM Q24H CHECK TROUGH LEVEL BEFORE 3RD DOSE 06/28 1100 HOLD DOSE AND CONTACT PHARMACY IF LEVEL IS GREATER THAN 20
--- NOTE | 2020-06-26 12:22 | Diagnostic Imaging Report ---
EXAM: CHEST 1 VIEW, AP/PA ONLY INDICATION: Shortness of air. COMPARISON: CT chest without contrast 06/25/2020. FINDINGS: Marked elevation left hemidiaphragm. Cardiomegaly. Patchy airspace opacities throughout the right lung. Atelectasis in the left lung base. Postoperative changes overlying the left lung apex. No large pleural effusion or pneumothorax is identified. IMPRESSION: 1. Patchy airspace opacities in the right lung. 2. Elevation of the left hemidiaphragm with atelectasis in the left lung base. 3. Cardiomegaly. Dictated by: Dictated on workstation # [id number]
--- NOTE | 2020-06-26 13:30 | NUR ---
CM/SS: Telephone call to pt's son Todd [phone] - following up to determine if pt is has DPOA for healthcare paperwork. or Living Will. He indicates he does not know - and that his brother Kong is who she lives with - he suggested this worker call him.
--- NOTE | 2020-06-26 13:33 | NUR ---
CM/SS: Telephone call to son Kong - [phone] or alternate number Delma - daughter in law [phone]. Checking to see if pt has DPOA for health care paperwork or Living will. He indicates that pt does not have any in place. In talking about pt's code status. At this time PT IS TO REMAIN A FULL CODE. Per son Kong. This worker informed Dr. Scruggs of the conversation. Son also indicated that Dr. Ivan has seen pt one time and she is her primary physician. This worker also informed Dr Scruggs of this information as well.
[2020-06-26] MEDS ORDERED: ARIP5TAB57 PO (14:41)
[2020-06-26] MEDS ORDERED: FURO20TA4 PO (14:41)
[2020-06-26] MEDS ORDERED: POTA20TA15 PO (14:41)
[2020-06-26] MEDS ORDERED: ONDA-105 PO (14:41)
[2020-06-26] MEDS ORDERED: MULT-1136 PO (14:57)
[2020-06-26] MEDS ORDERED: CALC-823 PO (14:57)
--- NOTE | 2020-06-26 15:05 | NUR ---
UNABLE TO SPEAK WITH THE PT, I CALLED HER SON (SHANIA), AND WENT THRU THE EXT MED HISTORY TO COMPLETE THE MED REC THERE IS A MEDICATION LIST ON THE PTS CHART AND HER SON LET ME KNOW OF THE FOLLOWING UPDATES THAT HAVE NOT BEEN MADE TO THE MED LIST: FAMOTIDINE 20MG IS LISTED ONCE DAILY ON THE LIST HOWEVER PT IS TAKING BID AND THOSE AND THE DIRECTIONS ON THE EXT MED HISTORY GABAPENTIN 800MG HAS DIRECTIONS ON THE EXT MED HISTORY OF 2 TAB D AND [address] IBARRA UPDATED THIS TO 1 TAB BID SPIRIVA IS ON THE MED LIST HOWEVER SHE IS NOT TAKING FUROSEMIDE AND POTASSIUM- BOTH ARE LISTED ON THE EXT MED HISTORY 1 TAB DAILY, HOWEVER DR. IBARRA CHANGED THE DIRECTIONS OF 1 TAB Q 48 H DUE TO POOR KIDNEY FUNCTION (ACCORDING TO SHANIA) OTC MEDS: ASPIRIN 325MG MTV CALCIUM VIT B12 ZYRTEC VIT D3 FISH OIL
[2020-06-26] MEDS: MEROPENEM 500 MG in WATER (STERILE) FOR INJECTION 10 ML IV SCH (15:26)
[2020-06-26] MEDS: NS IV 1000 ML 1,000 ML IV SCH ×2 (15:27→21:47)
[2020-06-26] MEDS ORDERED: NON-FORMULARY MEDICATION 1 EA EA (Gabapentin 800 MG) PO SCH (21:00)
[2020-06-26] MEDS ORDERED: ARIPIPRAZOLE 2.5 MG PO SCH (21:00)
[2020-06-26] MEDS ORDERED: NON-FORMULARY MEDICATION 1 EA EA (Ondansetron HCl 4 MG) PO PRN (21:00)
--- NOTE | 2020-06-26 21:36 | NUR ---
Just got off phone with son (Kong) and his . Updated family on patient's condition. Family mentioned that patient was recently in the hospital and was diagnosed with gallstones. Would like to see about having surgery while in the hospital for this visit. Kong voiced wishes to make patient a DNR. The family also made wishes known about discharge to possibly a Geriatric Psych facility.
[2020-06-26] MEDS: ALPRAZolam 0.25 MG (XANAX) TAB PO SCH (21:59)
[2020-06-26] MEDS ORDERED: ONDANSETRON 4 MG (ZOFRAN) ORAL DISSOLVE TAB PO PRN (22:00)
[2020-06-26] MEDS ORDERED: GABAPENTIN 600 MG (NEURONTIN) TAB ONE (22:21)
[2020-06-26] MEDS: BACLOFEN 10 MG (LIORESAL) TAB PO SCH (22:29)
[2020-06-26] MEDS: rOPINIRole 1 MG (REQUIP) TABLET PO SCH (22:30)
[2020-06-26] MEDS: FAMOTIDINE 20 MG (PEPCID) TABLET PO SCH (22:30)
[2020-06-26] MEDS: GABAPENTIN 400 MG (NEURONTIN) CAP PO SCH (22:30)
[2020-06-26] MEDS: MONTELUKAST 10 MG (SINGULAIR) TAB PO SCH (22:30)
[2020-06-27] VITALS (9 sets, daily range): BP systolic 101–166; BP diastolic 51–85
[2020-06-27] MEDS: MEROPENEM 500 MG in WATER (STERILE) FOR INJECTION 10 ML IV SCH ×2 (01:35→12:35)
[2020-06-27] MEDS: HEParin DRIP 25000 UNIT/500ML 500 ML IV SCH (01:36)
[2020-06-27] MEDS: NS IV 1000 ML 1,000 ML IV SCH ×2 (04:47→17:02)
[2020-06-27 05:24] LABS: BASOPHILS % (AUTO) 0 % (0-10); EOSINOPHILS # (AUTO) 0.2 10^3/uL (0.0-0.3); EOSINOPHILS % (AUTO) 3 % (0-10); HEMATOCRIT 23 % (35-52); HEMOGLOBIN 7.3 g/dL (11.5-16.0); LYMPHOCYTES # (AUTO) 1.3 10^3/uL (1.0-4.0); LYMPHOCYTES % (AUTO) 17 % (12-44); MEAN CORPUSCULAR HEMOGLOBIN 30 pg (25-34); MEAN CORPUSCULAR HGB CONC 32 g/dL (32-36); MEAN CORPUSCULAR VOLUME 94 fL (80-99); MEAN PLATELET VOLUME 12.2 fL (9.0-12.2); MONOCYTES # (AUTO) 0.6 10^3/uL (0.0-1.0); MONOCYTES % (AUTO) 8 % (0-12); NEUTROPHILS # (AUTO) 5.5 10^3/uL (1.8-7.8); NEUTROPHILS % (AUTO) 71 % (42-75); PLATELET COUNT 222 10^3/uL (130-400); WHITE BLOOD COUNT 7.7 10^3/uL (4.3-11.0)
[2020-06-27 05:38] LABS: ALBUMIN 2.4 GM/DL (3.2-4.5); POTASSIUM 3.1 MMOL/L (3.6-5.0)
[2020-06-27 05:40] LABS: CALCIUM 10.3 MG/DL (8.5-10.1)
[2020-06-27 05:41] LABS: TOTAL PROTEIN 5.1 GM/DL (6.4-8.2)
[2020-06-27 05:43] LABS: BILIRUBIN,TOTAL 0.3 MG/DL (0.1-1.0)
[2020-06-27 05:45] LABS: CREATININE SERUM 2.3 MG/DL (0.60-1.30)
[2020-06-27] MEDS: inSUlin ASPART (NovoLOG) 1 UNIT/0.01 ML (CHARGE PER UNIT) SC SCH ×4 (05:53→21:34)
--- NOTE | 2020-06-27 08:00 | Progress Note ---
Subjective Subjective Date Seen by Provider: Jun 27, 2020 Time Seen by Provider: 07:54 PT IS A 70 Y/O FEMALE WHO IS A NEW PATIENT TO MY PRACTICE OF 06/10/2020. THIS MORNING FRIEDA WAS CHATTING WITH THE FLOORLEADER AND SOON I WALKED INTO THE ROOM, SHE WAS LETHARGIC AND DID NOT CONVERSE MUCH WITH ME. SHE REP ORTED THAT SHE WAS TOO WEAK TO FEED HERSELF TO EAT AND TOO WEAK TO CUT UP HER OWN FOOD. HOWEVER IMMEDIATELY PRIOR TO THIS SQUARING MACHINE OPERATOR WALKING INTO THE ROOM, THE PATIENT WAS ACTIVELY ASKING THE FLOORLEADER IF SHE HAD ANY BREAKFAST AND IF SO COULD IT BE BROUGHT INTO THE ROOM FOR HER TO EAT. PT SUSTAINED A WITNESSED FALL AT HOME, THE FALL APPEARED TO BE PURPOSEFUL ON THE PART OF THE PATIENT. PRIOR TO THE FALL SUSTAINED ON 06/25/2020, SHE HAS APPARENTLY "SAT HERSELF DOWN" ON THE TWO STEPS DOWN TO THE LIVING ROOM AND THEN SAID IT WAS HER FAMILY'S FAULT SHE FELL BECAUSE THEY ARE "MESSING WITH MY MEDS", HOWEVER HOME HEALTH NURSES ARE THE ONES TO SET UP HER MEDICATIONS. THE FAMILY RECENTLY MOVED HER INTO THEIR HOME AFTER THE DISCHARGE FROM HER RECENT HOSPITALIZATION ON 06/09/2020. THEY DID NOT REALIZE HOW DIFFICULT SHE WOULD BE TO MANAGE BECAUSE HER HER VARIOUS PSYCHIATRIC ISSUES AND ARE WONDERING ABOUT AN ADMISSION TO [facility] ON DISCHARGE. HER SON APPARENTLY DISCUSSED CODE STATUS WITH THE NURSE LAST NIGHT AND DOCUM ENTATION WAS MADE THAT THEY WOULD LIKE TO PURSUE DNR INSTEAD OF FULL CODE STATUS. Review of Systems General: Fatigue, Malaise, Other (PT APPEARS LETHARGIC) HEENT: No Head Aches, No Dysphasia Pulmonary: Dyspnea; No Cough Cardiovascular: No: Chest Pain, Palpitations Gastrointestinal: No: Nausea, Abdominal Pain Genitourinary: Other (EDDY IN PLACE) Neurological: Weakness All Other Systems Reviewed All Other Systems Reviewed: Yes Objective Exam Vital Signs Vital Signs - First Documented 06/25/20 06/25/20 20:05 20:10 Temp 36.0 Pulse 73 Resp 15 B/P (MAP) 195/100 (131) Pulse Ox 97 O2 Delivery Simple Mask O2 Flow Rate 10.00 FiO2 97 Capillary Refill : Less Than 3 SecondsLess Than 3 Seconds General Appearance: Chronically ill, Other (LETHARGIC, DOES NOT OPEN EYES VERY FAR, HOWEVER WHEN I MENTIONED FUTURE PLANS AND POSSIBLY GOING TO THE CUSTODIAL, PT PERKED UP) HEENT: PERRL/EOMI, Pharynx Normal Neck: Full Range of Motion, Non Tender, Supple Respiratory: Decreased Breath Sounds (POOR EFFORT), Other (FAINT CRACKLES IN BASES) Cardiovascular: Regular Rate, Rhythm, Systolic Murmur Gastrointestinal: Normal Bowel Sounds, Soft, Tenderness (RUQ) Extremity: Pedal Edema (TRACE) Neurologic/Psychiatric: Other (AWAKENS TO VOICE, DOES APPEAR LETHARGIC, CONVERSES APPROPRIATELY WHEN STIMULATED TO DO SO BY VOICE COMMANDS, FLAT AFFECT) Skin: Warm/Dry, Pallor Results Lab Laboratory Tests 06/26/20 09:30: Activated Partial Thromboplast Time 136*H 06/26/20 11:02: Glucometer 87 06/26/20 12:25: Lactic Acid Level 0.71 06/26/20 16:31: Activated Partial Thromboplast Time 101H 06/26/20 16:56: Glucometer 110 06/26/20 22:08: Glucometer 112H 06/26/20 23:27: Activated Partial Thromboplast Time 92H 06/27/20 03:20: Activated Partial Thromboplast Time 103H 06/27/20 05:00: White Blood Count 7.7, Red Blood Count 2.43L, Hemoglobin 7.3L, Hematocrit 23L, Mean Corpuscular Volume 94, Mean Corpuscular Hemoglobin 30, Mean Corpuscular Hemoglobin Concent 32, Red Cell Distribution Width 15.8H, Platelet Count 222, Mean Platelet Volume 12.2, Immature Granulocyte % (Auto) 0, Neutrophils (%) (Auto) 71, Lymphocytes (%) (Auto) 17, Monocytes (%) (Auto) 8, Eosinophils (%) (Auto) 3, Basophils (%) (Auto) 0, Neutrophils # (Auto) 5.5, Lymphocytes # (Auto) 1.3, Monocytes # (Auto) 0.6, Eosinophils # (Auto) 0.2, Basophils # (Auto) 0.0, Immature Granulocyte # (Auto) 0.0, Sodium Level 143, Potassium Level 3.1L, Chloride Level 109H, Carbon Dioxide Level 26, Anion Gap 8, Blood Urea Nitrogen 19H, Creatinine 2.30H, Estimat Glomerular Filtration Rate 21, BUN/Creatinine Ratio 8, Glucose Level 100, Lactic Acid Level 0.44L, Calcium Level 10.3H, Corrected Calcium 11.6H, Total Bilirubin 0.3, Aspartate Amino Transf (AST/SGOT) 32, Alanine Aminotransferase (ALT/SGPT) 21, Alkaline Phosphatase 41, Total Protein 5.1L, Albumin 2.4L, Procalcitonin 0.14H Microbiology 06/25/20 Influenza Types A,B Antigen (JERONIMO) - Final, Complete Assessment/Plan Assessment/Plan Admission Status: Inpatient Order (span 2 midnights) Reason for Inpatient Admission: INPT ADMISSION FOR ANEMIA, RENAL FAILURE, FALL, PNEUMONIA, PANCREATITIS. Problems: (1) Near syncope Assessment & Plan: PT HAD A FALL AT HOME WITNESSED, MONITOR SYMPTOMS, WILL NOT BE ALLOWED TO AMBULATE WITHOUT STAFF, AND WILL START PHYSICAL THERAPY TOMORROW. (2) Pancreatitis Qualifiers: Qualified Codes: K85.10 - Biliary acute pancreatitis without necrosis or infection (3) Right lower lobe pneumonia Qualifiers: Qualified Codes: J18.9 - Pneumonia, unspecified organism (4) Acute on chronic renal insufficiency Assessment & Plan: NEW ONSET OVER THE PAST FEW YEARS, UNCERTAIN OF LENGTH OF HER RENAL INSUFFICIENCY - LAST HOSPITAL LABS AVAILABLE - RENAL FUNCTION WAS POOR, PRIOR TO 2016, PT HAD NORMAL RENAL FUNCTIONING. WILL RENALLY ADJUST MEDS, MONITOR LABS SERIALLY (5) CKD (chronic kidney disease) stage 3, GFR 30-59 ml/min Assessment & Plan: UNCERTAIN LENGTH OF RENAL DYSFUNCTION, MONITOR LABS CLOSELY (6) Hypercalcemia syndrome Assessment & Plan: IMPROVING - PT HAD ELEVATED CALCIUM ON HER LAST HOSP ITALIZATION WITH THE HOSPITALIST SERVICE, UNKNOWN IF THIS WAS INVESTIGATED DURING HER PREVIOUS HOSPITALIZATION. WILL CHECK PTH, VITAMIN D POSSIBLE MALIGNANCY INDUCED ELEVATION OF CALCIUM, CT WITH CONTRAST NOT ABLE TO BE OBTAINED DUE TO HER RENAL FUNCTION, WILL CONSIDER FURTHER INVESTIGATION ONCE RENAL FUNCTION IMPROVES. (7) Hypokalemia Assessment & Plan: MONITOR - DUE TO HER RENAL FUNCTION BEING SO POOR, WILL NOT BE OVERLY AGGRESSIVE WITH POTASSIUM REPLACEMENT, WILL GIVE ONLY 10MEQ TODAY OF POTASSIUM REPEAT LABS IN MORNING (8) Parkinson disease Assessment & Plan: - LONG STANDING PER FAMILY REPORT - PT SEES DR. ARTIS - NEUROLOGY IN [facility] MEDS RESUMED (9) Hypertension Qualifiers: Qualified Codes: I10 - Essential (primary) hypertension Assessment & Plan: RESUMED COREG AND VERAPAMIL MONITOR PRESSURES CLOSELY (10) Elevated d-dimer Assessment & Plan: PT ON HEPARIN DRIP FOR SUSPECTED PE, CANNOT DO CT ANGIO DUE TO HER RENAL FUNCTION PT NOT ABLE TO PARTICIPATE IN VQ SCAN DUE TO HER LETHARGY (11) Diabetes mellitus, type 2 Qualifiers: Assessment & Plan: - UNCERTAIN LEVEL OF CONTROL, THIS PATIENT IS NEW TO ME OF 06/10/2020 AND THE HOSPITAL RECORDS DO NOT REVEAL ANY RECENT HGBA1C LEVELS, THEREFORE I WILL ORDER ONE TO BE ADDED TO BLOOD IN LAB. - PT IS NOT ON ANY ORAL MEDICATIONS OR INJECTABLE MEDS FOR DIABETES. (12) Chronic pancreatitis Qualifiers: Qualified Codes: K86.1 - Other chronic pancreatitis Assessment & Plan: PT HAD PANCREATITIS ON LAST HOSPITALIZATION -SUSPECT DUE TO GALLSTONES I HAVE CALLED IN A CONSULT TO DR. GRAY FOR EVAL. IF THIS IS A CHRONIC ISSUE DUE TO HER CHOLELITHIASIS - SHE WILL NEED TO BE CONSIDERED FOR SURGICAL INTERVENTION ZANE TO PREVENT RECURRENT HOSPITALIZATIONS FOR PANCREATITIS. (13) Nausea & vomiting Qualifiers: Qualified Codes: R11.2 - Nausea with vomiting, unspecified Assessment & Plan: DUE TO PANCREATITIS (14) Anemia in chronic illness Assessment & Plan: CHECK IRON PANEL TODAY IF NORMAL, WILL NEED TO CHECK ERYTHROPOETIN LEVEL DUE TO HER RENAL DISEASE. (15) DVT prophylaxis Assessment & Plan: PT ON HEPARIN DRIP DUE TO SUSPECTED PULMONARY EMBOLUS - WILL LIKELY SWITCH TO NOAC THERAPY WITH XARELTO PREFERRED DUE TO COST OF MEDICATIONS SINCE IT APPEARS PT HAS NEW ONSET AFIB. Clinical Quality Measures DVT/VTE Risk/Contraindication: Risk Factor Score Per Nursin RFS Level Per Nursing on Admit: 2=Moderate JOSE IBARRA MD Jun 27, 2020 08:00
[2020-06-27] MEDS: VERAPAMIL SR 240 MG (CALAN SR) TAB PO SCH (08:36)
[2020-06-27] MEDS: ALPRAZolam 0.25 MG (XANAX) TAB PO SCH ×2 (08:36→21:35)
[2020-06-27] MEDS: rOPINIRole 1 MG (REQUIP) TABLET PO SCH ×3 (08:36→21:35)
[2020-06-27] MEDS: ROSUVASTATIN 10 MG (CRESTOR) TABLET PO SCH (08:37)
[2020-06-27] MEDS: GABAPENTIN 400 MG (NEURONTIN) CAP PO SCH ×2 (08:37→21:35)
[2020-06-27] MEDS: BACLOFEN 10 MG (LIORESAL) TAB PO SCH ×2 (08:37→21:34)
[2020-06-27] MEDS: CARVEDILOL 6.25 MG (COREG) TAB PO SCH ×2 (08:38→21:33)
[2020-06-27] MEDS: PANTOPRAZOLE 40 MG (PROTONIX) VIAL IV SCH (08:38)
[2020-06-27] MEDS ORDERED: NON-FORMULARY MEDICATION 1 EA EA (Vortioxetine Hydrobromide (Trintellix) 20 MG) PO SCH (09:00)
[2020-06-27] MEDS ORDERED: NON-FORMULARY MEDICATION 1 EA EA (Fenofibrate Nanocrystallized (Fenofibrate) 145 MG) PO SCH (09:00)
--- NOTE | 2020-06-27 09:05 | NUR ---
Pt's HR ranging from 120-140's and afib. Pt denies chest pain but indicates she can feel heart beating fast. Dr Ivan consulted with Dr Ziegler.
--- NOTE | 2020-06-27 09:27 | Diagnostic Imaging Report ---
Indication: Pneumonia EXAMINATION: Chest 06/27/2020 COMPARISON: 06/26/2020 FINDINGS: There is a left base infiltrate and effusion. Findings of edema seen throughout both lungs with pulmonary vascular congestion present. No pneumothorax appreciated. Postoperative changes seen in the left upper chest. IMPRESSION: 1. Left base infiltrate and effusion increased from recent. 2. Worsening pulmonary edema. Dictated by: Dictated on workstation # [id number]
--- NOTE | 2020-06-27 09:50 | NUR ---
telephone order received from for protonix 40mg IV BID, to get an H&H 1 hour after the last unit of PRBC (3 of 3) that is infusing is infused, to consult the general surgeon supervisor bonding- may contact him in the AM, to get an occult blood stool and to keep patient on a CL diet. This nurse will continue to closely monitor patient. Addendum: 06/27/20 at 2239 by DAI MATHEWS RN wrong time
[2020-06-27 10:33] LABS: FREE T4 (FREE THYROXINE) 0.99 NG/DL (0.70-1.48)
[2020-06-27] MEDS ORDERED: ASPIRIN E.C. 325 MG (ECOTRIN) TABLET PO SCH (12:00)
--- NOTE | 2020-06-27 12:00 | NUR ---
THIS NURSE RECEIVED REPORT FROM ANNA YOUNG.
[2020-06-27] MEDS: VANCOMYCIN 1 GM/NS 250 ML IVPB IV SCH ×2 (12:35)
--- NOTE | 2020-06-27 12:50 | NUR ---
THIS NURSE NOTIFIED DR IBARRA PT IS VERY LETHARGIC BUT RESPONSIVE. PT IS REQUIRING 12 LITER OF OXYGEN TO KEEP O2 SATURATIONS AT 90%. PT WAS PREVIOUSLY ON 2 LITERS NC. ORDER GIVEN TO PUT PT ON BIPAP, OBTAIN ABG, HOLD HS DOSE FOR GABAPENTIN AND BACLOFEN AND HOLD NEXT DOSE OF REQUIP. THIS NURSE ALSO NOTIFIED DR FRED HA HAS NOT BEEN BY TO SEE PT BUT PT CONVERTED BACK ON SR ON HER OWN. THIS NURSE NOTIFIED RT DALTON OF BIPAP ORDER. WILL CONTINUE TO MONITOR.
[2020-06-27 13:17] LABS: ABG BASE EXCESS 3.2 MMOL/L (-2.5-2.5); ABG OXYGEN SATURATION 97 % (94-100); ABG PCO2 50 MMHG (35-45); ABG PH 7.37 (7.37-7.43); ABG PO2 87 MMHG (79-93); ABG TCO2 29.6 MMOL/L (21.0-31.0)
[2020-06-27 13:19] LABS: PATIENT TEMP 36.9
--- NOTE | 2020-06-27 14:22 | Consultation-Cardiology ---
HPI-Cardiology Cardiology Consultation: Date of Consultation 06/27/20 Time Seen by a Provider: 14:30 Date of Admission Attending Physician Jamila Ivan MD Admitting Physician Yosvany Jorgensen MD Consulting Physician VANESSA HA MD, MA, FACP, FACC, FSCAI, CCDS Physician requesting consult: Dr Ivan HPI: Chief Complaint: Reason for consultation: A Fib with RVR HPI 70 yo woman admitted with gen weakness, fall (possible syncope), shortness of breath and gen malaise. Found to be in AF with RVR this am. Dr Ivan asked us to see in cardiac consultation. A Fib occurred apparently during sleep. Resolved after treatment for sleep apnea resumed. On BiPAP and somnolent at time of my visit. Did not answer questions in any detail. Denies cp or palp. Does not recall what led to this hospitalization Review of Systems-Cardiology Review of Systems Constitutional: other (Unable or unwilling to provide a detailed ROS) Eyes: No vision change Ears/Nose/Throat: No recent hearing loss Respiratory: As described under HPI Cardiovascular: As described under HPI Gastrointestinal: vomiting (vomiting on day of and day prior to admission) Genitourinary: No dysuria, No hematuria Musculoskeletal: back pain (chronic) Skin: No rash, No ulcerations Psychiatric/Neurological: No focal weakness Hematologic: No bleeding abnormalities All Other Systems Reviewed Negative Unless Noted: Yes TBD-Rhithn-Htdelj Hx Patient Social History Marrital Status: single Employed/Student: retired Alcohol Use: Denies Use Recreational Drug Use: No Smoking Status: Never a Smoker Recent Foreign Travel: No Recent Infectious Disease Expo: No Hospitalization with Isolation: Denies Immunizations Up To Date Tetanus Booster (TDap): Less than 5yrs Date of Pneumonia Vaccine: Apr 03, 2019 Date of Influenza Vaccine: Apr 03, 2020 Past Medical History PMH As described under Assessment. Family Medical History Family History: Cardiovascular disease 19 FATHER Completed stroke 19 MOTHER FH: leukemia 19 MOTHER Allergies and Home Medications Allergies Coded Allergies: morphine (Verified Allergy, Intermediate, HIVES...TAKES HYDROCODONE AT HOME, 03/20/08) acetaminophen (Verified Allergy, Mild, HIVES...TAKES HYDROCODONE AT HOME, 03/20/08) bacitracin (Verified Allergy, Unknown, 08/16/07) cyproheptadine (Verified Allergy, Unknown, 08/16/07) fluoxetine (Verified Allergy, Unknown, 08/16/07) gramicidin D (Verified Allergy, Unknown, 08/16/07) neomycin (Verified Allergy, Unknown, 08/16/07) polymyxin B (Verified Allergy, Unknown, 08/16/07) tizanidine (Verified Allergy, Unknown, 08/16/07) tramadol (Verified Allergy, Unknown, 08/16/07) Uncoded Allergies: ARTHRITIS MEDS (Allergy, Unknown, 08/16/07) DECONGESTANTS (Allergy, Unknown, 08/16/07) Home Medications ALPRAZolam 0.25 Mg Tablet, 0.25 MG PO BID, (Reported) Albuterol Sulfate 2.5 Mg/3 Ml Vial.neb, 3 ML NEB QID PRN for SHORTNESS OF BREATH, (Reported) Aripiprazole 5 Mg Tablet, 2.5 MG PO Q48H, (Reported) Aspirin 325 Mg Tablet.dr, 325 MG PO 1200, (Reported) Baclofen 10 Mg Tablet, 5 MG PO BID, (Reported) TAKES OF A 10MG TAB Carvedilol 6.25 Mg Tablet, 6.25 MG PO BID, (Reported) Cetirizine HCl 10 Mg Tablet, 10 MG PO DAILY, (Reported) Cholecalciferol (Vitamin D3) 25 Mcg Capsule, 50 MCG PO 1200, (Reported) Cyanocobalamin (Vitamin B-12) 50 Mcg Lozenge, 100 MCG PO DAILY, (Reported) Famotidine 20 Mg Tablet, 20 MG PO BID, (Reported) Fenofibrate Nanocrystallized 145 Mg Tablet, 145 MG PO DAILY, (Reported) Furosemide 20 Mg Tablet, 20 MG PO Q48H, (Reported) Gabapentin 800 Mg Tablet, 800 MG PO BID, (Reported) Montelukast Sodium 10 Mg Tablet, 10 MG PO HS, (Reported) Multivitamin 1 Each Tablet, 1 EACH PO DAILY, (Reported) [place]-3/Dha/Epa/Fish Oil 1 Each Capsule, 1 EACH PO DAILY, (Reported) Ondansetron HCl 4 Mg Tablet, 4 MG PO TID PRN for NAUSEA/VOMITING-1ST LINE, (Reported) Potassium Chloride 20 Meq Tab.er.prt, 20 MEQ PO Q48H, (Reported) Quinapril HCl 20 Mg Tablet, 20 MG PO DAILY, (Reported) Ropinirole HCl 1 Mg Tablet, 1 MG PO TID, (Reported) Rosuvastatin Calcium 10 Mg Tablet, 10 MG PO DAILY, (Reported) Verapamil HCl 240 Mg Tablet.er, 240 MG PO DAILY, (Reported) Vortioxetine Hydrobromide 20 Mg Tablet, 20 MG PO DAILY, (Reported) Patient Home Medication List Home Medication List Reviewed: Yes Physical Exam-Cardiology Physical Exam Vital Signs/I&O 06/27/20 06/27/20 06/27/20 06/27/20 07:00 08:00 08:04 09:00 Temp 36.0 Pulse 89 84 Resp 26 B/P (MAP) 128/80 (96) Pulse Ox 94 92 92 O2 Delivery Nasal Cannula Nasal Cannula Nasal Cannula O2 Flow Rate 2.00 2.00 2.00 FiO2 97 97 06/27/20 06/27/20 06/27/20 06/27/20 12:00 12:15 12:30 13:08 Temp 36.6 Pulse 54 Resp 18 Pulse Ox 92 91 95 O2 Delivery Nasal Cannula Nasal Cannula O2 Flow Rate 2.00 8.00 100.00 06/27/20 06/27/20 06/27/20 06/27/20 13:15 13:46 14:46 15:48 Temp 36.0 Pulse 54 71 Resp 18 21 B/P (MAP) 101/55 (70) Pulse Ox 95 100 O2 Delivery NIV Bilevel NIV Bilevel NIV Bilevel O2 Flow Rate 100.00 50.00 50.00 50.00 06/27/20 00:00 Intake Total 300 ml Balance 300 ml Capillary Refill : Less Than 3 SecondsLess Than 3 Seconds Data Review Labs Laboratory Tests 06/26/20 16:31: Activated Partial Thromboplast Time 101H 06/26/20 16:56: Glucometer 110 06/26/20 22:08: Glucometer 112H 06/26/20 23:27: Activated Partial Thromboplast Time 92H 06/27/20 03:20: Activated Partial Thromboplast Time 103H 06/27/20 05:00: White Blood Count 7.7, Red Blood Count 2.43L, Hemoglobin 7.3L, Hematocrit 23L, Mean Corpuscular Volume 94, Mean Corpuscular Hemoglobin 30, Mean Corpuscular Hemoglobin Concent 32, Red Cell Distribution Width 15.8H, Platelet Count 222, Mean Platelet Volume 12.2, Immature Granulocyte % (Auto) 0, Neutrophils (%) (Auto) 71, Lymphocytes (%) (Auto) 17, Monocytes (%) (Auto) 8, Eosinophils (%) (Auto) 3, Basophils (%) (Auto) 0, Neutrophils # (Auto) 5.5, Lymphocytes # (Auto) 1.3, Monocytes # (Auto) 0.6, Eosinophils # (Auto) 0.2, Basophils # (Auto) 0.0, Immature Granulocyte # (Auto) 0.0, Sodium Level 143, Potassium Level 3.1L, Chl oride Level 109H, Carbon Dioxide Level 26, Anion Gap 8, Blood Urea Nitrogen 19H, Creatinine 2.30H, Estimat Glomerular Filtration Rate 21, BUN/Creatinine Ratio 8, Glucose Level 100, Lactic Acid Level 0.44L, Calcium Level 10.3H, Corrected Calcium 11.6H, Total Bilirubin 0.3, Aspartate Amino Transf (AST/SGOT) 32, Alanine Aminotransferase (ALT/SGPT) 21, Alkaline Phosphatase 41, Total Protein 5.1L, Albumin 2.4L, Procalcitonin 0.14H, Thyroid Stimulating Hormone (TSH) 0.77, Free Thyroxine 0.99 06/27/20 10:45: Iron Level 16L, Total Iron Binding Capacity 222L, Unsaturated Iron Binding Capacity 206, Transferrin % Saturation 7L 06/27/20 12:03: Glucometer 101 06/27/20 13:03: Blood Gas Puncture Site UNK, Blood Gas Patient Temperature 36.9, Arterial Blood pH 7.37, Arterial Blood Partial Pressure CO2 50H, Arterial Blood Partial Pressure O2 87, Arterial Blood HCO3 28H, Arterial Blood Total CO2 29.6, Arterial Blood Oxygen Saturation 97, Arterial Blood Base Excess 3.2H, Killian Test UNK, Blood Gas Ventilator Setting NA, Blood Gas Inspired Oxygen UNK Microbiology 06/25/20 Influenza Types A,B Antigen (JERONIMO) - Final, Complete A/P-Cardiology Assessment/Admission Diagnosis PAF with RVR, probably precipitated by JUDY JUDY, treated with CPAP LINNETTE-3, probably related to volume depletion Hypercalcemia of undetermined etiology, [facility] Recent pancreatitis Severe anemia of undetermined etiology Chronic diastolic congestive heart failure, currently clinically compensated Echocardiogram of May 30, [address] Crump showed normal LV size, LVEF 60-65%. PASP 15-20mmHg Minimal troponin elevation, likely type 2 [place] due to uncontrolled hypertension, chronic diastolic CHF, and ac renal failure Coronary artery disease-patient underwent cardiac catheterization October 11, [address] Crump revealing mild coronary artery disease with 40-50 percent proximal to mid LAD stenosis, nonobstructive disease; otherwise no significant obstructive disease. Normal EF H/o unsteady gait and fatigue with loss of energy Hyperlipidemia, hold statin for now due to pancreatitis Mild bilateral carotid stenosis, history of left CEA in 2005, as well as history of left common carotid stenting. Most recent carotid duplex done May [address] Crump showing mild bilateral disease nonobstructive disease, continue to monitor. Diabetes Mellitus complicated by diabetic neuropathy Fibromyalgia Discussion and Recomendations * Treat JUDY * Dilt for vent rate control * Apixaban for stroke prophylaxis. Lower dose because Cr greater than 2 and because of severe anemia (GI bleed not excluded) * D/c iv heparin that she is currently on * Lower the dose of aspirin to reduce risk of bleeding * Monitor and correct labs Clinical Quality Measures DVT/VTE Risk/Contraindication: Risk Factor Score Per Nursin RFS Level Per Nursing on Admit: 2=Moderate VANESSA HA MD FACP FACC CCDS Jun 27, 2020 14:22
--- NOTE | 2020-06-27 15:42 | Consultation - Surgery ---
History of Present Illness History of Present Illness Patient Consulted On(jac/time) 06/27/20 15:27 Time Seen by Provider: 13:06 History of Present Illness Surgery asked to consult regarding hx of pancreatitis and gallstones. HPI per IM: This is a 70yoWF previous clinic patient of [facility] who is known to me from prior hospital stay for pancreatitis and elevated calcium level who presents to the ER with AMS and a fall and hypoxia. Patient is currently lethargic and no details obtained for the patient. Records reviewed and RN has updated me on some details. SW has reached out to son and she still wants to be fully treated and a full code which needs to be addressed due to significant debility and significant poor prognosis. Apparently patient established with Dr Ivan whom I spoke to and she will see the patient tomorrow on her rounds but in the meantime I am trying to evaluate the source of her AMS and CT was re viewed and it appears there is an infiltrate so PNA protocol initiated for HAP and she remains on a Heparin drip due to suspected PE. Labs reviewed and I initiate IVF gently along with checking LA and more testing to evaluate the complicating issues she is having now. HPI per ED: Patient presents to the ER by EMS from home where family says she was getting up out of the couch using her walker and she slipped falling backwards striking her head hard against the floor. She was giving one-word ans wers and registering oxygen saturation of 75% peripherally so they put her on 3 L by nasal cannula which brought her up to 92% and put in end-tidal CO2 which was reading at 30. Patient was not complaining of pain anywhere. C-collar was initiated by EMS. The patient is not on blood thinners but does take aspirin. History of pancreatitis, pneumonia last month, chronic renal insufficiency, anemia, congestive heart failure with an echocardiogram May 30, 2020 showing normal left ventricular size, left ventricular ejection fraction 60 to 65% with diastolic dysfunction. Coronary artery disease with a cardiac catheterization 2016 demonstrating mild coronary artery disease with 40 to 50% proximal to mid LAD stenosis nonobstructive. History of syncope being treated for major depression and anxiety. History of labile hypertension, hyperlipidemia, mild bilateral carotid stenosis with a left CEA 2005 and carotid duplex ultrasound 2018 showing mild disease. History of diabetes mellitus, fibromyalgia, diabetic neuropathy, anxiety, depression. When I spoke to pt she appeared comfortable, had BiPap on and was lethargic. I was able to wake her, but she really wouldn't answer all my questions. She denied any abdominal pain. CT read as continued moncho-pancreatic edema. Allergies and Home Medications Allergies Coded Allergies: morphine (Verified Allergy, Intermediate, HIVES...TAKES HYDROCODONE AT HOME, 03/20/08) acetaminophen (Verified Allergy, Mild, HIVES...TAKES HYDROCODONE AT HOME, 03/20/08) bacitracin (Verified Allergy, Unknown, 08/16/07) cyproheptadine (Verified Allergy, Unknown, 08/16/07) fluoxetine (Verified Allergy, Unknown, 08/16/07) gramicidin D (Verified Allergy, Unknown, 08/16/07) neomycin (Verified Allergy, Unknown, 08/16/07) polymyxin B (Verified Allergy, Unknown, 08/16/07) tizanidine (Verified Allergy, Unknown, 08/16/07) tramadol (Verified Allergy, Unknown, 08/16/07) Uncoded Allergies: ARTHRITIS MEDS (Allergy, Unknown, 08/16/07) DECONGESTANTS (Allergy, Unknown, 08/16/07) Home Medications ALPRAZolam 0.25 Mg Tablet, 0.25 MG PO BID, (Reported) Albuterol Sulfate 2.5 Mg/3 Ml Vial.neb, 3 ML NEB QID PRN for SHORTNESS OF BREATH, (Reported) Aripiprazole 5 Mg Tablet, 2.5 MG PO Q48H, (Reported) Aspirin 325 Mg Tablet.dr, 325 MG PO 1200, (Reported) Baclofen 10 Mg Tablet, 5 MG PO BID, (Reported) TAKES OF A 10MG TAB Carvedilol 6.25 Mg Tablet, 6.25 MG PO BID, (Reported) Cetirizine HCl 10 Mg Tablet, 10 MG PO DAILY, (Reported) Cholecalciferol (Vitamin D3) 25 Mcg Capsule, 50 MCG PO 1200, (Reported) Cyanocobalamin (Vitamin B-12) 50 Mcg Lozenge, 100 MCG PO DAILY, (Reported) Famotidine 20 Mg Tablet, 20 MG PO BID, (Reported) Fenofibrate Nanocrystallized 145 Mg Tablet, 145 MG PO DAILY, (Reported) Furosemide 20 Mg Tablet, 20 MG PO Q48H, (Reported) Gabapentin 800 Mg Tablet, 800 MG PO BID, (Reported) Montelukast Sodium 10 Mg Tablet, 10 MG PO HS, (Reported) Multivitamin 1 Each Tablet, 1 EACH PO DAILY, (Reported) [place]-3/Dha/Epa/Fish Oil 1 Each Capsule, 1 EACH PO DAILY, (Reported) Ondansetron HCl 4 Mg Tablet, 4 MG PO TID PRN for NAUSEA/VOMITING-1ST LINE, (Reported) Potassium Chloride 20 Meq Tab.er.prt, 20 MEQ PO Q48H, (Reported) Quinapril HCl 20 Mg Tablet, 20 MG PO DAILY, (Reported) Ropinirole HCl 1 Mg Tablet, 1 MG PO TID, (Reported) Rosuvastatin Calcium 10 Mg Tablet, 10 MG PO DAILY, (Reported) Verapamil HCl 240 Mg Tablet.er, 240 MG PO DAILY, (Reported) Vortioxetine Hydrobromide 20 Mg Tablet, 20 MG PO DAILY, (Reported) Patient Home Medication List Home Medication List Reviewed: Yes Past Ecgcdbp-Zvahip-Kuwxuk Hx Patient Social History Alcohol Use: Denies Use Recreational Drug Use: No Smoking Status: Never a Smoker Recent Foreign Travel: No Contact w/Someone Who Travel: No Recent Infectious Disease Expo: No Recent Hopitalizations: Yes Immunizations Up To Date Tetanus Booster (TDap): Less than 5yrs Date of Pneumonia Vaccine: Apr 03, 2019 Date of Influenza Vaccine: Apr 03, 2020 Seasonal Allergies Seasonal Allergies: No Surgeries History of Surgeries: Yes Surgeries: Coronary Stent Respiratory History of Respiratory Disorde: Yes Respiratory Disorders: Asthma Cardiovascular History of Cardiac Disorders: Yes (L CAROTID) Cardiac Disorders: Angina, Coronary Artery Disease, High Cholesterol, Hypertension, Peripheral Vascular, Syncope Neurological History of Neurological Disord: No Neurological Disorders: Dementia, Parkinson's Disease 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 System : No Hx 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 Disorders: No Female 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 Disorders: Denies FI[employer] History: Menopausal Genitourinary History of Genitourinary Disor: No Gastrointestinal History of Gastrointestinal Di: Yes Gastrointestinal Disorders: Gastroesophageal Reflux, Pancreatitis Musculoskeletal History of Musculoskeletal Dis: Yes Musculoskeletal Disorders: Degenerate Disk Disease, Fibromyalgia Endocrine History of Endocrine Disorders: Yes Endocrine Disorders: Diabetes, Non-Insulin dep HEENT History of HEENT Disorders: No Loss of Vision: Denies Hearing Impairment: Denies Cancer History of Cancer: No Psychosocial History of Psychiatric Problem: Yes Behavioral Health Disorders: Anxiety, Depression Integumentary History of Skin or Integumenta: No Blood Transfusions History of Blood Disorders: No Family Medical History Significant Family History: Cancer, CAD Over 55 Years Old, Stroke Family Medial History: Cardiovascular disease 19 FATHER Completed stroke 19 MOTHER FH: leukemia 19 MOTHER Review of Systems-General Constitutional: malaise, weakness EENTM: No mouth pain, No mouth swelling, No epistaxis Respiratory: No cough; dyspnea on exertion; No hemoptysis; short of breath Cardiovascular: No chest pain, No edema Gastrointestinal: No abdominal pain, No jaundice, No nausea, No vomiting Genitourinary: No dysuria, No frequency, No hematuria Musculoskeletal: joint pain, joint swelling, muscle pain, muscle stiffness Skin: No change in color, No change in hair/nails Psychiatric/Neurological: Depressed, Emotional Problems; Denies Seizure, Denies Tremors Physical Exam-General Problems Physical Exam Vital Signs Vital Signs - First Documented 06/25/20 06/25/20 20:05 20:10 Temp 36.0 Pulse 73 Resp 15 B/P (MAP) 195/100 (131) Pulse Ox 97 O2 Delivery Simple Mask O2 Flow Rate 10.00 FiO2 97 Capillary Refill : Less Than 3 SecondsLess Than 3 Seconds General Appearance: WD/WN, no apparent distress Eyes: Bilateral Eye PERRL, Bilateral Eye EOMI HEENT: PERRL/EOMI; No scleral icterus (R), No scleral icterus (L); other (BiPap mask on) Neck: non-tender, supple Respiratory: no respiratory distress, no accessory muscle use, decreased breath sounds (at bases), crackles (bases) Cardiovascular: regular rate, rhythm, no murmur Gastrointestinal: non tender, soft, no organomegaly, distended (secondary to body habitus), tenderness Rectal: deferred Back: no CVA tenderness, no vertebral tenderness Extremities: no calf tenderness, normal capillary refill, pedal edema Neurologic/Psychiatric: medical records tech II-XII nml as tested, alert Skin: normal color, warm/dry Lymphatic: no adenopathy (neck, axilla or groin) Data Review Labs Laboratory Tests 06/26/20 16:31: Activated Partial Thromboplast Time 101H 06/26/20 16:56: Glucometer 110 06/26/20 22:08: Glucometer 112H 06/26/20 23:27: Activated Partial Thromboplast Time 92H 06/27/20 03:20: Activated Partial Thromboplast Time 103H 06/27/20 05:00: White Blood Count 7.7, Red Blood Count 2.43L, Hemoglobin 7.3L, Hematocrit 23L, Mean Corpuscular Volume 94, Mean Corpuscular Hemoglobin 30, Mean Corpuscular Hemoglobin Concent 32, Red Cell Distribution Width 15.8H, Platelet Count 222, M serge Platelet Volume 12.2, Immature Granulocyte % (Auto) 0, Neutrophils (%) (Auto) 71, Lymphocytes (%) (Auto) 17, Monocytes (%) (Auto) 8, Eosinophils (%) (Auto) 3, Basophils (%) (Auto) 0, Neutrophils # (Auto) 5.5, Lymphocytes # (Auto) 1.3, Monocytes # (Auto) 0.6, Eosinophils # (Auto) 0.2, Basophils # (Auto) 0.0, Immature Granulocyte # (Auto) 0.0, Sodium Level 143, Potassium Level 3.1L, Chloride Level 109H, Carbon Dioxide Level 26, Anion Gap 8, Blood Urea Nitrogen 19H, Creatinine 2.30H, Estimat Glomerular Filtration Rate 21, BUN/Creatinine Ratio 8, Glucose Level 100, Lactic Acid Level 0.44L, Calcium Level 10.3H, Corrected Calcium 11.6H, Total Bilirubin 0.3, Aspartate Amino Transf (AST/SGOT) 32, Alanine Aminotransferase (ALT/SGPT) 21, Alkaline Phosphatase 41, Total Protein 5.1L, Albumin 2.4L, Procalcitonin 0.14H, Thyroid Stimulating Hormone (TSH) 0.77, Free Thyroxine 0.99 06/27/20 10:45: 06/27/20 12:03: Glucometer 101 06/27/20 13:03: Blood Gas Puncture Site UNK, Blood Gas Patient Temperature 36.9, Arterial Blood pH 7.37, Arterial Blood Partial Pressure CO2 50H, Arterial Blood Partial Pressure O2 87, Arterial Blood HCO3 28H, Arterial Blood Total CO2 29.6, Arterial Blood Oxygen Saturation 97, Arterial Blood Base Excess 3.2H, Killian Test UNK, Blood Gas Ventilator Setting NA, Blood Gas Inspired Oxygen UNK Microbiology 06/25/20 Influenza Types A,B Antigen (JERONIMO) - Final, Complete Radiology Date of Exam:06/25/20 CT CHEST WO PROCEDURE: CT chest without contrast. TECHNIQUE: Multiple contiguous axial images were obtained through the chest without the use of intravenous contrast. Auto Exposure Controls were utilized during the CT exam to meet ALARA standards for radiation dose reduction. INDICATION: Hypoxia. COMPARISON: Prior examination from 06/03/2020. FINDINGS: The previously seen groundglass infiltrate in the right upper lobe has almost completely resolved. The left basilar consolidation is increased. There is also now some right basilar atelectasis and/or pneumonitis. There are trace bilateral pleural effusions. There is cardiomegaly. There are coronary artery calcifications. There is marked elevation of the left hemidiaphragm. There is no pneumothorax. Thoracic aorta is normal in caliber. There is no pathologically enlarged adenopathy in the chest. There is no pneumothorax. There is cholelithiasis. There is some persistent mild peripancreatic edema. There are degenerative changes in the spine. IMPRESSION: 1. Increasing left basilar consolidation as well some right basilar atelectasis and/or pneumonitis. The previously described right upper lobe groundglass infiltrate has resolved. 2. Trace bilateral pleural effusions. 3. Cardiomegaly and coronary artery calcination. 4. Marked elevation of the left hemidiaphragm. 5. Cholelithiasis. 6. Persistent mild peripancreatic edema possibly reflecting residual pancreatitis. Recommend clinical correlation. Dictated by: Dictated on workstation # [id number] Dict: 06/[id number]/[id number] Trans: 06/25/202200 [facility] [phone] Interpreted by: ANISH TAVERAS MD Electronically signed by: ANISH TAVERAS MD 06/25/202200 Assessment/Plan Assessment/Plan Assessment/Plan Cholelithiasis without cholecystitis Hx of Pancreatitis - looks like may be chronic at this point Pneumonia Dementia and Parkinson's disease At this point pt does not really have any signs of acute pancreatitis or cholecystitis; although she does have some continued edema around the pancreas. I think treating her pneumonia and monitoring her dementia is the most important thing at this point. No signs or reasons for any surgical intervention at this point. I will follow along to make sure nothing changes. Clinical Quality Measures DVT/VTE Risk/Contraindication: Risk Factor Score Per Nursin RFS Level Per Nursing on Admit: 2=Moderate KAHLIL GRAY DO Jun 27, 2020 15:42
[2020-06-27] MEDS ORDERED: APIXABAN 5 MG (ELIQUIS) TABLET PO ONE (16:15)
--- NOTE | 2020-06-27 17:21 | NUR ---
Attempted to update son by phone however number used was not answered at this time.
[2020-06-27] MEDS: MONTELUKAST 10 MG (SINGULAIR) TAB PO SCH (21:32)
[2020-06-27] MEDS: FAMOTIDINE 20 MG (PEPCID) TABLET PO SCH (21:32)
[2020-06-27] MEDS: FENOFIBRATE 134 MG (LOFIBRA) CAPSULE PO SCH (21:34)
--- NOTE | 2020-06-27 21:50 | NUR ---
telephone order received from at 2150 for protonix 40mg IV BID, to get an H&H 1 hour after the last unit of PRBC (3 of 3) that is infusing is infused, to consult the general surgeon labor economics professor- may contact him in the AM, to get an occult blood stool and to keep patient on a CL diet. This nurse will continue to closely monitor patient. Addendum: 06/27/20 at 2240 by DAI MATHEWS RN wrong patient!
--- NOTE | 2020-06-27 21:50 | NUR ---
Telephone order received from to give 20mg Lasix IV now once and to hold Gabapentin, Baclofen and Requip tonight, and to also hold Xanax if patient does not need it. Patient is relaxed, has no complaints and is resting so Xanax will also be held. This nurse will continue to closely monitor.
[2020-06-27] MEDS ORDERED: FUROSEMIDE 40 MG/4 ML INJ (LASIX) IVP ONE (22:45)
[2020-06-28] VITALS (11 sets, daily range): BP systolic 122–154; BP diastolic 67–77
[2020-06-28] MEDS: MEROPENEM 500 MG in WATER (STERILE) FOR INJECTION 10 ML IV SCH ×3 (00:04→23:48)
[2020-06-28] MEDS: NS IV 1000 ML 1,000 ML IV SCH ×3 (03:25→23:45)
[2020-06-28 03:56] LABS: HEMOGLOBIN 7.4 g/dL (11.5-16.0); MEAN PLATELET VOLUME 12.8 fL (9.0-12.2); WHITE BLOOD COUNT 5.7 10^3/uL (4.3-11.0)
[2020-06-28 04:05] LABS: ALBUMIN 2.3 GM/DL (3.2-4.5)
[2020-06-28 04:07] LABS: CALCIUM 9.2 MG/DL (8.5-10.1)
[2020-06-28 04:09] LABS: BILIRUBIN,TOTAL 0.4 MG/DL (0.1-1.0)
[2020-06-28 04:12] LABS: CREATININE SERUM 2.01 MG/DL (0.60-1.30)
[2020-06-28] MEDS: inSUlin ASPART (NovoLOG) 1 UNIT/0.01 ML (CHARGE PER UNIT) SC SCH ×4 (06:00→21:02)
[2020-06-28] MEDS: ROSUVASTATIN 10 MG (CRESTOR) TABLET PO SCH (08:27)
[2020-06-28] MEDS: PANTOPRAZOLE 40 MG (PROTONIX) VIAL IV SCH (08:27)
[2020-06-28] MEDS: VERAPAMIL SR 240 MG (CALAN SR) TAB PO SCH (08:27)
[2020-06-28] MEDS: ASPIRIN E.C. 81 MG (ECOTRIN) TAB PO SCH (08:27)
[2020-06-28] MEDS: CARVEDILOL 6.25 MG (COREG) TAB PO SCH ×2 (08:28→21:02)
[2020-06-28] MEDS: APIXABAN 2.5 MG (ELIQUIS) TABLET PO SCH ×2 (08:28→21:01)
--- NOTE | 2020-06-28 09:10 | Progress Note ---
Subjective Subjective Date Seen by Provider: Jun 28, 2020 Time Seen by Provider: 10:45 No overnight events- xanax, gabapentin, baclofen, requip held last night- still on bipap but patient would like to take it off. Pt also complaining of back pain that she says is from the BiPAP mask. Review of Systems General: Fatigue, Malaise HEENT: No Head Aches, No Dysphasia Pulmonary: Dyspnea; No Cough Cardiovascular: No: Chest Pain, Palpitations Gastrointestinal: No: Nausea, Abdominal Pain Genitourinary: Other (EDDY IN PLACE) Neurological: Weakness All Other Systems Reviewed All Other Systems Reviewed: Yes Objective Exam Vital Signs Vital Signs Date Time Temp Pulse Resp B/P (MAP) Pulse Ox O2 Delivery O2 Flow Rate FiO2 06/28/20 08:05 36.0 89 95 97 06/28/20 07:29 89 17 95 30.00 06/28/20 07:05 36.0 58 16 122/77 (92) 94 NIV Bilevel 30.00 06/28/20 07:00 57 06/28/20 04:00 95 NIV Bilevel 30 06/28/20 04:00 36.3 68 16 141/73 (95) 95 NIV Bilevel 30.00 06/28/20 02:06 55 20 95 30.00 06/28/20 01:48 90 06/28/20 01:16 53 06/28/20 01:00 93 06/28/20 00:00 35.6 57 16 131/71 (91) 95 NIV Bilevel 30.00 06/28/20 00:00 94 NIV Bilevel 30 06/27/20 21:59 112 06/27/20 21:00 94 NIV Bilevel 30 06/27/20 20:03 60 20 93 30.00 06/27/20 20:00 94 NIV Bilevel 30 06/27/20 19:40 35.9 66 15 133/69 (90) 91 NIV Bilevel 30.00 06/27/20 19:00 66 06/27/20 16:00 94 NIV Bilevel 30 06/27/20 15:48 36.0 71 21 101/55 (70) 100 NIV Bilevel 50.00 06/27/20 14:46 54 18 95 50.00 06/27/20 13:46 NIV Bilevel 50.00 06/27/20 13:15 NIV Bilevel 100.00 06/27/20 13:08 54 18 95 100.00 06/27/20 12:42 74 06/27/20 12:30 36.6 06/27/20 12:15 91 Nasal Cannula 8.00 06/27/20 12:00 92 Nasal Cannula 2.00 I & O 06/28/20 07:00 Intake Total 350 ml Balance 350 ml General Appearance: Chronically ill, Mild Distress (on BiPAP) Eyes: Bilateral Eye PERRL, Bilateral Eye EOMI HEENT: PERRL/EOMI Neck: Full Range of Motion, Non Tender, Supple Respiratory: Decreased Breath Sounds (POOR EFFORT), Other (FAINT CRACKLES IN BASES) Cardiovascular: Regular Rate, Rhythm, Systolic Murmur Gastrointestinal: Normal Bowel Sounds, Soft, Tenderness (diffuse) Rectal: Deferred Extremity: Pedal Edema (TRACE) Neurologic/Psychiatric: Alert, Other (AWAKENS TO VOICE, DOES APPEAR LETHARGIC, CONVERSES APPROPRIATELY WHEN STIMULATED TO DO SO BY VOICE COMMANDS, FLAT AFFECT) Skin: Warm/Dry, Pallor Results Lab Laboratory Tests 06/27/20 10:45: Iron Level 16L, Total Iron Binding Capacity 222L, Unsaturated Iron Binding Capacity 206, Transferrin % Saturation 7L, Ferritin 351.0H 06/27/20 12:03: Glucometer 101 06/27/20 13:03: Blood Gas Puncture Site UNK, Blood Gas Patient Temperature 36.9, Arterial Blood pH 7.37, Arterial Blood Partial Pressure CO2 50H, Arterial Blood Partial Pressure O2 87, Arterial Blood HCO3 28H, Arterial Blood Total CO2 29.6, Arterial Blood Oxygen Saturation 97, Arterial Blood Base Excess 3.2H, Killian Test UNK, Blood Gas Ventilator Setting NA, Blood Gas Inspired Oxygen UNK 06/27/20 16:59: Glucometer 97 06/27/20 21:19: Glucometer 82 06/28/20 03:29: White Blood Count 5.7, Red Blood Count 2.53L, Hemoglobin 7.4L, Hematocrit 23L, Mean Corpuscular Volume 93, Mean Corpuscular Hemoglobin 29, Mean Corpuscular Hemoglobin Concent 32, Red Cell Distribution Width 15.5H, Platelet Count 213, Mean Platelet Volume 12.8H, Sodium Level 142, Potassium Level 3.0L, Chloride Level 109H, Carbon Dioxide Level 23, Anion Gap 10, Blood Urea Nitrogen 20H, Creatinine 2.01H, Estimat Glomerular Filtration Rate 25, BUN/Creatinine Ratio 10, Glucose Level 78, Calcium Level 9.2, Corrected Calcium 10.6H, Total Bilirubin 0.4, Aspartate Amino Transf (AST/SGOT) 27, Alanine Aminotransferase (ALT/SGPT) 19, Alkaline Phosphatase 40, C-Reactive Protein High Sensitivity 10.2 3H, Total Protein 5.0L, Albumin 2.3L, Lipase 620H Microbiology 06/26/20 Blood Culture - Preliminary, Resulted No growth 06/25/20 Influenza Types A,B Antigen (JERONIMO) - Final, Complete Assessment/Plan Assessment/Plan Assessment and Plan 06/28/20- creatinine improving- still waiting on labs for hypercalcemia workup. -stopping vancomycin as this will also help her kidneys. -surgeon is following along. -will continue to hold her xanax, requip, gabapentin, baclofen- but if she continues to have back pain -we may resume the gabapentin. Problems: (1) Acute respiratory failure with hypoxia Assessment & Plan: on BiPAP treating pneumonia RT consulted (2) Pancreatitis Qualifiers: Qualified Codes: K85.10 - Biliary acute pancreatitis without necrosis or infection Assessment & Plan: surgery following along- (3) Right lower lobe pneumonia Qualifiers: Qualified Codes: J18.9 - Pneumonia, unspecified organism (4) Acute on chronic renal insufficiency Assessment & Plan: NEW ONSET OVER THE PAST FEW YEARS, UNCERTAIN OF LENGTH OF HER RENAL INSUFFICIENCY - LAST HOSPITAL LABS AVAILABLE -PRIOR TO 2017, PT HAD NORMAL RENAL FUNCTIONING. WILL RENALLY ADJUST MEDS, MONITOR LABS SERIALLY (5) CKD (chronic kidney disease) stage 3, GFR 30-59 ml/min Assessment & Plan: UNCERTAIN LENGTH OF RENAL DYSFUNCTION, MONITOR LABS CLOSELY (6) Hypercalcemia syndrome Assessment & Plan: IMPROVING - PT HAD ELEVATED CALCIUM ON HER LAST HOSPITALIZATION WITH THE HOSPITALIST SERVICE, UNKNOWN IF THIS WAS INVESTIGATED DURING HER PREVIOUS HOSPITALIZATION. WILL CHECK PTH, VITAMIN D POSSIBLE MALIGNANCY INDUCED ELEVATION OF CALCIUM, CT WITH CONTRAST NOT ABLE TO BE OBTAINED DUE TO HER RENAL FUNCTION, WILL CONSIDER FURTHER INVESTIGATION ONCE RENAL FUNCTION IMPROVES. -Calcium is even higher when adjusted for albumin. (7) Hypokalemia Assessment & Plan: replacing potassium- Cr improved. (8) Parkinson disease Assessment & Plan: - LONG STANDING PER FAMILY REPORT - PT SEES DR. ARTIS - NEUROLOGY IN [facility] MEDS continued (9) Hypertension Qualifiers: Qualified Codes: I10 - Essential (primary) hypertension Assessment & Plan: RESUMED COREG AND VERAPAMIL MONITOR PRESSURES CLOSELY (10) Elevated d-dimer Assessment & Plan: PT ON HEPARIN DRIP FOR SUSPECTED PE, CANNOT DO CT ANGIO DUE TO HER RENAL FUNCTION PT NOT ABLE TO PARTICIPATE IN VQ SCAN (11) Diabetes mellitus, type 2 Qualifiers: Assessment & Plan: - UNCERTAIN LEVEL OF CONTROL, THIS PATIENT IS NEW TO ME OF 06/10/2020 AND THE HOSPITAL RECORDS DO NOT REVEAL ANY RECENT HGBA1C LEVELS, THEREFORE I WILL ORDER ONE TO BE ADDED TO BLOOD IN LAB. - PT IS NOT ON ANY ORAL MEDICATIONS OR INJECTABLE MEDS FOR DIABETES. (12) Chronic pancreatitis Qualifiers: Qualified Codes: K86.1 - Other chronic pancreatitis Assessment & Plan: PT HAD PANCREATITIS ON LAST HOSPITALIZATION -SUSPECT DUE TO GALLSTONES -Surgery monitoring (13) Nausea & vomiting Qualifiers: Qualified Codes: R11.2 - Nausea with vomiting, unspecified Assessment & Plan: DUE TO PANCREATITIS (14) Anemia in chronic illness Assessment & Plan: CHECK IRON PANEL TODAY IF NORMAL, WILL NEED TO CHECK ERYTHROPOETIN LEVEL DUE TO HER RENAL DISEASE. (15) DVT prophylaxis Assessment & Plan: PT ON HEPARIN DRIP DUE TO SUSPECTED PULMONARY EMBOLUS - WILL LIKELY SWITCH TO NOAC THERAPY WITH XARELTO PREFERRED DUE TO COST OF MEDICATIONS SINCE IT APPEARS PT HAS NEW ONSET AFIB. Clinical Quality Measures DVT/VTE Risk/Contraindication: Risk Factor Score Per Nursin RFS Level Per Nursing on Admit: 2=Moderate TAYLOR IRVING MD Jun 28, 2020 09:09
[2020-06-28] MEDS ORDERED: MAGNESIUM 1 GM/100 ML IVPB 100 ML IV ONE (09:15)
[2020-06-28] MEDS: ALPRAZolam 0.25 MG (XANAX) TAB PO SCH ×2 (10:17→23:48)
[2020-06-28] MEDS: GABAPENTIN 400 MG (NEURONTIN) CAP PO SCH ×2 (10:17→23:48)
[2020-06-28] MEDS: rOPINIRole 1 MG (REQUIP) TABLET PO SCH ×3 (10:17→23:51)
[2020-06-28] MEDS: BACLOFEN 10 MG (LIORESAL) TAB PO SCH ×2 (10:17→23:45)
[2020-06-28] MEDS: KCL 20 MEQ TAB (K-DUR) PO SCH (10:24)
[2020-06-28] MEDS: POTASSIUM CL 10MEQ/50ML IVPB 50 ML IV SCH ×2 (10:24→11:30)
--- NOTE | 2020-06-28 10:32 | Progress Note - Surgery ---
Subjective Time Seen by a Provider: 10:17 Subjective/Events-last exam Pt seen and examined, denies abdominal pain. Complains about BiPap mask. Review of Systems General: Fatigue, Malaise Pulmonary: Dyspnea; No Cough Cardiovascular: No: Chest Pain, Palpitations Gastrointestinal: No: Nausea, Vomiting, Abdominal Pain Focused Exam Lactate Level 06/26/20 12:25: Lactic Acid Level 0.71 06/27/20 05:00: Lactic Acid Level 0.44L Objective Exam Vital Signs Date Time Temp Pulse Resp B/P (MAP) Pulse Ox O2 Delivery O2 Flow Rate FiO2 06/28/20 10:17 87 26 95 30.00 06/28/20 09:09 95 NIV Bilevel 30 06/28/20 08:05 36.0 89 95 97 06/28/20 08:00 95 NIV Bilevel 30 06/28/20 07:29 89 17 95 30.00 06/28/20 07:05 36.0 58 16 122/77 (92) 94 NIV Bilevel 30.00 06/28/20 07:00 57 06/28/20 04:00 95 NIV Bilevel 30 06/28/20 04:00 36.3 68 16 141/73 (95) 95 NIV Bilevel 30.00 06/28/20 02:06 55 20 95 30.00 06/28/20 01:48 90 06/28/20 01:16 53 06/28/20 01:00 93 06/28/20 00:00 35.6 57 16 131/71 (91) 95 NIV Bilevel 30.00 06/28/20 00:00 94 NIV Bilevel 30 06/27/20 21:59 112 06/27/20 21:00 94 NIV Bilevel 30 06/27/20 20:03 60 20 93 30.00 06/27/20 20:00 94 NIV Bilevel 30 06/27/20 19:40 35.9 66 15 133/69 (90) 91 NIV Bilevel 30.00 06/27/20 19:00 66 06/27/20 16:00 94 NIV Bilevel 30 06/27/20 15:48 36.0 71 21 101/55 (70) 100 NIV Bilevel 50.00 06/27/20 14:46 54 18 95 50.00 06/27/20 13:46 NIV Bilevel 50.00 06/27/20 13:15 NIV Bilevel 100.00 06/27/20 13:08 54 18 95 100.00 06/27/20 12:42 74 06/27/20 12:30 36.6 06/27/20 12:15 91 Nasal Cannula 8.00 06/27/20 12:00 92 Nasal Cannula 2.00 I & O 06/28/20 07:00 Intake Total 350 ml Balance 350 ml Capillary Refill : Less Than 3 SecondsLess Than 3 Seconds General Appearance: No Apparent Distress, Chronically ill HEENT: PERRL/EOMI Respiratory: No Accessory Muscle Use, No Respiratory Distress, Decreased Breath Sounds (POOR EFFORT), Other (FAINT CRACKLES IN BASES) Cardiovascular: Regular Rate, Rhythm, No Murmur, Systolic Murmur Peripheral Pulses: 2+ Radial Pulses (R), 2+ Radial Pulses (L) Gastrointestinal: non tender, soft, no organomegaly, distended (secondary to body habitus) Extremity: Pedal Edema (TRACE) Neurologic/Psychiatric: Other (AWAKENS TO VOICE, DOES APPEAR LETHARGIC, CONVERSES APPROPRIATELY WHEN STIMULATED TO DO SO BY VOICE COMMANDS, FLAT AFFECT) Skin: Warm/Dry, Pallor Results Lab Laboratory Tests 06/27/20 10:45: Iron Level 16L, Total Iron Binding Capacity 222L, Unsaturated Iron Binding Capacity 206, Transferrin % Saturation 7L, Ferritin 351.0H 06/27/20 12:03: Glucometer 101 06/27/20 13:03: Blood Gas Puncture Site UNK, Blood Gas Patient Temperature 36.9, Arterial Blood pH 7.37, Arterial Blood Partial Pressure CO2 50H, Arterial Blood Partial Pressure O2 87, Arterial Blood HCO3 28H, Arterial Blood Total CO2 29.6, Arterial Blood Oxygen Saturation 97, Arterial Blood Base Excess 3.2H, Killian Test UNK, Blood Gas Ventilator Setting NA, Blood Gas Inspired Oxygen UNK 06/27/20 16:59: Glucometer 97 06/27/20 21:19: Glucometer 82 06/28/20 03:29: White Blood Count 5.7, Red Blood Count 2.53L, Hemoglobin 7.4L, Hematocrit 23L, Mean Corpuscular Volume 93, Mean Corpuscular Hemoglobin 29, Mean Corpuscular Hemoglobin Concent 32, Red Cell Distribution Width 15.5H, Platelet Count 213, Mean Platelet Volume 12.8H, Sodium Level 142, Potassium Level 3.0L, Chloride Level 109H, Carbon Dioxide Level 23, Anion Gap 10, Blood Urea Nitrogen 20H, Creatinine 2.01H, Estimat Glomerular Filtration Rate 25, BUN/Creatinine Ratio 10, Glucose Level 78, Calcium Level 9.2, Corrected Calcium 10.6H, Total Bilirubin 0.4, Aspartate Amino Transf (AST/SGOT) 27, Alanine Aminotransferase (ALT/SGPT) 19, Alkaline Phosphatase 40, C-Reactive Protein High Sensitivity 10.23H, Total Protein 5.0L, Albumin 2.3L, Lipase 620H Microbiology 06/26/20 Blood Culture - Preliminary, Resulted No growth 06/25/20 Influenza Types A,B Antigen (JERONIMO) - Final, Complete Assessment/Plan Assessment/Plan Assessment/Plan Cholelithiasis without cholecystitis Hx of Pancreatitis - looks like may be chronic at this point Pneumonia Dementia and Parkinson's disease Pt without any changes from yesterday; still no signs or reasons for any surgical intervention at this point. I will follow along. Clinical Quality Measures DVT/VTE Risk/Contraindication: Risk Factor Score Per Nursin RFS Level Per Nursing on Admit: 2=Moderate KAHLIL GRAY DO Jun 28, 2020 10:31
[2020-06-28] MEDS ORDERED: TROUGH ORDER-PHARMACY XX NR (11:00)
--- NOTE | 2020-06-28 13:00 | Progress Note - Cardiology ---
Cardiology SOAP Progress Note Subjective: Note weakness and malaise Denies cp or palp or syncope or shortness of breath Denies n/v Objective: I&O/Vital Signs 06/28/20 06/28/20 06/28/20 06/28/20 01:00 01:16 01:48 02:06 Pulse 93 53 90 55 Resp 20 Pulse Ox 95 O2 Flow Rate 30.00 06/28/20 06/28/20 06/28/20 06/28/20 04:00 04:00 07:00 07:05 Temp 36.3 36.0 Pulse 68 57 58 Resp 16 16 B/P (MAP) 141/73 (95) 122/77 (92) Pulse Ox 95 95 94 O2 Delivery NIV Bilevel NIV Bilevel NIV Bilevel O2 Flow Rate 30.00 30.00 FiO2 30 06/28/20 06/28/20 06/28/20 06/28/20 07:29 08:00 08:05 09:09 Temp 36.0 Pulse 89 89 Resp 17 Pulse Ox 95 95 95 95 O2 Delivery NIV Bilevel NIV Bilevel O2 Flow Rate 30.00 FiO2 30 97 30 06/28/20 06/28/20 06/28/20 06/28/20 10:17 11:11 11:39 11:50 Temp 36.2 Pulse 87 95 Resp 26 16 B/P (MAP) 128/72 (90) Pulse Ox 95 94 92 O2 Delivery NIV Bilevel Vapotherm Vapotherm O2 Flow Rate 30.00 30.00 20.00 20.00 50.00 FiO2 50 06/28/20 12:00 Pulse Ox 95 O2 Delivery Vapotherm O2 Flow Rate 20.00 FiO2 50 06/28/20 00:00 Intake Total 150 ml Balance 150 ml Weight (Pounds): 173 Weight (Ounces): 0.0 Weight (Calculated Kilograms): 78.579599 Constitutional: well-developed, well-nourished, other (appears mildly confused) Respiratory: No accessory muscle use; other (fair bilat air entry, diminished at the bsases) Cardiovascular: regular rate-rhythm, S1 and S2, systolic murmur (soft SE at card base) Gastrointestional: No tender; soft; No guarding, No rebound; audible bowel sounds Extremities: No clubbing, No cyanosis, No significant edema Neurologic/Psychiatric: other (moves all limbs equally) Skin: No rash on exposed areas, No ulcerations on exposed areas Results/Procedures: Labs Laboratory Tests 06/27/20 13:03: Blood Gas Puncture Site UNK, Blood Gas Patient Temperature 36.9, Arterial Blood pH 7.37, Arterial Blood Partial Pressure CO2 50H, Arterial Blood Partial Pressur e O2 87, Arterial Blood HCO3 28H, Arterial Blood Total CO2 29.6, Arterial Blood Oxygen Saturation 97, Arterial Blood Base Excess 3.2H, Killian Test UNK, Blood Gas Ventilator Setting NA, Blood Gas Inspired Oxygen UNK 06/27/20 16:59: Glucometer 97 06/27/20 21:19: Glucometer 82 06/28/20 03:29: White Blood Count 5.7, Red Blood Count 2.53L, Hemoglobin 7.4L, Hematocrit 23L, Mean Corpuscular Volume 93, Mean Corpuscular Hemoglobin 29, Mean Corpuscular Hemoglobin Concent 32, Red Cell Distribution Width 15.5H, Platelet Count 213, Mean Platelet Volume 12.8H, Sodium Level 142, Potassium Level 3.0L, Chloride Level 109H, Carbon Dioxide Level 23, Anion Gap 10, Blood Urea Nitrogen 20H, Creatinine 2.01H, Estimat Glomerular Filtration Rate 25, BUN/Creatinine Ratio 10, Glucose Level 78, Calcium Level 9.2, Corrected Calcium 10.6H, Total Bilirubin 0.4, Aspartate Amino Transf (AST/SGOT) 27, Alanine Aminotransferase (ALT/SGPT) 19, Alkaline Phosphatase 40, C-Reactive Protein High Sensitivity 10.23H, Total Protein 5.0L, Albumin 2.3L, Lipase 620H 06/28/20 05:38: 06/28/20 11:39: Glucometer 110 Microbiology 06/26/20 Blood Culture - Preliminary, Resulted No growth 06/25/20 Influenza Types A,B Antigen (JERONIMO) - Final, Complete Laboratory Tests 06/27/20 05:00 06/28/20 03:29 A/P: Assessment: PAF with RVR, probably precipitated by JUDY JUDY, treated with CPAP LINNETTE-3, probably related to volume depletion Hypercalcemia of undetermined etiology, managed by the Med svce Recent pancreatitis Severe anemia of undetermined etiology Chronic diastolic congestive heart failure, currently clinically compensated Echocardiogram of May 30, [address] Crump showed normal LV size, LVEF 60-65%. PASP 15-20mmHg Minimal troponin elevation, likely type 2 NC due to uncontrolled hypertension, chronic diastolic CHF, and ac renal failure Coronary artery disease-patient underwent cardiac catheterization October 11, [address] Crump revealing mild coronary artery disease with 40-50 percent proximal to mid LAD stenosis, nonobstructive disease; otherwise no significant obstructive disease. Normal EF H/o unsteady gait and fatigue with loss of energy Hyperlipidemia, hold statin for now due to pancreatitis Mild bilateral carotid stenosis, history of left CEA in 2005, as well as history of left common carotid stenting. Most recent carotid duplex done May [address] Crump showing mild bilateral disease nonobstructive disease, continue to monitor. Diabetes Mellitus complicated by diabetic neuropathy Fibromyalgia Plan: * Treat JUDY * Dilt for vent rate control * Apixaban for stroke prophylaxis. Lower dose because Cr greater than 2 and because of severe anemia (GI bleed not excluded) * Monitor and correct labs VANESSA HA MD FACP FAC CCDS Jun 28, 2020 13:00
[2020-06-28] MEDS: VANCOMYCIN 1 GM/NS 250 ML IVPB IV SCH ×2 (13:10)
[2020-06-28] MEDS: RT-ALBUTEROL/IPRATROPIUM 3 ML (DUONEB) VIAL INH SCH ×2 (14:29→21:20)
[2020-06-28 14:47] LABS: BILIRUBIN,URINE NEGATIVE (NEGATIVE); CLARITY,URINE CLEAR; COLOR,URINE YELLOW; GLUCOSE, URINE (UA) NEGATIVE (NEGATIVE); KETONES,URINE NEGATIVE (NEGATIVE); LEUKOCYTE ESTERASE ,URINE NEGATIVE (NEGATIVE); NITRITE,URINE NEGATIVE (NEGATIVE); PROTEIN,URINE NEGATIVE (NEGATIVE)
[2020-06-28 15:08] LABS: BACTERIA,URINE NEGATIVE /HPF; WBC,URINE RARE /HPF
[2020-06-28] MEDS ORDERED: FUROSEMIDE 40 MG/4 ML INJ (LASIX) IVP ONE (17:00)
[2020-06-28] MEDS ORDERED: predniSONE 20 MG TAB PO ONE (17:00)
[2020-06-28] MEDS ORDERED: NS IV 1000 ML 1,000 ML IV ONE (17:00)
[2020-06-28] MEDS ORDERED: predniSONE 20 MG TAB ONE (17:06)
[2020-06-28] MEDS ORDERED: FUROSEMIDE 40 MG/4 ML INJ (LASIX) ONE (17:06)
[2020-06-28] MEDS ORDERED: CALCITONIN 400 IUNITS/2 ML INJ (MIACALCIN) VIAL IM SCH (21:00)
[2020-06-28] MEDS: FENOFIBRATE 134 MG (LOFIBRA) CAPSULE PO SCH (21:01)
[2020-06-28] MEDS: FAMOTIDINE 20 MG (PEPCID) TABLET PO SCH (21:02)
[2020-06-28] MEDS: MONTELUKAST 10 MG (SINGULAIR) TAB PO SCH (21:02)
[2020-06-29] MEDS: RT-ALBUTEROL/IPRATROPIUM 3 ML (DUONEB) VIAL INH SCH ×4 (02:25→22:30)
[2020-06-29 03:23] VITALS: BP 144/68
[2020-06-29 05:45] LABS: HEMOGLOBIN 7.3 g/dL (11.5-16.0); MEAN PLATELET VOLUME 13.1 fL (9.0-12.2); WHITE BLOOD COUNT 3.3 10^3/uL (4.3-11.0)
[2020-06-29 05:58] LABS: ALBUMIN 2.3 GM/DL (3.2-4.5); POTASSIUM 3.5 MMOL/L (3.6-5.0)
[2020-06-29 06:00] LABS: TOTAL PROTEIN 5.4 GM/DL (6.4-8.2)
[2020-06-29 06:02] LABS: BILIRUBIN,TOTAL 0.3 MG/DL (0.1-1.0)
[2020-06-29 06:04] LABS: CREATININE SERUM 1.84 MG/DL (0.60-1.30)
[2020-06-29] MEDS: inSUlin ASPART (NovoLOG) 1 UNIT/0.01 ML (CHARGE PER UNIT) SC SCH ×4 (06:45→20:47)
[2020-06-29] MEDS: KCL 20 MEQ TAB (K-DUR) PO SCH (06:46)
[2020-06-29 08:00] VITALS: BP 148/62
[2020-06-29] MEDS: VERAPAMIL SR 240 MG (CALAN SR) TAB PO SCH (08:38)
[2020-06-29] MEDS: ROSUVASTATIN 10 MG (CRESTOR) TABLET PO SCH (08:38)
[2020-06-29] MEDS: ALPRAZolam 0.25 MG (XANAX) TAB PO SCH ×2 (08:38→20:37)
[2020-06-29] MEDS: GABAPENTIN 400 MG (NEURONTIN) CAP PO SCH ×2 (08:38→20:37)
[2020-06-29] MEDS: PANTOPRAZOLE 40 MG (PROTONIX) VIAL IV SCH (08:39)
[2020-06-29] MEDS: ASPIRIN E.C. 81 MG (ECOTRIN) TAB PO SCH (08:39)
[2020-06-29] MEDS: CARVEDILOL 6.25 MG (COREG) TAB PO SCH ×2 (08:39→20:38)
[2020-06-29] MEDS: APIXABAN 2.5 MG (ELIQUIS) TABLET PO SCH ×2 (08:39→20:37)
[2020-06-29] MEDS: rOPINIRole 1 MG (REQUIP) TABLET PO SCH ×3 (08:39→20:37)
[2020-06-29] MEDS: BACLOFEN 10 MG (LIORESAL) TAB PO SCH ×2 (08:39→20:38)
[2020-06-29] MEDS: NS IV 1000 ML 1,000 ML IV SCH ×2 (08:49→20:31)
--- NOTE | 2020-06-29 10:22 | Progress Note ---
Subjective Subjective Date Seen by Provider: Jun 29, 2020 Time Seen by Provider: 10:16 No overnight events- Calcium level has came down since giving her prednisone 40mg one time and lasix 40mg one time and IVF. Hypercalcemia likely causing her pancreatitis. -Pt reports she has not had a bowel movement since admission and would like some help. Review of Systems General: Fatigue, Malaise HEENT: No Head Aches, No Dysphasia Pulmonary: Dyspnea; No Cough Cardiovascular: No: Chest Pain, Palpitations Gastrointestinal: No: Nausea, Abdominal Pain Genitourinary: Other (EDDY IN PLACE) Neurological: Weakness All Other Systems Reviewed All Other Systems Reviewed: Yes Objective Exam Vital Signs Vital Signs Date Time Temp Pulse Resp B/P (MAP) Pulse Ox O2 Delivery O2 Flow Rate FiO2 06/29/20 07:00 59 06/29/20 06:46 94 Vapotherm 15.00 30.00 06/29/20 04:00 92 Vapotherm 15.00 40 06/29/20 03:23 35.9 67 144/68 (93) 93 Vapotherm 15.00 40.00 06/29/20 02:26 100 Vapotherm 15.00 60 06/29/20 01:45 100 Vapotherm 20.00 60.00 06/29/20 01:30 88 Vapotherm 15.00 40.00 06/29/20 01:00 64 06/29/20 00:00 92 Vapotherm 15.00 40 06/28/20 23:37 35.8 70 17 139/69 (92) 91 Vapotherm 15.00 40.00 06/28/20 21:22 91 Vapotherm 15.00 40 06/28/20 21:00 92 Vapotherm 15.00 40 06/28/20 20:59 35.9 68 18 154/73 (100) 94 Vapotherm 15.00 40.00 06/28/20 20:00 92 Vapotherm 15.00 40 06/28/20 19:00 75 06/28/20 18:39 Vapotherm 15.00 40.00 06/28/20 16:45 95 Vapotherm 15.00 50 06/28/20 16:43 36.6 67 20 138/67 (90) 96 Vapotherm 15.00 50.00 06/28/20 16:00 64 20 138/67 (90) 95 Vapotherm 20.00 50.00 06/28/20 14:29 96 Vapotherm 15.00 50 06/28/20 13:00 64 06/28/20 12:00 95 Vapotherm 20.00 50 06/28/20 11:50 Vapotherm 20.00 50.00 06/28/20 11:39 92 Vapotherm 20.00 50 06/28/20 11:11 36.2 95 16 128/72 (90) 94 NIV Bilevel 30.00 I & O 06/29/20 07:00 Intake Total 2975 ml Output Total 3050 ml Balance -75 ml General Appearance: Chronically ill, Mild Distress Eyes: Bilateral Eye PERRL, Bilateral Eye EOMI HEENT: PERRL/EOMI Neck: Full Range of Motion, Non Tender, Supple Respiratory: Decreased Breath Sounds; No Rhonci, No Wheezing Cardiovascular: Regular Rate, Rhythm, Systolic Murmur Gastrointestinal: Normal Bowel Sounds, Soft, Tenderness (diffuse) Rectal: Deferred Extremity: Pedal Edema (TRACE) Neurologic/Psychiatric: Alert, Other (AWAKENS TO VOICE, DOES APPEAR LETHARGIC, CONVERSES APPROPRIATELY WHEN STIMULATED TO DO SO BY VOICE COMMANDS, FLAT AFFECT) Skin: Warm/Dry, Pallor Results Lab Laboratory Tests 06/28/20 11:39: Glucometer 110 06/28/20 14:30: Urine Color YELLOW, Urine Clarity CLEAR, Urine pH 7.0, Urine Specific [place] 1.010L, Urine Protein NEGATIVE, Urine Glucose (UA) NEGATIVE, Urine Ketones NEGATIVE, Urine Nitrite NEGATIVE, Urine Bilirubin NEGATIVE, Urine Urobilinogen 0.2, Urine Leukocyte Esterase NEGATIVE, Urine RBC (Auto) NEGATIVE, Urine RBC NONE, Urine WBC RARE, Urine Crystals NONE, Urine Bacteria NEGATIVE, Urine Casts NONE, Urine Mucus NEGATIVE, Urine Culture Indicated NO 06/28/20 16:42: Glucometer 129H 06/28/20 20:54: Glucometer 143H 06/29/20 05:37: White Blood Count 3.3L, Red Blood Count 2.49L, Hemoglobin 7.3L, Hematocrit 23L, Mean Corpuscular Volume 90, Mean Corpuscular Hemoglobin 29, Mean Corpuscular Hemoglobin Concent 32, Red Cell Distribution Width 15.1H, Platelet Count 246, Mean Platelet Volume 13.1H, Sodium Level 138, Potassium Level 3.5L, Chloride Level 106, Carbon Dioxide Level 21, Anion Gap 11, Blood Urea Nitrogen 25H, Creatinine 1.84H, Estimat Glomerular Filtration Rate 27, BUN/Creatinine Ratio 14, Glucose Level 178H, Calcium Level 8.0L, Corrected Calcium 9.4, Total Bilirubin 0.3, Aspartate Amino Transf (AST/SGOT) 40H, Alanine Aminotransferase (ALT/SGPT) 22, Alkaline Phosphatase 40, Total Protein 5.4L, Albumin 2.3L Microbiology 06/26/20 Blood Culture - Preliminary, Resulted No growth 06/25/20 Influenza Types A,B Antigen (JERONIMO) - Final, Complete Assessment/Plan Assessment/Plan Assessment and Plan 06/28/20- creatinine improving- still waiting on labs for hypercalcemia workup. -stopping vancomycin as this will also help her kidneys. -surgeon is following along. -will continue to hold her xanax, requip, gabapentin, baclofen- but if she continues to have back pain -we may resume the gabapentin. 06/29/20- creatinine improving- calcium improving significantly with IVF, prednisone 40mg x1, lasix 40mg x 1 -iron studies support anemia of chronic disease- along with hypercalcemia- still heading down path of malignancy- normal PTH, awaiting PTH-rP and Vit D-25- lab is unsure why they are not resulted. Lab is going to check on this. -miralax today to help with a bowel movement. Dispo: still working up her hypercalcemia and trying to get her respiratory status improved. She is now on vapotherm - making progress. Discharge planning to start. Problems: (1) Acute respiratory failure with hypoxia Assessment & Plan: on BiPAP treating pneumonia RT consulted (2) Pancreatitis Qualifiers: Qualified Codes: K85.10 - Biliary acute pancreatitis without necrosis or infection Assessment & Plan: surgery following along- -hypercalcemia is likely cause of her pancreatitis (3) Right lower lobe pneumonia Qualifiers: Qualified Codes: J18.9 - Pneumonia, unspecified organism (4) Acute on chronic renal insufficiency Assessment & Plan: NEW ONSET OVER THE PAST FEW YEARS, UNCERTAIN OF LENGTH OF HER RENAL INSUFFICIENCY - LAST HOSPITAL LABS AVAILABLE -PRIOR TO 2017, PT HAD NORMAL RENAL FUNCTIONING. WILL RENALLY ADJUST MEDS, MONITOR LABS SERIALLY (5) CKD (chronic kidney disease) stage 3, GFR 30-59 ml/min Assessment & Plan: UNCERTAIN LENGTH OF RENAL DYSFUNCTION, MONITOR LABS CLOSELY (6) Hypercalcemia syndrome Assessment & Plan: IMPROVING - PT HAD ELEVATED CALCIUM ON HER LAST HOSPITALIZATION WITH THE HOSPITALIST SERVICE, UNKNOWN IF THIS WAS INVESTIGATED DURING HER PREVIOUS HOSPITALIZATION. WILL CHECK PTH, VITAMIN D POSSIBLE MALIGNANCY INDUCED ELEVATION OF CALCIUM, CT WITH CONTRAST NOT ABLE TO BE OBTAINED DUE TO HER RENAL FUNCTION, WILL CONSIDER FURTHER INVESTIGATION ONCE RENAL FUNCTION IMPROVES. -Calcium is even higher when adjusted for albumin. (7) Hypokalemia Assessment & Plan: replacing potassium- Cr improved. (8) Parkinson disease Assessment & Plan: - LONG STANDING PER FAMILY REPORT - PT SEES DR. ARTIS - NEUROLOGY IN [facility] continued (9) Hypertension Qualifiers: Qualified Codes: I10 - Essential (primary) hypertension Assessment & Plan: RESUMED COREG AND VERAPAMIL MONITOR PRESSURES CLOSELY (10) Elevated d-dimer Assessment & Plan: on eliquis (11) Diabetes mellitus, type 2 Qualifiers: Assessment & Plan: - UNCERTAIN LEVEL OF CONTROL -blood sugars have been decent. (12) Chronic pancreatitis Qualifiers: Qualified Codes: K86.1 - Other chronic pancreatitis Assessment & Plan: PT HAD PANCREATITIS ON LAST HOSPITALIZATION -SUSPECT DUE TO GALLSTONES -Surgery monitoring (13) Nausea & vomiting Qualifiers: Qualified Codes: R11.2 - Nausea with vomiting, unspecified Assessment & Plan: DUE TO PANCREATITIS (14) Anemia in chronic illness Assessment & Plan: Fe low, low TIBC, high Ferritin - anemai of chronic disease. (15) DVT prophylaxis Assessment & Plan: on eliquis 2.5mg bid Clinical Quality Measures DVT/VTE Risk/Contraindication: Risk Factor Score Per Nursin RFS Level Per Nursing on Admit: 2=Moderate TAYLOR IRVING MD Jun 29, 2020 10:21
--- NOTE | 2020-06-29 10:58 | Progress Note - Surgery ---
Subjective Time Seen by a Provider: 08:53 Subjective/Events-last exam Pt seen and examined, BiPap mask is off and she appears comfortable. Pt denies abdominal pain and is tolerating diet. When asked her only complaint was she can't have a BM. Review of Systems General: No Chills; Fatigue Pulmonary: Dyspnea; No Cough Cardiovascular: No: Chest Pain, Palpitations Gastrointestinal: No: Nausea, Vomiting, Abdominal Pain Focused Exam Lactate Level 06/26/20 12:25: Lactic Acid Level 0.71 06/27/20 05:00: Lactic Acid Level 0.44L Objective Exam Vital Signs Date Time Temp Pulse Resp B/P (MAP) Pulse Ox O2 Delivery O2 Flow Rate FiO2 06/29/20 10:19 92 Vapotherm 15.00 35 06/29/20 09:00 92 Vapotherm 15.00 30 06/29/20 08:00 35.9 67 148/62 (90) 93 Vapotherm 15.00 30.00 06/29/20 08:00 92 Vapotherm 15.00 30 06/29/20 07:00 59 06/29/20 06:46 94 Vapotherm 15.00 30.00 06/29/20 04:00 92 Vapotherm 15.00 40 06/29/20 03:23 35.9 67 144/68 (93) 93 Vapotherm 15.00 40.00 06/29/20 02:26 100 Vapotherm 15.00 60 06/29/20 01:45 100 Vapotherm 20.00 60.00 06/29/20 01:30 88 Vapotherm 15.00 40.00 06/29/20 01:00 64 06/29/20 00:00 92 Vapotherm 15.00 40 06/28/20 23:37 35.8 70 17 139/69 (92) 91 Vapotherm 15.00 40.00 06/28/20 21:22 91 Vapotherm 15.00 40 06/28/20 21:00 92 Vapotherm 15.00 40 06/28/20 20:59 35.9 68 18 154/73 (100) 94 Vapotherm 15.00 40.00 06/28/20 20:00 92 Vapotherm 15.00 40 06/28/20 19:00 75 06/28/20 18:39 Vapotherm 15.00 40.00 06/28/20 16:45 95 Vapotherm 15.00 50 06/28/20 16:43 36.6 67 20 138/67 (90) 96 Vapotherm 15.00 50.00 06/28/20 16:00 64 20 138/67 (90) 95 Vapotherm 20.00 50.00 06/28/20 14:29 96 Vapotherm 15.00 50 06/28/20 13:00 64 06/28/20 12:00 95 Vapotherm 20.00 50 06/28/20 11:50 Vapotherm 20.00 50.00 06/28/20 11:39 92 Vapotherm 20.00 50 06/28/20 11:11 36.2 95 16 128/72 (90) 94 NIV Bilevel 30.00 I & O 06/29/20 06:59 Intake Total 2975 ml Output Total 3050 ml Balance -75 ml Capillary Refill : Less Than 3 SecondsLess Than 3 Seconds General Appearance: No Apparent Distress, Chronically ill HEENT: PERRL/EOMI, Moist Mucous Membranes Respiratory: Decreased Breath Sounds (POOR EFFORT), Other (FAINT CRACKLES IN BASES) Cardiovascular: Regular Rate, Rhythm, Systolic Murmur Peripheral Pulses: 2+ Radial Pulses (R), 2+ Radial Pulses (L) Gastrointestinal: non tender, soft, no organomegaly, distended (secondary to body habitus) Extremity: Pedal Edema (TRACE) Neurologic/Psychiatric: Alert, Other Skin: Warm/Dry, Pallor Results Lab Laboratory Tests 06/28/20 11:39: Glucometer 110 06/28/20 14:30: Urine Color YELLOW, Urine Clarity CLEAR, Urine pH 7.0, Urine Specific [place] 1.010L, Urine Protein NEGATIVE, Urine Glucose (UA) NEGATIVE, Urine Ketones NEGATIVE, Urine Nitrite NEGATIVE, Urine Bilirubin NEGATIVE, Urine Urobilinogen 0.2, Urine Leukocyte Esterase NEGATIVE, Urine RBC (Auto) NEGATIVE, Urine RBC NONE, Urine WBC RARE, Urine Crystals NONE, Urine Bacteria NEGATIVE, Urine Casts NONE, Urine Mucus NEGATIVE, Urine Culture Indicated NO 06/28/20 16:42: Glucometer 129H 06/28/20 20:54: Glucometer 143H 06/29/20 05:37: White Blood Count 3.3L, Red Blood Count 2.49L, Hemoglobin 7.3L, Hematocrit 23L, Mean Corpuscular Volume 90, Mean Corpuscular Hemoglobin 29, Mean Corpuscular Hemoglobin Concent 32, Red Cell Distribution Width 15.1H, Platelet Count 246, Mean Platelet Volume 13.1H, Sodium Level 138, Potassium Level 3.5L, Chloride Level 106, Carbon Dioxide Level 21, Anion Gap 11, Blood Urea Nitrogen 25H, Creatinine 1.84H, Estimat Glomerular Filtration Rate 27, BUN/Creatinine Ratio 14, Glucose Level 178H, Calcium Level 8.0L, Corrected Calcium 9.4, Total Bilirubin 0.3, Aspartate Amino Transf (AST/SGOT) 40H, Alanine Aminotransferase (ALT/SGPT) 22, Alkaline Phosphatase 40, Total Protein 5.4L, Albumin 2.3L Microbiology 06/26/20 Blood Culture - Preliminary, Resulted No growth 06/25/20 Influenza Types A,B Antigen (JERONIMO) - Final, Complete Assessment/Plan Assessment/Plan Assessment/Plan Hx of Pancreatitis Cholelithiasis Constipation Pt is doing fine from surgical standpoint, no need for surgical intervention during this stay. Will give pt dulcolax supp to help with constipation. Pt needs to see Dr. Carter as an outpt to discuss possible need for Cholecystectomy. I will sign off. Clinical Quality Measures DVT/VTE Risk/Contraindication: Risk Factor Score Per Nursin RFS Level Per Nursing on Admit: 2=Moderate KAHLIL GRAY DO Jun 29, 2020 10:58
[2020-06-29] MEDS ORDERED: BISACODYL 10 MG SUPP (DULCOLAX) PR ONE (11:00)
[2020-06-29] MEDS ORDERED: polyethylene glycoL POWDER 17 GM (MIRALAX) PACK PO ONE (11:00)
[2020-06-29] MEDS: MEROPENEM 500 MG in WATER (STERILE) FOR INJECTION 10 ML IV SCH (11:26)
[2020-06-29 12:00] VITALS: BP 142/74
--- NOTE | 2020-06-29 12:57 | NUR ---
pt son Kong called, updates given.
--- NOTE | 2020-06-29 14:20 | Progress Note - Cardiology ---
Cardiology SOAP Progress Note Subjective: No cp or palp or syncope Shortness of breath better Gen malaise present No n/v Objective: I&O/Vital Signs 06/29/20 06/29/20 06/29/20 06/29/20 02:26 03:23 04:00 06:46 Temp 35.9 Pulse 67 B/P (MAP) 144/68 (93) Pulse Ox 100 93 92 94 O2 Delivery Vapotherm Vapotherm Vapotherm Vapotherm O2 Flow Rate 15.00 15.00 15.00 15.00 40.00 30.00 FiO2 60 40 06/29/20 06/29/20 06/29/20 06/29/20 07:00 08:00 08:00 09:00 Temp 35.9 Pulse 59 67 B/P (MAP) 148/62 (90) Pulse Ox 92 93 92 O2 Delivery Vapotherm Vapotherm Vapotherm O2 Flow Rate 15.00 15.00 15.00 30.00 FiO2 30 30 06/29/20 06/29/20 06/29/20 06/29/20 10:19 12:00 12:00 12:50 Temp 35.6 Pulse 76 70 B/P (MAP) 142/74 (96) Pulse Ox 92 93 93 O2 Delivery Vapotherm Vapotherm Vapotherm O2 Flow Rate 15.00 15.00 15.00 35.00 FiO2 35 35 06/29/20 00:00 Intake Total 2525 ml Output Total 2400 ml Balance 125 ml Weight (Pounds): 173 Weight (Ounces): 0.0 Weight (Calculated Kilograms): 78.742608 Constitutional: well-developed, well-nourished, other (appears mildly confused) Respiratory: No accessory muscle use; other (fair bilat air entry, diminished at the bsases) Cardiovascular: regular rate-rhythm, S1 and S2, systolic murmur (soft SE at card base) Gastrointestional: No tender; soft; No guarding, No rebound; audible bowel sounds Extremities: No clubbing, No cyanosis, No significant edema Neurologic/Psychiatric: other (moves all limbs equally) Skin: No rash on exposed areas, No ulcerations on exposed areas Results/Procedures: Labs Laboratory Tests 06/28/20 14:30: Urine Color YELLOW, Urine Clarity CLEAR, Urine pH 7.0, Urine Specific [place] 1.010L, Urine Protein NEGATIVE, Urine Glucose (UA) NEGATIVE, Urine Ketones NEGATIVE, Urine Nitrite NEGATIVE, Urine Bilirubin NEGATIVE, Urine Urobilinogen 0.2, Urine Leukocyte Esterase NEGATIVE, Urine RBC (Auto) NEGATIVE, Urine RBC NONE, Urine WBC RARE, Urine Crystals NONE, Urine Bacteria NEGATIVE, Urine Casts NONE, Urine Mucus NEGATIVE, Urine Culture Indicated NO 06/28/20 16:42: Glucometer 129H 06/28/20 20:54: Glucometer 143H 06/29/20 05:37: White Blood Count 3.3L, Red Blood Count 2.49L, Hemoglobin 7.3L, Hematocrit 23L, Mean Corpuscular Volume 90, Mean Corpuscular Hemoglobin 29, Mean Corpuscular Hemoglobin Concent 32, Red Cell Distribution Width 15.1H, Platelet Count 246, Mean Platelet Volume 13.1H, Sodium Level 138, Potassium Level 3.5L, Chloride Level 106, Carbon Dioxide Level 21, Anion Gap 11, Blood Urea Nitrogen 25H, Creatinine 1.84H, Estimat Glomerular Filtration Rate 27, BUN/Creatinine Ratio 14 , Glucose Level 178H, Calcium Level 8.0L, Corrected Calcium 9.4, Total Bilirubin 0.3, Aspartate Amino Transf (AST/SGOT) 40H, Alanine Aminotransferase (ALT/SGPT) 22, Alkaline Phosphatase 40, Total Protein 5.4L, Albumin 2.3L 06/29/20 11:04: Glucometer 159H Microbiology 06/26/20 Blood Culture - Preliminary, Resulted No growth 06/25/20 Influenza Types A,B Antigen (JERONIMO) - Final, Complete Laboratory Tests 06/28/20 03:29 06/29/20 05:37 A/P: Assessment: PAF with RVR, probably precipitated by JUDY JUDY, treated with CPAP LINNETTE-3, probably related to volume depletion Hypercalcemia of undetermined etiology, managed by the Med svce Recent pancreatitis Severe anemia of undetermined etiology Chronic diastolic congestive heart failure, currently clinically compensated Echocardiogram of May 30, [address] Crump showed normal LV size, LVEF 60-65%. PASP 15-20mmHg Minimal troponin elevation, likely type 2 CA due to uncontrolled hypertension, chronic diastolic CHF, and ac renal failure Coronary artery disease-patient underwent cardiac catheterization October 11, [address] Crump revealing mild coronary artery disease with 40-50 percent proximal to mid LAD stenosis, nonobstructive disease; otherwise no significant obstructive disease. Normal EF H/o unsteady gait and fatigue with loss of energy Hyperlipidemia, hold statin for now due to pancreatitis Mild bilateral carotid stenosis, history of left CEA in 2005, as well as history of left common carotid stenting. Most recent carotid duplex done May [address] Crump showing mild bilateral disease nonobstructive disease, continue to monitor. Diabetes Mellitus complicated by diabetic neuropathy Fibromyalgia Plan: * Treat JUDY * Dilt for vent rate control * Apixaban for stroke prophylaxis. Lower dose because Cr greater than 2 and because of severe anemia (GI bleed not excluded) * Monitor and correct labs VANESSA HA MD FACP FAC CCDS Jun 29, 2020 14:20
[2020-06-29 15:44] VITALS: BP 120/60
[2020-06-29 18:58] VITALS: BP 136/75
[2020-06-29] MEDS: FAMOTIDINE 20 MG (PEPCID) TABLET PO SCH (20:36)
[2020-06-29] MEDS: FENOFIBRATE 134 MG (LOFIBRA) CAPSULE PO SCH (20:37)
[2020-06-29] MEDS: MONTELUKAST 10 MG (SINGULAIR) TAB PO SCH (20:38)
[2020-06-30] VITALS (14 sets, daily range): BP systolic 100–137; BP diastolic 62–78
[2020-06-30] MEDS: RT-ALBUTEROL/IPRATROPIUM 3 ML (DUONEB) VIAL INH SCH ×4 (03:46→21:19)
[2020-06-30 04:18] LABS: HEMOGLOBIN 7.1 g/dL (11.5-16.0); MEAN PLATELET VOLUME 12.5 fL (9.0-12.2); WHITE BLOOD COUNT 7.7 10^3/uL (4.3-11.0)
[2020-06-30 04:33] LABS: ALBUMIN 2.1 GM/DL (3.2-4.5); BILIRUBIN,TOTAL 0.3 MG/DL (0.1-1.0); CALCIUM 7.4 MG/DL (8.5-10.1); CREATININE SERUM 1.58 MG/DL (0.60-1.30); POTASSIUM 3.2 MMOL/L (3.6-5.0); TOTAL PROTEIN 4.8 GM/DL (6.4-8.2)
[2020-06-30] MEDS: inSUlin ASPART (NovoLOG) 1 UNIT/0.01 ML (CHARGE PER UNIT) SC SCH ×4 (05:15→20:13)
[2020-06-30] MEDS: NS IV 1000 ML 1,000 ML IV SCH ×2 (06:31→15:56)
[2020-06-30] MEDS: KCL 20 MEQ TAB (K-DUR) PO SCH ×2 (06:31→18:13)
--- NOTE | 2020-06-30 08:40 | Progress Note - Cardiology ---
Cardiology SOAP Progress Note Subjective: Sitting up in bed No c/o CP, palpitations or dyspnea Objective: I&O/Vital Signs 06/30/20 06/30/20 06/30/20 06/30/20 20:00 20:09 21:00 21:00 Temp 36.0 36.2 36.2 Pulse 73 75 72 Resp 21 22 22 B/P (MAP) 129/72 (91) 125/78 (94) 133/73 Pulse Ox 91 90 91 O2 Delivery High Flow N/C High Flow N/C High Flow N/C High Flow N/C O2 Flow Rate 3.00 1.00 1.00 1.00 06/30/20 06/30/20 07/01/20 07/01/20 21:16 23:37 01:00 03:49 Temp 36.0 36.5 Pulse 79 73 74 Resp 20 19 B/P (MAP) 131/78 (95) 120/73 (89) Pulse Ox 90 91 96 O2 Delivery High Flow N/C High Flow N/C High Flow N/C O2 Flow Rate 1.50 1.00 1.00 07/01/20 07:29 Temp 36.0 Pulse 85 Resp 14 B/P (MAP) 121/65 (83) Pulse Ox 94 O2 Delivery High Flow N/C O2 Flow Rate 1.50 07/01/20 00:00 Intake Total 1020 ml Output Total 2275 ml Balance -1255 ml Weight (Pounds): 173 Weight (Ounces): 0.0 Weight (Calculated Kilograms): 78.898250 Constitutional: well-developed, well-nourished, other (appears mildly confused) Respiratory: No accessory muscle use; other (fair bilat air entry, diminished at the bsases) Cardiovascular: regular rate-rhythm, S1 and S2, systolic murmur (soft SE at card base) Gastrointestional: No tender; soft; No guarding, No rebound; audible bowel sounds Extremities: No clubbing, No cyanosis, No significant edema Neurologic/Psychiatric: other (moves all limbs equally) Skin: No rash on exposed areas, No ulcerations on exposed areas Results/Procedures: Labs Laboratory Tests 06/30/20 11:21: Glucometer 131H 06/30/20 13:53: 06/30/20 15:30: Glucometer 120H 06/30/20 20:12: Glucometer 137H 07/01/20 04:09: Hemoglobin 10.3#L, Hematocrit 31L, Sodium Level 140, Potassium Level 3.7, Chloride Level 110H, Carbon Dioxide Level 24, Anion Gap 6, Blood Urea Nitrogen 25H, Creatinine 1.30, Estimat Glomerular Filtration Rate 41, BUN/Creatinine Ratio 19, Glucose Level 115H, Calcium Level 7.3L, Magnesium Level 1.4L Microbiology 06/26/20 Blood Culture - Preliminary, Resulted No growth 06/25/20 Influenza Types A,B Antigen (JERONIMO) - Final, Complete A/P: Assessment: PAF with RVR, probably precipitated by JUDY - currently SR JUDY, treated with CPAP LINNETTE-3, probably related to volume depletion - renal function improved Hypercalcemia of undetermined etiology, managed by the Med svce Recent pancreatitis Severe anemia of undetermined etiology Chronic diastolic congestive heart failure, currently clinically compensated Echocardiogram of May 30, [address] Crump showed normal LV size, LVEF 60-65%. PASP 15-20mmHg Minimal troponin elevation, likely type 2 ND due to uncontrolled hypertension, chronic diastolic CHF, and ac renal failure Coronary artery disease-patient underwent cardiac catheterization October 11, [address] Crump revealing mild coronary artery disease with 40-50 percent proximal to mid LAD stenosis, nonobstructive disease; otherwise no significant obstructive disease. Normal EF H/o unsteady gait and fatigue with loss of energy Hyperlipidemia, hold statin for now due to pancreatitis Mild bilateral carotid stenosis, history of left CEA in 2005, as well as history of left common carotid stenting. Most recent carotid duplex done May [address] Crump showing mild bilateral disease nonobstructive disease, continue to monitor. Diabetes Mellitus complicated by diabetic neuropathy Fibromyalgia Plan: * Treat JUDY * Continue dilt for vent rate control * Continued Apixaban for stroke prophylaxis. Lower dose because Cr greater than 2 and because of severe anemia (GI bleed not excluded) * Monitor and correct labs * Management of anemia is per medical services - will transfuse 2 units PRBC today with lasix in between DALY ORTIZ Jun 30, 2020 08:40
[2020-06-30] MEDS ORDERED: KCL 20 MEQ TAB (K-DUR) PO NR (08:45)
[2020-06-30] MEDS ORDERED: NS IV 500 ML 500 ML IV SCH (09:15)
[2020-06-30] MEDS ORDERED: FUROSEMIDE 40 MG/4 ML INJ (LASIX) IVP NR (09:15)
[2020-06-30] MEDS: BACLOFEN 10 MG (LIORESAL) TAB PO SCH ×2 (09:25→20:24)
[2020-06-30] MEDS: CARVEDILOL 6.25 MG (COREG) TAB PO SCH ×2 (09:25→20:22)
[2020-06-30] MEDS: GABAPENTIN 400 MG (NEURONTIN) CAP PO SCH ×2 (09:25→20:24)
[2020-06-30] MEDS: ROSUVASTATIN 10 MG (CRESTOR) TABLET PO SCH (09:25)
[2020-06-30] MEDS: VERAPAMIL SR 240 MG (CALAN SR) TAB PO SCH (09:25)
[2020-06-30] MEDS: APIXABAN 2.5 MG (ELIQUIS) TABLET PO SCH ×2 (09:25→20:23)
[2020-06-30] MEDS: ASPIRIN E.C. 81 MG (ECOTRIN) TAB PO SCH (09:25)
[2020-06-30] MEDS: rOPINIRole 1 MG (REQUIP) TABLET PO SCH ×3 (09:25→20:25)
[2020-06-30] MEDS: ALPRAZolam 0.25 MG (XANAX) TAB PO SCH ×2 (09:25→20:25)
[2020-06-30] MEDS: MEROPENEM 500 MG in WATER (STERILE) FOR INJECTION 10 ML IV SCH ×4 (09:29→18:13)
[2020-06-30] MEDS: PANTOPRAZOLE 40 MG (PROTONIX) VIAL IV SCH (09:29)
--- NOTE | 2020-06-30 09:51 | Progress Note - Cardiology ---
Cardiology SOAP Progress Note Subjective: Shortness of breath better No cp or palp or syncope Gen malaise present No n/v Objective: I&O/Vital Signs 06/30/20 06/30/20 06/30/20 06/30/20 00:03 01:00 03:46 04:40 Temp 36.7 36.8 Pulse 64 68 66 Resp 16 18 B/P (MAP) 120/67 (84) 111/65 (80) Pulse Ox 98 99 97 O2 Delivery High Flow N/C High Flow N/C High Flow N/C O2 Flow Rate 5.00 5.00 3.00 06/30/20 08:59 Temp 37.0 Pulse 72 Resp 18 B/P (MAP) 137/74 (95) Pulse Ox 97 O2 Delivery High Flow N/C O2 Flow Rate 3.00 06/30/20 00:00 Intake Total 450 ml Output Total 950 ml Balance -500 ml Weight (Pounds): 173 Weight (Ounces): 0.0 Weight (Calculated Kilograms): 78.264822 Constitutional: well-developed, well-nourished, other (appears mildly confused) Respiratory: No accessory muscle use; other (fair bilat air entry, diminished at the bsases) Cardiovascular: regular rate-rhythm, S1 and S2, systolic murmur (soft SE at card base) Gastrointestional: No tender; soft; No guarding, No rebound; audible bowel sounds Extremities: No clubbing, No cyanosis, No significant edema Neurologic/Psychiatric: other (moves all limbs equally) Skin: No rash on exposed areas, No ulcerations on exposed areas Results/Procedures: Labs Laboratory Tests 06/29/20 11:04: Glucometer 159H 06/29/20 17:02: Glucometer 153H 06/29/20 20:46: Glucometer 147H 06/30/20 03:50: White Blood Count 7.7, Red Blood Count 2.40L, Hemoglobin 7.1L, Hematocrit 22L, Mean Corpuscular Volume 90, Mean Corpuscular Hemoglobin 30, Mean Corpuscular Hemoglobin Concent 33, Red Cell Distribution Width 15.2H, Platelet Count 224, Mean Platelet Volume 12.5H, Sodium Level 141, Potassium Level 3.2L, Chloride L evel 111H, Carbon Dioxide Level 25, Anion Gap 5, Blood Urea Nitrogen 27H, Creatinine 1.58H, Estimat Glomerular Filtration Rate 33, BUN/Creatinine Ratio 17, Glucose Level 115H, Calcium Level 7.4L, Corrected Calcium 8.9, Total Bilirubin 0.3, Aspartate Amino Transf (AST/SGOT) 28, Alanine Aminotransferase (ALT/SGPT) 17, Alkaline Phosphatase 44, Total Protein 4.8L, Albumin 2.1L Microbiology 06/26/20 Blood Culture - Preliminary, Resulted No growth 06/25/20 Influenza Types A,B Antigen (JERONIMO) - Final, Complete Laboratory Tests 06/29/20 05:37 06/30/20 03:50 A/P: Assessment: PAF with RVR, probably precipitated by JUDY - currently SR JUDY, treated with CPAP LINNETTE-3, probably related to volume depletion - renal function improved Hypercalcemia of undetermined etiology, managed by the Med svce Recent pancreatitis Severe anemia of undetermined etiology Chronic diastolic congestive heart failure, currently clinically compensated Echocardiogram of May 30, [address] Crump showed normal LV size, LVEF 60-65%. PASP 15-20mmHg Minimal troponin elevation, likely type 2 VA due to uncontrolled hypertension, chronic diastolic CHF, and ac renal failure Coronary artery disease-patient underwent cardiac catheterization October 11, [address] Crump revealing mild coronary artery disease with 40-50 percent proximal to mid LAD stenosis, nonobstructive disease; otherwise no significant obstructive disease. Normal EF H/o unsteady gait and fatigue with loss of energy Hyperlipidemia, hold statin for now due to pancreatitis Mild bilateral carotid stenosis, history of left CEA in 2005, as well as history of left common carotid stenting. Most recent carotid duplex done May [address] Crump showing mild bilateral disease nonobstructive disease, continue to monitor. Diabetes Mellitus complicated by diabetic neuropathy Fibromyalgia Plan: * Treat JUDY * Continue dilt for vent rate control * Continued Apixaban for stroke prophylaxis. Using lower dose because Cr greater than 1.5 and because of severe anemia (GI bleed not excluded) * Monitor and correct labs * Severe anemia likely contributing to symptoms. We recommend transfusion of 2 units PRBC today with Lasix in between VANESSA HA MD FACP FAC CCDS Jun 30, 2020 09:51
[2020-06-30] MEDS ORDERED: NS IV 500 ML 500 ML ONE (13:48)
--- NOTE | 2020-06-30 15:25 | Progress Note ---
Subjective Subjective Date Seen by Provider: Jun 30, 2020 Time Seen by Provider: 13:20 No overnight events- Respiratory status improving Pt is tired of getting blood drawn. Now she is reporting being scared to get blood transfusion. Nursing staff have explained why we are recommending a blood transfusion and the risks/benefits associated. I as well have discussed this with patient. Pt aware it is her choice ultimately. Review of Systems General: Fatigue, Malaise HEENT: No Head Aches, No Dysphasia Pulmonary: Dyspnea; No Cough Cardiovascular: No: Chest Pain, Palpitations Gastrointestinal: No: Nausea, Abdominal Pain Genitourinary: Other (EDDY IN PLACE) Neurological: Weakness All Other Systems Reviewed All Other Systems Reviewed: Yes Objective Exam Vital Signs Vital Signs Date Time Temp Pulse Resp B/P (MAP) Pulse Ox O2 Delivery O2 Flow Rate FiO2 06/30/20 14:24 35.1 68 22 101/62 93 NIV Bilevel 3.00 06/30/20 14:09 35.2 70 14 100/62 95 High Flow N/C 3.00 06/30/20 14:09 100/62 (75) 06/30/20 11:30 36.2 72 18 137/74 (95) 97 High Flow N/C 3.00 06/30/20 09:58 98 High Flow N/C 2.50 06/30/20 08:59 37.0 72 18 137/74 (95) 97 High Flow N/C 3.00 06/30/20 08:00 High Flow N/C 3.00 06/30/20 04:40 36.8 66 18 111/65 (80) 97 High Flow N/C 3.00 06/30/20 03:46 99 High Flow N/C 5.00 06/30/20 01:00 68 06/30/20 00:03 36.7 64 16 120/67 (84) 98 High Flow N/C 5.00 06/29/20 20:54 High Flow N/C 6.00 06/29/20 20:52 High Flow N/C 6.00 06/29/20 19:00 73 06/29/20 18:58 36.4 72 21 136/75 (95) 96 Vapotherm 15.00 35.00 06/29/20 16:00 92 Vapotherm 15.00 40 06/29/20 15:44 36.2 65 22 120/60 (80) 97 Vapotherm 15.00 35.00 I & O 06/30/20 07:00 Intake Total 500 ml Output Total 1375 ml Balance -875 ml General Appearance: Chronically ill, Mild Distress Eyes: Bilateral Eye PERRL, Bilateral Eye EOMI HEENT: PERRL/EOMI Neck: Full Range of Motion, Non Tender, Supple Respiratory: Decreased Breath Sounds; No Rhonci, No Wheezing Cardiovascular: Regular Rate, Rhythm, Systolic Murmur Gastrointestinal: Normal Bowel Sounds, Soft, Tenderness (diffuse) Rectal: Deferred Extremity: Pedal Edema (TRACE) Neurologic/Psychiatric: Alert, Other (AWAKENS TO VOICE, DOES APPEAR LETHARGIC, CONVERSES APPROPRIATELY WHEN STIMULATED TO DO SO BY VOICE COMMANDS, FLAT AFFECT) Skin: Warm/Dry, Pallor Results Lab Laboratory Tests 06/29/20 17:02: Glucometer 153H 06/29/20 20:46: Glucometer 147H 06/30/20 03:50: White Blood Count 7.7, Red Blood Count 2.40L, Hemoglobin 7.1L, Hematocrit 22L, Mean Corpuscular Volume 90, Mean Corpuscular Hemoglobin 30, Mean Corpuscular Hemoglobin Concent 33, Red Cell Distribution Width 15.2H, Platelet Count 224, Mean Platelet Volume 12.5H, Sodium Level 141, Potassium Level 3.2L, Chloride Level 111H, Carbon Dioxide Level 25, Anion Gap 5, Blood Urea Nitrogen 27H, Creatinine 1.58H, Estimat Glomerular Filtration Rate 33, BUN/Creatinine Ratio 17, Glucose Level 115H, Calcium Level 7.4L, Corrected Calcium 8.9, Total Bilirubin 0.3, Aspartate Amino Transf (AST/SGOT) 28, Alanine Aminotransferase (ALT/SGPT) 17, Alkaline Phosphatase 44, Total Protein 4.8L, Albumin 2.1L 06/30/20 11:21: Glucometer 131H 06/30/20 13:53: Microbiology 06/26/20 Blood Culture - Preliminary, Resulted No growth 06/25/20 Influenza Types A,B Antigen (JERONIMO) - Final, Complete Assessment/Plan Assessment/Plan Assessment and Plan 06/28/20- creatinine improving- still waiting on labs for hypercalcemia workup. -stopping vancomycin as this will also help her kidneys. -surgeon is following along. -will continue to hold her xanax, requip, gabapentin, baclofen- but if she continues to have back pain -we may resume the gabapentin. 06/29/20- creatinine improving- calcium improving significantly with IVF, prednisone 40mg x1, lasix 40mg x 1 -iron studies support anemia of chronic disease- along with hypercalcemia- still heading down path of malignancy- normal PTH, awaiting PTH-rP and Vit D-25- lab is unsure why they are not resulted. Lab is going to check on this. -miralax today to help with a bowel movement. 06/30/20- 2 units pRBC with lasix in between expect her breathing to improve and strain on her heart to improve. Pt is doing better respiratory-[facility]- currently on 3L high flow nasal cannula. No new issues. Consulting case management to work on placement vs return home with family. Re-ordered PTH-rP. System will not let me order Vit D labs again. Dispo:. Discharge planning. Problems: (1) Acute respiratory failure with hypoxia Assessment & Plan: on BiPAP treating pneumonia RT consulted (2) Pancreatitis Qualifiers: Qualified Codes: K85.10 - Biliary acute pancreatitis without necrosis or infection Assessment & Plan: surgery following along- -hypercalcemia is likely cause of her pancreatitis (3) Right lower lobe pneumonia Qualifiers: Qualified Codes: J18.9 - Pneumonia, unspecified organism (4) Acute on chronic renal insufficiency Assessment & Plan: NEW ONSET OVER THE PAST FEW YEARS, UNCERTAIN OF LENGTH OF HER RENAL INSUFFICIENCY - LAST HOSPITAL LABS AVAILABLE -PRIOR TO 2017, PT HAD NORMAL RENAL FUNCTIONING. WILL RENALLY ADJUST MEDS, MONITOR LABS SERIALLY (5) CKD (chronic kidney disease) stage 3, GFR 30-59 ml/min Assessment & Plan: UNCERTAIN LENGTH OF RENAL DYSFUNCTION, MONITOR LABS CLOSELY (6) Hypercalcemia syndrome Assessment & Plan: IMPROVING - PT HAD ELEVATED CALCIUM ON HER LAST HOSPITALIZATION WITH THE HOSPITALIST SERVICE, UNKNOWN IF THIS WAS INVESTIGATED DURING HER PREVIOUS HOSPITALIZATION. WILL CHECK PTH, VITAMIN D POSSIBLE MALIGNANCY INDUCED ELEVATION OF CALCIUM, CT WITH CONTRAST NOT ABLE TO BE OBTAINED DUE TO HER RENAL FUNCTION, WILL CONSIDER FURTHER INVESTIGATION ONCE RENAL FUNCTION IMPROVES. -Calcium is even higher when adjusted for albumin. (7) Hypokalemia Assessment & Plan: replacing potassium- Cr improved. (8) Parkinson disease Assessment & Plan: - LONG STANDING PER FAMILY REPORT - PT SEES DR. ARTIS - NEUROLOGY IN [facility] MED[facility] continued (9) Hypertension Qualifiers: Qualified Codes: I10 - Essential (primary) hypertension Assessment & Plan: RESUMED COREG AND VERAPAMIL MONITOR PRESSURES CLOSELY (10) Elevated d-dimer Assessment & Plan: on eliquis (11) Diabetes mellitus, type 2 Qualifiers: Assessment & Plan: - UNCERTAIN LEVEL OF CONTROL -blood sugars have been decent. (12) Chronic pancreatitis Qualifiers: Qualified Codes: K86.1 - Other chronic pancreatitis Assessment & Plan: PT HAD PANCREATITIS ON LAST HOSPITALIZATION -SUSPECT DUE TO GALLSTONES -Surgery monitoring (13) Nausea & vomiting Qualifiers: Qualified Codes: R11.2 - Nausea with vomiting, unspecified Assessment & Plan: DUE TO PANCREATITIS (14) Anemia in chronic illness Assessment & Plan: Fe low, low TIBC, high Ferritin - anemai of chronic disease. (15) DVT prophylaxis Assessment & Plan: on eliquis 2.5mg bid Clinical Quality Measures DVT/VTE Risk/Contraindication: Risk Factor Score Per Nursin RFS Level Per Nursing on Admit: 2=Moderate TAYLOR IRVING MD Jun 30, 2020 15:25
--- NOTE | 2020-06-30 15:31 | NUR ---
CM/SS: Visited with pt as per services and plan for discharge. Plan: Pt lives with her son and daughter in law and will likely return there after her time of discharge. Pt has had home care services in the past. Summary: Pt reports she lives with her son and daughter in law - she has had home care in the past. Pt is unsure if she would want that after this admission. Pt reports she is pretty weak and has some difficulty with remembering her address of where she lives with her son and daughter in law. This worker will need to follow up with son.
--- NOTE | 2020-06-30 17:05 | NUR ---
"RD ASSESSMENT PMHx: COPD; pneumonia; CAD; hypercholesterolemia; HTN; HF; GERD; pancreatitis (new onset); fibromyalgia; DM; PT INTERACTION: Pt was awake and pleasant during nutrition assessment. Pt states current appetite is so-so. Note avg PO intake 30% x3d, per chart review. Pt states following a regular diet at home, and has no issues with chewing/swallowing food. Pt states some recent issues with constipation, and that her last BM was 06/28. Note pt not currently on bowel regimen per chart review. Pt states unsure of recent wt changes. Note unable to determine recent wt hx, per chart review. Pt states current DM management is pretty good. Note unable to determine recent HbA1c, per chart review. ABNORMAL NUTRITION-RELATED LAB VALUES LOW: K 3.2; Ca 7.4; Po 4.8; alb 2.1; HIGH: Cl 111; BUN 27; cr 1.58; glu 115 Est. kcal needs: 6171-1332 kcal | 15-20 kcal/kg Est. Pro needs: 88-106 g Pro | 1.0-1.2 g Pro/kg PES STATEMENT: Inadequate oral intake (NI-2.1) related to loss of appetite, and constipation, as evidenced by pt interview, and avg PO intake 30% x3d. INTERVENTION: Continue with current diet order of CHO 60g/m 3snack diet. Encouraged pt to eat when able. Add Glucerna (vary) to meals TID, for increased kcal intake. Provides 220 kcal and 10 g Pro per serving. Offered diet education on DM management, but pt declined at this time. Will attempt to offer again prior to discharge. Will continue to follow and reassess as pt needs, intake, and status change. Leah BAIG, MS RD LD [phone] cell"
[2020-06-30] MEDS ORDERED: FUROSEMIDE 40 MG/4 ML INJ (LASIX) ONE ×2 (18:06→18:13)
[2020-06-30] MEDS: FENOFIBRATE 134 MG (LOFIBRA) CAPSULE PO SCH (20:24)
[2020-06-30] MEDS: FAMOTIDINE 20 MG (PEPCID) TABLET PO SCH (20:24)
[2020-06-30] MEDS: MONTELUKAST 10 MG (SINGULAIR) TAB PO SCH (20:25)
[2020-07-01] MEDS: MEROPENEM 500 MG in WATER (STERILE) FOR INJECTION 10 ML IV SCH ×3 (02:44→18:04)
[2020-07-01 03:49] VITALS: BP 120/73
[2020-07-01] MEDS: NS IV 1000 ML 1,000 ML IV SCH ×2 (03:50→05:58)
[2020-07-01 04:44] LABS: HEMOGLOBIN 10.3 g/dL (11.5-16.0)
[2020-07-01 05:11] LABS: CALCIUM 7.3 MG/DL (8.5-10.1); CREATININE SERUM 1.3 MG/DL (0.60-1.30); MAGNESIUM 1.4 MG/DL (1.6-2.4); POTASSIUM 3.7 MMOL/L (3.6-5.0)
[2020-07-01] MEDS: inSUlin ASPART (NovoLOG) 1 UNIT/0.01 ML (CHARGE PER UNIT) SC SCH ×4 (05:28→20:13)
[2020-07-01 07:29] VITALS: BP 121/65
[2020-07-01] MEDS ORDERED: MAGNESIUM 1 GM/100 ML IVPB 100 ML IV ONE ×2 (07:55)
[2020-07-01] MEDS: MAGNESIUM 1 GM/100 ML IVPB 100 ML IV SCH ×2 (08:07→09:10)
[2020-07-01] MEDS: CARVEDILOL 6.25 MG (COREG) TAB PO SCH ×2 (08:07→20:13)
[2020-07-01] MEDS: APIXABAN 2.5 MG (ELIQUIS) TABLET PO SCH ×2 (08:07→20:13)
[2020-07-01] MEDS: ROSUVASTATIN 10 MG (CRESTOR) TABLET PO SCH (08:07)
[2020-07-01] MEDS: PANTOPRAZOLE 40 MG (PROTONIX) VIAL IV SCH (08:07)
[2020-07-01] MEDS: KCL 20 MEQ TAB (K-DUR) PO SCH ×2 (08:08→18:04)
[2020-07-01] MEDS: ASPIRIN E.C. 81 MG (ECOTRIN) TAB PO SCH (08:08)
[2020-07-01] MEDS: rOPINIRole 1 MG (REQUIP) TABLET PO SCH (08:08)
[2020-07-01] MEDS: GABAPENTIN 400 MG (NEURONTIN) CAP PO SCH (08:08)
[2020-07-01] MEDS: BACLOFEN 10 MG (LIORESAL) TAB PO SCH (08:08)
[2020-07-01] MEDS: ALPRAZolam 0.25 MG (XANAX) TAB PO SCH (08:08)
[2020-07-01] MEDS: VERAPAMIL SR 240 MG (CALAN SR) TAB PO SCH (08:08)
[2020-07-01] MEDS: RT-ALBUTEROL/IPRATROPIUM 3 ML (DUONEB) VIAL INH SCH ×3 (09:50→21:18)
--- NOTE | 2020-07-01 10:09 | Progress Note - Cardiology ---
Cardiology SOAP Progress Note Subjective: Sitting up in bed States she just woke up, but feels good No c/o CP, SOB or palpitations Objective: I&O/Vital Signs 07/02/20 07/02/20 07/02/20 07/02/20 00:08 01:00 03:52 07:19 Temp 35.6 36.2 Pulse 86 87 84 87 Resp 24 20 18 B/P (MAP) 133/77 (95) 137/75 (95) 137/92 (107) Pulse Ox 96 95 95 O2 Delivery High Flow N/C High Flow N/C High Flow N/C O2 Flow Rate 1.00 1.00 0.50 07/02/20 08:49 O2 Delivery High Flow N/C O2 Flow Rate 1.00 07/02/20 00:00 Intake Total 2000 ml Output Total 1175 ml Balance 825 ml Weight (Pounds): 173 Weight (Ounces): 0.0 Weight (Calculated Kilograms): 78.232206 Constitutional: well-developed, well-nourished, other (appears mildly confused) Respiratory: No accessory muscle use; other (fair bilat air entry, diminished at the bsases) Cardiovascular: regular rate-rhythm, S1 and S2, systolic murmur (soft SE at card base) Gastrointestional: No tender; soft; No guarding, No rebound; audible bowel sounds Extremities: No clubbing, No cyanosis, No significant edema Neurologic/Psychiatric: other (moves all limbs equally) Skin: No rash on exposed areas, No ulcerations on exposed areas Results/Procedures: Labs Laboratory Tests 07/01/20 16:04: Glucometer 149H 07/01/20 19:35: Glucometer 138H 07/02/20 05:38: Glucometer 126H 07/02/20 05:53: Glucometer 130H 07/02/20 09:19: White Blood Count 8.4, Red Blood Count 3.76L, Hemoglobin 10.5L, Hematocrit 32L, Mean Corpuscular Volume 85, Mean Corpuscular Hemoglobin 28, Mean Corpuscular Hemoglobin Concent 33, Red Cell Distribution Width 19.9H, Platelet Count 223, Mean Platelet Volume 12.5H, Immature Granulocyte % (Auto) 1, Neutrophils (%) (Auto) 66, Lymphocytes (%) (Auto) 16, Monocytes (%) (Auto) 9, Eosinophils (%) (Auto) 8, Basophils (%) (Auto) 0, Neutrophils # (Auto) 5.6, Lymphocytes # (Auto) 1.4, Monocytes # (Auto) 0.7, Eosinophils # (Auto) 0.7H, Basophils # (Auto) 0.0, Immature Granulocyte # (Auto) 0.0, Neutrophils % (Manual) 79, Lymphocytes % (Manual) 10, Monocytes % (Manual) 5, Eosinophils % (Manual) 5, Basophils % (Manual) 1, Blood Morphology Comment NORMAL, Sodium Level 138, Potassium Level 3.8, Chloride Level 108H, Carbon Dioxide Level 26, Anion Gap 4L, Blood Urea Nitrogen 20H, Creatinine 1.19, Estimat Glomerular Filtration Rate 45, BUN/Creatinine Ratio 17, Glucose Level 118H, Calcium Level 7.3L, Phosphorus Level 1.4L, Magnesium Level 1.6, Albumin 2.3L Microbiology 06/26/20 Blood Culture - Final, Complete No growth 06/25/20 Influenza Types A,B Antigen (JERONIMO) - Final, Complete A/P: Assessment: PAF with RVR, probably precipitated by JUDY - currently SR JUDY, treated with CPAP LINNETTE-3, probably related to volume depletion - renal function improved Hypercalcemia of undetermined etiology, managed by the Med svce Recent pancreatitis Severe anemia of undetermined etiology Chronic diastolic congestive heart failure, currently clinically compensated Echocardiogram of May 30, [address] Crump showed normal LV size, LVEF 60-65%. PASP 15-20mmHg Minimal troponin elevation, likely type 2 UT due to uncontrolled hypertension, chronic diastolic CHF, and ac renal failure Coronary artery disease-patient underwent cardiac catheterization October 11, [address] Crump revealing mild coronary artery disease with 40-50 percent proximal to mid LAD stenosis, nonobstructive disease; otherwise no significant obstructive disease. Normal EF H/o unsteady gait and fatigue with loss of energy Hyperlipidemia, hold statin for now due to pancreatitis Mild bilateral carotid stenosis, history of left CEA in 2005, as well as history of left common carotid stenting. Most recent carotid duplex done May [address] Crump showing mild bilateral disease nonobstructive disease, continue to monitor. Diabetes Mellitus complicated by diabetic neuropathy Fibromyalgia Plan: * Treat JUDY * Continue dilt for vent rate control * Continued Apixaban for stroke prophylaxis. Using lower dose because Cr greater than 1.5 and because of severe anemia (GI bleed not excluded) * Monitor and correct labs * Replace Mag * Anemia improved following transfusion of PRBC DALY ORTIZ Jul 01, 2020 10:09
--- NOTE | 2020-07-01 10:31 | Physical Therapy Evaluation ---
PT Evaluation-General Medical Diagnosis Admission Date Jun 25, 2020 at 21:30 Medical Diagnosis: dehydration/chronic pancreatitis Onset Date: Jun 25, 2020 Therapy Diagnosis Therapy Diagnosis: generalized weakness/debility Height/Weight Height (Feet): 5 Height (Inches): 5.00 Weight (Pounds): 173 Weight (Ounces): 0.0 Precautions Precautions/Isolations: Fall Prevention, Standard Precautions Weight Bear Status Right Lower Extremity: Right Weight Bearing/Tolerated Left Lower Extremity: Left Weight Bearing/Tolerated Referral Physician: Oli Reason for Referral: Evaluation/Treatment Medical History Pertinent Medical History: CAD, DM, Dementia, HTN, Parkinson's, Renal Insufficiency Current History EMS secondary to fall at home Reviewed History: Yes Social History Home: Single Level Current Living Status: Other Family Prior Prior Level of Function SCALE: Activities may be completed with or without assistive devices. 3-Esoidqmayw-vngdleo completes the activity by him/herself with no assistance from a helper. 5-Set-up or Clean-up Assistance-helper sets up or cleans up; patient completes activity. [place] assists only prior to or following the activity. 4-Supervision or Touching Assistance-helper provides verbal cues and/or touch ing/steadying and/or contact guard assistance as patient completes activity. Assistance may be provided throughout the activity or intermittently. 3-Partial/Moderate Assistance-helper does LESS THAN HALF the effort. [place] lifts, holds or supports trunk or limbs, but provides less than half the effort. 2-Substantial/Maximal Assistance-helper does MORE THAN HALF the effort. [place] lifts or holds trunk or limbs and provides more than half the effort. 2-Axbtsbdlj-xbhtct does ALL the effort. Patient does none of the effort to complete the activity. Or, the assistance of 2 or more helpers is required for the patient to complete the activity. If activity was not attempted, code reason: 7-Patient Refused. 9-Not Applicable-not attempted and the patient did not perform the activity before the current illness, exacerbation or injury. 10-Not Attempted due to Environmental Limitations-(lack of equipment, weather restraints, etc.). 88-Not Attempted due to Medical Conditions or Safety Concerns. Bed Mobility: 5 Transfers (B,C,W/C): 5 Gait: 5 Stairs: 5 Indoor Mobility (Ambulation): Independent Stairs: Independent Prior Devices Use: Walker PT Evaluation-Current Subjective Patient is in bed and very slow with reaction and mobility due to Parkinson's and weakness. Objective Patient Orientation: Confused Attachments: Oxygen, Emerson Catheter, IV ROM/Strength ROM Lower Extremities bilateral LE WFL Strength Lower Extremities 3-/5 grossly bilateral LE Integumentary/Posture Integumentary refer to nursing notes Bowel Incontinence: Yes Bladder Incontinence: Emerson Cath Posture trunk flexed posture Neuromuscular (Tone, Coordination, Reflexes) Parkinson's Sensory Vision: Wears Glasses Hearing: Impaired Transfers Roll Left to Right (QC): 2 Sit to Lying (QC): 2 Lying to Sitting/Side of Bed(Q: 2 Sit to Stand (QC): 2 Chair/Vpa-ui-Cxnfl Xfer(QC): 2 Gait Does the Patient Walk?: No and Walking Goal IS indicated Mode of Locomotion: Walk Anticipated Mode of Locomotion: Walk Distance: 5' Gait Assistive Device: FWW Comments/Gait Description slightly retropulsive with PT correct Balance Sitting Static: Fair Sitting Dynamic: Fair Standing Static: Poor Standing Dynamic: Poor Treatment bilateral LE exercises in supine and EOB 8 reps AP, HS, abd/add; seated LAQ Assessment/Needs 70 y.o. female, requires time to complete all functional tasks, will benefit from skilled PT to address functional strength and mobility to improve current LOF. From a PT standpoint, patient may require extended care facility due to current LOF. Rehab Potential: Guarded PT Palletizer Goals Prison Goals PT Palletizer Goals Time Frame: Jul 12, 2020 Roll Left & Right (QC): 4 Sit to Lying (QC): 4 Lying-Sitting on Side/Bed(QC): 4 Sit to Stand (QC): 4 Chair/Nwr-fg-Czyot Xfer(QC): 4 Toilet Transfer (QC): 4 Does the Patient Walk: Yes Walk 10 feet (QC): 4 Walk 50ft with 2 Turns (QC): 4 Walk 150 ft (QC): 4 PT Plan Problem List Problem List: Activity Tolerance, Functional Strength, Safety, Balance, Gait, Transfer, Bed Mobility Treatment/Plan Treatment Plan: Continue Plan of Care Treatment Plan: Bed Mobility, Education, Functional Activity Tracie, Functional Strength, Gait, Safety, Therapeutic Exercise, Transfers Treatment Duration: Jul 12, 2020 Frequency: 6 times per week Estimated Hrs Per Day: .25 hour per day Time/GCodes Time In: 810 Time Out: 836 Total Billed Treatment Time: 26 Total Billed Treatment 1 visit EVModC 13 min EX 13 min CARI SINGLETARY PT Jul 01, 2020 10:30
--- NOTE | 2020-07-01 11:45 | NUR ---
IRF Evaluation Determination: Accepted Chart review complete and findings discussed with Dr. Scruggs - patient accepted. Patient's primary insurance provider is [facility]; therefore, prior authorization will need to be obtained. In partnership with MISHA, met with patient to discuss details related to rehabilitation program. Patient is agreeable to admission and required therapy regimen. Due to patient's insurance provider historically denying admission to inpatient rehab, this financial underwriter discussed the Fast Appeal process with the patient. She is agreeable to complete said process, if needed. Will continue to follow. Thank you for this referral.
--- NOTE | 2020-07-01 11:56 | NUR ---
CM/SS: Visited with pt as per Social Service Consult related to discharge plan - home vs. facility. Plan: Undetermined at this time. Pt is from home and lives with son and daughter in law. Summary: Talk with pt as to plan for her at time of discharge. Pt does not want to go to a senior living, but she does indicate she needs to be stronger to go home. Further discussion with pt. It is decided that zuri Triana will be called to determine his thoughts on the plan for pt. Telephone call to zuri Triana - [phone] - he reports that pt has not been getting around well since she was out of the hospital the last time. He also reports that pt has has some changes in her behavior and that it seems to be attention seeking in nature. Son is ok to talk with pt as to his thoughts on her returning home. Put zuri Triana on speaker phone and he is able to talk with pt as her his concern for her getting stronger. He would like for pt to do to a facility. Pt reluctantly agrees and shares she needs to get stronger in order to return home. They are both reminded that there are no visitors at any facilities. This worker will follow up related to what facilities are accepting pts at this time. Telephone call to [facility] to determine if pt has been there previously. It is unsure if she has been there in the past. They are willing to assess pt and see if she meets criteria.
--- NOTE | 2020-07-01 12:11 | NUR ---
CM/SS: Visited with pt along with along with the [facility] - [facility]patient Re[facility] Coordinator - discussed rehab and services she could receive from there. She has been approved to come, however we do not have insurance approval and will need that prior to pt going. Pt is open to going and just wants to get stronger to be able to return home. Pt verbalizes understanding a to the process related to the insurance approval. This worker will follow up.
[2020-07-01 12:25] VITALS: BP 127/76
--- NOTE | 2020-07-01 13:07 | Occupational Therapy Eval ---
OT Evaluation-General/PLF Medical Diagnosis Admission Date Jun 25, 2020 at 21:30 Medical Diagnosis: dehydration/chronic pancreatitis Onset Date: Jun 25, 2020 Therapy Diagnosis Therapy Diagnosis: debility, generalized weakness Height/Weight Height (Feet): 5 Height (Inches): 5.00 Weight (Pounds): 173 Weight (Ounces): 0.0 Precautions Precautions/Isolations: Fall Prevention, Standard Precautions Referral Physician: Oli Referral Reason: Evaluation/Treatment Medical History Pertinent Medical History: CAD, DM, Dementia, HTN, Parkinson's, Renal Ins ufficiency Current History EMS due to fall at home Social History Home: Single Level Current Living Status: Other Family (son) ADL-Prior Level of Function SCALE: Activities may be completed with or without assistive devices. 1-Rquajxfdmb-vzspugh completes the activity by him/herself with no assistance from a helper. 5-Set-up or Clean-up Assistance-helper sets up or cleans up; patient completes activity. [place] assists only prior to or following the activity. 4-Supervision or Touching Assistance-helper provides verbal cues and/or touching/steadying and/or contact guard assistance as patient completes activity. Assistance may be provided throughout the activity or intermittently. 3-Partial/Moderate Assistance-helper does LESS THAN HALF the effort. [place] lifts, holds or supports trunk or limbs, but provides less than half the effort. 2-Substantial/Maximal Assistance-helper does MORE THAN HALF the effort. [place] lifts or holds trunk or limbs and provides more than half the effort. 5-Ymugcvlwk-navgur does ALL the effort. Patient does none of the effort to complete the activity. Or, the assistance of 2 or more helpers is required for the patient to complete the activity. If activity was not attempted, code reason: 7-Patient Refused. 9-Not Applicable-not attempted and the patient did not perform the activity before the current illness, exacerbation or injury. 10-Not Attempted due to Environmental Limitations-(lack of equipment, weather restraints, etc.). 88-Not Attempted due to Medical Conditions or Safety Concerns. ADL PLOF Comments Pt reports she required assistance with all ADLS at PLOF, she has assistance with bathing/dressing and cooking/cleaning. Pt indicates she did not complete any parts of showering as they "didn't give me a chance". Pt has a tub/shower with an extended shower bench. Self Care: Needed Some Help Functional Cognition: Independent DME/Equipment: Bath Bench, Tub/Shower OT Current Status Subjective Pt seated in recliner, agreeable to OT tx. Part way through tx, pt informs OT that she is "interrupting my lunch", OT informed pt she needed to complete ADLs in order to be considered for ARU, she agreed to further tx with moderate en couragement. Mental Status/Objective Patient Orientation: Person, Place, Time, Situation Attachments: Emerson Catheter, IV, Oxygen Current Glasses/Contacts: Yes Upper Extremity ROM WFL Upper Extremity Coordination decreased due to tremors with activity ADL-Treatment Eating (QC): 3 (Mod A using utensils, pt had tremors with movements requiring increased time with task. Pt declined weighted utensils when offered. OT able to eat finger foods independently.) Oral Hygiene (QC): 3 (Based on clincial judgement pt would require some assistance due to tremors) Shower/Bathe Self (QC): 1 (Pt able to wash RUE and chest, then asked OT what else she needed to wash. Cues for sequencing. Assistance washing LUE, BLEs, and feet, A x2 in stand for buttocks/periarea) Lower Body Dressing (QC): 1 (based on clincial judgement, pt would require x2 assist in stand for pant hike, and assistance with threading BLEs.) On/Off Footwear (QC): 1 (Pt required total assist donning/doffing gripper socks.) Toileting Hygiene (QC): 1 (Based on clincial [place], pt would require 2 person assist to manage clothing and perform hygiene.) pt required increased time with all ADLs and movements Other Treatments Pt seated in recliner, agreeable to OT evaluation and tx. Pt required moderate encouragement to stand at FWW, Max A sit to stand. Pt then encouraged to ambulate with walker, pt informed OT she wasn't going to be able to and did not want to try. With encouragement, pt took small step forward with L foot, but did not lift foot off of floor (slid L foot across floor). OT then encouraged pt to step forward with R foot, but pt refused stating she wasn't able to. Pt sat back in recliner, unable to slowly lower self into chair. Pt's lunch arrived and pt informed OT she was keeping the pt from lunch. OT informed pt she needed to complete some ADLs to submit to insurance for decision on ARU, she agreed with moderate encouragement. She completed sponge bath seated at recliner, OT handed pt wash cloth, pt required sequencing of task. OT assisted pt with washing BLEs as pt washed R arm and chest. Pt required assistance with other parts, Assist x2 in stand. Pt then ate lunch using LUE, tremors noted with activity. Pt declined assistance with cutting her food, she was able to cut meatloaf, get meatloaf onto utensil and bring to mouth with increased time. OT asked if pt required other assistance, pt indicates no one else is going to help her. When OT asks what she needs help with pt does not answer. OT offers assistance with feeding but pt does not respond. OT offered to get pt weighted utensils to help with tremors, but pt declines. OT again offers to assist pt with feeding, pt agreed. OT cut food, and assisted pt with bringing food to pt's mouth, pt able to eat green beans independently with fingers. Post tx, pt seated in recliner, call light in reach and all needs met. Education OT Patient Education: Correct positioning, Modified ADL techniques, Progress toward Goal/Update tx plan, Purpose of tx/functional activities, Rehab process Teaching Recipient: Patient Teaching Methods: Discussion Response to Teaching: Verbalize Understanding OT New Car Make Ready Mechanic Goals New Car Make Ready Mechanic Goals Time Frame: Jul 11, 2020 Eating (QC): 6 Oral Hygiene (QC): 6 Toileting Hygiene (QC): 4 Shower/Bathe Self (QC): 3 Upper Body Dressing (QC): 4 Lower Body Dressing (QC): 3 On/Off Footwear (QC): 3 1=Demonstrate adherence to instructed precautions during ADL tasks. 2=Patient will verbalize/demonstrate understanding of assistive devices/modifications for ADL. 3=Patient will improve strength/tolerance for activity to enable patient to perform ADL's. OT Education/Plan Problem List/Assessment Assessment: Decreased Activ Tolerance, Decreased UE Strength, Impaired Funct Balance, Impaired I ADL's, Impaired Self-Care Skills, Restricted Funct UE ROM Discharge Recommendations Plan/Recommendations: Continue POC Therapy Discharge Recommendati: Other, See Comments Treatment Plan/Plan of Care Patient would benefit from OT for education, treatment and training to promote independence in ADL's, mobility, safety and/or upper extremity function for ADL's. Plan of Care: ADL Retraining, Functional Mobility, UE Funct Exercise/Act Treatment Duration: Jul 11, 2020 Frequency: 5 times per week Estimated Hrs Per Day: .25 hour per day Rehab Potential: Guarded Time/GCodes Start Time: 11:38 Stop Time: 12:25 Total Time Billed (hr/min): 47 Billed Treatment Time 1, EVM (10'), ADL 2 (37') MARTHA IVAN OT Jul 01, 2020 13:07
--- NOTE | 2020-07-01 14:54 | Progress Note - Cardiology ---
Cardiology SOAP Progress Note Subjective: Malaise present but better than before No cp or palp or syncope Shortness of breath better No n/v Objective: I&O/Vital Signs 07/01/20 07/01/20 07/01/20 07/01/20 03:49 06:43 07:29 08:32 Temp 36.5 36.0 Pulse 74 71 85 Resp 19 14 B/P (MAP) 120/73 (89) 121/65 (83) Pulse Ox 96 94 O2 Delivery High Flow N/C High Flow N/C High Flow N/C O2 Flow Rate 1.00 1.50 1.00 07/01/20 07/01/20 07/01/20 09:50 12:25 12:45 Temp 36.0 Pulse 75 80 Resp 14 B/P (MAP) 127/76 (93) Pulse Ox 96 97 O2 Delivery High Flow N/C High Flow N/C O2 Flow Rate 1.00 1.00 07/01/20 00:00 Intake Total 1020 ml Output Total 2275 ml Balance -1255 ml Weight (Pounds): 173 Weight (Ounces): 0.0 Weight (Calculated Kilograms): 78.557177 Constitutional: well-developed, well-nourished, other (appears mildly confused) Respiratory: No accessory muscle use; other (fair bilat air entry, diminished at the bsases) Cardiovascular: regular rate-rhythm, S1 and S2, systolic murmur (soft SE at card base) Gastrointestional: No tender; soft; No guarding, No rebound; audible bowel sounds Extremities: No clubbing, No cyanosis, No significant edema Neurologic/Psychiatric: other (moves all limbs equally) Skin: No rash on exposed areas, No ulcerations on exposed areas Results/Procedures: Labs Laboratory Tests 06/30/20 15:30: Glucometer 120H 06/30/20 20:12: Glucometer 137H 07/01/20 04:09: Hemoglobin 10.3#L, Hematocrit 31L, Sodium Level 140, Potassium Level 3.7, Chloride Level 110H, Carbon Dioxide Level 24, Anion Gap 6, Blood Urea Nitrogen 25H, Creatinine 1.30, Estimat Glomerular Filtration Rate 41, BUN/Creatinine Ratio 19, Glucose Level 115H, Calcium Level 7.3L, Magnesium Level 1.4L 07/01/20 10:20: Glucometer 162H Microbiology 06/26/20 Blood Culture - Preliminary, Resulted No growth 06/25/20 Influenza Types A,B Antigen (JERONIMO) - Final, Complete Laboratory Tests 06/30/20 03:50 07/01/20 04:09 A/P: Assessment: PAF with RVR, probably precipitated by JUDY - currently SR JUDY, treated with CPAP LINNETTE-3, probably related to volume depletion - renal function improved Hypercalcemia of undetermined etiology, managed by the Med svce Recent pancreatitis Severe anemia of undetermined etiology Chronic diastolic congestive heart failure, currently clinically compensated Echocardiogram of May 30, [address] Crump showed normal LV size, LVEF 60-65%. PASP 15-20mmHg Minimal troponin elevation, likely type 2 IA due to uncontrolled hypertension, chronic diastolic CHF, and ac renal failure Coronary artery disease-patient underwent cardiac catheterization October 11, [address] Crump revealing mild coronary artery disease with 40-50 percent proximal to mid LAD stenosis, nonobstructive disease; otherwise no significant obstructive disease. Normal EF H/o unsteady gait and fatigue with loss of energy Hyperlipidemia, hold statin for now due to pancreatitis Mild bilateral carotid stenosis, history of left CEA in 2005, as well as history of left common carotid stenting. Most recent carotid duplex done May [address] Crump showing mild bilateral disease nonobstructive disease, continue to monitor. Diabetes Mellitus complicated by diabetic neuropathy Fibromyalgia Plan: * Currently on verapamil and diltiazem. Consolidate into a single CCB * Continued Apixaban for stroke prophylaxis. Using lower dose because Cr greater than 1.5 and because of severe anemia (GI bleed not excluded) * Monitor and correct labs * Replace Mag * Anemia improved following transfusion of PRBC VANESSA HA MD FACP FAC CCDS Jul 01, 2020 14:54
[2020-07-01 16:20] VITALS: BP 125/67
[2020-07-01 20:07] VITALS: BP 132/83
[2020-07-01] MEDS: MONTELUKAST 10 MG (SINGULAIR) TAB PO SCH (20:13)
[2020-07-01] MEDS: FENOFIBRATE 134 MG (LOFIBRA) CAPSULE PO SCH (20:13)
[2020-07-01] MEDS: FAMOTIDINE 20 MG (PEPCID) TABLET PO SCH (20:13)
--- NOTE | 2020-07-01 20:41 | Progress Note ---
Subjective Subjective Date Seen by Provider: Jul 01, 2020 Time Seen by Provider: 12:35 No overnight events- respiratory status continues to improve. -she was eating lunch today what OT observing. Inpatient rehab evaluating patient today. Patient reports this should have happened last time instead of being discharged to home. Review of Systems General: Fatigue, Malaise HEENT: No Head Aches, No Dysphasia Pulmonary: Dyspnea; No Cough Cardiovascular: No: Chest Pain, Palpitations Gastrointestinal: No: Nausea, Abdominal Pain Genitourinary: Other (EDDY IN PLACE) Neurological: Weakness All Other Systems Reviewed All Other Systems Reviewed: Yes Objective Exam Vital Signs Vital Signs Date Time Temp Pulse Resp B/P (MAP) Pulse Ox O2 Delivery O2 Flow Rate FiO2 07/01/20 20:07 36.0 81 18 132/83 (99) 95 High Flow N/C 1.00 07/01/20 16:20 36.3 75 11 125/67 (86) 95 High Flow N/C 1.00 07/01/20 12:45 80 07/01/20 12:25 36.0 75 14 127/76 (93) 97 High Flow N/C 1.00 07/01/20 09:50 96 High Flow N/C 1.00 07/01/20 08:32 High Flow N/C 1.00 07/01/20 07:29 36.0 85 14 121/65 (83) 94 High Flow N/C 1.50 07/01/20 06:43 71 07/01/20 03:49 36.5 74 19 120/73 (89) 96 High Flow N/C 1.00 07/01/20 01:00 73 06/30/20 23:37 36.0 79 20 131/78 (95) 91 High Flow N/C 1.00 06/30/20 21:16 90 High Flow N/C 1.50 06/30/20 21:00 36.2 72 22 133/73 91 High Flow N/C 1.00 06/30/20 21:00 High Flow N/C 1.00 I & O 07/01/20 07:00 Intake Total 2680 ml Output Total 3600 ml Balance -920 ml General Appearance: Chronically ill, Mild Distress Eyes: Bilateral Eye PERRL, Bilateral Eye EOMI HEENT: PERRL/EOMI Neck: Full Range of Motion, Non Tender, Supple Respiratory: Decreased Breath Sounds; No Rhonci, No Wheezing Cardiovascular: Regular Rate, Rhythm, Systolic Murmur Gastrointestinal: Normal Bowel Sounds, Soft, Tenderness (diffuse) Rectal: Deferred Extremity: Pedal Edema (TRACE) Neurologic/Psychiatric: Alert, Other (AWAKENS TO VOICE, DOES APPEAR LETHARGIC, CONVERSES APPROPRIATELY WHEN STIMULATED TO DO SO BY VOICE COMMANDS, FLAT AFFECT) Skin: Warm/Dry, Pallor Results Lab Laboratory Tests 07/01/20 04:09: Hemoglobin 10.3#L, Hematocrit 31L, Sodium Level 140, Potassium Level 3.7, C hloride Level 110H, Carbon Dioxide Level 24, Anion Gap 6, Blood Urea Nitrogen 25H, Creatinine 1.30, Estimat Glomerular Filtration Rate 41, BUN/Creatinine Ratio 19, Glucose Level 115H, Calcium Level 7.3L, Magnesium Level 1.4L 07/01/20 10:20: Glucometer 162H 07/01/20 16:04: Glucometer 149H 07/01/20 19:35: Glucometer 138H Microbiology 06/26/20 Blood Culture - Final, Complete No growth 06/25/20 Influenza Types A,B Antigen (JERONIMO) - Final, Complete Assessment/Plan Assessment/Plan Assessment and Plan 06/28/20- creatinine improving- still waiting on labs for hypercalcemia workup. -stopping vancomycin as this will also help her kidneys. -surgeon is following along. -will continue to hold her xanax, requip, gabapentin, baclofen- but if she continues to have back pain -we may resume the gabapentin. 06/29/20- creatinine improving- calcium improving significantly with IVF, prednisone 40mg x1, lasix 40mg x 1 -iron studies support anemia of chronic disease- along with hypercalcemia- still heading down path of malignancy- normal PTH, awaiting PTH-rP and Vit D-25- lab is unsure why they are not resulted. Lab is going to check on this. -miralax today to help with a bowel movement. 06/30/20- 2 units pRBC with lasix in between expect her breathing to improve and strain on her heart to improve. Pt is doing better respiratory-blackwell- currently on 3L high flow nasal cannula. No new issues. Consulting case management to work on placement vs return home with family. Re-ordered PTH-rP. System will not let me order Vit D labs again. 07/01/20- Pt is doing better- creatinine near baseline. Inpt rehab evaluating patient today. Dispo: Discharge planning. Problems: (1) Acute respiratory failure with hypoxia Assessment & Plan: supplemental oxygen. RT consulted (2) Pancreatitis Qualifiers: Qualified Codes: K85.10 - Biliary acute pancreatitis without necrosis or infection Assessment & Plan: surgery following along- -hypercalcemia is likely cause of her pancreatitis (3) Right lower lobe pneumonia Qualifiers: Qualified Codes: J18.9 - Pneumonia, unspecified organism (4) Acute on chronic renal insufficiency Assessment & Plan: NEW ONSET OVER THE PAST FEW YEARS, UNCERTAIN OF LENGTH OF HER RENAL INSUFFICIENCY - LAST HOSPITAL LABS AVAILABLE -PRIOR TO 2017, PT HAD NORMAL RENAL FUNCTIONING. WILL RENALLY ADJUST MEDS, MONITOR LABS SERIALLY (5) CKD (chronic kidney disease) stage 3, GFR 30-59 ml/min Assessment & Plan: UNCERTAIN LENGTH OF RENAL DYSFUNCTION, MONITOR LABS CLOSELY (6) Hypercalcemia syndrome Assessment & Plan: IMPROVING - PT HAD ELEVATED CALCIUM ON HER LAST HOSPITALIZATION WITH THE HOSPITALIST SERVICE, UNKNOWN IF THIS WAS INVESTIGATED DURING HER PREVIOUS HOSPITALIZATION. WILL CHECK PTH, VITAMIN D POSSIBLE MALIGNANCY INDUCED ELEVATION OF CALCIUM, CT WITH CONTRAST NOT ABLE TO BE OBTAINED DUE TO HER RENAL FUNCTION, WILL CONSIDER FURTHER INVESTIGATION ONCE RENAL FUNCTION IMPROVES. -Calcium is even higher when adjusted for albumin. (7) Hypokalemia Assessment & Plan: replacing potassium- Cr improved. (8) Parkinson disease Assessment & Plan: - LONG STANDING PER FAMILY REPORT - PT SEES DR. ARTIS - NEUROLOGY IN [facility] MEDS continued (9) Hypertension Qualifiers: Qualified Codes: I10 - Essential (primary) hypertension Assessment & Plan: RESUMED COREG AND VERAPAMIL MONITOR PRESSURES CLOSELY (10) Elevated d-dimer Assessment & Plan: on eliquis (11) Diabetes mellitus, type 2 Qualifiers: Assessment & Plan: - UNCERTAIN LEVEL OF CONTROL -blood sugars have been decent. (12) Chronic pancreatitis Qualifiers: Qualified Codes: K86.1 - Other chronic pancreatitis Assessment & Plan: PT HAD PANCREATITIS ON LAST HOSPITALIZATION -SUSPECT DUE TO GALLSTONES -Surgery monitoring (13) Nausea & vomiting Qualifiers: Qualified Codes: R11.2 - Nausea with vomiting, unspecified Assessment & Plan: DUE TO PANCREATITIS (14) Anemia in chronic illness Assessment & Plan: Fe low, low TIBC, high Ferritin - anemai of chronic disease. (15) DVT prophylaxis Assessment & Plan: on eliquis 2.5mg bid Clinical Quality Measures DVT/VTE Risk/Contraindication: Risk Factor Score Per Nursin RFS Level Per Nursing on Admit: 2=Moderate TAYLOR IRVING MD Jul 01, 2020 20:41
[2020-07-02] VITALS (7 sets, daily range): BP systolic 133–144; BP diastolic 73–92
[2020-07-02] MEDS: RT-ALBUTEROL/IPRATROPIUM 3 ML (DUONEB) VIAL INH SCH (01:47)
[2020-07-02] MEDS: MEROPENEM 500 MG in WATER (STERILE) FOR INJECTION 10 ML IV SCH ×3 (01:50→18:41)
[2020-07-02] MEDS: inSUlin ASPART (NovoLOG) 1 UNIT/0.01 ML (CHARGE PER UNIT) SC SCH ×4 (05:59→21:13)
--- NOTE | 2020-07-02 08:04 | Progress Note ---
Subjective Subjective Date Seen by Provider: Jul 02, 2020 Time Seen by Provider: 08:00 No overnight events- Rehab has accepted patient; awaiting insurance approval. Review of Systems General: Fatigue, Malaise HEENT: No Head Aches, No Dysphasia Pulmonary: Dyspnea; No Cough Cardiovascular: No: Chest Pain, Palpitations Gastrointestinal: No: Nausea, Abdominal Pain Genitourinary: Other (EDDY IN PLACE) Neurological: Weakness All Other Systems Reviewed All Other Systems Reviewed: Yes Objective Exam Vital Signs Vital Signs Date Time Temp Pulse Resp B/P (MAP) Pulse Ox O2 Delivery O2 Flow Rate FiO2 07/02/20 07:19 36.2 87 18 137/92 (107) 95 High Flow N/C 0.50 07/02/20 03:52 84 20 137/75 (95) 95 High Flow N/C 1.00 07/02/20 01:00 87 07/02/20 00:08 35.6 86 24 133/77 (95) 96 High Flow N/C 1.00 07/01/20 21:00 High Flow N/C 1.00 07/01/20 20:07 36.0 81 18 132/83 (99) 95 High Flow N/C 1.00 07/01/20 19:00 81 07/01/20 16:20 36.3 75 11 125/67 (86) 95 High Flow N/C 1.00 07/01/20 12:45 80 07/01/20 12:25 36.0 75 14 127/76 (93) 97 High Flow N/C 1.00 07/01/20 09:50 96 High Flow N/C 1.00 07/01/20 08:32 High Flow N/C 1.00 I & O 07/02/20 07:00 Intake Total 2300 ml Output Total 1975 ml Balance 325 ml General Appearance: Chronically ill, Mild Distress Eyes: Bilateral Eye PERRL, Bilateral Eye EOMI HEENT: PERRL/EOMI Neck: Full Range of Motion, Non Tender, Supple Respiratory: Decreased Breath Sounds; No Rhonci, No Wheezing Cardiovascular: Regular Rate, Rhythm, Systolic Murmur Gastrointestinal: Normal Bowel Sounds, Soft, Tenderness (diffuse) Rectal: Deferred Extremity: Pedal Edema (TRACE) Neurologic/Psychiatric: Alert, Other (AWAKENS TO VOICE, DOES APPEAR LETHARGIC, CONVERSES APPROPRIATELY WHEN STIMULATED TO DO SO BY VOICE COMMANDS, FLAT AFFECT) Skin: Warm/Dry, Pallor Results Lab Laboratory Tests 07/01/20 10:20: Glucometer 162H 07/01/20 16:04: Glucometer 149H 07/01/20 19:35: Glucometer 138H 07/02/20 05:38: Glucometer 126H 07/02/20 05:53: Glucometer 130H Microbiology 06/26/20 Blood Culture - Final, Complete No growth 06/25/20 Influenza Types A,B Antigen (JERONIMO) - Final, Complete Assessment/Plan Assessment/Plan Assessment and Plan 06/28/20- creatinine improving- still waiting on labs for hypercalcemia workup. -stopping vancomycin as this will also help her kidneys. -surgeon is following along. -will continue to hold her xanax, requip, gabapentin, baclofen- but if she continues to have back pain -we may resume the gabapentin. 06/29/20- creatinine improving- calcium improving significantly with IVF, prednisone 40mg x1, lasix 40mg x 1 -iron studies support anemia of chronic disease- along with hypercalcemia- still heading down path of malignancy- normal PTH, awaiting PTH-rP and Vit D-25- lab is unsure why they are not resulted. Lab is going to check on this. -miralax today to help with a bowel movement. 06/30/20- 2 units pRBC with lasix in between expect her breathing to improve and strain on her heart to improve. Pt is doing better respiratory-blackwell- currently on 3L high flow nasal cannula. No new issues. Consulting case management to work on placement vs return home with family. Re-ordered PTH-rP. System will not let me order Vit D labs again. 07/01/20- Pt is doing better- creatinine near baseline. Hga1c 5.1- removing diabetes from diagnosis list. 07/02/20- accepted into inpatient rehab- awaiting insurance approval. vitamin-d 25- was low. still awaiting PTHrP which will help decide what next to do- if elevated then likely she has humoral hypercalcemia from malignancy. Also could obtain 1,25 vit d which would suggest lymphoma or granulomatous disease. Measuring SPEP, UPEP to evaluate for multiple myeloma. Dispo: Overall she has significantly improved from admission- with oxygen r equirement down to 0.5L oxygen, Kidneys much improved. Discharge planning to Rehab. -update insurance did not approve rehab. [facility] [place] accepted patient for SNU. Will be discharged to [facility] tomorrow 07/03/20. Dr. Ivan to resume care tomorrow. Problems: (1) Acute respiratory failure with hypoxia Assessment & Plan: supplemental oxygen. RT consulted (2) Pancreatitis Qualifiers: Qualified Codes: K85.10 - Biliary acute pancreatitis without necrosis or infection Assessment & Plan: surgery following along- -hypercalcemia is likely cause of her pancreatitis (3) Right lower lobe pneumonia Qualifiers: Qualified Codes: J18.9 - Pneumonia, unspecified organism (4) Acute on chronic renal insufficiency Assessment & Plan: NEW ONSET OVER THE PAST FEW YEARS, UNCERTAIN OF LENGTH OF HER RENAL INSUFFICIENCY - LAST HOSPITAL LABS AVAILABLE -PRIOR TO 2017, PT HAD NORMAL RENAL FUNCTIONING. WILL RENALLY ADJUST MEDS, MONITOR LABS SERIALLY (5) CKD (chronic kidney disease) stage 3, GFR 30-59 ml/min Assessment & Plan: UNCERTAIN LENGTH OF RENAL DYSFUNCTION, MONITOR LABS CLOSELY (6) Hypercalcemia syndrome Assessment & Plan: IMPROVING - PT HAD ELEVATED CALCIUM ON HER LAST HOSPITALIZATION WITH THE HOSPITALIST SERVICE, UNKNOWN IF THIS WAS INVESTIGATED DURING HER PREVIOUS HOSPITALIZATION. WILL CHECK PTH, VITAMIN D POSSIBLE MALIGNANCY INDUCED ELEVATION OF CALCIUM, CT WITH CONTRAST NOT ABLE TO BE OBTAINED DUE TO HER RENAL FUNCTION, WILL CONSIDER FURTHER INVESTIGATION ONCE RENAL FUNCTION IMPROVES. -Calcium is even higher when adjusted for albumin. (7) Hypokalemia Assessment & Plan: replacing potassium- Cr improved. (8) Parkinson disease Assessment & Plan: - LONG STANDING PER FAMILY REPORT - PT SEES DR. ARTIS - NEUROLOGY IN [facility] MEDS continued (9) Hypertension Qualifiers: Qualified Codes: I10 - Essential (primary) hypertension Assessment & Plan: RESUMED COREG AND VERAPAMIL MONITOR PRESSURES CLOSELY (10) Elevated d-dimer Assessment & Plan: on eliquis (11) Chronic pancreatitis Qualifiers: Qualified Codes: K86.1 - Other chronic pancreatitis Assessment & Plan: PT HAD PANCREATITIS ON LAST HOSPITALIZATION (12) Nausea & vomiting Qualifiers: Qualified Codes: R11.2 - Nausea with vomiting, unspecified Assessment & Plan: DUE TO PANCREATITIS (13) Anemia in chronic illness Assessment & Plan: Fe low, low TIBC, high Ferritin - anemai of chronic disease. (14) DVT prophylaxis Assessment & Plan: on eliquis 2.5mg bid Clinical Quality Measures DVT/VTE Risk/Contraindication: Risk Factor Score Per Nursin RFS Level Per Nursing on Admit: 2=Moderate TAYLOR IRVING MD Jul 02, 2020 08:04
[2020-07-02] MEDS ORDERED: polyethylene glycoL POWDER 17 GM (MIRALAX) PACK ONE (08:14)
[2020-07-02] MEDS: ASPIRIN E.C. 81 MG (ECOTRIN) TAB PO SCH (08:22)
[2020-07-02] MEDS: KCL 20 MEQ TAB (K-DUR) PO SCH ×2 (08:22→18:42)
[2020-07-02] MEDS: ROSUVASTATIN 10 MG (CRESTOR) TABLET PO SCH (08:22)
[2020-07-02] MEDS: CARVEDILOL 6.25 MG (COREG) TAB PO SCH ×2 (08:22→21:12)
[2020-07-02] MEDS: polyethylene glycoL POWDER 17 GM (MIRALAX) PACK PO ONE ×2 (08:22→09:33)
[2020-07-02] MEDS: PANTOPRAZOLE 40 MG (PROTONIX) VIAL IV SCH (08:22)
[2020-07-02] MEDS: APIXABAN 2.5 MG (ELIQUIS) TABLET PO SCH ×2 (08:22→21:12)
[2020-07-02 09:29] LABS: BASOPHILS % (AUTO) 0 % (0-10); EOSINOPHILS # (AUTO) 0.7 10^3/uL (0.0-0.3); EOSINOPHILS % (AUTO) 8 % (0-10); HEMATOCRIT 32 % (35-52); HEMOGLOBIN 10.5 g/dL (11.5-16.0); LYMPHOCYTES # (AUTO) 1.4 10^3/uL (1.0-4.0); LYMPHOCYTES % (AUTO) 16 % (12-44); MEAN CORPUSCULAR HEMOGLOBIN 28 pg (25-34); MEAN CORPUSCULAR HGB CONC 33 g/dL (32-36); MEAN CORPUSCULAR VOLUME 85 fL (80-99); MEAN PLATELET VOLUME 12.5 fL (9.0-12.2); MONOCYTES # (AUTO) 0.7 10^3/uL (0.0-1.0); MONOCYTES % (AUTO) 9 % (0-12); NEUTROPHILS # (AUTO) 5.6 10^3/uL (1.8-7.8); NEUTROPHILS % (AUTO) 66 % (42-75); PLATELET COUNT 223 10^3/uL (130-400); WHITE BLOOD COUNT 8.4 10^3/uL (4.3-11.0)
[2020-07-02 09:52] LABS: NEUTROPHILS % (MANUAL) 79 %
[2020-07-02 09:53] LABS: BASOPHILS % (MANUAL) 1 %; EOSINOPHILS % (MANUAL) 5 %; LYMPHOCYTES % (MANUAL) 10 %; MONOCYTES % (MANUAL) 5 %; RBC MORPH NORMAL
[2020-07-02 09:55] LABS: ALBUMIN 2.3 GM/DL (3.2-4.5); CALCIUM 7.3 MG/DL (8.5-10.1); CREATININE SERUM 1.19 MG/DL (0.60-1.30); MAGNESIUM 1.6 MG/DL (1.6-2.4); PHOSPHORUS 1.4 MG/DL (2.3-4.7); POTASSIUM 3.8 MMOL/L (3.6-5.0)
--- NOTE | 2020-07-02 10:50 | Progress Note - Cardiology ---
Cardiology SOAP Progress Note Subjective: Sitting up in bed Denies any c/o pain or SOB Objective: I&O/Vital Signs 07/02/20 07/03/20 07/03/20 07/03/20 23:54 01:00 03:20 04:00 Temp 37.0 Pulse 80 84 80 Resp 19 21 B/P (MAP) 138/73 (94) 148/115 (126) Pulse Ox 95 95 95 O2 Delivery Nasal Cannula High Flow N/C O2 Flow Rate 1.00 0.50 07/03/20 07/03/20 07/03/20 07/03/20 05:46 07:00 07:05 07:52 Temp 36.8 37.2 Pulse 82 81 Resp 12 B/P (MAP) 154/82 (106) Pulse Ox 95 94 O2 Delivery High Flow N/C Room Air O2 Flow Rate 0.50 07/03/20 07/03/20 07/03/20 09:00 11:00 11:19 Temp 37.1 Pulse 88 Resp 22 B/P (MAP) 161/82 (108) Pulse Ox 94 94 O2 Delivery Room Air Room Air 07/03/20 00:00 Intake Total 870 ml Output Total 3675 ml Balance -2805 ml Weight (Pounds): 173 Weight (Ounces): 0.0 Weight (Calculated Kilograms): 78.930131 Constitutional: well-developed, well-nourished, other (appears mildly confused) Respiratory: No accessory muscle use; other (fair bilat air entry, diminished at the bsases) Cardiovascular: regular rate-rhythm, S1 and S2, systolic murmur (soft SE at card base) Gastrointestional: No tender; soft; No guarding, No rebound; audible bowel sounds Extremities: swelling (mild ankle edema); No clubbing, No cyanosis Neurologic/Psychiatric: other (moves all limbs equally) Skin: No rash on exposed areas, No ulcerations on exposed areas Results/Procedures: Labs Laboratory Tests 07/02/20 15:24: Glucometer 142H 07/03/20 09:38: Coronavirus 2019 (TYLER) Negative 07/03/20 10:45: Glucometer 137H Microbiology 06/26/20 Blood Culture - Final, Complete No growth 06/25/20 Influenza Types A,B Antigen (JERONIMO) - Final, Complete A/P: Assessment: PAF with RVR, probably precipitated by JUDY - currently SR JUDY, treated with CPAP LINNETTE-3, probably related to volume depletion - renal function improved Hypercalcemia of undetermined etiology, managed by the Med svce Recent pancreatitis Severe anemia of undetermined etiology Chronic diastolic congestive heart failure, currently clinically compensated Echocardiogram of May 30, [address] Crump showed normal LV size, LVEF 60-65%. PASP 15-20mmHg Minimal troponin elevation, likely type 2 SD due to uncontrolled hypertension, chronic diastolic CHF, and ac renal failure Coronary artery disease-patient underwent cardiac catheterization October 11, [address] Crump revealing mild coronary artery disease with 40-50 percent proximal to mid LAD stenosis, nonobstructive disease; otherwise no significant obstructive disease. Normal EF H/o unsteady gait and fatigue with loss of energy Hyperlipidemia, hold statin for now due to pancreatitis Mild bilateral carotid stenosis, history of left CEA in 2005, as well as history of left common carotid stenting. Most recent carotid duplex done May [address] Crump showing mild bilateral disease nonobstructive disease, continue to monitor. Diabetes Mellitus complicated by diabetic neuropathy Fibromyalgia Plan: * Continued Apixaban for stroke prophylaxis. Using lower dose because Cr greater than 1.5 and because of severe anemia (GI bleed not excluded) * Monitor and correct labs * Anemia improved following transfusion of PRBC * Plan is to d/c to [facility] later today DALY ORTIZ Jul 02, 2020 10:50
--- NOTE | 2020-07-02 10:58 | NUR ---
REPORT GIVEN TO HECTOR HERNÁNDEZ.
[2020-07-02] MEDS ORDERED: FUROSEMIDE 40 MG/4 ML INJ (LASIX) IVP NR (11:00)
--- NOTE | 2020-07-02 11:47 | Occupational Ther Daily Note ---
OT Current Status-Daily Note Subjective Pt alert/ awake in bed this am. Upon entry, pt immediately states, "I'm not going to eat that breakfast." Pt is educated on alternant menu and other options. Pt allows OT to call for scrambled eggs. Pt is given weighted utensils to increase fx feeding. Pt does not state pain, though pt has a decreased mood and states she has limited motivation, OT must repeat self several times as pt just looks at OT after some questions, and pt requires an increased amount of time for all tasks. Mental Status/Objective Patient Orientation: Person, Place, Situation Attachments: Emerson Catheter, Oxygen, Telemetry ADL-Treatment Therapy Code Descriptions/Definitions Functional [place] Measure: 0=Not Assessed/NA 4=Minimal Assistance 1=Total Assistance 5=Supervision or Setup 2=Maximal Assistance 6=Modified [place] 3=Moderate Assistance 7=Complete IndependenceSCALE: Activities may be completed with or without assistive devices. 0-Egbshvcvvs-mydlmil completes the activity by him/herself with no assistance from a helper. 5-Set-up or Clean-up Assistance-helper sets up or cleans up; patient completes activity. [place] assists only prior to or following the activity. 4-Supervision or Touching Assistance-helper provides verbal cues and/or touching/steadying and/or contact guard assistance as patient completes activity. Assistance may be provided throughout the activity or intermittently. 3-Partial/Moderate Assistance-helper does LESS THAN HALF the effort. [place] lifts, holds or supports trunk or limbs, but provides less than half the effort. 2-Substantial/Maximal Assistance-helper does MORE THAN HALF the effort. [place] lifts or holds trunk or limbs and provides more than half the effort. 0-Cmwaesnyc-zqfiwl does ALL the effort. Patient does none of the effort to complete the activity. Or, the assistance of 2 or more helpers is required for the patient to complete the activity. If activity was not attempted, code reason: 7-Patient Refused. 9-Not Applicable-not attempted and the patient did not perform the activity before the current illness, exacerbation or injury. 10-Not Attempted due to Environmental Limitations-(lack of equipment, weather restraints, etc.). 88-Not Attempted due to Medical Conditions or Safety Concerns. Eating (QC): 4 (SBA. Pt's scrambled eggs are brought in towards the end of the session. Pt is given weighted tools and is instructed to bring bowl toward lap. Pt states, "These are too heavy." Pt is educated that there are no utensils which are implementation engineer other than typical utensils. Pt begins to stab food, completes with IND, then attempts to bring to mouth, states, "I don't even want this." Pt is educated she does not have to eat. Pt then states, "I need food before my medication." Pt's LUE is positioned for an increased ability to bring food to wards mouth, to conserve energy and decrease ROM needed. Pt, still holding bite in fork, attempts to bring to mouth, and states, "Now I can't bring it to my mouth," pt is unwilling to attempt to bring it to mouth, rather, just holds fork at ~60* angle away from face. This positioning item is taken out from under pt and pt brings food to mouth. Pt is asked if she needs anything, pt shakes head no. When OT goes to leave pt states, "You're just going to leave me too?" Pt is educated that if she needs anything that OT is more than willing to assist, however, pt is able to feed self as she just showed. Pt nods. OT exits. ) Shower/Bathe Self (QC): 7 On/Off Footwear: 1 Toileting Hygiene (QC): 7 Other Treatment Pt supine in bed. Denies eating, desires new food. This is completed for pt. Pt agrees to attempt to get to chair. Pt requires increased time and OT lifting BLE toward EOB to reach EOB. Mod A to EOB/ sitting. Pt's recliner is positioned, pt is educated on process of transfer to get to chair. Pt states she does not know if she is able to, pt is encouraged to try. Pt requires ~3 minutes of prep prior to trying, increased education given throughout this time. Pt sit to stand with heightened bed with CGA. Pt requires increased time in stance to mobilize LLE. Pt takes ~2 steps with LLE and is able to compete rotation of hips and controlled sit with OT assistance (mod A). Pt's BLE/ UE edematous- is educated on gripping/ bicep curls and toe pumps with elevation for edema management. Pt states yesterday she "was stuck in the chair." Pt is educated on use of the call light, is positioned for comfort, denies blanket, is given call light, all lines aligned and plugged in, and LE's elevated with pillow underneath. At this time dietary comes in with scrambled eggs. Pt completes feeding as outlined above- requiring increased time and increased cues due to pt's decreased motivation. Pt is left in recliner with all needs met, and again is reminded to press call light when desire to get out of chair. Education OT Patient Education: Correct positioning, Exercise program, Home exercise program, Modified ADL techniques, Purpose of tx/functional activities, Rehab pr ocess, Safety issues, Transfer techniques Teaching Recipient: Patient Teaching Methods: Demonstration, Discussion Response to Teaching: Verbalize Understanding, Return Demonstration, Reinfor cement Needed OT Bead Stringer Goals Fpc Goals Time Frame: Jul 11, 2020 Eating (QC): 6 Oral Hygiene (QC): 6 Toileting Hygiene (QC): 4 Shower/Bathe Self (QC): 3 Upper Body Dressing (QC): 4 Lower Body Dressing (QC): 3 On/Off Footwear (QC): 3 1=Demonstrate adherence to instructed precautions during ADL tasks. 2=Patient will verbalize/demonstrate understanding of assistive devices/modifications for ADL. 3=Patient will improve strength/tolerance for activity to enable patient to perform ADL's. OT Education/Plan Problem List/Assessment Assessment: Decreased Activ Tolerance, Decreased UE Strength, Dependent Transfers, Edema Discharge Recommendations Plan/Recommendations: Continue POC Therapy Discharge Recommendati: 24 Hour Supervision, Post Acute OT Treatment Plan/Plan of Care Treatment,Training & Education: Yes Patient would benefit from OT for education, treatment and training to promote independence in ADL's, mobility, safety and/or upper extremity function for ADL's. Plan of Care: ADL Retraining, Functional Mobility, UE Funct Exercise/Act Treatment Duration: Jul 11, 2020 Frequency: 5 times per week Estimated Hrs Per Day: .25 hour per day Rehab Potential: Guarded Time/GCodes Start Time: 08:15 Stop Time: 08:42 Total Time Billed (hr/min): 27 Billed Treatment Time 1, FA, ADL (27) JOANA WEBSTER OTR Jul 02, 2020 11:47
--- NOTE | 2020-07-02 12:38 | NUR ---
CM/SS: Visited with pt as to her current status and updating that we are still waiting to hear from the insurance on approval for inpatient Rehabilitation. Plan: Waiting insurance approval for Inpatient Rehab - Summary: Pt is sitting up in her chair watching tv at the time of the visit. Pt seems down and reports that she was only able to take a few steps from the bed to the chair. She reports that her legs are just weak. Pt is reminded that she need to put forth as much effort as she can. Pt is reminded on the insurance approval needed before she can move to rehab. Pt is asked if she is giving up? Pt reports not yet and that she just wonders about her family and how her daughter in law is doing as she was being tested for COVID. This worker offers to call, however pt declines for this worker to call. Pt is complimented on her red glasses. Pt is able to smile when she is given a compliment on her glasses looking like a old guest service host. - Yue Arias. Pt is reminded to continue to work when physical therapy and occupational therapy visit. Pt is informed that this worker will let her know as soon as something is known about her time to go to rehab. Pt verbalizes understanding. This worker will follow up.
--- NOTE | 2020-07-02 14:19 | NUR ---
[facility] Reason for denial: "Documentation does not support for the supervision from a physician, at least three times a week." The tna RN/CM states their medical record coder did approve admission to a SNF, 07/02-07/07/20, with a review due on 07/08/20. SW notified of this information. SW and this casualty underwriter to meet with patient and discuss denial and insurance's recommendation of SNF. Will proceed in the direction set forth by the patient.
--- NOTE | 2020-07-02 14:54 | Physical Therapy Daily Note ---
PT Daily Note-Current Subjective Patient in bed pre tx, reluctantly agrees to PT, has no complaints of pain. Appearance Patient in bed post tx with nurse call, phone, tray, all needs met. Mental Status Patient Orientation: Person, Place, Situation Attachments: Oxygen, Emerson Catheter Transfers SCALE: Activities may be completed with or without assistive devices. 0-Wxfyujoqxa-tdlguzy completes the activity by him/herself with no assistance from a helper. 5-Set-up or Clean-up Assistance-helper sets up or cleans up; patient completes activity. [place] assists only prior to or following the activity. 4-Supervision or Touching Assistance-helper provides verbal cues and/or touching/steadying and/or contact guard assistance as patient completes activity. Assistance may be provided throughout the activity or intermittently. 3-Partial/Moderate Assistance-helper does LESS THAN HALF the effort. [place] lifts, holds or supports trunk or limbs, but provides less than half the effort. 2-Substantial/Maximal Assistance-helper does MORE THAN HALF the effort. [place] lifts or holds trunk or limbs and provides more than half the effort. 8-Hahjotahp-szqetq does ALL the effort. Patient does none of the effort to complete the activity. Or, the assistance of 2 or more helpers is required for the patient to complete the activity. If activity was not attempted, code reason: 7-Patient Refused. 9-Not Applicable-not attempted and the patient did not perform the activity before the current illness, exacerbation or injury. 10-Not Attempted due to Environmental Limitations-(lack of equipment, weather restraints, etc.). 88-Not Attempted due to Medical Conditions or Safety Concerns. Roll Left & Right (QC): 3 Sit to Lying (QC): 3 Lying to Sitting/Side of Bed(Q: 3 Sit to Stand (QC): 3 Patient rolls with min assist, supine to sit mod assist, sit to stand mod assist. Patient is able to ambulate about a foot forward and then a foot back, 2 times, and then about a foot sidestep to the left toward the head of the bed and then sit, sit to supine mod assist. Weight Bearing Right Lower Extremity: Right Weight Bearing/Tolerated Left Lower Extremity: Left Weight Bearing/Tolerated Gait Training Distance: 5' Gait Persons Needed: 1 Gait Assistive Device: FWW Treatments bed mobility, standing, ambulation Assessment Current Status: Poor Progress Patient has poor motivation and tries to get out of doing physical therapy. She doesn't seem to have the initiative required to get stronger and will have a difficult time being successful if she goes to rehab unless she can self motivate. PT Correction Goals Quality Control Inspector Goals PT Quality Control Inspector Goals Time Frame: Jul 12, 2020 Roll Left & Right (QC): 4 Sit to Lying (QC): 4 Lying-Sitting on Side/Bed(QC): 4 Sit to Stand (QC): 4 Chair/Tpl-ac-Mehgg Xfer(QC): 4 Toilet Transfer (QC): 4 Does the Patient Walk: Yes Walk 10 feet (QC): 4 Walk 50ft with 2 Turns (QC): 4 Walk 150 ft (QC): 4 PT Plan Problem List Problem List: Activity Tolerance, Functional Strength, Safety, Balance, Gait, Transfer, Bed Mobility, ROM Treatment/Plan Treatment Plan: Continue Plan of Care Treatment Plan: Bed Mobility, Education, Functional Activity Tracie, Functional Strength, Gait, Safety, Therapeutic Exercise, Transfers Treatment Duration: Jul 12, 2020 Frequency: 6 times per week Estimated Hrs Per Day: .25 hour per day Safety Risks/Education Patient Education: Gait Training, Transfer Techniques, Correct Positioning, Safety Issues Teaching Recipient: Patient Teaching Methods: Demonstration, Discussion Response to Teaching: Reinforcement Needed Time/GCodes Time In: 1405 Time Out: 1423 Total Billed Treatment Time: 18 Total Billed Treatment 1 visit FA 18' MEETA CABALLERO PT Jul 02, 2020 14:54
--- NOTE | 2020-07-02 15:39 | NUR ---
CM/SS: Telephone call to son Kong to notify that pt has been accepted to [facility] for placement and they can take pt on tomorrow. Son is ok with pt going on tomorrow.
--- NOTE | 2020-07-02 16:37 | NUR ---
CM/SS: Talk with pt along with Jannette, Coordinator of Inpatient Rehab as to her being denied for Inpatient Rehab and that the insurance has suggested that she go to a skilled facility. Pt is not really happy about going to the skilled facility. She just wants to be able to go home. Telephone call to son during the visit with pt, so that he can be aware of the conversation with pt. Pt reports she is scared and son is able to reassure pt and that she needs to be able to do more in order to go home. Pt begins talking about money (pt reminded that her insurance will pay for stay) and her clothing, and having a roommate. etc. Son talks with pt as to her being motivated and her needed to work on getting stronger. Son is willing to bring pt's clothes to the hospital. Son also given the phone number to the room, in case he wants to call pt later. Talk with pt about the plan and that she can go tomorrow. Pt is open to calling and talking with [facility] - Telephone call to Apolonia (staff from [facility]) she is able talk with pt and pt is able to get her questions answered about the routine, schedule, therapies, and menu. Pt seems to be ok with the information received. Talk with pt further and let her know that this worker will follow up in the morning. Pt asked "what if the Dr does not want me to go to the facility", this worker shares that the Dr requested some assistance in getting a discharge plan together this week, so this worker was pretty sure that Dr would be ok with the plan. Pt is reminded that if physician was not ok with plan, then physician will let this worker know and another one will be developed. Telephone Call to son - Kong - Let him know that pt and this worker called and talked with the [facility] staff and that pt was able to get her questions answered. Pt seemed to feel better, then pt still acted angry and pouted about being able to go tomorrow. Let son know that pt may call him later as she said she wanted to talk with him further. Son is instructed on bringing clothes to the Emergency Entrance for pt and that the plan would be for pt to discharge to facility on tomorrow. Agapito Triana verbalized understanding.
--- NOTE | 2020-07-02 17:12 | Progress Note - Cardiology ---
Cardiology SOAP Progress Note Subjective: No cp or palp or syncope or shortness of breath Some gen malaise Objective: I&O/Vital Signs 07/02/20 07/02/20 07/02/20 07/02/20 06:29 06:43 07:19 08:49 Temp 36.2 Pulse 62 75 87 Resp 18 B/P (MAP) 137/92 (107) Pulse Ox 95 O2 Delivery High Flow N/C High Flow N/C O2 Flow Rate 0.50 1.00 07/02/20 07/02/20 07/02/20 11:13 12:30 15:24 Temp 36.2 37.4 Pulse 85 93 82 Resp 18 21 B/P (MAP) 136/77 (96) 137/76 (96) Pulse Ox 97 97 O2 Delivery High Flow N/C High Flow N/C O2 Flow Rate 0.50 0.50 07/02/20 00:00 Intake Total 2000 ml Output Total 1175 ml Balance 825 ml Weight (Pounds): 173 Weight (Ounces): 0.0 Weight (Calculated Kilograms): 78.008423 Constitutional: well-developed, well-nourished, other (appears mildly confused) Respiratory: No accessory muscle use; other (fair bilat air entry, diminished at the bsases) Cardiovascular: regular rate-rhythm, S1 and S2, systolic murmur (soft SE at card base) Gastrointestional: No tender; soft; No guarding, No rebound; audible bowel sounds Extremities: No clubbing, No cyanosis; significant edema (mod swelling of upper and lower extremities) Neurologic/Psychiatric: other (moves all limbs equally) Skin: No rash on exposed areas, No ulcerations on exposed areas Results/Procedures: Labs Laboratory Tests 07/01/20 19:35: Glucometer 138H 07/02/20 05:38: Glucometer 126H 07/02/20 05:53: Glucometer 130H 07/02/20 09:19: White Blood Count 8.4, Red Blood Count 3.76L, Hemoglobin 10.5L, Hematocrit 32L, Mean Corpuscular Volume 85, Mean Corpuscular Hemoglobin 28, Mean Corpuscular Hemoglobin Concent 33, Red Cell Distribution Width 19.9H, Platelet Count 223, Mean Platelet Volume 12.5H, Immature Granulocyte % (Auto) 1, Neutrophils (%) (Auto) 66, Lymphocytes (%) (Auto) 16, Monocytes (%) (Auto) 9, Eosinophils (%) (Auto) 8, Basophils (%) (Auto) 0, Neutrophils # (Auto) 5.6, Lymphocytes # (Auto) 1.4, Monocytes # (Auto) 0.7, Eosinophils # (Auto) 0.7H, Basophils # (Auto) 0.0, Immature Granulocyte # (Auto) 0.0, Neutrophils % (Manual) 79, Lymphocytes % (Manual) 10, Monocytes % (Manual) 5, Eosinophils % (Manual) 5, Basophils % (Manual) 1, Blood Morphology Comment NORMAL, Sodium Level 138, Potassium Level 3.8, Chloride Level 108H, Carbon Dioxide Level 26, Anion Gap 4L, Blood Urea Nitrogen 20H, Creatinine 1.19, Estimat Glomerular Filtration Rate 45, BUN/Creatinine Ratio 17, Glucose Level 118H, Calcium Level 7.3L, Phosphorus Level 1.4L, Magnesium Level 1.6, Albumin 2.3L 07/02/20 11:13: Glucometer 118H 07/02/20 15:24: Glucometer 142H Microbiology 06/26/20 Blood Culture - Final, Complete No growth 06/25/20 Influenza Types A,B Antigen (JERONIMO) - Final, Complete Laboratory Tests 07/01/20 04:09 07/02/20 09:19 A/P: Assessment: PAF with RVR, probably precipitated by JUDY - currently SR JUDY, treated with CPAP LINNETTE-3, probably related to volume depletion - renal function improved Hypercalcemia of undetermined etiology, managed by the Med svce Recent pancreatitis Severe anemia of undetermined etiology Chronic diastolic congestive heart failure, currently clinically compensated Echocardiogram of May 30, [address] Crump showed normal LV size, LVEF 60-65%. PASP 15-20mmHg Minimal troponin elevation, likely type 2 [place] due to uncontrolled hypertension, chronic diastolic CHF, and ac renal failure Coronary artery disease-patient underwent cardiac catheterization October 11, [address] Crump revealing mild coronary artery disease with 40-50 percent proximal to mid LAD stenosis, nonobstructive disease; otherwise no significant obstructive disease. Normal EF H/o unsteady gait and fatigue with loss of energy Hyperlipidemia, hold statin for now due to pancreatitis Mild bilateral carotid stenosis, history of left CEA in 2005, as well as history of left common carotid stenting. Most recent carotid duplex done May [address] Crump showing mild bilateral disease nonobstructive disease, continue to monitor. Diabetes Mellitus complicated by diabetic neuropathy Fibromyalgia Plan: * Continued Apixaban for stroke prophylaxis. Using lower dose because Cr greater than 1.5 and because of severe anemia (GI bleed not excluded) * Monitor and correct labs * Anemia improved following transfusion of PRBC * Renal function improved, positive fluid balance, increased swelling and weight gain - give one time dose of IV lasix today VANESSA HA MD FACP FAC CCDS Jul 02, 2020 17:12
--- NOTE | 2020-07-02 17:13 | NUR ---
CM/SS: Telephone call to Dr Nain Baird - letting him know that pt has been accepted to [facility] and can go on tomorrow. Also, let him know that pt does not really want to go and that she may think of reasons to stay in the hospital. Had previously messaged about needing skilled orders at time of discharge. Dr Baird reports Dr Ivan will return on tomorrow. This worker will follow up.
[2020-07-02] MEDS: MONTELUKAST 10 MG (SINGULAIR) TAB PO SCH (21:12)
[2020-07-02] MEDS: FAMOTIDINE 20 MG (PEPCID) TABLET PO SCH (21:12)
[2020-07-02] MEDS: FENOFIBRATE 134 MG (LOFIBRA) CAPSULE PO SCH (21:12)
[2020-07-03] MEDS: MEROPENEM 500 MG in WATER (STERILE) FOR INJECTION 10 ML IV SCH ×2 (02:24→09:35)
[2020-07-03 04:00] VITALS: BP 148/115
[2020-07-03] MEDS: inSUlin ASPART (NovoLOG) 1 UNIT/0.01 ML (CHARGE PER UNIT) SC SCH ×2 (06:31→10:57)
[2020-07-03 07:05] VITALS: BP 154/82
--- NOTE | 2020-07-03 08:08 | Progress Note ---
Subjective Subjective Date Seen by Provider: Jul 03, 2020 Time Seen by Provider: 07:50 Pt denies any complaints right now. Nurse states she had a BM today and is oxygenating well on room air. Has questions/concerns about [facility], such as who will manage her meds and if she will have assistance going to the bathroom since she still has a Eddy. WBC today is 8.4, hgb is 10.5, creatinine is 1.19. Review of Systems General: Fatigue, Malaise HEENT: No Head Aches, No Dysphasia Pulmonary: Dyspnea; No Cough Cardiovascular: No: Chest Pain, Palpitations Gastrointestinal: No: Nausea, Abdominal Pain Genitourinary: Other (EDDY IN PLACE) Neurological: Weakness All Other Systems Reviewed All Other Systems Reviewed: Yes Objective Exam Vital Signs Vital Signs - First Documented 06/27/20 06/27/20 00:00 08:00 Temp 36.5 Pulse 87 Resp 20 B/P (MAP) 154/79 (104) Pulse Ox 93 O2 Delivery Nasal Cannula O2 Flow Rate 2.00 FiO2 97 Capillary Refill : Less Than 3 SecondsLess Than 3 Seconds General Appearance: No Apparent Distress, Chronically ill Eyes: Bilateral Eye PERRL, Bilateral Eye EOMI HEENT: PERRL/EOMI, Normal ENT Inspection Neck: Normal Inspection, Supple Respiratory: No Accessory Muscle Use, No Respiratory Distress, Crackles (right base); No Rhonci, No Wheezing Cardiovascular: Regular Rate, Rhythm, No JVD Gastrointestinal: Non Tender, Soft; No Guarding, No Rebound Rectal: Deferred Extremity: Pedal Edema (TRACE BILATERAL) Neurologic/Psychiatric: Alert, Oriented x3, Other (flat affect) Skin: Warm/Dry, Pallor Results Lab Laboratory Tests 07/02/20 09:19: White Blood Count 8.4, Red Blood Count 3.76L, Hemoglobin 10.5L, Hematocrit 32L, Mean Corpuscular Volume 85, Mean Corpuscular Hemoglobin 28, Mean Corpuscular Hemoglobin Concent 33, Red Cell Distribution Width 19.9H, Platelet Count 223, Mean Platelet Volume 12.5H, Immature Granulocyte % (Auto) 1, Neutrophils (%) (Auto) 66, Lymphocytes (%) (Auto) 16, Monocytes (%) (Auto) 9, Eosinophils (%) (Auto) 8, Basophils (%) (Auto) 0, Neutrophils # (Auto) 5.6, Lymphocytes # (Auto) 1.4, Monocytes # (Auto) 0.7, Eosinophils # (Auto) 0.7H, Basophils # (Auto) 0.0, Immature Granulocyte # (Auto) 0.0, Neutrophils % (Manual) 79, Lymphocytes % (Manual) 10, Monocytes % (Manual) 5, Eosinophils % (Manual) 5, Basophils % (Manual) 1, Blood Morphology Comment NORMAL, Sodium Level 138, Potassium Level 3.8, Chloride Level 108H, Carbon Dioxide Level 26, Anion Gap 4L, Blood Urea Nitrogen 20H, Creatinine 1.19, Estimat Glomerular Filtration Rate 45, BUN/Creatinine Ratio 17, Glucose Level 118H, Calcium Level 7.3L, Phosphorus Level 1.4L, Magnesium Level 1.6, Total Protein (PEP) 5.0L, Albumin 2.3L 07/02/20 11:13: Glucometer 118H 07/02/20 15:24: Glucometer 142H Microbiology 06/26/20 Blood Culture - Final, Complete No growth 06/25/20 Influenza Types A,B Antigen (JERONIMO) - Final, Complete Assessment/Plan Assessment/Plan Assessment and Plan acute on chronic pancreatitis -Dr. Arriola consulted and does not think pt needs surgical intervention at this time, recommends follow up in office with Dr. Carter to discuss possible gallbladder etiology RLL pneumonia - improved -last dose of meropenem today -94% on room air acute on chronic renal insufficiency - improved -creatinine 1.19 today hypercalcemia - improved -possibly d/t CKD or occult malignancy hypokalemia - improved -3.8 today CHF -Dr. Ryan consulted and has pt on low dose of Eliquis for stroke prophylaxis Parkinson's -managed with home meds HTN -controlled with home meds anemia - improved after transfusion on 04/30 -hgb 10.5 today -likely d/t chronic disease Plan to discharge pt to [facility] today, pt's insurance rejected request for inpatient rehab. Son to bring pt's clothes and personal items and drop them off at the ER. Pt has questions/concerns about [facility] that were addressed today. Will DC catheter prior to transfer. Problems: (1) Acute respiratory failure with hypoxia Assessment & Plan: supplemental oxygen. RT consulted (2) Pancreatitis Qualifiers: Qualified Codes: K85.10 - Biliary acute pancreatitis without necrosis or infection Assessment & Plan: surgery following along- -hypercalcemia is likely cause of her pancreatitis (3) Right lower lobe pneumonia Qualifiers: Qualified Codes: J18.9 - Pneumonia, unspecified organism (4) Acute on chronic renal insufficiency Assessment & Plan: NEW ONSET OVER THE PAST FEW YEARS, UNCERTAIN OF LENGTH OF HER RENAL INSUFFICIENCY - LAST HOSPITAL LABS AVAILABLE -PRIOR TO 2017, PT HAD NORMAL RENAL FUNCTIONING. WILL RENALLY ADJUST MEDS, MONITOR LABS SERIALLY (5) CKD (chronic kidney disease) stage 3, GFR 30-59 ml/min Assessment & Plan: UNCERTAIN LENGTH OF RENAL DYSFUNCTION, MONITOR LABS CLOSELY (6) Hypercalcemia syndrome Assessment & Plan: IMPROVING - PT HAD ELEVATED CALCIUM ON HER LAST HOSPITALIZATION WITH THE HOSPITALIST SERVICE, UNKNOWN IF THIS WAS INVESTIGATED DURING HER PREVIOUS HOSPITALIZATION. WILL CHECK PTH, VITAMIN D POSSIBLE MALIGNANCY INDUCED ELEVATION OF CALCIUM, CT WITH CONTRAST NOT ABLE TO BE OBTAINED DUE TO HER RENAL FUNCTION, WILL CONSIDER FURTHER INVESTIGATION ONCE RENAL FUNCTION IMPROVES. -Calcium is even higher when adjusted for albumin. (7) Hypokalemia Assessment & Plan: replacing potassium- Cr improved. (8) Parkinson disease Assessment & Plan: - LONG STANDING PER FAMILY REPORT - PT SEES DR. ARTIS - NEUROLOGY IN [facility] MEDS continued (9) Hypertension Qualifiers: Qualified Codes: I10 - Essential (primary) hypertension Assessment & Plan: RESUMED COREG AND VERAPAMIL MONITOR PRESSURES CLOSELY (10) Elevated d-dimer Assessment & Plan: on eliquis (11) Chronic pancreatitis Qualifiers: Qualified Codes: K86.1 - Other chronic pancreatitis Assessment & Plan: PT HAD PANCREATITIS ON LAST HOSPITALIZATION (12) Nausea & vomiting Qualifiers: Qualified Codes: R11.2 - Nausea with vomiting, unspecified Assessment & Plan: DUE TO PANCREATITIS (13) Anemia in chronic illness Assessment & Plan: Fe low, low TIBC, high Ferritin - anemai of chronic disease. (14) DVT prophylaxis Assessment & Plan: on eliquis 2.5mg bid Clinical Quality Measures DVT/VTE Risk/Contraindication: Risk Factor Score Per Nursin RFS Level Per Nursing on Admit: 2=Moderate Supervisory-Addendum Brief Verification & Attestation Participated in pt care: history, MDM, physical Personally performed: exam, history, MDM, supervision of care Care discussed with: Medical Student Procedures: n/a Results interpretation: Verified all documentation see my dc summary for further details - agree with student note as documented. IRINA WELLS MED STUDENT Jul 03, 2020 08:08 JOSE IBARRA MD Jul 03, 2020 09:12
[2020-07-03] MEDS: ROSUVASTATIN 10 MG (CRESTOR) TABLET PO SCH (08:35)
[2020-07-03] MEDS: APIXABAN 2.5 MG (ELIQUIS) TABLET PO SCH (08:35)
[2020-07-03] MEDS: KCL 20 MEQ TAB (K-DUR) PO SCH ×2 (08:35→09:45)
[2020-07-03] MEDS: CARVEDILOL 6.25 MG (COREG) TAB PO SCH (08:35)
[2020-07-03] MEDS: PANTOPRAZOLE 40 MG (PROTONIX) VIAL IV SCH (08:35)
[2020-07-03] MEDS: ASPIRIN E.C. 81 MG (ECOTRIN) TAB PO SCH (08:35)
[2020-07-03] MEDS ORDERED: POTA20TA8 PO (09:02)
[2020-07-03] MEDS ORDERED: ACET-93 PO (09:02)
[2020-07-03] MEDS ORDERED: ALPR0.254 PO (09:02)
[2020-07-03] MEDS ORDERED: APIX2.5T PO (09:02)
[2020-07-03] MEDS ORDERED: ASPI-1238 PO (09:02)
[2020-07-03] MEDS ORDERED: DILT300C52 PO (09:02)
[2020-07-03] MEDS ORDERED: ERGO50006 PO (09:02)
[2020-07-03] MEDS ORDERED: CARV6.252 PO (09:02)
--- NOTE | 2020-07-03 09:05 | Discharge Inst-Skilled Nursing ---
Discharge Inst-Skilled NF Reconcile Patient Problems Problems Reviewed?: Yes Patient Instructions Patient Problems: atrial fibrillation sleep apnea hyperlipidemia parkinson's disease gait instability weakness bipolar mood disorder stage 3/4 renal disease hypercalcemia vitamin d deficiency cholelithiasis Goal: improved strength for possible return to home Consult/Follow Up/Orders Follow Up Appt.: 1 wk Skilled NF Admit to: [facility] Certification (SNF) I certify that SNF services are required to be given on an inpatient basis because of the above named patient's need for nursing home care on a continuing basis for the conditions(s) for which he/she was receiving inpatient hospital services prior to his/her transfer to the SNF. [facility] Facility Order: Nursing Services, Director Of Product Marketing-Evaluate & Treat, Physical Therapy-Evaluate & Treat Oxygen Delivery Method: Room Air Discharge Diet: Regular Diet Daily Activity as Tolerated: Yes Resuscitation Status: Do Not Resuscitate New & Resume Previous Orders New & Resume Previous Orders check cmp, cbc in 5 days from discharge Jose Ivan Jul 03, 2020 09:03 JOSE IVAN MD Jul 03, 2020 09:05
--- NOTE | 2020-07-03 09:11 | Discharge Summary ---
Diagnosis/Chief Complaint Date of Admission Jun 25, 2020 at 21:30 Date of Discharge Discharge Date: Jul 03, 2020 Discharge Time: 1030 Admission Diagnosis Admission Diagnosis acute on chronic pancreatitis RLL pneumonia acute on chronic renal insufficiency hypercalcemia hypokalemia CHF Parkinson's HTN anemia bipolar mood disorder generalized weakness with falling episodes Discharge Diagnosis acute on chronic pancreatitis RLL pneumonia acute on chronic renal insufficiency hypercalcemia hypokalemia CHF Parkinson's HTN anemia bipolar mood disorder generalized weakness with falling episodes Reason Hospital Visit This is a [id number] previous clinic patient of [facility] who is known to me from prior hospital stay for pancreatitis and elevated calcium level who presents to the ER with AMS and a fall and hypoxia. Patient is currently lethargic and no details obtained for the patient. Records reviewed and RN has updated me on some details. SW has reached out to son and she still wants to be fully treated and a full code which needs to be addressed due to significant debility and significant poor prognosis. Apparently patient established with Dr Ivan whom I spoke to and she will see the patient tomorrow on her rounds but in the meantime I am trying to evaluate the source of her AMS and CT was reviewed and it appears there is an infiltrate so PNA protocol initiated for HAP and she remains on a Heparin drip due to suspected PE. Labs reviewed and I initiate IVF gently along with checking LA and more testing to evaluate the complicating issues she is having now. Discharge Summary Discharge Physical Examination Allergies: Coded Allergies: morphine (Verified Allergy, Intermediate, HIVES...TAKES HYDROCODONE AT HOME, 03/20/08) acetaminophen (Verified Allergy, Mild, HIVES...TAKES HYDROCODONE AT HOME, 03/20/08) bacitracin (Verified Allergy, Unknown, 08/16/07) cyproheptadine (Verified Allergy, Unknown, 08/16/07) fluoxetine (Verified Allergy, Unknown, 08/16/07) gramicidin D (Verified Allergy, Unknown, 08/16/07) neomycin (Verified Allergy, Unknown, 08/16/07) polymyxin B (Verified Allergy, Unknown, 08/16/07) tizanidine (Verified Allergy, Unknown, 08/16/07) tramadol (Verified Allergy, Unknown, 08/16/07) Uncoded Allergies: ARTHRITIS MEDS (Allergy, Unknown, 08/16/07) DECONGESTANTS (Allergy, Unknown, 08/16/07) Vitals & I&Os Vital Signs Date Time Temp Pulse Resp B/P (MAP) Pulse Ox O2 Delivery O2 Flow Rate FiO2 07/03/20 07:52 94 Room Air 07/03/20 07:05 37.2 81 12 154/82 (106) 0.50 06/29/20 16:00 40 General Appearance: Alert, Oriented X3, Cooperative, No Acute Distress HEENT: Atraumatic, PERRLA, Mucous Memb Moist/[place] Respiratory: Other (faint crackles right base, otherwise clear to auscultation) Cardiovascular: Regular Rate Abdominal: Normal Bowel Sounds, Soft, No Tenderness Extremities: No Clubbing, No Cyanosis Skin: No Rashes Neuro: Normal Speech, Cranial Nerves 3-12 NL Psych/Mental Status: Other (flat affect, a and o x 3) Hospital Course Was the Problem List Reviewed?: Yes (1) Near syncope Assessment & Plan: PT HAD A FALL AT HOME WITNESSED, MONITOR SYMPTOMS, WILL NOT BE ALLOWED TO AMBULATE WITHOUT STAFF, AND WILL START PHYSICAL THERAPY TOMORROW. (2) Pancreatitis Qualifiers: Qualified Codes: K85.10 - Biliary acute pancreatitis without necrosis or infection (3) Right lower lobe pneumonia Qualifiers: Qualified Codes: J18.9 - Pneumonia, unspecified organism (4) Acute on chronic renal insufficiency Assessment & Plan: NEW ONSET OVER THE PAST FEW YEARS, UNCERTAIN OF LENGTH OF HER RENAL INSUFFICIENCY - LAST HOSPITAL LABS AVAILABLE - RENAL FUNCTION WAS POOR, PRIOR TO 2017, PT HAD NORMAL RENAL FUNCTIONING. WILL RENALLY ADJUST MEDS, MONITOR LABS SERIALLY (5) CKD (chronic kidney disease) stage 3, GFR 30-59 ml/min Assessment & Plan: UNCERTAIN LENGTH OF RENAL DYSFUNCTION, MONITOR LABS CLOSELY (6) Hypercalcemia syndrome Assessment & Plan: IMPROVING - PT HAD ELEVATED CALCIUM ON HER LAST HOSPITALIZATION WITH THE HOSPITALIST SERVICE, UNKNOWN IF THIS WAS INVESTIGATED DURING HER PREVIOUS HOSPITALIZATION. WILL CHECK PTH, VITAMIN D POSSIBLE MALIGNANCY INDUCED ELEVATION OF CALCIUM, CT WITH CONTRAST NOT ABLE TO BE OBTAINED DUE TO HER RENAL FUNCTION, WILL CONSIDER FURTHER INVESTIGATION ONCE RENAL FUNCTION IMPROVES. (7) Hypokalemia Assessment & Plan: MONITOR - DUE TO HER RENAL FUNCTION BEING SO POOR, WILL NOT BE OVERLY AGGRESSIVE WITH POTASSIUM REPLACEMENT, WILL GIVE ONLY 10MEQ TODAY OF POTASSIUM REPEAT LABS IN MORNING (8) Parkinson disease Assessment & Plan: - LONG STANDING PER FAMILY REPORT - PT SEES DR. ARTIS - NEUROLOGY IN [facility] MEDS RESUMED (9) Hypertension Qualifiers: Qualified Codes: I10 - Essential (primary) hypertension Assessment & Plan: RESUMED COREG AND VERAPAMIL MONITOR PRESSURES CLOSELY (10) Elevated d-dimer Assessment & Plan: PT ON HEPARIN DRIP FOR SUSPECTED PE, CANNOT DO CT ANGIO DUE TO HER RENAL FUNCTION PT NOT ABLE TO PARTICIPATE IN VQ SCAN DUE TO HER LETHARGY (11) Diabetes mellitus, type 2 Qualifiers: Assessment & Plan: - UNCERTAIN LEVEL OF CONTROL, THIS PATIENT IS NEW TO ME OF 06/10/2020 AND THE HOSPITAL RECORDS DO NOT REVEAL ANY RECENT HGBA1C LEVELS, THEREFORE I WILL ORDER ONE TO BE ADDED TO BLOOD IN LAB. - PT IS NOT ON ANY ORAL MEDICATIONS OR INJECTABLE MEDS FOR DIABETES. (12) Chronic pancreatitis Qualifiers: Qualified Codes: K86.1 - Other chronic pancreatitis Assessment & Plan: PT HAD PANCREATITIS ON LAST HOSPITALIZATION -SUSPECT DUE TO GALLSTONES I HAVE CALLED IN A CONSULT TO DR. GRAY FOR EVAL. IF THIS IS A CHRONIC ISSUE DUE TO HER CHOLELITHIASIS - SHE WILL NEED TO BE CONSIDERED FOR SURGICAL INTERVENTION ZANE TO PREVENT RECURRENT HOSPITALIZATIONS FOR PANCREATITIS. (13) Nausea & vomiting Qualifiers: Qualified Codes: R11.2 - Nausea with vomiting, unspecified Assessment & Plan: DUE TO PANCREATITIS (14) Anemia in chronic illness Assessment & Plan: CHECK IRON PANEL TODAY IF NORMAL, WILL NEED TO CHECK ERYTHROPOETIN LEVEL DUE TO HER RENAL DISEASE. (15) DVT prophylaxis Assessment & Plan: PT ON HEPARIN DRIP DUE TO SUSPECTED PULMONARY EMBOLUS - WILL LIKELY SWITCH TO NOAC THERAPY WITH XARELTO PREFERRED DUE TO COST OF MEDICATIONS SINCE IT APPEARS PT HAS NEW ONSET AFIB. day of dc note as follows:acute on chronic pancreatitis -Dr. Gray consulted and does not think pt needs surgical intervention at this time, recommends follow up in office with Dr. Carter to discuss possible gallbladder etiology RLL pneumonia - improved -last dose of meropenem today -94% on room air acute on chronic renal insufficiency - improved -creatinine 1.19 today hypercalcemia - improved -possibly d/t CKD or occult malignancy hypokalemia - improved -3.8 today CHF -Dr. Ryan consulted and has pt on low dose of Eliquis for stroke prophylaxis Parkinson's -managed with home meds HTN -controlled with home meds anemia - improved after transfusion on 10/28 -hgb 10.5 today -likely d/t chronic disease Plan to discharge pt to [facility] today, pt's insurance rejected request for inpatient rehab. Son to bring pt's clothes and personal items and drop them off at the ER. Pt has questions/concerns about [facility] that were addressed today. Will DC catheter prior to transfer. Discharge Instructions to patient/family Please see electronic discharge instructions given to patient. Discharge Medications Reviewed and agree with Discharge Medication list on patient's Discharge Instruction sheet Clinical Quality Measures DVT/VTE Risk/Contraindication: Risk Factor Score Per Nursin RFS Level Per Nursing on Admit: 2=Moderate JOSE IVAN MD Jul 03, 2020 09:11
--- NOTE | 2020-07-03 10:01 | NUR ---
CM/SS: Visit with pt as to her discharge to [facility] today. Pt is not very happy about going to the facility. Pt has her arms crossed and will not establish eye contact with this worker. Plan: Pt will be going to [facility] today [facility] [place] Summary: Pt is mad on this morning as she reports that she saw the doctor and doctor told her she would need to stay at the facility for a month. As pt's daughter in law has flu and is COVID + - pt is reminded that she will need to stay focused and not be mad, just to work on getting stronger so that she can get back home. Talked with pt about her thinking and gave examples about glass half full and glass half empty. Pt encouraged to make the best of her current situation and to focus on getting back home. Pt given information as to what will take place today with having her COVID test, getting dressed, and arranging a time to be picked up. Pt understands it is a process. Pt will not establish eye contact with this worker. Son is also needing to being clothes for pt. This worker will follow up. Facility can take pt at 11:30am today. They will plan to pickle pumper pt at that time.
--- NOTE | 2020-07-03 10:33 | NUR ---
THIS RN CALLED REPORT TO HECTOR JONES AT [facility].
[2020-07-03 11:00] VITALS: BP 161/82
[2020-07-03 12:04] VITALS: BP 161/82
--- NOTE | 2020-07-03 12:39 | NUR ---
CM/SS: This worker arranged to get pt some clothing from the clothes closet. Not long after that pt's son dropped off pt's clothing. This worker went to get the belongings from the ER entrance, and brought to the pt. Pt asked about her winter coat. Family sent a heavy sweater. Pt is given her sweater and her shoes. Pt is encouraged to do well at the facility. Pt is wished well.
== END 2020-07-03 12:00 | DRG 438 ==
LOC: EDUNIT# 20:05 → ER 20:07 → CSD 21:30
PROVIDERS: ADMIT Internal Medicine; ATTEND Family Medicine
PROC: 5A09357 Assistance with Respiratory Ventilation, Less than 24 Consecutive Hours, Continuous Positive Airway Pressure (ICD-10-PCS; principal; 2020-06-27)
DX: K85.90 Acute pancreatitis without necrosis or infection, unspecified (principal); J18.9 Pneumonia, unspecified organism; J96.01 Acute respiratory failure with hypoxia; I21.A1 Myocardial infarction type 2; I13.0 Hypertensive heart and chronic kidney disease with heart failure and stage 1 through stage 4 chronic kidney disease, or unspecified chronic kidney disease; I50.32 Chronic diastolic (congestive) heart failure; N17.9 Acute kidney failure, unspecified; Z66 Do not resuscitate; Z20.828 Contact with and (suspected) exposure to other viral communicable diseases; K86.1 Other chronic pancreatitis; E86.0 Dehydration; J44.9 Chronic obstructive pulmonary disease, unspecified; E13.22 Other specified diabetes mellitus with diabetic chronic kidney disease; N18.30 Chronic kidney disease, stage 3 unspecified; E83.52 Hypercalcemia; I48.0 Paroxysmal atrial fibrillation; G47.33 Obstructive sleep apnea (adult) (pediatric); K80.20 Calculus of gallbladder without cholecystitis without obstruction; K59.00 Constipation, unspecified; I25.119 Atherosclerotic heart disease of native coronary artery with unspecified angina pectoris; F41.9 Anxiety disorder, unspecified; F31.9 Bipolar disorder, unspecified; E11.40 Type 2 diabetes mellitus with diabetic neuropathy, unspecified; M79.7 Fibromyalgia; J45.909 Unspecified asthma, uncomplicated; E78.00 Pure hypercholesterolemia, unspecified; G20 Parkinson's disease; F02.80 Dementia in other diseases classified elsewhere, unspecified severity, without behavioral disturbance, psychotic disturbance, mood disturbance, and anxiety; D63.8 Anemia in other chronic diseases classified elsewhere; E87.6 Hypokalemia; G25.81 Restless legs syndrome; K21.9 Gastro-esophageal reflux disease without esophagitis; I65.23 Occlusion and stenosis of bilateral carotid arteries; Z79.82 Long term (current) use of aspirin; Z87.01 Personal history of pneumonia (recurrent); Z95.5 Presence of coronary angioplasty implant and graft; Z88.6 Allergy status to analgesic agent; Z88.1 Allergy status to other antibiotic agents; Z88.5 Allergy status to narcotic agent; Z88.8 Allergy status to other drugs, medicaments and biological substances
CPT/HCPCS: 36415; 70450; 71045; 71250; 72125; 80048; 80053; 80069; 81000; 82306; 82310; 82330; 82728; 82805; 82962; 83036; 83519; 83540; 83605; 83690; 83735; 83880; 83970; 84145; 84155; 84165; 84439; 84443; 84484; 85007; 85014; 85018; 85025; 85027; 85379; 85610; 85730; 86141; 86850; 86900; 86901; 86920; 87040; 87635; 87804; 93005; 94640; 94660; 94760; 96360

== ENCOUNTER → 2020-09-12 | Outpatient (CLI) | payer MEDICARE ==
[~2020-09-12] MED LIST changes: +ACET-93 PO; +APIX2.5T PO; +ARIP5TAB57 PO; +ASPI-1238 PO; +CALC-823 PO; +DILT300C52 PO; +ERGO50006 PO; +FURO20TA4 PO; +MONT10TA32 PO; -MONT10TA97 PO; +MULT-1136 PO; +ONDA-105 PO; +POTA20TA15 PO; +POTA20TA8 PO
[2020-09-12 09:18] LABS: BASOPHILS # (AUTO) 0.1 10^3/uL (0.0-0.1); BASOPHILS % (AUTO) 1 % (0-10); EOSINOPHILS # (AUTO) 0.5 10^3/uL (0.0-0.3); EOSINOPHILS % (AUTO) 7 % (0-10); HEMATOCRIT 34 % (35-52); HEMOGLOBIN 10.9 g/dL (11.5-16.0); LYMPHOCYTES # (AUTO) 2.3 10^3/uL (1.0-4.0); LYMPHOCYTES % (AUTO) 33 % (12-44); MEAN CORPUSCULAR HEMOGLOBIN 30 pg (25-34); MEAN CORPUSCULAR HGB CONC 32 g/dL (32-36); MEAN CORPUSCULAR VOLUME 93 fL (80-99); MEAN PLATELET VOLUME 11.6 fL (9.0-12.2); MONOCYTES # (AUTO) 0.5 10^3/uL (0.0-1.0); MONOCYTES % (AUTO) 8 % (0-12); NEUTROPHILS # (AUTO) 3.5 10^3/uL (1.8-7.8); NEUTROPHILS % (AUTO) 51 % (42-75); PLATELET COUNT 319 10^3/uL (130-400); WHITE BLOOD COUNT 6.8 10^3/uL (4.3-11.0)
[2020-09-12 09:36] LABS: ALBUMIN 3.9 GM/DL (3.2-4.5); BILIRUBIN,TOTAL 0.4 MG/DL (0.1-1.0); CALCIUM 9.7 MG/DL (8.5-10.1); CREATININE SERUM 1.57 MG/DL (0.60-1.30); POTASSIUM 4.5 MMOL/L (3.6-5.0); TOTAL PROTEIN 7.2 GM/DL (6.4-8.2)
--- NOTE | 2020-09-12 12:13 | Diagnostic Imaging Report ---
INDICATION: Routine screening. Comparison is made with prior mammogram 05/18/2019 and 02/09/2018. 2-D and 3-D bilateral screening mammography was performed with CAD. Both breasts are heterogeneously dense, limiting the sensitivity of mammography. The parenchymal pattern is stable. No mass or malignant appearing microcalcifications are seen. There are benign calcifications present. Axillae are unremarkable. IMPRESSION: BI-RADS Category 2 No mammographic features suspicious for malignancy are identified. ACR BI-RADS Category 2: Benign findings. Result letter will be mailed to the patient. Note: At least 10% of breast cancer is not imaged by mammography. Dictated by: Dictated on workstation # [id number]
== END ==
LOC: RAD 08:46
PROVIDERS: ATTEND Nurse Practitioner Family
DX: Z12.31 Encounter for screening mammogram for malignant neoplasm of breast (principal); I10 Essential (primary) hypertension; N18.2 Chronic kidney disease, stage 2 (mild)
CPT/HCPCS: 36415; 77063; 77067; 80053; 85025

== ENCOUNTER → 2020-10-17 | Outpatient (CLI) | payer MEDICARE | LOC: CARD 10:25 | PROVIDERS: ATTEND Physician Assistant | DX: I10 Essential (primary) hypertension (principal) | CPT/HCPCS: 93306 ==

== ENCOUNTER → 2021-01-07 | Outpatient (CLI) | payer MEDICARE ==
[~2021-01-07] MED LIST changes: +ARIP15TA20 PO; -ARIP15TA9 PO; +ERGO1250 PO; -ERGO50006 PO
[2021-01-07 10:31] LABS: HEMATOCRIT 37 % (35-52); HEMOGLOBIN 11.9 g/dL (11.5-16.0); MEAN CORPUSCULAR HEMOGLOBIN 30 pg (25-34); MEAN CORPUSCULAR HGB CONC 33 g/dL (32-36); MEAN CORPUSCULAR VOLUME 93 fL (80-99); MEAN PLATELET VOLUME 11.6 fL (9.0-12.2); PLATELET COUNT 289 10^3/uL (130-400); WHITE BLOOD COUNT 7.1 10^3/uL (4.3-11.0)
[2021-01-07 10:43] LABS: BILIRUBIN,URINE NEGATIVE (NEGATIVE); CLARITY,URINE CLEAR; COLOR,URINE YELLOW; GLUCOSE, URINE (UA) NEGATIVE (NEGATIVE); KETONES,URINE NEGATIVE (NEGATIVE); LEUKOCYTE ESTERASE ,URINE TRACE (NEGATIVE); NITRITE,URINE NEGATIVE (NEGATIVE); PROTEIN,URINE NEGATIVE (NEGATIVE)
[2021-01-07 11:00] LABS: CALCIUM 10.2 MG/DL (8.5-10.1); CREATININE SERUM 1.64 MG/DL (0.60-1.30); PHOSPHORUS 3.5 MG/DL (2.3-4.7); POTASSIUM 4.3 MMOL/L (3.6-5.0); URIC ACID 5.1 MG/DL (2.6-7.2)
[2021-01-07 11:03] LABS: BACTERIA,URINE NEGATIVE /HPF; RBC,URINE RARE /HPF; SQUAMOUS EPITHELIAL CELL,UR 0-2 /HPF; WBC,URINE 0-2 /HPF
== END ==
LOC: LAB 10:01
PROVIDERS: ATTEND Nurse Practitioner
DX: N18.32 Chronic kidney disease, stage 3b (principal)
CPT/HCPCS: 36415; 80069; 81000; 82043; 82306; 83970; 84550; 85027

== ENCOUNTER 2021-05-19 06:08 | Outpatient (CLI) | payer MEDICARE ==
[~2021-05-19] VITALS: Ht 167.7 cm; Wt 72.7 kg
[~2021-05-19 06:08] MED LIST changes: -VERA240T14 PO; +VERA240T90 PO
[2021-05-19] MEDS ORDERED: CHOL-34 PO (11:24)
[2021-05-19] MEDS ORDERED: PANT40TA52 PO (11:24)
[2021-05-19] MEDS ORDERED: ASPI-999 PO (11:24)
[2021-05-19] MEDS ORDERED: CARV6.252 PO (11:24)
[2021-05-19] MEDS ORDERED: RIVA20TA PO (11:24)
[2021-05-19] MEDS ORDERED: MIRT-69 PO (11:24)
[2021-05-19] MEDS ORDERED: DILT300T9 PO (11:24)
== END 2021-05-19 11:27 | disposition home or self-care (01) ==
LOC: PREOP 06:08
PROVIDERS: ATTEND Specialist
DX: Z01.818 Encounter for other preprocedural examination (principal)

== ENCOUNTER 2021-05-22 07:54 | Day surgery (SDC) | payer MEDICARE ==
[~2021-05-22] VITALS: Ht 167.7 cm; Wt 72.7 kg
[~2021-05-22 07:54] MED LIST changes: +ASPI-999 PO; +CHOL-34 PO; +DILT300T9 PO; +MIRT-69 PO; +PANT40TA52 PO; +RIVA20TA PO
[2021-05-22] MEDS ORDERED: PHENYLEPHRINE 10% OPHTH (NEO-SYN) 5 ML BTL OU PRN (08:15)
[2021-05-22] MEDS ORDERED: TROPICAMIDE 1% OPH SOLN (MYDRIACYL) 15 ML BTL OU PRN (08:15)
[2021-05-22] MEDS: TETRACAINE 0.5% OPHTH SOLN 4 ML BTL (SINGLE DOSE ONLY) OU PRN ×3 (08:19→08:26)
[2021-05-22 08:28] VITALS: BP 137/75
--- NOTE | 2021-05-22 09:02 | Ophthalmology Operative Report ---
YAG Capsulotomy PREOPERATIVE DIAGNOSIS: Secondary Cataract Left Eye POSTOPERATIVE DIAGNOSIS: Secondary Cataract Left Eye PROCEDURE: YAG Capsulotomy, left eye SURGEON: Sukhjinder Patricia ANESTHESIA: Topical anesthesia COMPLICATIONS: None ESTIMATED BLOOD LOSS: Minimal DESCRIPTION OF PROCEDURE: After proper informed consent was obtained, the patient's, a 71 female left eye received one drop of Tropicamide and one drop of Tetracaine. The patient was then placed at the YAG laser and using a power of [3.5 ] millijoules and [21 ] bursts were used to fashion a central capsulotomy. The patient tolerated the procedure well without complications. SUKHJINDER PATRICIA MD May 22, 2021 09:02
--- NOTE | 2021-05-22 09:02 | Ophthalmologist Pre-Op Note ---
Pre-Operative Progress Note H&P Reviewed The H&P was reviewed, patient examined and no changes noted. Date H&P Reviewed: May 22, 2021 Time H&P Reviewed: 08:44 Pre-Op Dx Secondary Cataract, Right Eye BLAZE PATRICIA MD May 22, 2021 09:01
== END 2021-05-22 08:45 ==
LOC: SDC 07:54
PROVIDERS: ATTEND Specialist
DX: H26.492 Other secondary cataract, left eye (principal); J45.909 Unspecified asthma, uncomplicated; M19.90 Unspecified osteoarthritis, unspecified site; N28.9 Disorder of kidney and ureter, unspecified; E78.00 Pure hypercholesterolemia, unspecified; F32.A Depression, unspecified; F41.9 Anxiety disorder, unspecified; Z80.9 Family history of malignant neoplasm, unspecified; Z82.49 Family history of ischemic heart disease and other diseases of the circulatory system

== ENCOUNTER 2021-07-13 13:13 | Inpatient (IN) | payer MEDICARE ==
[~2021-07-13] VITALS: Ht 167 cm; Wt 80.0 kg
[~2021-07-13 13:13] MED LIST changes: +MONT-40 PO; -MONT10TA32 PO; +POTA-169 PO; +POTA-179 PO; -POTA20TA15 PO; -POTA20TA8 PO
[2021-07-13] MEDS ORDERED: fentaNYL INJ 100 MCG/2 ML AMP IVP ONE ×2 (14:15→15:45)
[2021-07-13] MEDS ORDERED: ONDANSETRON 4 MG/2 ML (SDV) Z0FRAN IVP ONE (14:15)
[2021-07-13] MEDS ORDERED: NS IV 1000 ML 1,000 ML IV SCH (14:15)
[2021-07-13] MEDS ORDERED: PANTOPRAZOLE 40 MG (PROTONIX) VIAL IV ONE (14:15)
--- NOTE | 2021-07-13 14:23 | ED Abdominal Pain ---
General Chief Complaint: Abdominal/GI Problems Stated Complaint: RLQ PAIN Nursing Triage Note: AMB TO ROOM C/O R UPPER QUAD PAIN ONSET 0500 TODAY. WAS IN HOSPITAL LAST YEAR FOR PANCREATITIS Source of Information: Patient Exam Limitations: No Limitations History of Present Illness Date Seen by Provider: Jul 13, 2021 Time Seen by Provider: 14:05 Initial Comments Patient to the ER by private conveyance from home with chief complaint at 5:00 this morning shortly after she woke up she ate a snack and then started having epigastric abdominal pain 10 out of 10. She has not taken anything for the pain. She has a history of pancreatitis. She states she stayed in the hospital all last winter for her pain. She not have any diarrhea. She is having nausea without vomiting. No hematemesis or bloody stools. She cannot recall if she had EGD or colonoscopy in the past. 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 She does follow with Dr. 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 No chest pain shortness of air. No fevers or chills. Patient denies any abdominal surgical history. Allergies and Home Medications Allergies Coded Allergies: morphine (Verified Allergy, Intermediate, HIVES...TAKES HYDROCODONE AT HOME, 03/20/08) acetaminophen (Verified Allergy, Mild, HIVES...TAKES HYDROCODONE AT HOME, 03/20/08) bacitracin (Verified Allergy, Unknown, 08/16/07) cyproheptadine (Verified Allergy, Unknown, 08/16/07) fluoxetine (Verified Allergy, Unknown, 08/16/07) fluticasone (Verified Allergy, Unknown, metallic taste, 05/19/21) gramicidin D (Verified Allergy, Unknown, 08/16/07) neomycin (Verified Allergy, Unknown, 08/16/07) polymyxin B (Verified Allergy, Unknown, 08/16/07) salmeterol (Verified Allergy, Unknown, metallic taste, 05/19/21) tizanidine (Verified Allergy, Unknown, 08/16/07) tramadol (Verified Allergy, Unknown, 08/16/07) Uncoded Allergies: ARTHRITIS MEDS (Allergy, Unknown, 08/16/07) DECONGESTANTS (Allergy, Unknown, 08/16/07) Patient Home Medication List Home Medication List Reviewed: Yes Albuterol Sulfate (Albuterol Sulfate) 2.5 Mg/3 Ml Vial.neb, 3 ML NEB QID PRN for SHORTNESS OF BREATH, (Reported) Entered as Reported by: ANJU RODAS on 05/27/20 140 Aspirin (Aspirin) 81 Mg Tab.chew, 81 MG PO DAILY, (Reported) Entered as Reported by: DAVE AMADOR on 05/19/21 112 Carvedilol (Carvedilol) 6.25 Mg Tablet, 6.25 MG PO BID, (Reported) Entered as Reported by: DAVE AMADOR on 05/19/21 112 Cetirizine HCl (Cetirizine HCl) 10 Mg Tablet, 10 MG PO DAILY, (Reported) Entered as Reported by: ANJU RODAS on 05/27/20 140 Cholecalciferol (Vitamin D3) (Vitamin D3) 25 Mcg Tablet, 25 MCG PO BID, (Reported) Entered as Reported by: DAVE AMADOR on 05/19/21 112 Cyanocobalamin (Vitamin B-12) (Vitamin B-12) 50 Mcg Lozenge, 100 MCG PO DAILY, (Reported) Entered as Reported by: ANJU RODAS on 05/27/20 140 Diltiazem HCl (Diltiazem ER) 300 Mg Tab.er.24h, 300 MG PO DAILY, (Reported) Entered as Reported by: DAVE AMADOR on 05/19/21 112 Fenofibrate Nanocrystallized (Fenofibrate) 145 Mg Tablet, 145 MG PO DAILY, (Reported) Entered as Reported by: ANJU RODAS on 05/27/20 140 Mirtazapine (Mirtazapine) 30 Mg Tablet, 30 MG PO HS, (Reported) Entered as Reported by: DAVE AMADOR on 05/19/21 112 Montelukast Sodium (Montelukast Sodium) 10 Mg Tablet, 10 MG PO HS, (Reported) Entered as Reported by: KAHLIL BAIG on 10/11/16 0813 [place]-3/Dha/Epa/Fish Oil (Fish Oil 1,000 mg Softgel) 1 Each Capsule, 1 EACH PO DAILY, (Reported) Entered as Reported by: ANJU RODAS on 05/27/20 140 Pantoprazole Sodium (Pantoprazole Sodium) 40 Mg Tablet.dr, 40 MG PO DAILY, (Reported) Entered as Reported by: DAVE AMADOR on 05/19/21 1124 Rivaroxaban (Xarelto) 20 Mg Tablet, 20 MG PO DAILY, (Reported) Entered as Reported by: DAVE AMADOR on 05/19/21 1124 Ropinirole HCl (Ropinirole HCl) 1 Mg Tablet, 1 MG PO TID, (Reported) Entered as Reported by: KAHLIL BAIG on 10/11/16 0813 Rosuvastatin Calcium (Rosuvastatin Calcium) 10 Mg Tablet, 10 MG PO HS, (Reported) Entered as Reported by: ANJU RODAS on 05/27/20 1402 Review of Systems Review of Systems Constitutional: No chills, No diaphoresis EENTM: No Blurred Vision, No Double Vision Respiratory: Denies Cough, Denies Orthopnea Cardiovascular: Denies Chest Pain, Denies Lightheadedness Gastrointestinal: See HPI; Denies Abdomen Distended; Abdominal Pain; Denies Constipated, Denies Diarrhea; Nausea, Poor Appetite, Poor Fluid Intake; Denies Vomiting Genitourinary: Denies Burning, Denies Discharge Musculoskeletal: No back pain, No joint pain All Other Systems Reviewed Negative Unless Noted: Yes Past Tziitud-Fdbggy-Cuaobv Hx Patient Social History Tobacco Use?: No Use of E-Cig and/or Vaping dev: No Substance use?: No Immunizations Up To Date Tetanus Booster (TDap): Less than 5yrs First/Initial COVID19 Vaccinat: JUL Second COVID19 Vaccination Tomás: [facility] COVID19 Vaccine 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: [email or web address] Seasonal Allergies Seasonal Allergies: No Past Medical History Surgeries: Yes Coronary Stent Respiratory: Yes Asthma Currently Using CPAP: Yes (oxygen at night) Currently Using BIPAP: No Cardiac: Yes (L CAROTID) Angina, Coronary Artery Disease, High Cholesterol, Hypertension, Peripheral Vascular, Syncope Neurological: No Dementia, Parkinson's Disease 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 Disorders: No Female 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 Disorders: Denies 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 Genitourinary: No Gastrointestinal: Yes Gastroesophageal Reflux, Pancreatitis Musculoskeletal: Yes Degenerate Disk Disease, Fibromyalgia Endocrine: Yes Diabetes, Non-Insulin dep HEENT: No Loss of Vision: Denies Hearing Impairment: Denies Cancer: No Psychosocial: Yes Anxiety, Depression Integumentary: No Blood Disorders: No Family Medical History Cardiovascular disease 19 FATHER Completed stroke 19 MOTHER FH: leukemia 19 MOTHER Cancer, CAD Over 55 Years Old, Stroke Physical Exam Vital Signs Vital Signs - First Documented 07/13/21 13:51 Temp 35.6 Pulse 78 Resp 18 B/P (MAP) 156/79 (104) Pulse Ox 96 O2 Delivery Room Air Capillary Refill : Less Than 3 Seconds Height/Weight/BMI Height: 5'5.00" Weight: 173lbs. 0.0oz. [id number]; 27.00 BMI Method: General Appearance: WD/WN, moderate distress HEENT: PERRL/EOMI, pharynx normal Neck: full range of motion, supple, normal inspection Respiratory: chest non-tender, lungs clear, normal breath sounds, no respiratory distress, no accessory muscle use Cardiovascular: normal peripheral pulses, regular rate, rhythm Peripheral Pulses: 2+ Radial Pulses (R), 2+ Radial Pulses (L) Gastrointestinal: normal bowel sounds, soft, no organomegaly, tenderness (Epigastric region without McBurney's point and Rovsing sign and psoas sign or other mesenteric signs.) Extremities: normal range of motion, non-tender, normal capillary refill Neurologic/Psychiatric: equal opportunity specialist II-XII nml as tested, no motor/sensory deficits, alert, normal mood/affect, oriented x 3 Skin: normal color, warm/dry Progress/Results/Core Measures Results/Orders Lab Results Laboratory Tests Test 07/13/21 14:29 07/13/21 15:52 Range/Units White Blood Count 10.2 4.3-11.0 10^3/uL Red Blood Count 3.95 3.80-5.11 10^6/uL Hemoglobin 12.1 11.5-16.0 g/dL Hematocrit 37 35-52 % Mean Corpuscular Volume 94 80-99 fL Mean Corpuscular Hemoglobin 31 25-34 pg Mean Corpuscular Hemoglobin Concent 33 32-36 g/dL Red Cell Distribution Width 13.6 10.0-14.5 % Platelet Count 270 130-400 10^3/uL Mean Platelet Volume 11.9 9.0-12.2 fL Immature Granulocyte % (Auto) 1 % Neutrophils (%) (Auto) 75 42-75 % Lymphocytes (%) (Auto) 16 12-44 % Monocytes (%) (Auto) 6 0-12 % Eosinophils (%) (Auto) 3 0-10 % Basophils (%) (Auto) 1 0-10 % Neutrophils # (Auto) 7.7 1.8-7.8 10^3/uL Lymphocytes # (Auto) 1.6 1.0-4.0 10^3/uL Monocytes # (Auto) 0.6 0.0-1.0 10^3/uL Eosinophils # (Auto) 0.3 0.0-0.3 10^3/uL Basophils # (Auto) 0.1 0.0-0.1 10^3/uL Immature Granulocyte # (Auto) 0.1 0.0-0.1 10^3/uL Sodium Level 139 135-145 MMOL/L Potassium Level 4.2 3.6-5.0 MMOL/L Chloride Level 107 98-107 MMOL/L Carbon Dioxide Level 23 21-32 MMOL/L Anion Gap 9 5-14 MMOL/L Blood Urea Nitrogen 19 H 7-18 MG/DL Creatinine 1.65 H 0.60-1.30 MG/DL Estimat Glomerular Filtration Rate 31 BUN/Creatinine Ratio 12 Glucose Level 153 H 70-105 MG/DL Calcium Level 9.5 8.5-10.1 MG/DL Corrected Calcium 9.6 8.5-10.1 MG/DL Total Bilirubin 0.4 0.1-1.0 MG/DL Aspartate Amino Transf (AST/SGOT) 22 5-34 U/L Alanine Aminotransferase (ALT/SGPT) 16 0-55 U/L Alkaline Phosphatase 56 40-136 U/L C-Reactive Protein High Sensitivity 0.09 0.00-0.50 MG/DL Total Protein 7.4 6.4-8.2 GM/DL Albumin 3.9 3.2-4.5 GM/DL Lipase 38 8-78 U/L Urine Color YELLOW Urine Clarity CLEAR Urine pH 7.0 5-9 Urine Specific [place] 1.015 L 1.016-1.022 Urine Protein NEGATIVE NEGATIVE Urine Glucose (UA) NEGATIVE NEGATIVE Urine Ketones NEGATIVE NEGATIVE Urine Nitrite NEGATIVE NEGATIVE Urine Bilirubin NEGATIVE NEGATIVE Urine Urobilinogen 0.2 < = 1.0 MG/DL Urine Leukocyte Esterase NEGATIVE NEGATIVE Urine RBC (Auto) TRACE-I H NEGATIVE Urine RBC 2-5 H /HPF Urine WBC RARE /HPF Urine Squamous Epithelial Cells RARE /HPF Urine Crystals NONE /LPF Urine Bacteria NEGATIVE /HPF Urine Casts NONE /LPF Urine Mucus NEGATIVE /LPF Urine Culture Indicated NO Urine Opiates Screen NEGATIVE NEGATIVE Urine Oxycodone Screen NEGATIVE NEGATIVE Urine Methadone Screen NEGATIVE NEGATIVE Urine Propoxyphene Screen NEGATIVE NEGATIVE Urine Barbiturates Screen NEGATIVE NEGATIVE Ur Tricyclic Antidepressants Screen NEGATIVE NEGATIVE Urine Phencyclidine Screen NEGATIVE NEGATIVE Urine Amphetamines Screen NEGATIVE NEGATIVE Urine Methamphetamines Screen NEGATIVE NEGATIVE Urine Benzodiazepines Screen NEGATIVE NEGATIVE Urine Cocaine Screen NEGATIVE NEGATIVE Urine Cannabinoids Screen NEGATIVE NEGATIVE My Orders Orders - LIZ,TORIN J Ua Culture If Indicated (07/13/21 13:38) Drug Screen Stat (Urine) (07/13/21 14:14) Cbc With Automated Diff (07/13/21 14:14) Comprehensive Metabolic Panel (07/13/21 14:14) Lipase (07/13/21 14:14) Hs C Reactive Protein (07/13/21 14:14) Ed Iv/Invasive Line Start (07/13/21 14:14) Ed Iv/Invasive Line Start (07/13/21 14:14) Ns Iv 1000 Ml (Sodium Chloride 0.9%) (07/13/21 14:15) Fentanyl Inj (Sublimaze Injection) (07/13/21 14:15) Ondansetron Injection (Zofran Injectio (07/13/21 14:15) Pantoprazole Injection (Protonix Injecti (07/13/21 14:15) Ct Abdomen/Pelvis Wo (07/13/21 15:27) Fentanyl Inj (Sublimaze Injection) (07/13/21 15:45) Medications Given in ED Current Medications Medications Dose Ordered Sig/Lilly Route Start Time Stop Time Status Last Admin Dose Admin Fentanyl Citrate 50 mcg ONCE ONCE IVP 07/13/21 14:15 07/13/21 14:19 DC 07/13/21 14:41 50 MCG Fentanyl Citrate 50 mcg ONCE ONCE IVP 07/13/21 15:45 07/13/21 15:46 DC 07/13/21 15:55 50 MCG Ondansetron HCl 8 mg ONCE ONCE IVP 07/13/21 14:15 07/13/21 14:19 DC 07/13/21 14:41 8 MG Pantoprazole 40 mg ONCE ONCE IV 07/13/21 14:15 07/13/21 14:19 DC 07/13/21 14:41 40 MG Vital Signs/I&O 07/13/21 13:51 Temp 35.6 Pulse 78 Resp 18 B/P (MAP) 156/79 (104) Pulse Ox 96 O2 Delivery Room Air Blood Pressure Mean: 104 Progress Progress Note #1: Time: :22 Progress Note Protonix, Zofran, fentanyl, CT of the abdomen pelvis with IV contrast if possible. Patient states she has significant chronic kidney disease that she cannot take NSAIDs. 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 A liter of fluids and labs including a lipase. The patient does not have septic vital signs. No mesenteric signs or evidence of a surgical abdomen Progress Note #2: Time: 18:00 Progress Note Patient denies any trauma and states that she is safe in her home. She has not had any falls. She lives with her son and states that during the day she is home alone and then after school is out she watches two [id number]. We did discuss going home on pain medication versus staying for pain management and the patient's pain is still 5 out of 10 despite 100 mcg of fentanyl. It would probably be advisable for her to stay and she agrees so we discussed the case with Dr. IVAN. Diagnostic Imaging Diagonstic Imaging: CT Plain Films/CT/US/NM/MRI: abdomen, pelvis Comments [facility]. [place], [place] NAME: FRIEDA [facility]WIS [facility] REC#: [id number] PT STATUS: REG ER : 1950 PHYSICIAN: TORIN HILL MD ADMIT DATE: 07/13/21/ER Signed Date of Exam:07/13/21 CT ABDOMEN/PELVIS WO PROCEDURE: CT abdomen and pelvis without contrast. TECHNIQUE: Multiple contiguous axial images were obtained through the abdomen and pelvis without the use of intravenous contrast. Auto Exposure Controls were utilized during the CT exam to meet ALARA standards for radiation dose reduction. INDICATION: Right lower quadrant pain. COMPARISON: Correlation is made with CT study from 06/03/2020. FINDINGS: Left hemidiaphragm remains elevated. There is some atelectasis in the left lower lobe. Right base appears to be clear, although there is a small nodule in the right lower lobe measuring 7 mm, not definitely seen on prior exam. The patient does have a right rectus wall hematoma that commences just below the level of the liver and extends inferiorly to the pelvis at the level of the urinary bladder. This actually exert some mass effect on the urinary bladder. Maximum transverse dimension is approximately 10.4 cm x AP dimension of approximately 8.8 cm. Vertical extent is approximately 24 cm. Evaluation for active bleeding cannot be determined due to absence of IV contrast. The liver is unremarkable. The gallbladder again contains multiple small stones. There is no biliary ductal dilatation. Pancreas has a normal appearance on today's study. The changes of pancreatitis noted previously are no longer appreciated. No peripancreatic fluid collection or pseudocyst is detected. Spleen is unremarkable. No adrenal mass is detected. There are tiny nonobstructing calculi in the lower pole of the left kidney. No right-sided renal calculi are seen. No ureteral calculi or evidence of hydronephrosis is detected. Aorta is heavily calcified but nonaneurysmal. Small and large bowel loops are normal in caliber. No free fluid or evidence of hemoperitoneum is identified. Uterus is unremarkable. The bony structures are nonacute. IMPRESSION: 1. Large right rectus hematoma, as described. Evaluation for acute bleeding cannot be determined without IV contrast. 2. Cholelithiasis. 3. Resolution of findings of acute pancreatitis since prior CT from 06/03/2020. Dictated by: Dictated on workstation # [id number] Dict: 07/13/21 1549 Trans: 07/13/21 1611 [id number] Interpreted by: DAVON OKEEFE MD Electronically signed by: DAVON OKEEFE MD 07/13/21 1611 Reviewed: Reviewed by Me Departure Communication (Admissions) Time/Spoke to Admitting Phy: 17:50 Dr. Ivan agrees to observe the patient with some IV fluids, hold blood thinners, consult with cardiology and attempt possible reimaging in the morning Time/Spoke to Consulting Phy: 18:05 Discussed the case with Dr. Crump and he agrees with consultation. He says he is read 1 case with this happened with Xarelto but usually this happens with Lo venox. Impression Primary Impression: Abdominal wall hematoma Qualified Codes: S30.1XXA - Contusion of abdominal wall, initial encounter Disposition: ADMITTED INPATIENT Condition: Stable Admissions Decision to Admit Reason: Admit from ER (General) Decision to Admit/Date: Jul 13, 2021 Time/Decision to Admit Time: 17:50 Departure-Patient Inst. Referrals: JOSE IVAN MD (PCP/Family) Primary Care Physician TORIN HILL Jul 13, 2021 14:23
[2021-07-13 14:38] LABS: BASOPHILS # (AUTO) 0.1 10^3/uL (0.0-0.1); BASOPHILS % (AUTO) 1 % (0-10); EOSINOPHILS # (AUTO) 0.3 10^3/uL (0.0-0.3); EOSINOPHILS % (AUTO) 3 % (0-10); HEMATOCRIT 37 % (35-52); HEMOGLOBIN 12.1 g/dL (11.5-16.0); LYMPHOCYTES # (AUTO) 1.6 10^3/uL (1.0-4.0); LYMPHOCYTES % (AUTO) 16 % (12-44); MEAN CORPUSCULAR HEMOGLOBIN 31 pg (25-34); MEAN CORPUSCULAR HGB CONC 33 g/dL (32-36); MEAN CORPUSCULAR VOLUME 94 fL (80-99); MEAN PLATELET VOLUME 11.9 fL (9.0-12.2); MONOCYTES # (AUTO) 0.6 10^3/uL (0.0-1.0); MONOCYTES % (AUTO) 6 % (0-12); NEUTROPHILS # (AUTO) 7.7 10^3/uL (1.8-7.8); NEUTROPHILS % (AUTO) 75 % (42-75); PLATELET COUNT 270 10^3/uL (130-400); WHITE BLOOD COUNT 10.2 10^3/uL (4.3-11.0)
[2021-07-13 15:14] LABS: ALBUMIN 3.9 GM/DL (3.2-4.5)
[2021-07-13 15:15] LABS: POTASSIUM 4.2 MMOL/L (3.6-5.0)
[2021-07-13 15:16] LABS: CALCIUM 9.5 MG/DL (8.5-10.1)
[2021-07-13 15:17] LABS: TOTAL PROTEIN 7.4 GM/DL (6.4-8.2)
[2021-07-13 15:19] LABS: BILIRUBIN,TOTAL 0.4 MG/DL (0.1-1.0)
[2021-07-13 15:21] LABS: CREATININE SERUM 1.65 MG/DL (0.60-1.30)
[2021-07-13 15:56] LABS: BILIRUBIN,URINE NEGATIVE (NEGATIVE); CLARITY,URINE CLEAR; COLOR,URINE YELLOW; GLUCOSE, URINE (UA) NEGATIVE (NEGATIVE); KETONES,URINE NEGATIVE (NEGATIVE); LEUKOCYTE ESTERASE ,URINE NEGATIVE (NEGATIVE); NITRITE,URINE NEGATIVE (NEGATIVE); PROTEIN,URINE NEGATIVE (NEGATIVE)
[2021-07-13 16:02] LABS: BACTERIA,URINE NEGATIVE /HPF; SQUAMOUS EPITHELIAL CELL,UR RARE /HPF; WBC,URINE RARE /HPF
--- NOTE | 2021-07-13 16:03 | Diagnostic Imaging Report ---
PROCEDURE: CT abdomen and pelvis without contrast. TECHNIQUE: Multiple contiguous axial images were obtained through the abdomen and pelvis without the use of intravenous contrast. Auto Exposure Controls were utilized during the CT exam to meet ALARA standards for radiation dose reduction. INDICATION: Right lower quadrant pain. COMPARISON: Correlation is made with CT study from 06/03/2020. FINDINGS: Left hemidiaphragm remains elevated. There is some atelectasis in the left lower lobe. Right base appears to be clear, although there is a small nodule in the right lower lobe measuring 7 mm, not definitely seen on prior exam. The patient does have a right rectus wall hematoma that commences just below the level of the liver and extends inferiorly to the pelvis at the level of the urinary bladder. This actually exert some mass effect on the urinary bladder. Maximum transverse dimension is approximately 10.4 cm x AP dimension of approximately 8.8 cm. Vertical extent is approximately 24 cm. Evaluation for active bleeding cannot be determined due to absence of IV contrast. The liver is unremarkable. The gallbladder again contains multiple small stones. There is no biliary ductal dilatation. Pancreas has a normal appearance on today's study. The changes of pancreatitis noted previously are no longer appreciated. No peripancreatic fluid collection or pseudocyst is detected. Spleen is unremarkable. No adrenal mass is detected. There are tiny nonobstructing calculi in the lower pole of the left kidney. No right-sided renal calculi are seen. No ureteral calculi or evidence of hydronephrosis is detected. Aorta is heavily calcified but nonaneurysmal. Small and large bowel loops are normal in caliber. No free fluid or evidence of hemoperitoneum is identified. Uterus is unremarkable. The bony structures are nonacute. IMPRESSION: 1. Large right rectus hematoma, as described. Evaluation for acute bleeding cannot be determined without IV contrast. 2. Cholelithiasis. 3. Resolution of findings of acute pancreatitis since prior CT from 06/03/2020. Dictated by: Dictated on workstation # [id number]
[2021-07-13 16:06] LABS: AMPHETAMINE SCREEN, URINE NEGATIVE (NEGATIVE); BARBITURATE SCREEN URINE NEGATIVE (NEGATIVE); BENZODIAZEPINES SCREEN URINE NEGATIVE (NEGATIVE); CANNABINOID SCREEN, URINE NEGATIVE (NEGATIVE); COCAINE SCREEN URINE NEGATIVE (NEGATIVE); METHADONE STAT NEGATIVE (NEGATIVE); METHAMPHETAMINE SCREEN URINE S NEGATIVE (NEGATIVE); OPIATE SCREEN URINE NEGATIVE (NEGATIVE); OXYCODONE STAT NEGATIVE (NEGATIVE); PROPOXYPHENE STAT NEGATIVE (NEGATIVE); TRICYCLIC ANTIDEPRESSANTS SCRE NEGATIVE (NEGATIVE)
[2021-07-13 20:28] VITALS: BP 109/58
[2021-07-13] MEDS ORDERED: 1/2 NS IV SOLUTION 1,000 ML IV ONE (21:34)
[2021-07-13] MEDS ORDERED: fentaNYL INJ 100 MCG/2 ML AMP ONE (21:40)
[2021-07-13] MEDS: fentaNYL INJ 100 MCG/2 ML AMP IV PRN (21:47)
[2021-07-13] MEDS: 1/2 NS IV SOLUTION 1,000 ML IV SCH (21:48)
[2021-07-14 00:44] VITALS: BP 116/64
[2021-07-14] MEDS: ONDANSETRON 4 MG/2 ML (SDV) Z0FRAN IV PRN (01:03)
[2021-07-14] MEDS: fentaNYL INJ 100 MCG/2 ML AMP IV PRN (01:05)
[2021-07-14] MEDS: 1/2 NS IV SOLUTION 1,000 ML IV SCH ×4 (01:46→20:14)
[2021-07-14 04:00] VITALS: BP 129/66
[2021-07-14 07:13] LABS: BASOPHILS # (AUTO) 0.1 10^3/uL (0.0-0.1); BASOPHILS % (AUTO) 0 % (0-10); EOSINOPHILS # (AUTO) 0.1 10^3/uL (0.0-0.3); EOSINOPHILS % (AUTO) 1 % (0-10); HEMATOCRIT 24 % (35-52); HEMOGLOBIN 7.7 g/dL (11.5-16.0); LYMPHOCYTES # (AUTO) 2.7 10^3/uL (1.0-4.0); LYMPHOCYTES % (AUTO) 19 % (12-44); MEAN CORPUSCULAR HEMOGLOBIN 31 pg (25-34); MEAN CORPUSCULAR HGB CONC 32 g/dL (32-36); MEAN CORPUSCULAR VOLUME 96 fL (80-99); MEAN PLATELET VOLUME 12.3 fL (9.0-12.2); MONOCYTES # (AUTO) 1.1 10^3/uL (0.0-1.0); MONOCYTES % (AUTO) 8 % (0-12); NEUTROPHILS # (AUTO) 10.1 10^3/uL (1.8-7.8); NEUTROPHILS % (AUTO) 71 % (42-75); PLATELET COUNT 249 10^3/uL (130-400); WHITE BLOOD COUNT 14.1 10^3/uL (4.3-11.0)
[2021-07-14 07:28] LABS: POTASSIUM 4.4 MMOL/L (3.6-5.0)
[2021-07-14 07:29] LABS: CALCIUM 8.3 MG/DL (8.5-10.1)
[2021-07-14 07:34] LABS: CREATININE SERUM 2.17 MG/DL (0.60-1.30)
[2021-07-14 07:45] LABS: NEUTROPHILS % (MANUAL) 71 %
[2021-07-14 07:46] LABS: ANISOCYTOSIS SLIGHT; EOSINOPHILS % (MANUAL) 1 %; HYPOCHROMASIA SLIGHT; LYMPHOCYTES % (MANUAL) 24 %; MONOCYTES % (MANUAL) 4 %; POLYCHROMASIA SLIGHT
--- NOTE | 2021-07-14 08:27 | Consultation-Cardiology ---
HPI-Cardiology Cardiology Consultation Date of Consultation 07/14/21 Date of Admission Time Seen by Provider: 08:21 Indication: Atrial fibrillation HPI 71-year-old lady with history of coronary artery disease, paroxysmal atrial fibrillation, maintained on Xarelto as an outpatient. Came into the emergency room for sudden onset severe abdominal pain on the right side of her abdomen and inguinal area. Work-up showed large right rectus hematoma. She denied any trauma or fall or injury to her abdomen. No injection in her abdomen. She denied any chest pain. No shortness of breath. On my evaluation today she is reporting improvement in the pain, it brick tender area in her abdomen but it is tolerable. Home Medications & Allergies Allergies: Coded Allergies: morphine (Verified Allergy, Intermediate, HIVES...TAKES HYDROCODONE AT HOME, 03/20/08) acetaminophen (Verified Allergy, Mild, HIVES...TAKES HYDROCODONE AT HOME, 03/20/08) bacitracin (Verified Allergy, Unknown, 08/16/07) cyproheptadine (Verified Allergy, Unknown, 08/16/07) fluoxetine (Verified Allergy, Unknown, 08/16/07) fluticasone (Verified Allergy, Unknown, metallic taste, 05/19/21) gramicidin D (Verified Allergy, Unknown, 08/16/07) neomycin (Verified Allergy, Unknown, 08/16/07) polymyxin B (Verified Allergy, Unknown, 08/16/07) salmeterol (Verified Allergy, Unknown, metallic taste, 05/19/21) tizanidine (Verified Allergy, Unknown, 08/16/07) tramadol (Verified Allergy, Unknown, 08/16/07) Uncoded Allergies: ARTHRITIS MEDS (Allergy, Unknown, 08/16/07) DECONGESTANTS (Allergy, Unknown, 08/16/07) Home Medication List Reviewed: Yes [id number] Hx Patient Social History Marital Status: Employed/Student: retired Recent Hopitalizations: Yes Have you traveled recently?: No Alcohol Use?: No Immunizations Up To Date Tetanus Booster (TDap): Less than 5yrs Date of Pneumonia Vaccine: Apr 03, 2019 Date of Influenza Vaccine: Apr 03, 2020 Past Medical History Discussed below Family Medical History Significant Family History: Cancer, CAD Over 55 Years Old, Stroke Family History: Cardiovascular disease 19 FATHER Completed stroke 19 MOTHER FH: leukemia 19 MOTHER Review of Systems-General Review of Systems Constitutional: No chills, No diaphoresis EENTM: see HPI, no symptoms reported Respiratory: no symptoms reported, see HPI Cardiovascular: see HPI Gastrointestinal: no symptoms reported, see HPI, abdominal pain (RLQ) Genitourinary: no symptoms reported, see HPI Musculoskeletal: No back pain, No joint pain Skin: no symptoms reported, see HPI Psychiatric/Neurological: No Symptoms Reported, See HPI All Other Systems Reviewed Negative Unless Noted: Yes Reviewed Test Results Reviewed Test Results Lab Laboratory Tests Test 07/13/21 14:29 07/13/21 15:52 07/14/21 07:04 Range/Units White Blood Count 10.2 14.1 H 4.3-11.0 10^3/uL Red Blood Count 3.95 2.51 L 3.80-5.11 10^6/uL Hemoglobin 12.1 7.7 #L 11.5-16.0 g/dL Hematocrit 37 24 L 35-52 % Mean Corpuscular Volume 94 96 80-99 fL Mean Corpuscular Hemoglobin 31 31 25-34 pg Mean Corpuscular Hemoglobin Concent 33 32 32-36 g/dL Red Cell Distribution Width 13.6 14.2 10.0-14.5 % Platelet Count 270 249 130-400 10^3/uL Mean Platelet Volume 11.9 12.3 H 9.0-12.2 fL Immature Granulocyte % (Auto) 1 1 % Neutrophils (%) (Auto) 75 71 42-75 % Lymphocytes (%) (Auto) 16 19 12-44 % Monocytes (%) (Auto) 6 8 0-12 % Eosinophils (%) (Auto) 3 1 0-10 % Basophils (%) (Auto) 1 0 0-10 % Neutrophils # (Auto) 7.7 10.1 H 1.8-7.8 10^3/uL Lymphocytes # (Auto) 1.6 2.7 1.0-4.0 10^3/uL Monocytes # (Auto) 0.6 1.1 H 0.0-1.0 10^3/uL Eosinophils # (Auto) 0.3 0.1 0.0-0.3 10^3/uL Basophils # (Auto) 0.1 0.1 0.0-0.1 10^3/uL Immature Granulocyte # (Auto) 0.1 0.1 0.0-0.1 10^3/uL Sodium Level 139 136 135-145 MMOL/L Potassium Level 4.2 4.4 3.6-5.0 MMOL/L Chloride Level 107 107 98-107 MMOL/L Carbon Dioxide Level 23 22 21-32 MMOL/L Anion Gap 9 7 5-14 MMOL/L Blood Urea Nitrogen 19 H 26 H 7-18 MG/DL Creatinine 1.65 H 2.17 H 0.60-1.30 MG/DL Estimat Glomerular Filtration Rate 31 22 BUN/Creatinine Ratio 12 12 Glucose Level 153 H 155 H 70-105 MG/DL Calcium Level 9.5 8.3 L 8.5-10.1 MG/DL Corrected Calcium 9.6 8.5-10.1 MG/DL Total Bilirubin 0.4 0.1-1.0 MG/DL Aspartate Amino Transf (AST/SGOT) 22 5-34 U/L Alanine Aminotransferase (ALT/SGPT) 16 0-55 U/L Alkaline Phosphatase 56 40-136 U/L C-Reactive Protein High Sensitivity 0.09 0.00-0.50 MG/DL Total Protein 7.4 6.4-8.2 GM/DL Albumin 3.9 3.2-4.5 GM/DL Lipase 38 8-78 U/L Urine Color YELLOW Urine Clarity CLEAR Urine pH 7.0 5-9 Urine Specific [place] 1.015 L 1.016-1.022 Urine Protein NEGATIVE NEGATIVE Urine Glucose (UA) NEGATIVE NEGATIVE Urine Ketones NEGATIVE NEGATIVE Urine Nitrite NEGATIVE NEGATIVE Urine Bilirubin NEGATIVE NEGATIVE Urine Urobilinogen 0.2 < = 1.0 MG/DL Urine Leukocyte Esterase NEGATIVE NEGATIVE Urine RBC (Auto) TRACE-I H NEGATIVE Urine RBC 2-5 H /HPF Urine WBC RARE /HPF Urine Squamous Epithelial Cells RARE /HPF Urine Crystals NONE /LPF Urine Bacteria NEGATIVE /HPF Urine Casts NONE /LPF Urine Mucus NEGATIVE /LPF Urine Culture Indicated NO Urine Opiates Screen NEGATIVE NEGATIVE Urine Oxycodone Screen NEGATIVE NEGATIVE Urine Methadone Screen NEGATIVE NEGATIVE Urine Propoxyphene Screen NEGATIVE NEGATIVE Urine Barbiturates Screen NEGATIVE NEGATIVE Ur Tricyclic Antidepressants Screen NEGATIVE NEGATIVE Urine Phencyclidine Screen NEGATIVE NEGATIVE Urine Amphetamines Screen NEGATIVE NEGATIVE Urine Methamphetamines Screen NEGATIVE NEGATIVE Urine Benzodiazepines Screen NEGATIVE NEGATIVE Urine Cocaine Screen NEGATIVE NEGATIVE Urine Cannabinoids Screen NEGATIVE NEGATIVE Neutrophils % (Manual) 71 % Lymphocytes % (Manual) 24 % Monocytes % (Manual) 4 % Eosinophils % (Manual) 1 % Polychromasia SLIGHT Hypochromasia SLIGHT Anisocytosis SLIGHT Physical Exam Physical Exam Vital Signs Vital Signs - First Documented 07/13/21 13:51 Temp 35.6 Pulse 78 Resp 18 B/P (MAP) 156/79 (104) Pulse Ox 96 O2 Delivery Room Air Capillary Refill : Less Than 3 Seconds Height, Weight, BMI Height: 5'5.00" Weight: 173lbs. 0.0oz. [id number]; 29.11 BMI Method: General Appearance: No Apparent Distress, WD/WN Eyes: Bilateral Eye Normal Inspection, Bilateral Eye PERRL, Bilateral Eye EOMI HEENT: PERRL/EOMI, TMs Normal, Normal ENT Inspection, Pharynx Normal, Moist Mucous Membranes Neck: Full Range of Motion, Normal Inspection, Non Tender, Supple, Carotid Bruit Respiratory: Chest Non Tender, Normal Breath Sounds, No Accessory Muscle Use, No Respiratory Distress Cardiovascular: Regular Rate, Rhythm, No Edema, No Gallop, No JVD, No Murmur, Normal Peripheral Pulses Gastrointestinal: Normal Bowel Sounds, No Organomegaly, No Pulsatile Mass, Soft, Other (Right side and right lower quadrant tenderness) Back: Normal Inspection, No CVA Tenderness, No Vertebral Tenderness Extremity: Normal Capillary Refill, Normal Inspection, Normal Range of Motion, Non Tender, No Calf Tenderness, No Pedal Edema Neurologic/Psychiatric: Alert, Oriented x3, No Motor/Sensory Deficits, Normal Mood/Affect Skin: Normal Color, Warm/Dry Lymphatic: No Adenopathy A/P-Cardiology Admission Diagnosis Abdominal pain Paroxysmal atrial fibrillation Hypertension Hyperlipidemia Assessment/Plan Spontaneous right rectus hematoma, significant pain. CT scan establish the diagnosis. Does not recall trauma or falling or syncopal episodes. Patient has a history of syncope and unsteady gait in the past. At this point I will hold Xarelto and aspirin and follow-up as an outpatient. Paroxysmal atrial fibrillation, currently in sinus rhythm, she was diagnosed in June 2020, has been maintained on diltiazem, Coreg and Xarelto. I will stop Xarelto and continue on Coreg and Cardizem. Coronary artery disease, mild per cardiac catheterization in October 2016, nonobstructive disease. Continue to monitor [id number] score 3, yearly risk of stroke without oral anticoagulation is 3.2%. Patient cannot tolerate Xarelto at this point. I recommend holding Xarelto for 4 weeks and monitor closely then she will resume oral anticoagulation. She understand the increased risk of stroke at this point. 2D echo was done in October 2020 showing normal LV size, EF 55 to 65%, grade 1 diastolic dysfunction, PA pressure 20 mmHg. Syncope, unsteady gait and fatigue with loss of energy, being treated for major depression and anxiety. Denies any recent syncopal episode. Feeling better at this time. Continue to monitor History of CHF, improving. Currently asymptomatic last echocardiogram showed ejection fraction 55 to 65%. Continue to monitor Hypertension, monitor blood Hyperlipidemia, monitor lipid Mild bilateral carotid stenosis, history of left CEA in 2005, as well as history of left common carotid stenting. Most recent carotid duplex done October 2020. Continue to monitor Diabetes Mellitus-managed by primary care physician Mild renal insufficiency, followed by primary care physician Diabetic neuropathy Fibromyalgia History of pancreatitis. Anxiety, depression seen in the behavioral health clinic JASPREET RIOS MD Jul 14, 2021 08:26
[2021-07-14 08:58] VITALS: BP 110/58
[2021-07-14] MEDS ORDERED: DILT300C26 PO (09:04)
[2021-07-14] MEDS ORDERED: CYAN-41 PO (09:04)
[2021-07-14] MEDS ORDERED: MULT-1136 PO (09:05)
--- NOTE | 2021-07-14 10:12 | History & Physicial ---
History of Present Illness History of Present Illness Date of Admission Jul 13, 2021 at 17:50 I consulted on this patient on 07/14/21 10:12 Attending Physician Jose Ivan MD Admitting Physician Jose Ivan MD Consult Allergies and Home Medications Allergies Coded Allergies: morphine (Verified Allergy, Intermediate, HIVES...TAKES HYDROCODONE AT HOME, 03/20/08) acetaminophen (Verified Allergy, Mild, HIVES...TAKES HYDROCODONE AT HOME, 03/20/08) bacitracin (Verified Allergy, Unknown, 08/16/07) cyproheptadine (Verified Allergy, Unknown, 08/16/07) fluoxetine (Verified Allergy, Unknown, 08/16/07) fluticasone (Verified Allergy, Unknown, metallic taste, 05/19/21) gramicidin D (Verified Allergy, Unknown, 08/16/07) neomycin (Verified Allergy, Unknown, 08/16/07) polymyxin B (Verified Allergy, Unknown, 08/16/07) salmeterol (Verified Allergy, Unknown, metallic taste, 05/19/21) tizanidine (Verified Allergy, Unknown, 08/16/07) tramadol (Verified Allergy, Unknown, 08/16/07) Uncoded Allergies: ARTHRITIS MEDS (Allergy, Unknown, 08/16/07) DECONGESTANTS (Allergy, Unknown, 08/16/07) Patient Home Medication List Aspirin (Aspirin) 81 Mg Tab.chew, 81 MG PO DAILY, (Reported) Entered as Reported by: DAVE AMADOR on 05/19/211123 Last Action: Reviewed Carvedilol (Carvedilol) 6.25 Mg Tablet, 6.25 MG PO BID WITH MEALS, (Reported) Entered as Reported by: DAVE AMADOR on 05/19/21 112 Last Action: Reviewed Cetirizine HCl (Cetirizine HCl) 10 Mg Tablet, 10 MG PO DAILY, (Reported) Entered as Reported by: ANJU RODAS on 05/27/20 1402 Last Action: Reviewed Cholecalciferol (Vitamin D3) (Vitamin D3) 25 Mcg Tablet, 25 MCG PO BID, (Reported) Entered as Reported by: DAVE AMADOR on 05/19/21 112 Last Action: Reviewed Cyanocobalamin (Vitamin B-12) (Vitamin B-12) 1,000 Mcg Tablet, 1,000 MCG PO 1200, (Reported) Entered as Reported by: ANJU RODAS on 07/14/21903 Last Action: Reviewed Diltiazem HCl (Cartia Xt) 300 Mg Cap.er.24h, 300 MG PO 1200, (Reported) Entered as Reported by: ANJU RODAS on 07/14/21903 Last Action: Reviewed Fenofibrate Nanocrystallized (Fenofibrate) 145 Mg Tablet, 145 MG PO 1800 W/MEAL, (Reported) Entered as Reported by: ANJU RODAS on 05/27/201401 Last Action: Reviewed Mirtazapine (Mirtazapine) 30 Mg Tablet, 30 MG PO HS, (Reported) Entered as Reported by: DAVE AMADOR on 05/19/211123 Last Action: Reviewed Montelukast Sodium (Montelukast Sodium) 10 Mg Tablet, 10 MG PO HS, (Reported) Entered as Reported by: KAHLIL BAIG on 10/11/16812 Last Action: Reviewed Multivitamin (Multivitamin) 1 Each Tablet, 1 EACH PO DAILY, (Reported) Entered as Reported by: ANJU RODAS on 07/14/21904 Last Action: Reviewed [place]-3/Dha/Epa/Fish Oil (Fish Oil 1,000 mg Softgel) 1 Each Capsule, 1 EACH PO TID, (Reported) Entered as Reported by: ANJU RODAS on 05/27/201401 Last Action: Reviewed Pantoprazole Sodium (Pantoprazole Sodium) 40 Mg Tablet.dr, 40 MG PO DAILY, (Reported) Entered as Reported by: DAVE AMADOR on 05/19/211123 Last Action: Reviewed Rivaroxaban (Xarelto) 20 Mg Tablet, 20 MG PO 1800 W/MEAL, (Reported) Entered as Reported by: DAVE AMADOR on 05/19/211123 Last Action: Reviewed Ropinirole HCl (Ropinirole HCl) 1 Mg Tablet, 1 MG PO TID, (Reported) Entered as Reported by: KAHLIL BAIG on 10/11/16812 Last Action: Reviewed Rosuvastatin Calcium (Rosuvastatin Calcium) 10 Mg Tablet, 10 MG PO HS, (Reported) Entered as Reported by: ANJU RODAS on 05/27/201401 Last Action: Reviewed Discontinued Medications Albuterol Sulfate (Albuterol Sulfate) 2.5 Mg/3 Ml Vial.neb, 3 ML NEB QID PRN for SHORTNESS OF BREATH, (Reported) Discontinued Reason: No Longer Taking Entered as Reported by: ANJU RODAS on 05/27/20 140 Last Action: Discontinued Cyanocobalamin (Vitamin B-12) (Vitamin B-12) 50 Mcg Lozenge, 100 MCG PO DAILY, (Reported) Discontinued Reason: Prescription changed Entered as Reported by: ANJU RODAS on 05/27/201401 Diltiazem HCl (Diltiazem ER) 300 Mg Tab.er.24h, 300 MG PO DAILY, (Reported) Discontinued Reason: Duplicate Order Entered as Reported by: DAVE AMADOR on 05/19/21 112 Last Action: Discontinued Past [id number]-Iopoqo-Eauqru Hx Patient Social History Marrital Status: Employed/Student: retired Recent Hopitalizations: Yes Have you traveled recently?: No Alcohol Use?: No Pt feels they are or have been: No Immunizations Up To Date Tetanus Booster (TDap): Less than 5yrs Date of Pneumonia Vaccine: Apr 03, 2019 Date of Influenza Vaccine: Apr 03, 2020 Seasonal Allergies Seasonal Allergies: No Surgeries Yes Coronary Stent Respiratory Yes Asthma, COPD, Pneumonia Currently Using CPAP: Yes (oxygen at night) Currently Using BIPAP: No Cardiovascular Yes (L CAROTID) Angina, Coronary Artery Disease, High Cholesterol, Hypertension, Peripheral Vascular, Syncope Neurological No Dementia, Parkinson's Disease 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 System Hx 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 Disorders: No Female 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 Genitourinary No Gastrointestinal Yes Gastroesophageal Reflux, Pancreatitis Musculoskeletal Yes Degenerate Disk Disease, Fibromyalgia Endocrine History of Endocrine Disorders: Yes Endocrine Disorders: Diabetes, Non-Insulin dep HEENT History of HEENT Disorders: No Loss of Vision: Denies Hearing Impairment: Denies Cancer No Psychosocial History of Psychiatric Problem: Yes Behavioral Health Disorders: Anxiety, Depression Integumentary History of Skin or Integumenta: No Blood Transfusions History of Blood Disorders: No Family Medical History Significant Family History: Cancer, CAD Over 55 Years Old, Stroke Family Hx: Cardiovascular disease 19 FATHER Completed stroke 19 MOTHER FH: leukemia 19 MOTHER Physical Exam Vital Signs Vital Signs - First Documented 07/13/21 13:51 Temp 35.6 Pulse 78 Resp 18 B/P (MAP) 156/79 (104) Pulse Ox 96 O2 Delivery Room Air Capillary Refill : Less Than 3 Seconds Height, Weight, BMI Height: 5'5.00" Weight: 173lbs. 0.0oz. 78.799107jp; 29.11 BMI Method: JOSE IVAN MD Jul 14, 2021 10:12
[2021-07-14 11:35] VITALS: BP 116/65
[2021-07-14 14:28] LABS: HEMOGLOBIN 7.6 g/dL (11.5-16.0)
[2021-07-14 16:00] VITALS: BP 134/61
[2021-07-14 20:00] VITALS: BP 140/71
[2021-07-15] VITALS (10 sets, daily range): BP systolic 118–153; BP diastolic 59–74
[2021-07-15] MEDS: 1/2 NS IV SOLUTION 1,000 ML IV SCH ×4 (02:59→18:39)
[2021-07-15 06:09] LABS: HEMATOCRIT 21 % (35-52); MEAN CORPUSCULAR HEMOGLOBIN 31 pg (25-34); MEAN CORPUSCULAR HGB CONC 32 g/dL (32-36); MEAN CORPUSCULAR VOLUME 96 fL (80-99); MEAN PLATELET VOLUME 12.8 fL (9.0-12.2); PLATELET COUNT 179 10^3/uL (130-400); WHITE BLOOD COUNT 11.5 10^3/uL (4.3-11.0)
[2021-07-15 06:11] LABS: HEMOGLOBIN 6.6 g/dL (11.5-16.0)
[2021-07-15 06:27] LABS: ALBUMIN 3.2 GM/DL (3.2-4.5)
[2021-07-15 06:28] LABS: POTASSIUM 4.3 MMOL/L (3.6-5.0)
[2021-07-15 06:29] LABS: CALCIUM 8.3 MG/DL (8.5-10.1)
[2021-07-15 06:30] LABS: TOTAL PROTEIN 5.9 GM/DL (6.4-8.2)
[2021-07-15 06:32] LABS: BILIRUBIN,TOTAL 0.3 MG/DL (0.1-1.0)
[2021-07-15 06:34] LABS: CREATININE SERUM 1.83 MG/DL (0.60-1.30)
[2021-07-15] MEDS ORDERED: NS IV 500 ML 500 ML IV SCH (07:00)
[2021-07-15] MEDS: NS IV 500 ML 500 ML IV NR ×6 (08:41→14:07)
[2021-07-15 12:44] LABS: HEMOGLOBIN 7.7 g/dL (11.5-16.0)
--- NOTE | 2021-07-15 13:09 | Cardiology Progress Note ---
Subjective Date Seen by Provider: Jul 15, 2021 Time Seen by Provider: 13:07 Subjective/Events-last exam Patient is laying down in bed, having abdominal pain. Receiving blood transfusion Review of Systems General: No Chills, No Night Sweats, No Fatigue, No Malaise, No Appetite, No Other HEENT: No Head Aches, No Visual Changes, No Eye Pain, No Ear Pain, No Dysphasia, No Sinus Congestion, No Post Nasal Drip, No Sore Throat, No Other Pulmonary: No Dyspnea, No Cough, No Pleuritic Chest Pain, No Other Cardiovascular: No: Chest Pain, Palpitations, Orthopnea, Paroxysmal Noc. Dyspnea, Edema, Lt Headedness, Other Objective-Cardiology Exam Last Set of Vital Signs Vital Signs 07/15/21 12:00 Temp 35.9 Pulse 104 Resp 20 B/P (MAP) 153/72 (99) Pulse Ox 97 O2 Delivery Nasal Cannula O2 Flow Rate 2.00 I&O Intake and Output 07/15/21 00:00 Intake Total 5150 ml Output Total 1350 ml Balance 3800 ml Intake Oral 1150 ml IV Total 4000 ml Output Urine Total 1350 ml General: Alert, Oriented X3, Cooperative HEENT: Atraumatic, PERRLA Neck: Supple, No JVD, No Thyromegaly Lungs: Clear to Auscultation, Normal Air Movement Heart: Regular Rate, Normal S1, Normal S2, No Murmurs Abdomen: Normal Bowel Sounds, Soft, No Hepatosplenomegaly, No Masses, Other (Right lower quadrant tenderness) Extremities: No Clubbing, No Cyanosis, No Edema, Normal Pulses, No Tenderness/Swelling Skin: No Rashes, No Breakdown, No Significant Lesion Neuro: Normal Gait, Normal Speech, Strength at 5/5 X4 Ext, Normal Tone, Sensation Intact Psych/Mental Status: Mental Status NL, Mood NL Results Lab Laboratory Tests 07/14/21 14:21 07/15/21 05:15 07/15/21 12:36 A/P-Cardiology Admission Diagnosis Abdominal pain Paroxysmal atrial fibrillation Hypertension Hyperlipidemia Assessment/Plan Spontaneous right rectus hematoma, significant pain. CT scan establish the diagnosis. Does not recall trauma or falling or syncopal episodes. Patient has a history of syncope and unsteady gait in the past. Continue with holding oral anticoagulation. Transfuse and monitor H&H Anemia, significant drop in H&H. Continue with transfusion and monitor closely. Paroxysmal atrial fibrillation, currently in sinus rhythm, she was diagnosed in June 2020, has been maintained on diltiazem, Coreg and Xarelto. Currently Xarelto was discontinued and continue on Coreg and Cardizem and monitor Coronary artery disease, mild per cardiac catheterization in October 2016, nonobstructive disease. Continue to monitor [id number] score 3, yearly risk of stroke without oral anticoagulation is 3.2%. Patient cannot tolerate Xarelto at this point. I recommend holding Xarelto for 4 weeks and monitor closely then she will resume oral anticoagulation. She understand the increased risk of stroke at this point. 2D echo was done in October 2020 showing normal LV size, EF 55 to 65%, grade 1 diastolic dysfunction, PA pressure 20 mmHg. Syncope, unsteady gait and fatigue with loss of energy, being treated for major depression and anxiety. Denies any recent syncopal episode. Feeling better at this time. Continue to monitor History of CHF, improving. Currently asymptomatic last echocardiogram showed ejection fraction 55 to 65%. Continue to monitor Hypertension, monitor blood Hyperlipidemia, monitor lipid Mild bilateral carotid stenosis, history of left CEA in 2005, as well as history of left common carotid stenting. Most recent carotid duplex done October 2020. Continue to monitor Diabetes Mellitus-managed by primary care physician Mild renal insufficiency, followed by primary care physician Diabetic neuropathy Fibromyalgia History of pancreatitis. Anxiety, depression seen in the behavioral health clinic JASPREET RIOS MD Jul 15, 2021 13:09
[2021-07-16 00:14] VITALS: BP 151/65
[2021-07-16] MEDS: 1/2 NS IV SOLUTION 1,000 ML IV SCH ×2 (00:47→07:01)
[2021-07-16 04:44] VITALS: BP 114/63
[2021-07-16 06:06] LABS: HEMOGLOBIN 7.1 g/dL (11.5-16.0)
--- NOTE | 2021-07-16 07:08 | Cardiology Progress Note ---
Subjective Date Seen by Provider: Jul 16, 2021 Time Seen by Provider: 07:07 Subjective/Events-last exam Patient is laying down in bed, reporting some improvement in her abdominal pain Review of Systems General: No Chills, No Night Sweats; Fatigue; No Malaise, No Appetite, No Other HEENT: No Head Aches, No Visual Changes, No Eye Pain, No Ear Pain, No Dysphasia, No Sinus Congestion, No Post Nasal Drip, No Sore Throat, No Other Pulmonary: No Dyspnea, No Cough, No Pleuritic Chest Pain, No Other Cardiovascular: No: Chest Pain, Palpitations, Orthopnea, Paroxysmal Noc. Dyspnea, Edema, Lt Headedness, Other Objective-Cardiology Exam Last Set of Vital Signs Vital Signs 07/16/21 04:44 Temp 37.6 Pulse 90 Resp 20 B/P (MAP) 114/63 (80) Pulse Ox 94 O2 Delivery Nasal Cannula O2 Flow Rate 2.00 I&O Intake and Output 07/16/21 00:00 Intake Total 3190 ml Output Total 3400 ml Balance -210 ml Intake Oral 1190 ml IV Total 2000 ml Output Urine Total 3400 ml General: Alert, Oriented X3, Cooperative HEENT: Atraumatic, PERRLA Neck: Supple, No JVD, No Thyromegaly Lungs: Clear to Auscultation, Normal Air Movement Heart: Regular Rate, Normal S1, Normal S2, No Murmurs Abdomen: Normal Bowel Sounds, Soft, No Hepatosplenomegaly, No Masses, Other (R ight lower quadrant tenderness) Extremities: No Clubbing, No Cyanosis, No Edema, Normal Pulses, No Tenderness/Swelling Skin: No Rashes, No Breakdown, No Significant Lesion Neuro: Normal Gait, Normal Speech, Strength at 5/5 X4 Ext, Normal Tone, Sensation Intact Psych/Mental Status: Mental Status NL, Mood NL Results Lab Laboratory Tests 07/15/21 12:36 07/16/21 05:40 A/P-Cardiology Admission Diagnosis Abdominal pain Paroxysmal atrial fibrillation Hypertension Hyperlipidemia Assessment/Plan Spontaneous right rectus hematoma, significant pain. CT scan establish the diagnosis. Does not recall trauma or falling or syncopal episodes. Patient has a history of syncope and unsteady gait in the past. Continue with holding oral anticoagulation. Transfuse and monitor H&H Anemia, received 1 unit of packed RBCs yesterday, monitor and transfuse as needed Paroxysmal atrial fibrillation, currently in sinus rhythm, she was diagnosed in June 2020, has been maintained on diltiazem, Coreg and Xarelto. Currently Xarelto was discontinued and continue on Coreg and Cardizem and monitor Coronary artery disease, mild per cardiac catheterization in October 2016, nonobstructive disease. Continue to monitor [id number] score 3, yearly risk of stroke without oral anticoagulation is 3.2%. Patient cannot tolerate Xarelto at this point. I recommend holding Xarelto for 4 weeks and monitor closely then she will resume oral anticoagulation. She understand the increased risk of stroke. 2D echo was done in October 2020 showing normal LV size, EF 55 to 65%, grade 1 diastolic dysfunction, PA pressure 20 mmHg. Syncope, unsteady gait and fatigue with loss of energy, being treated for major depression and anxiety. Denies any recent syncopal episode. Feeling better at this time. Continue to monitor History of CHF, improving. Currently asymptomatic last echocardiogram showed ejection fraction 55 to 65%. Continue to monitor Hypertension, monitor blood Hyperlipidemia, monitor lipid Mild bilateral carotid stenosis, history of left CEA in 2005, as well as history of left common carotid stenting. Most recent carotid duplex done October 2020. Continue to monitor Diabetes Mellitus-managed by primary care physician Mild renal insufficiency, followed by primary care physician Diabetic neuropathy Fibromyalgia History of pancreatitis. Anxiety, depression seen in the behavioral health clinic JASPREET RIOS MD Jul 16, 2021 07:08
[2021-07-16 07:45] VITALS: BP 161/73
[2021-07-16] MEDS ORDERED: HYDROCORTISONE 100 MG/2 ML (Solu-CORTEF) VIAL IV PRN (08:30)
[2021-07-16] MEDS ORDERED: RT-ALBUTEROL SULF 2.5 MG/3 ML PRE-MIX VIAL IH PRN (08:30)
[2021-07-16] MEDS ORDERED: EPINEPHrine INJECTION 1 MG/ML AMP IM PRN (08:30)
[2021-07-16] MEDS ORDERED: NS IV 500 ML 500 ML IV SCH (08:30)
[2021-07-16] MEDS ORDERED: diphenhydrAMINE 50 MG/ML INJ (BENADRYL) IV PRN (08:30)
[2021-07-16] MEDS ORDERED: IRON DEXTRAN INJECTION 1,000 MG in NS (IVPB) 250 ML IV NR (08:40)
[2021-07-16] MEDS ORDERED: IRON DEXTRAN INJECTION 25 MG in NS (IVPB) 5.75 ML IV NR (08:41)
[2021-07-16] MEDS ORDERED: OXC5T PO (09:32)
--- NOTE | 2021-07-16 09:34 | Discharge Inst-Simple/Standard ---
Discharge Inst-Standard Reconcile Patient Problems Problems Reviewed?: Yes Discharge Medications New, Converted or Re-Newed RX: Transmitted to Pharmacy Patient Instructions/Follow Up Plan of Care/Instructions/FU: 1 wk [facility] 2 wk cardiology Activity as Tolerated: Yes Discharge Diet: Regular Diet Return to The Hospital For: any recurrent abdominal pain, nausea, chest pain, or life threatening illness or injury JOSE IBARRA MD Jul 16, 2021 09:34
[2021-07-16 13:35] VITALS: BP 171/74
[2021-07-16] MEDS: ONDANSETRON 4 MG/2 ML (SDV) Z0FRAN IV PRN (14:28)
[2021-07-16 15:35] VITALS: BP 152/69
[2021-07-16] MEDS ORDERED: LORATADINE (CLARITIN) 10 MG TAB PO ONE (16:00)
[2021-07-16] MEDS ORDERED: predniSONE 20 MG TAB PO ONE (16:00)
== END 2021-07-16 16:45 | disposition home or self-care (01) | DRG 395 ==
LOC: EDUNIT# 13:13 → ER 13:14 → 4TH 17:50 → OBSVTOIN 07-15 14:03
PROVIDERS: ADMIT Family Medicine; ATTEND Family Medicine
DX: S36.62XA Contusion of rectum, initial encounter (principal); I48.0 Paroxysmal atrial fibrillation; I25.10 Atherosclerotic heart disease of native coronary artery without angina pectoris; R55 Syncope and collapse; I50.9 Heart failure, unspecified; I65.23 Occlusion and stenosis of bilateral carotid arteries; N28.9 Disorder of kidney and ureter, unspecified; E11.40 Type 2 diabetes mellitus with diabetic neuropathy, unspecified; M79.7 Fibromyalgia; F41.9 Anxiety disorder, unspecified; F32.A Depression, unspecified; I11.0 Hypertensive heart disease with heart failure; D64.9 Anemia, unspecified; J44.9 Chronic obstructive pulmonary disease, unspecified; E78.00 Pure hypercholesterolemia, unspecified; G20 Parkinson's disease; F02.80 Dementia in other diseases classified elsewhere, unspecified severity, without behavioral disturbance, psychotic disturbance, mood disturbance, and anxiety; K21.9 Gastro-esophageal reflux disease without esophagitis; R26.9 Unspecified abnormalities of gait and mobility; Z79.01 Long term (current) use of anticoagulants; Z79.82 Long term (current) use of aspirin; Z79.899 Other long term (current) drug therapy; Z95.5 Presence of coronary angioplasty implant and graft
CPT/HCPCS: 36415; 36430; 74176; 80048; 80053; 80306; 81000; 83540; 83690; 85007; 85014; 85018; 85025; 85027; 86141; 86850; 86900; 86901; 86920; 93005; 94760; G0378

== ENCOUNTER 2021-08-12 09:07 | Day surgery (SDC) | payer MEDICARE ==
[~2021-08-12] VITALS: Ht 167.6 cm; Wt 76.8 kg
[~2021-08-12 09:07] MED LIST changes: +CYAN-41 PO; +DILT300C26 PO; +OXC5T PO
[2021-08-12] MEDS ORDERED: LIDOCAINE 1% INJ 20 ML VIAL ONE (09:28)
[2021-08-12 09:36] VITALS: BP 151/91
--- NOTE | 2021-08-12 10:42 | Implantation of Loop Monitor ---
Implant of Loop Monitior IMPLANTATION OF LOOP MONITOR REPORT DATE OF PROCEDURE: 08/12/21 PREOP DIAGNOSIS: Paroxysmal atrial fibrillation POSTOP DIAGNOSIS: Paroxysmal atrial fibrillation PROCEDURE DETAILS: The patient is a 71 female with history of paroxysmal atrial fibrillation requiring long-term surveillance. Therefore implantable loop recorder was discussed and agreed with the patient. Informed consent was taken. All risks and complications were discussed at length. The patient was draped and prepped in the usual sterile fashion. Local anesthesia was lidocaine, which was given in the substernal area close to the 4th intercostal space. Loop monitor [employer] with serial number [id number] was implanted according to the protocol. Steri- Strips were placed at the end of the procedure. There were no complications and the patient tolerated the procedure well. The device was interrogated with a voltage of. ANESTHESIA: Local anesthesia with lidocaine. COMPLICATIONS: None CONTRAST/FLUOROSCOPY: None CONCLUSION: Successful implantation of loop monitor with no complication FINAL DIAGNOSIS: Paroxysmal atrial fibrillation Palpitation JASPREET RIOS MD Aug 12, 2021 10:42
== END 2021-08-12 10:29 ==
LOC: CATH 09:07
PROVIDERS: ATTEND Internal Medicine Cardiovascular Disease
DX: I48.0 Paroxysmal atrial fibrillation (principal); I25.10 Atherosclerotic heart disease of native coronary artery without angina pectoris; R55 Syncope and collapse; I50.9 Heart failure, unspecified; I11.0 Hypertensive heart disease with heart failure; I50.32 Chronic diastolic (congestive) heart failure; E78.5 Hyperlipidemia, unspecified; E11.9 Type 2 diabetes mellitus without complications; E11.40 Type 2 diabetes mellitus with diabetic neuropathy, unspecified; M79.7 Fibromyalgia; N28.9 Disorder of kidney and ureter, unspecified; F41.9 Anxiety disorder, unspecified; Z79.82 Long term (current) use of aspirin; Z79.899 Other long term (current) drug therapy
CPT/HCPCS: 33285; C1764

== ENCOUNTER → 2021-10-20 | Outpatient (CLI) | payer MEDICARE ==
--- NOTE | 2021-10-20 12:19 | Diagnostic Imaging Report ---
INDICATION: Routine screening. COMPARISON: 09/12/2020 and 05/18/2019. TECHNIQUE: 2D and 3D bilateral screening mammography was performed with CAD. FINDINGS: Both breasts are heterogeneously dense, limiting the sensitivity of mammography. A cardiac loop recorder overlies the medial left breast. A density in the central right breast just superior to the nipple line on the MLO view appears slightly more prominent on today's exam. No definite correlate on the CC view is seen. The left breast is unremarkable. There are benign calcifications bilaterally. No malignant-appearing microcalcifications are seen. The axillae are unremarkable. IMPRESSION: Right breast density. Additional views are recommended for further evaluation. ACR BI-RADS Category 0: Incomplete. (Needs additional imaging evaluation). Result letter will be mailed to the patient. Note: At least 10% of breast cancer is not imaged by mammography. Dictated by: Dictated on workstation # [id number]
== END ==
LOC: RAD 10:33
PROVIDERS: ATTEND Nurse Practitioner Family
DX: Z12.31 Encounter for screening mammogram for malignant neoplasm of breast (principal)
CPT/HCPCS: 77063; 77067

== ENCOUNTER → 2021-10-28 | Outpatient (CLI) | payer MEDICARE ==
--- NOTE | 2021-10-28 14:17 | Diagnostic Imaging Report ---
INDICATION: Right breast density. Patient presents for additional views. Correlation is made with screening study from 10/20/2021. Unilateral right 2-D and 3-D diagnostic mammography was performed. This includes spot compression, ML as well as conventional 90 degrees lateral views. Additional views fail to demonstrate a discrete mass. Area of density noted on the MLO view most likely represent superimposed tissue. There are benign calcifications present. IMPRESSION: BI-RADS Category 2 No mammographic features suspicious for malignancy are identified. ACR BI-RADS Category 2: Benign findings. Result letter will be mailed to the patient. Note: At least 10% of breast cancer is not imaged by mammography. Dictated by: Dictated on workstation # [id number]
== END ==
LOC: RAD 13:15
PROVIDERS: ATTEND Nurse Practitioner Family
DX: R92.2 Inconclusive mammogram (principal)
CPT/HCPCS: 77065; G0279

== ENCOUNTER → 2021-11-27 | Outpatient (CLI) | payer MEDICARE ==
[~2021-11-27] MED LIST changes: -QUIN10TA14 PO; +QUIN10TA31 PO; -QUIN20TA16 PO; +QUIN20TA36 PO
[2021-11-27 13:26] LABS: HEMATOCRIT 37 % (35-52); HEMOGLOBIN 12.3 g/dL (11.5-16.0); MEAN CORPUSCULAR HEMOGLOBIN 31 pg (25-34); MEAN CORPUSCULAR HGB CONC 33 g/dL (32-36); MEAN CORPUSCULAR VOLUME 93 fL (80-99); MEAN PLATELET VOLUME 12.1 fL (9.0-12.2); PLATELET COUNT 250 10^3/uL (130-400)
[2021-11-27 13:29] LABS: BILIRUBIN,URINE NEGATIVE (NEGATIVE); CLARITY,URINE CLEAR; COLOR,URINE YELLOW; GLUCOSE, URINE (UA) NEGATIVE (NEGATIVE); KETONES,URINE NEGATIVE (NEGATIVE); LEUKOCYTE ESTERASE ,URINE 1+ (NEGATIVE); NITRITE,URINE POSITIVE (NEGATIVE); PH,URINE 6.5 (5-9); PROTEIN,URINE NEGATIVE (NEGATIVE)
[2021-11-27 13:44] LABS: MAGNESIUM 1.6 MG/DL (1.6-2.4); URIC ACID 5.9 MG/DL (2.6-7.2)
[2021-11-27 13:50] LABS: BACTERIA,URINE LARGE /HPF; RBC,URINE RARE /HPF
== END ==
LOC: LAB 12:43
PROVIDERS: ATTEND Nurse Practitioner
DX: N18.32 Chronic kidney disease, stage 3b (principal)
CPT/HCPCS: 36415; 80061; 81000; 82306; 82570; 83735; 83970; 84156; 84550; 85027; 87077; 87088; 87186

== ENCOUNTER → 2021-12-25 | Outpatient (CLI) | payer MEDICARE ==
[2021-12-25 13:47] LABS: BILIRUBIN,URINE NEGATIVE (NEGATIVE); CLARITY,URINE CLEAR; COLOR,URINE YELLOW; GLUCOSE, URINE (UA) NEGATIVE (NEGATIVE); KETONES,URINE NEGATIVE (NEGATIVE); LEUKOCYTE ESTERASE ,URINE NEGATIVE (NEGATIVE); NITRITE,URINE NEGATIVE (NEGATIVE); PROTEIN,URINE NEGATIVE (NEGATIVE)
[2021-12-25 13:56] LABS: BACTERIA,URINE NEGATIVE /HPF; SQUAMOUS EPITHELIAL CELL,UR 0-2 /HPF; WBC,URINE 0-2 /HPF
== END ==
LOC: LAB 13:10
PROVIDERS: ATTEND Nurse Practitioner
DX: N39.0 Urinary tract infection, site not specified (principal)
CPT/HCPCS: 81000

== ENCOUNTER → 2022-03-03 | Outpatient (CLI) | payer MEDICARE ==
[~2022-03-03] MED LIST changes: +CATHETER FLUSH 10 ML SYR IVP PRN; +REGADENOSON 0.4 MG/5 ML SYR (LEXISCAN) IV ONE
[2022-03-03 12:12] LABS: ALBUMIN 4.2 GM/DL (3.2-4.5)
[2022-03-03 12:14] LABS: TOTAL PROTEIN 7.9 GM/DL (6.4-8.2)
[2022-03-03 12:16] LABS: BILIRUBIN,TOTAL 0.5 MG/DL (0.1-1.0)
[2022-03-03 12:18] LABS: CREATININE SERUM 1.44 MG/DL (0.60-1.30)
[2022-03-03 13:39] VITALS: BP 148/77
--- NOTE | 2022-03-03 17:15 | Cardiology Stress Test Report ---
Stress Test Report Date of Procedure/Referring: Date of Procedure: Mar 03, 2022 PCP Jose Ivan MD Admitting Physician Admitting Physician: Attending Physician: Gissell Khoury Indications: CP Baseline Heart Rate: 85 Baseline Blood Pressure: Blood Pressure Systolic: 148 Blood Pressure Diastolic: 77 Baseline Vitals Vital Signs Date Time Temp Pulse Resp B/P (MAP) Pulse Ox O2 Delivery O2 Flow Rate FiO2 03/03/22 13:39 110 148/77 (100) Baseline EKG: Baseline EKG: NSR Summary After explaining the procedure to the patient, she signed a consent and then brought to the stress nuclear laboratory. Patient received 0.4 mg Lexiscan for stress test, ECG, heart rate and blood pressure were monitored continuously. Resting and stress dose of radio tracer were injected, imaging was acquired and reviewed in short axis, horizontal long axis and vertical long axis views. TID: 0.93 SSS: 13 SDS: 8 EF: 66 1. Patient tolerated Lexiscan well 2. Decreased uptake involving the whole anterior wall and true apex and true apex with mild reversibility. There is extracardiac attenuation affecting the quality of the images. 3. Normal left ventricular size, ejection fraction 66% Copy Copies To 1: JOSE IVAN MD, BASHAR J MD Mar 03, 2022 17:15
== END ==
LOC: CARD 11:03
PROVIDERS: ATTEND Physician Assistant
DX: I11.0 Hypertensive heart disease with heart failure (principal); I50.32 Chronic diastolic (congestive) heart failure; I65.29 Occlusion and stenosis of unspecified carotid artery; E78.2 Mixed hyperlipidemia
CPT/HCPCS: 78452; 80053; 80061; 93017; A9502; 36415

== ENCOUNTER → 2022-03-03 | Outpatient (CLI) | payer MEDICARE ==
[~2022-03-03] MED LIST changes: -CATHETER FLUSH 10 ML SYR IVP PRN; -REGADENOSON 0.4 MG/5 ML SYR (LEXISCAN) IV ONE
[2022-03-03 11:40] LABS: HEMATOCRIT 40 % (35-52); HEMOGLOBIN 13.6 g/dL (11.5-16.0); MEAN CORPUSCULAR HEMOGLOBIN 32 pg (25-34); MEAN CORPUSCULAR HGB CONC 34 g/dL (32-36); MEAN CORPUSCULAR VOLUME 93 fL (80-99); MEAN PLATELET VOLUME 12.4 fL (9.0-12.2); PLATELET COUNT 232 10^3/uL (130-400); WHITE BLOOD COUNT 8.3 10^3/uL (4.3-11.0)
[2022-03-03 11:46] LABS: BILIRUBIN,URINE NEGATIVE (NEGATIVE); CLARITY,URINE CLEAR; COLOR,URINE YELLOW; GLUCOSE, URINE (UA) NEGATIVE (NEGATIVE); KETONES,URINE TRACE (NEGATIVE); LEUKOCYTE ESTERASE ,URINE 2+ (NEGATIVE); NITRITE,URINE POSITIVE (NEGATIVE); PH,URINE 5.5 (5-9); PROTEIN,URINE TRACE (NEGATIVE)
[2022-03-03 12:08] LABS: BACTERIA,URINE LARGE /HPF; RBC,URINE RARE /HPF; WBC,URINE 25-50 /HPF
[2022-03-03 12:20] LABS: HYALINE CASTS, URINE 0-2 /LPF; RENAL EPITHELIAL CELLS,URINE RARE /HPF; SQUAMOUS EPITHELIAL CELL,UR RARE /HPF; WHITE BLOOD CELL CASTS, URINE 0-2 /LPF
[2022-03-03 12:29] LABS: ALBUMIN 4.1 GM/DL (3.2-4.5)
[2022-03-03 12:30] LABS: POTASSIUM 3.9 MMOL/L (3.6-5.0)
[2022-03-03 12:31] LABS: CALCIUM 9.9 MG/DL (8.5-10.1)
[2022-03-03 12:35] LABS: PHOSPHORUS 2.9 MG/DL (2.3-4.7)
[2022-03-03 12:36] LABS: CREATININE SERUM 1.42 MG/DL (0.60-1.30)
== END ==
LOC: LAB 11:11
PROVIDERS: ATTEND Nurse Practitioner
DX: N18.32 Chronic kidney disease, stage 3b (principal)
CPT/HCPCS: 36415; 80069; 81000; 82306; 82570; 83970; 84156; 85027; 87077; 87088; 87186

== ENCOUNTER 2022-03-17 10:00 | Day surgery (SDC) | payer MEDICARE ==
[2022-03-17] VITALS (12 sets, daily range): BP systolic 105–150; BP diastolic 66–82
[~2022-03-17] VITALS: Ht 167.6 cm; Wt 78.1 kg
[2022-03-17 08:40] LABS: HEMATOCRIT 41 % (35-52); HEMOGLOBIN 13.6 g/dL (11.5-16.0); MEAN CORPUSCULAR HEMOGLOBIN 32 pg (25-34); MEAN CORPUSCULAR HGB CONC 33 g/dL (32-36); MEAN CORPUSCULAR VOLUME 95 fL (80-99); MEAN PLATELET VOLUME 11.9 fL (9.0-12.2); PLATELET COUNT 271 10^3/uL (130-400); WHITE BLOOD COUNT 9.9 10^3/uL (4.3-11.0)
[2022-03-17 08:41] LABS: BILIRUBIN,URINE NEGATIVE (NEGATIVE); CLARITY,URINE CLEAR; COLOR,URINE YELLOW; GLUCOSE, URINE (UA) NEGATIVE (NEGATIVE); KETONES,URINE NEGATIVE (NEGATIVE); LEUKOCYTE ESTERASE ,URINE TRACE (NEGATIVE); NITRITE,URINE NEGATIVE (NEGATIVE); PH,URINE 5.5 (5-9); PROTEIN,URINE NEGATIVE (NEGATIVE)
[2022-03-17 08:51] LABS: BACTERIA,URINE NEGATIVE /HPF
--- NOTE | 2022-03-17 08:53 | Cardiac Procedure Note-CS/ASA ---
Pre-Procedure Note Pre-Op Procedure Note Date of Available H&P: Mar 09, 2022 Date H&P Reviewed: Mar 17, 2022 Time H&P Reviewed: 08:53 History & Physical: H&P Reviewed, Patient Examed, No changes noted Pre-Operative Diagnosis: CAD Conscious Sedation Pre-Proced Time 08:53 ASA Score 3 For ASA 3 and 4: Consider anesthesia and medical clearance. Also, for patients with a history of failed moderate sedation consider anesthesia. Airway Lungs Heart ASA score ASA 1: a normal healthy patient ASA 2: a patient with a mild systemic disease (mid diabetes, controlled hypertension, obesity ASA 3: a patient with a severe systemic disease that limits activity (angina, COPD, prior Myocardial infarction) ASA 4: a patient with an incapacitating disease that is a constant threat to life (CHF, renal failure) ASA 5: a moribund patient not expected to survive 24 hrs. (ruptured aneurysm) ASA 6: a declared brain- patient whose organs are being harvested. For emergent operations, add the letter E after the classification Mallampati Classification Grade 3 Sedation Plan Analgesia, Amnesia, Plan communicated to team members, Discussed options with patient/fam, Discussed risks with patient/fam The patient is an appropriate candidate to undergo the planned procedure, sedation, and anesthesia. The patient immediately re-assessed prior to indication. JASPREET RIOS MD Mar 17, 2022 08:53
[2022-03-17 08:56] LABS: INR 1.1 (0.8-1.4); PROTHROMBIN TIME PATIENT 14.7 SEC (12.2-14.7)
[2022-03-17 09:05] LABS: ALBUMIN 4.1 GM/DL (3.2-4.5); BILIRUBIN,TOTAL 0.5 MG/DL (0.1-1.0); CALCIUM 9.9 MG/DL (8.5-10.1); CREATININE SERUM 1.48 MG/DL (0.60-1.30); POTASSIUM 3.9 MMOL/L (3.6-5.0); TOTAL PROTEIN 7.8 GM/DL (6.4-8.2)
--- NOTE | 2022-03-17 09:16 | Diagnostic Imaging Report ---
Indication: Pre-heart catheterization. Time of Exam: 8:35 AM Correlation is made with prior chest 06/27/2020. Heart is enlarged. Left hemidiaphragm is chronically elevated. There is some subsegmental atelectasis left base. The lungs are otherwise clear. No effusion or pneumothorax is seen. There are multiple surgical clips overlying the left supraclavicular region. IMPRESSION: Elevated left hemidiaphragm with left basilar subsegmental atelectasis. Dictated by: Dictated on workstation # [id number]
[~2022-03-17 10:00] MED LIST changes: +DOXY100C5 PO; +HEParin (CATH LAB) 2,000 ML IV ONE; +HEParin 1000 UNIT/ML (10ML VIAL) FOR BOLUS ONE; +LACT1CAP72 PO; +LIDOCAINE 1% INJ 20 ML VIAL ONE; +MIDAZOLAM 2 MG/2 ML (VERSED) VIAL ONE; +MIRT-68 PO; +NF-ALLE180 PO; +NITRO DRIP 25000 MCG/D5W 250 ML IV ONE; +NS IV 1000 ML 1,000 ML IV SCH; +NS IV 1000 ML 1,000 ML ONE; +RT-ALBUINH IH; +TETR15DR80 OP; +VERAPAMIL 5 MG/2 ML (CALAN) VIAL IV ONE; +fentaNYL INJ 100 MCG/2 ML AMP ONE
--- NOTE | 2022-03-17 10:01 | Discharge Inst-Post CATH ---
Discharge Inst-CATH/EP Problems Reviewed?: Yes Post Cardiac Cath/EP D/C Inst Follow Up/Plan Appointment with Dr. Crump's office in 2 to 4 weeks <b>CARDIAC CATH/EP PROCEDURE DISCHARGE INSTRUCTIONS</b> ACTIVITY * Go Home directly and rest. * Limit activity of the leg (or wrist if it was used) for 7 days including aer obics, swimming, jogging, bicycling, etc. * Restrict stair-climbing for 7 days if possible, if not, climb up with your non-cath leg, then bring together on the same step. * Avoid lifting, pushing, pulling or excessive movement of the affected extremi ty for 7 days. * Customary sexual activity may be resumed after 2 days-use caution not to use a position that strains or causes pain to the affected extremity. * No driving for 24 hours. * NO SMOKING. * Avoid straining for bowel movements for 7 days. * Gentle walking on level ground is allowed. * Returning to work will depend on the type of procedure and the results. Your doctor will discuss this with you. CALL YOUR DOCTOR FOR ANY OF THE FOLLOWING: *If bleeding from the puncture site occurs- Apply gentle pressure to site with clean cloth and call your doctor or EMS. * If a knot or lump forms under the skin, increases in size, or causes pain. * If bruising appears to be worsening or moving further down your leg instead of disappearing. * Temperature above 101 F. CARE OF YOUR GROIN INCISION; * Bruising or purple discoloration of the skin near the puncture site is common. * You may shower only, no bathtub bathing for 5 days. Be careful to avoid slipping as your leg may feel stiff. * If a closure device was used on your femoral artery, please see the attached guide regarding care of the device and your leg. * Leave dressing on FOR 24 hours. CARE OF YOUR WRIST INCISION; * Bruising or purple discoloration of the skin near the puncture site is common. * You may shower. * DO NOT submerge wrist. * Leave dressing on FOR 24 hours. JASPREET CRUMP MD Mar 17, 2022 10:01
--- NOTE | 2022-03-17 10:04 | Cardiac Cath Report ---
Cardiac Cath Report Physician (s)/Shed Boss (s) Physician JASPREET RIOS MD Pre-Procedure Diagnosis Pre-Procedure Diagnosis: CAD Post-Procedure Note Procedure Start Date: Mar 17, 2022 Procedure Start Time: 10:02 Name of Procedure: Left heart catheterization Findings/Procedure Note PROCEDURE NOTE: 72-year-old lady with history of coronary artery disease, had an abnormal stress test, scheduled for cardiac catheterization possible PTCA. After explaining the procedure to the patient, all pros and cons were explained, all questions were answered. The patient signed the consent and then she was placed on the cardiac catheterization laboratory. Groin was prepped SL fashion local anesthesia was used. Sheath placed in the right radial artery, had tortuous brachiocephalic and subclavian artery, Stafford catheter was used advanced to the left ventricular cavity, pressure was measured, pullback LV to aorta was done, engage the left coronary system and angiogram was done. I exchanged the catheter over a long J-wire and used Rodrigo right catheter and engage the right coronary artery and angiogram was done. At the end of the procedure the sheath was removed. Vascular band was used FINDINGS: Hemodynamics LV 98/8, end-diastolic pressure of 8 Aorta 97/58 mean of 74 ANATOMY: Left Main is free of obstructive disease Left Anterior Descending slightly tortuous with mild disease nonobstructive disease Left Circumflex has mild disease nonobstructive disease Right Coronary Artery is dominant artery with mild calcification proximally, mild disease nonobstructive disease LV Gram was not done, pressure was measured CONCLUSION: 1. Mild coronary artery disease nonobstructive disease, mildly calcified right coronary artery 2. Normal left ventricular end-diastolic pressure DISCUSSION AND RECOMMENDATION: Abnormal stress test is probably due to extracardiac attenuation, medical therapy is recommended no intervention is needed Anesthesia Type: Conscious Sedation Estimated blood loss (mL): 10 ml Contrast Amount: 22 ml Total Radiation Dose: 379 mGy Post-Procedure Diagnosis Post-operative diagnosis: Chest pain Coronary artery disease Hypertension Hyperlipidemia JASPREET RIOS MD Mar 17, 2022 10:04
== END 2022-03-17 15:20 | disposition home or self-care (01) ==
LOC: CATH 10:00 → CSD 10:15 → CATH 15:20
PROVIDERS: ATTEND Internal Medicine Cardiovascular Disease
DX: I25.10 Atherosclerotic heart disease of native coronary artery without angina pectoris (principal); I13.0 Hypertensive heart and chronic kidney disease with heart failure and stage 1 through stage 4 chronic kidney disease, or unspecified chronic kidney disease; I50.32 Chronic diastolic (congestive) heart failure; N18.9 Chronic kidney disease, unspecified; E78.2 Mixed hyperlipidemia; I48.0 Paroxysmal atrial fibrillation; I65.23 Occlusion and stenosis of bilateral carotid arteries; F33.9 Major depressive disorder, recurrent, unspecified; F41.9 Anxiety disorder, unspecified; E11.22 Type 2 diabetes mellitus with diabetic chronic kidney disease; E11.40 Type 2 diabetes mellitus with diabetic neuropathy, unspecified; M79.7 Fibromyalgia; Z79.899 Other long term (current) drug therapy
CPT/HCPCS: 71045; 80053; 81000; 85027; 85610; 85730; 87081; 93005; 93458; C1894; 36415

== ENCOUNTER → 2022-10-26 | Outpatient (CLI) | payer MEDICARE ==
[~2022-10-26] MED LIST changes: +ALBU8.5H6 IH; -HEParin (CATH LAB) 2,000 ML IV ONE; -HEParin 1000 UNIT/ML (10ML VIAL) FOR BOLUS ONE; -LIDOCAINE 1% INJ 20 ML VIAL ONE; -MIDAZOLAM 2 MG/2 ML (VERSED) VIAL ONE; -NITRO DRIP 25000 MCG/D5W 250 ML IV ONE; -NS IV 1000 ML 1,000 ML IV SCH; -NS IV 1000 ML 1,000 ML ONE; -RT-ALBUINH IH; -VERAPAMIL 5 MG/2 ML (CALAN) VIAL IV ONE; -fentaNYL INJ 100 MCG/2 ML AMP ONE
--- NOTE | 2022-10-26 13:43 | Diagnostic Imaging Report ---
INDICATION: Routine screening. COMPARISON: 10/20/2021 and 09/12/2020. TECHNIQUE: 2D and 3D bilateral screening mammography was performed with CAD. FINDINGS: Both breasts are heterogeneously dense, limiting the sensitivity of mammography. There are bilateral breast calcifications. The overall parenchymal pattern appears to be stable. No dominant mass or malignant-appearing microcalcifications are seen. The axillae are unremarkable. IMPRESSION: No mammographic features suspicious for malignancy are identified. ACR BI-RADS Category 2: Benign findings. Result letter will be mailed to the patient. Note: At least 10% of breast cancer is not imaged by mammography. Dictated by: Dictated on workstation # [id number]
== END ==
LOC: RAD 10:05
PROVIDERS: ATTEND Nurse Practitioner
DX: Z12.31 Encounter for screening mammogram for malignant neoplasm of breast (principal)
CPT/HCPCS: 77063; 77067